=== PATIENT | female | born 1940 | race Caucasian/White ===

== ENCOUNTER 2017-12-15 16:42 | Inpatient (IN) | payer MEDICARE, OTHER ==
[~2017-12-15] VITALS: Ht 167.6 cm; Wt 53.2 kg
[~2017-12-15 16:42] MED LIST: AC500T; ACYC5CRE2 TP; ALEN70TA2 PO; ALN70T PO; ALPR.25T PO; ALPR0.25 PO; ASPI-86 PO; ATOR40TA PO; CALC-80 PO; CALC-850 PO; CHOL200025 PO; CHOL400C8 PO; CLPD75T PO; COQ10 PO; CRS350T PO; CYCL10TA9 PO; DCS100C; DOCU100T7 PO; DULO60CA6 PO; ENXP40I.4 SC; ESZO3TAB3 PO; EZET10TA5 PO; FENO48TA2 PO; FENT-7 TD; FISH1CAP15 PO; FLC1T PO; FLD5TCR PO; FOLI0.4T2; FRSM20T; FURO20TA4 PO; GABA-488 PO; GBPN300C; GLUC1CAP37; GLUC1TAB29 PO; HCT25T PO; HYDR1CAP2; HYDR1TAB66 PO; INSULIN PEN; ISOS30TA3 PO; ISOS30TA74 PO; KCL10CCR; LISI20TA PO; LNS30CCR; LORTAB; LUBI8CAP2 PO; LUNESTA; METH-53 PO; METH454P PO; METO50TA7 PO; MTH750T PO; MULT1TAB12 PO; NALO25TA PO; NAPR-243 PO; NAPR-248 PO; NAPR550T PO; NF-ESOM40C PO; NITR-65 PO; OMEG-11 PO; OMEG1CAP51 PO; OXYC-272 PO; Oxycodone Hcl/Acetaminophen PO; PEG250PW; POLY119P PO; PRD20T PO; PROP65CA PO; PSYL425P10 PO; RELISTOR12 SQ; SENN1TAB76 PO; TR1C15 TOP; VENL75TA6 PO; VITA-23 PO; VNL75CCR PO; [UNRECOGNIZED DRUG - OTHER]
--- NOTE | 2017-12-15 16:51 | ED Abdominal Pain ---
General Stated Complaint: DEHYDRATION Source of Information: Patient, EMS Exam Limitations: No Limitations History of Present Illness Date Seen by Provider: Dec 15, 2017 Time Seen by Provider: 16:49 Initial Comments To ER per EMS from Dr. Gonzalez's office with reports of abdominal pain and volume depletion. Patient arrives with 1 L of IV fluids normal saline infusing. She reports that she's had about 1 month of suprapubic abdominal pain with diarrhea very frequently. She was treated for diverticulitis with Cipro and Flagyl and finished that on Tuesday12/12/17. At that time she was feeling better. However the day of finishing her antibiotics she noticed worsening of her diarrhea abdominal pain. She states that she's having diarrhea about every 2 hours. She reports nausea but denies vomiting. She is able to eat and drink and states that as soon as she eats or drinks she has a bowel movement shortly thereafter. No fever or chills. Timing/Duration: Getting Worse Severity/Quality: Moderate Location: Suprapubic Radiation: No Radiation Associated Symptoms: Back Pain (chronic); No Fever/Chills; Nausea/Vomiting Allergies and Home Medications Allergies Coded Allergies: iodine (Unverified Allergy, Unknown, 01/16/14) latex (Unverified Allergy, Unknown, RASH, 01/16/14) Home Medications Alendronate Sodium 70 Mg Tablet, 70 MG PO WEEKLY, (Reported) Alprazolam 0.25 Mg Tablet, 0.25 MG PO TID PRN for ANXIETY, (Reported) PRN ANXIETY Aspirin 81 Mg Tab.chew, 81 MG PO DAILY, (Reported) Atorvastatin Calcium 40 Mg Tablet, 40 MG PO HS, (Reported) Calcium Carbonate/Vitamin D3 1 Each Tab.chew, 1 EACH PO BID, (Reported) Cholecalciferol (Vitamin D3) 400 Unit Capsule, 800 UNIT PO DAILY, (Reported) TAKE 2 (400 iu) TABS Cyclobenzaprine Hcl 10 Mg Tablet, 10 MG PO HS PRN for MUSCLE SPASMS, (Reported) PRN MUSCLE SPASMS Docusate Sodium 100 Mg Tablet, 100 MG PO BID PRN for CONSTIPATION, (Reported) Duloxetine Hcl 60 Mg Capsule.dr, 60 MG PO DAILY, (Reported) Eszopiclone 3 Mg Tablet, 3 MG PO HS, (Reported) Ezetimibe 10 Mg Tablet, 10 MG PO HS, (Reported) Felodipine 5 Mg Tab.sr.24h, 5 MG PO DAILY, (Reported) Fenofibrate,Micronized 48 Mg Tablet, 48 MG PO DAILY, (Reported) Fentanyl 1 Patch Patch.td72, 1 PATCH TD Q72 HOURS, (Reported) 50 MCG PATCH Hydrochlorothiazide 25 Mg Tablet, 25 MG PO DAILY, (Reported) Isosorbide Mononitrate 30 Mg Tab.sr.24h, 30 MG PO DAILY, (Reported) Lisinopril 20 Mg Tablet, 20 MG PO BID, (Reported) Lubiprostone 8 Mcg Capsule, 8 MCG PO BID, (Reported) Methylcellulose (With Sugar) 539 Gm Powder, 2 GM PO BID, (Reported) Metoprolol Succinate 50 Mg Tab.sr.24h, 50 MG PO DAILY, (Reported) Naloxegol Oxalate 25 Mg Tablet, 25 MG PO DAILY, (Reported) [place]-3S/Dha/Epa/Fish Oil 1 Each Capsule, 1,200 MG PO BID, (Reported) Oxycodone Hcl/Acetaminophen 1 Tab Tablet, 1 TAB PO TID, (Reported) Polyethylene Glycol 119 Gm Btl, 17 GM PO DAILY PRN for CONSTIPATION, (Reported) PRN CONSTIPATION Psyllium Husk/Aspartame 425 Gm Powder, 3.4 GM PO DAILY PRN for CONSTIPATION, ( Reported) PRN CONSTIPATION Senna 1 Tab Tablet, 2 TAB PO DAILY PRN for CONSTIPATION, (Reported) PRN CONSTIPATION Vitamin B Complex 1 Tab Tablet, 1 TAB PO DAILY, (Reported) [Coq10] , 300 MG PO DAILY, (Reported) Patient Home Medication List Home Medication List Reviewed: Yes Review of Systems Review of Systems Constitutional: see HPI; No chills, No fever EENTM: No Symptoms Reported Respiratory: No Symptoms Reported Cardiovascular: No Symptoms Reported Gastrointestinal: See HPI, Abdominal Pain; Denies Constipated; Diarrhea, Nausea ; Denies Vomiting Genitourinary: No Symptoms Reported Musculoskeletal: no symptoms reported Skin: no symptoms reported Psychiatric/Neurological: No Symptoms Reported Endocrine: No Symptoms Reported Hematologic/Lymphatic: No Symptoms Reported Past Pgusizu-Biandx-Lcsqek Hx Patient Social History Recent Foreign Travel: No Contact w/Someone Who Travel: No Immunizations Up To Date Tetanus Booster (TDap): Unknown Date of Pneumonia Vaccine: Jan 29, 2013 Date of Influenza Vaccine: Jan 09, 2014 Past Medical History Breast, CABG, Gallbladder, Hysterectomy Coronary Artery Disease, Heart Attack Reproductive Disorders: Yes (endometriosis) Sexually Transmitted Disease: No Obstructive Bowel, Chronic Constipation Chronic Back Pain Cataract Anxiety, Depression Family Medical History Cancer of colon 19 FATHER, Onset:Unknown G8 BROTHER, Onset:Unknown (STOMACH CA) Family history: Arthritis 19 MOTHER, Onset:Unknown G8 SISTER, Onset:Unknown Family history: Cardiovascular disease G8 BROTHER, Onset:Unknown (BROTHER OF [place] AT AGE 46) SON, Onset:Unknown (SON OF [place] AT AGE 49) Family history: Diabetes mellitus G8 BROTHER, Onset:Unknown Family history: Gastrointestinal disease 19 FATHER, Onset:Unknown G8 BROTHER, Onset:Unknown Family history: Thyroid disorder G8 SISTER, Onset:Unknown Physical Exam Vital Signs Vital Signs - First Documented 12/15/17 16:52 Temp 96.6 Pulse 67 Resp 18 B/P (MAP) 160/83 (108) Pulse Ox 98 O2 Delivery Room Air Capillary Refill : Height/Weight/BMI Height: 5'5.00" Weight: 145lbs. 0.0oz. [id number]; BMI Method:Stated General Appearance: WD/WN, no apparent distress HEENT: PERRL/EOMI, normal ENT inspection Neck: non-tender, full range of motion Respiratory: lungs clear, normal breath sounds, no respiratory distress, no accessory muscle use Cardiovascular: regular rate, rhythm, no murmur Gastrointestinal: normal bowel sounds, soft, tenderness (suprapubic tenderness to palpation. She does have a 50mcg/per hour fentanyl patch left lower abdominal wall. She has active normal bowel sounds in all 4 quadrants) Extremities: normal range of motion, non-tender Neurologic/Psychiatric: alert, normal mood/affect, oriented x 3 Skin: normal color, warm/dry Focused Exam Lactate Level 12/15/17 16:45: Lactic Acid Level 1.19 Lactic Acid Level Laboratory Tests Test 12/15/17 16:45 Lactic Acid Level 1.19 MMOL/L (0.50-2.00) Progress/Results/Core Measures Results/Orders Lab Results Laboratory Tests Test 12/15/17 16:45 12/15/17 17:41 12/15/17 20:10 Range/Units White Blood Count 2.0 L 4.3-11.0 10^3/uL Red Blood Count 4.32 L 4.35-5.85 10^6/uL Hemoglobin 12.6 11.5-16.0 G/DL Hematocrit 37 35-52 % Mean Corpuscular Volume 86 80-99 FL Mean Corpuscular Hemoglobin 29 25-34 PG Mean Corpuscular Hemoglobin Concent 34 32-36 G/DL Red Cell Distribution Width 13.8 10.0-14.5 % Platelet Count 203 130-400 10^3/uL Mean Platelet Volume 9.5 7.4-10.4 FL Neutrophils (%) (Auto) 50 42-75 % Lymphocytes (%) (Auto) 20 12-44 % Monocytes (%) (Auto) 27 H 0-12 % Eosinophils (%) (Auto) 3 0-10 % Basophils (%) (Auto) 2 0-10 % Neutrophils # (Auto) 1.0 L 1.8-7.8 X 10^3 Lymphocytes # (Auto) 0.4 L 1.0-4.0 X 10^3 Monocytes # (Auto) 0.5 0.0-1.0 X 10^3 Eosinophils # (Auto) 0.1 0.0-0.3 10^3/uL Basophils # (Auto) 0.0 0.0-0.1 10^3/uL Neutrophils % (Manual) 39 % Lymphocytes % (Manual) 23 % Monocytes % (Manual) 27 % Eosinophils % (Manual) 1 % Basophils % (Manual) 0 % Band Neutrophils 10 % Blood Morphology Comment NORMAL Sodium Level 135 135-145 MMOL/L Potassium Level 3.4 L 3.6-5.0 MMOL/L Chloride Level 103 98-107 MMOL/L Carbon Dioxide Level 26 21-32 MMOL/L Anion Gap 6 5-14 MMOL/L Blood Urea Nitrogen 18 7-18 MG/DL Creatinine 1.16 0.60-1.30 MG/DL Estimat Glomerular Filtration Rate 46 BUN/Creatinine Ratio 16 Glucose Level 101 70-105 MG/DL Lactic Acid Level 1.19 0.50-2.00 MMOL/L Calcium Level 10.4 H 8.5-10.1 MG/DL Corrected Calcium 10.6 H 8.5-10.1 MG/DL Total Bilirubin 0.4 0.1-1.0 MG/DL Aspartate Amino Transf (AST/SGOT) 17 5-34 U/L Alanine Aminotransferase (ALT/SGPT) 11 0-55 U/L Alkaline Phosphatase 47 40-136 U/L Total Protein 6.3 L 6.4-8.2 GM/DL Albumin 3.8 3.2-4.5 GM/DL Urine Color SMITHA H YELLOW Urine Clarity VERY CLOUDY H CLEAR Urine pH 5 5 5-9 Urine Specific Veteran 1.020 1.005 L 1.016-1.022 Urine Protein 2+ H NEGATIVE NEGATIVE Urine Glucose (UA) NEGATIVE NEGATIVE NEGATIVE Urine Ketones NEGATIVE NEGATIVE NEGATIVE Urine Nitrite NEGATIVE NEGATIVE NEGATIVE Urine Bilirubin NEGATIVE NEGATIVE NEGATIVE Urine Urobilinogen NORMAL NORMAL NORMAL MG/DL Urine Leukocyte Esterase 2+ H NEGATIVE NEGATIVE Urine RBC (Auto) 5+ H 5+ H NEGATIVE Urine RBC >100 H >100 H /HPF Urine WBC 50-100 H NONE /HPF Urine Crystals NONE NONE /LPF Urine Bacteria FEW H NONE /HPF Urine Casts NONE NONE /LPF Urine Mucus NEGATIVE NEGATIVE /LPF Urine Culture Indicated YES NO My Orders Orders - LIZZETTE YARBROUGH APRN Cbc With Automated Diff (12/15/17 16:46) Comprehensive Metabolic Panel (12/15/17 16:46) Ua Culture If Indicated (12/15/17 16:46) C Difficile Ag + Toxin A/B. (12/15/17 16:46) Iv Heplock-Insert (Order) (12/15/17 16:46) Ct Abdomen/Pelvis W (12/15/17 16:46) Chest 1 View, Ap/Pa Only (12/15/17 16:46) Fentanyl Injection (Sublimaze Injection (12/15/17 17:00) Blood Culture (12/15/17 16:47) Lactic Acid Analyzer (12/15/17 16:47) Oxycodone/Acet 10/325mg Tablet (Percocet (12/15/17 17:00) Manual Differential (12/15/17 16:45) Urine Culture (12/15/17 17:41) Ceftriaxone For Iv Use (Rocephin For I (12/15/17 18:15) Ns Iv 1000 Ml (Sodium Chloride 0.9%) (12/15/17 18:15) Iohexol Injection (Omnipaque 350 Mg/Ml 1 (12/15/17 19:00) Ua Culture If Indicated (12/15/17 19:58) Fentanyl Injection (Sublimaze Injection (12/15/17 20:15) Medications Given in ED Current Medications Medications Dose Ordered Sig/Yonatan Route Start Time Stop Time Status Last Admin Dose Admin Ceftriaxone Sodium 1000 mg/ Sodium Chloride 50 ml @ 100 mls/hr ONCE ONCE IV 12/15/17 18:15 12/15/17 18:44 DC 12/15/17 18:34 100 MLS/HR Fentanyl Citrate 50 mcg ONCE ONCE IVP 12/15/17 17:00 12/15/17 17:01 DC 12/15/17 17:26 50 MCG Fentanyl Citrate 50 mcg ONCE ONCE IVP 12/15/17 20:15 12/15/17 20:16 DC 12/15/17 20:20 50 MCG Iohexol 100 ml ONCE ONCE IV 12/15/17 19:00 12/15/17 19:01 DC 12/15/17 18:54 100 ML Oxycodone/ Acetaminophen 1 tab ONCE ONCE PO 12/15/17 17:00 12/15/17 17:01 DC 12/15/17 17:50 1 TAB Vital Signs/I&O 12/15/17 12/15/17 12/15/17 16:52 17:26 17:50 Temp 96.6 96.6 96.6 Pulse 67 Resp 18 B/P (MAP) 160/83 (108) Pulse Ox 98 O2 Delivery Room Air Diagnostic Imaging Diagonstic Imaging: Xray, CT Comments NAME: JASON BELLO [facility] REC#: [id number] PT STATUS: REG ER : 1940 PHYSICIAN: LIZZETTE YARBROUGH APRN ADMIT DATE: 12/15/17/ER Draft Date of Exam:12/15/17 CHEST 1 VIEW, AP/PA ONLY EXAM: CHEST 1 VIEW, AP/PA ONLY. INDICATION: Weakness. COMPARISON: Chest radiograph 04/17/2014. FINDINGS: Cardiomegaly with normal central pulmonary vascularity. Stable prominence of the interstitium. Sternotomy. Calcified aorta. No new focal pulmonary opacity, pleural effusion, or pneumothorax. No acute osseous findings. IMPRESSION: Stable cardiomegaly and chronic-appearing prominence of the interstitium. No acute cardiopulmonary findings. Dictated on workstation # [id number] Dict: 12/15/17 1705 Trans: 12/15/17 1709 [id number] Interpreted by: MARY KOHLER MD Electronically signed by: NAME: JASON BELLO [facility] REC#: [id number] PT STATUS: REG ER : 1940 PHYSICIAN: LIZZETTE YARBROUGH APRN ADMIT DATE: 12/15/17/ER Draft Date of Exam:12/15/17 CT ABDOMEN/PELVIS W PROCEDURE: CT abdomen and pelvis with contrast. TECHNIQUE: Multiple contiguous axial images were obtained through the abdomen and pelvis after administration of intravenous contrast. INDICATION: Dehydration. COMPARISON: 09/25/2013. FINDINGS: Mild presumed senescent and post cholecystectomy ectasia of the intrahepatic and extrahepatic bile duct, stable from previous exam. Nonfocal spleen within normal limits of size. The pancreas appears unremarkable. No opaque stone along the course of the extrahepatic duct. The adrenals are negative. There are left greater than right simple appearing renal cortical cysts. There is a small amount of air within the urinary bladder lumen. There are inflammatory changes diffusely throughout the sigmoid colon and rectum. While there are sigmoidal diverticuli, the diffuse nature of the inflammation would be unusual for changes owing to diverticulitis and nonspecific coloproctitis is suspected. Transverse and ascending colon are nonacute. The small bowel is unobstructed. There is no abscess or fluid collection. There is perisigmoidal or perirectal inflammatory change and edema. There are postsurgical changes of abdominal wall hernia repair with some generalized bulging at and below the umbilicus. Aortoiliac atherosclerotic vascular calcifications are present. No pneumatosis or free gas. No abscess, hematoma or other fluid collection. IMPRESSION: 1. Inflammatory changes throughout the length of the thickened inflamed sigmoid colon as well as the rectum. Scattered colonic and sigmoidal diverticuli; however, the diffuse nature of the inflammation would be atypical for diverticulitis. Nonspecific coloproctitis presumed. No abscess, obstruction or perforation; however, we note some air in the urinary bladder lumen. Correlate with instrumentation as fistulization to the bladder, given the adjacent inflamed bowel loops, could not be excluded in the appropriate clinical scenario. 2. No free air obstruction or abscess. 3. Benign renal cyst. 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 Dictated on workstation # [id number] Dict: 12/15/17 1835 Trans: 12/15/17 9003 [facility] [id number] Interpreted by: POPEYE NUNEZ Electronically signed by: Departure Communication (Admissions) Time/Spoke to Admitting Phy: 20:[address] Gonzalez will admit and consult surgery. Using Zosyn. Time/Spoke to Consulting Phy: 20:49 I I spoke with Dr. Olson on-call for surgery. He will consult. We will also consult Dr. Olmos in the morning regarding neutropenia. 2050- her initial urine sample had evidence of pyuria but this was contaminated with stool. We then repeated the urine sample with a straight catheter urinalysis which failed to show pyuria but showed persistent hematuria. Impression Primary Impression: Colitis Additional Impressions: Urinary tract infection Volume depletion Disposition: ADMITTED INPATIENT Condition: Stable Admissions Decision to Admit Reason: Admit from ER (General) Decision to Admit/Date: Dec 15, 2017 Time/Decision to Admit Time: 20:51 Departure-Patient Inst. Referrals: STEPHANIE GONZALEZ DO (PCP/Family) Primary Care Physician LIZZETTE YARBROUGH APRN Dec 15, 2017 16:51
[2017-12-15 16:57] LABS: BASOPHILS % (AUTO) 2 % (0-10); EOSINOPHILS # (AUTO) 0.1 10^3/uL (0.0-0.3); EOSINOPHILS % (AUTO) 3 % (0-10); HEMATOCRIT 37 % (35-52); HEMOGLOBIN 12.6 G/DL (11.5-16.0); LYMPHOCYTES # (AUTO) 0.4 X 10^3 (1.0-4.0); LYMPHOCYTES % (AUTO) 20 % (12-44); MEAN CORPUSCULAR HEMOGLOBIN 29 PG (25-34); MEAN CORPUSCULAR HGB CONC 34 G/DL (32-36); MEAN CORPUSCULAR VOLUME 86 FL (80-99); MEAN PLATELET VOLUME 9.5 FL (7.4-10.4); MONOCYTES # (AUTO) 0.5 X 10^3 (0.0-1.0); MONOCYTES % (AUTO) 27 % (0-12); NEUTROPHILS % (AUTO) 50 % (42-75); PLATELET COUNT 203 10^3/uL (130-400); RED BLOOD COUNT 4.32 10^6/uL (4.35-5.85); RED CELL DISTRIBUTION WIDTH 13.8 % (10.0-14.5)
[2017-12-15] MEDS ORDERED: fentaNYL INJECTION 100 MCG/2 ML AMP IVP ONE ×2 (17:00→20:15)
[2017-12-15] MEDS ORDERED: oxyCODONE/APAP 10/325MG (PERCOCET 10) TABLET PO ONE (17:00)
--- NOTE | 2017-12-15 17:10 | Diagnostic Imaging Report ---
EXAM: CHEST 1 VIEW, AP/PA ONLY. INDICATION: Weakness. COMPARISON: Chest radiograph 04/17/2014. FINDINGS: Cardiomegaly with normal central pulmonary vascularity. Stable prominence of the interstitium. Sternotomy. Calcified aorta. No new focal pulmonary opacity, pleural effusion, or pneumothorax. No acute osseous findings. IMPRESSION: Stable cardiomegaly and chronic-appearing prominence of the interstitium. No acute cardiopulmonary findings. Dictated by: Dictated on workstation # [id number]
[2017-12-15 17:18] LABS: ALBUMIN 3.8 GM/DL (3.2-4.5); BILIRUBIN,TOTAL 0.4 MG/DL (0.1-1.0); CALCIUM 10.4 MG/DL (8.5-10.1); CREATININE SERUM 1.16 MG/DL (0.60-1.30); POTASSIUM 3.4 MMOL/L (3.6-5.0); TOTAL PROTEIN 6.3 GM/DL (6.4-8.2)
[2017-12-15 17:36] LABS: BAND NEUTROPHILS 10 %; BASOPHILS % (MANUAL) 0 %; EOSINOPHILS % (MANUAL) 1 %; LYMPHOCYTES % (MANUAL) 23 %; MONOCYTES % (MANUAL) 27 %; NEUTROPHILS % (MANUAL) 39 %; RBC MORPH NORMAL
[2017-12-15 17:48] LABS: BILIRUBIN,URINE NEGATIVE (NEGATIVE); CLARITY,URINE VERY CLOUDY; COLOR,URINE AMBER; GLUCOSE, URINE (UA) NEGATIVE (NEGATIVE); KETONES,URINE NEGATIVE (NEGATIVE); LEUKOCYTE ESTERASE ,URINE 2+ (NEGATIVE); NITRITE,URINE NEGATIVE (NEGATIVE); PH,URINE 5 (5-9); PROTEIN,URINE 2+ (NEGATIVE); UROBILINOGEN,URINE NORMAL (NORMAL)
[2017-12-15 17:59] LABS: RBC,URINE >100 /HPF
[2017-12-15 18:00] LABS: BACTERIA,URINE FEW /HPF; WBC,URINE 50-100 /HPF
[2017-12-15] MEDS ORDERED: NS IV 1000 ML 1,000 ML IV SCH (18:15)
[2017-12-15] MEDS ORDERED: cefTRIAXone FOR IV USE 1,000 MG in NS (IVPB) 50 ML IV ONE (18:15)
--- NOTE | 2017-12-15 18:54 | Diagnostic Imaging Report ---
PROCEDURE: CT abdomen and pelvis with contrast. TECHNIQUE: Multiple contiguous axial images were obtained through the abdomen and pelvis after administration of intravenous contrast. INDICATION: Dehydration. COMPARISON: 09/25/2013. FINDINGS: Mild presumed senescent and post cholecystectomy ectasia of the intrahepatic and extrahepatic bile duct, stable from previous exam. Nonfocal spleen within normal limits of size. The pancreas appears unremarkable. No opaque stone along the course of the extrahepatic duct. The adrenals are negative. There are left greater than right simple appearing renal cortical cysts. There is a small amount of air within the urinary bladder lumen. There are inflammatory changes diffusely throughout the sigmoid colon and rectum. While there are sigmoidal diverticuli, the diffuse nature of the inflammation would be unusual for changes owing to diverticulitis and nonspecific coloproctitis is suspected. Transverse and ascending colon are nonacute. The small bowel is unobstructed. There is no abscess or fluid collection. There is perisigmoidal or perirectal inflammatory change and edema. There are postsurgical changes of abdominal wall hernia repair with some generalized bulging at and below the umbilicus. Aortoiliac atherosclerotic vascular calcifications are present. No pneumatosis or free gas. No abscess, hematoma or other fluid collection. IMPRESSION: 1. Inflammatory changes throughout the length of the thickened inflamed sigmoid colon as well as the rectum. Scattered colonic and sigmoidal diverticuli; however, the diffuse nature of the inflammation would be atypical for diverticulitis. Nonspecific coloproctitis presumed. No abscess, obstruction or perforation; however, we note some air in the urinary bladder lumen. Correlate with instrumentation as fistulization to the bladder, given the adjacent inflamed bowel loops, could not be excluded in the appropriate clinical scenario. 2. No free air obstruction or abscess. 3. Benign renal cyst. 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 Dictated by: Dictated on workstation # [id number]
[2017-12-15] MEDS ORDERED: IOHEXOL 350 MG/ML 100 ML (OMNIPAQUE 350) VIAL IV ONE (19:00)
[2017-12-15 20:27] LABS: BILIRUBIN,URINE NEGATIVE (NEGATIVE); CLARITY,URINE CLEAR; COLOR,URINE YELLOW; GLUCOSE, URINE (UA) NEGATIVE (NEGATIVE); KETONES,URINE NEGATIVE (NEGATIVE); LEUKOCYTE ESTERASE ,URINE NEGATIVE (NEGATIVE); NITRITE,URINE NEGATIVE (NEGATIVE); PH,URINE 5 (5-9); PROTEIN,URINE NEGATIVE (NEGATIVE); UROBILINOGEN,URINE NORMAL (NORMAL)
[2017-12-15 20:43] LABS: RBC,URINE >100 /HPF
[2017-12-15] MEDS ORDERED: NS W/KCL 40 MEQ/L 1,000 ML IV ONE (21:22)
[2017-12-15] MEDS: NS W/KCL 40 MEQ/L 1,000 ML IV SCH (21:34)
--- OUTSIDE RECORDS SUMMARY | 2017-12-15 21:34 | XMS REPORT | Continuity of Care Document ---
Author Author [facility] Organization [facility] Address Unknown Phone Unavailable Allergies Active Description Code Type Severity Reaction Onset Reported/Identified Relationship to Patient Clinical Status Yes iodine [id number] Drug Allergy Unknown N/A 01/16/2014 Yes latex [id number] Drug Allergy Unknown RASH 01/16/2014 Medications There is no data. Problems Date Dx Coded Attending Type Code Diagnosis Diagnosed By 05/09/2011 Ot 564.00 UNSPEC CONSTIPATION 09/22/2011 Ot 724.2 LUMBAGO 09/22/2011 Ot V57.1 PHYSICAL THERAPY NEC 05/01/2013 TATIANA EDWARD MD, FACC FACP CCDS Ot 272.4 HYPERLIPIDEMIA NEC/NOS 05/01/2013 TATIANA EDWARD MD, FACC FACP CCDS Ot 401.9 HYPERTENSION NOS 05/01/2013 TATIANA EDWARD MD, FACC FACP CCDS Ot 411.1 INTERMED CORONARY SYND 05/01/2013 TATIANA EDWARD MD, FACC FACP CCDS Ot 414.01 CORONARY ATHEROSCLEROSIS [place] CORON 05/01/2013 TATIANA EDWARD MD, FACC FACP CCDS Ot 414.02 CORON ATHEROSCLEROSIS AUTOLOG VEIN BYPAS 05/01/2013 TATIANA EDWARD MD, FACC FACP CCDS Ot 414.2 CHRONIC TOTAL OCCLUSION OF CORONARY [place] 05/01/2013 TATIANA EDWARD MD, FACC FACP CCDS Ot 440.0 AORTIC ATHEROSCLEROSIS 05/01/2013 TATIANA EDWARD MD, FACC FACP CCDS Ot V45.81 AORTOCORONARY BYPASS 05/01/2013 TATIANA EDWARD MD, FACC FACP CCDS Ot V58.69 OTH MED,LT,CURRENT USE 09/21/2013 KEENAN COLLIER MD Ot 724.2 LUMBAGO 09/21/2013 KEENAN COLLIER MD Ot V57.1 PHYSICAL THERAPY NEC 09/28/2013 GONZALEZSTEPHANIE HENDERSON DO Ot 272.4 HYPERLIPIDEMIA NEC/NOS 09/28/2013 GONZALEZSANTIAGO ESTRELLA STEPHANIE Ot 275.42 HYPERCALCEMIA 09/28/2013 STEPHANIE GONZALEZ DO Ot 285.9 ANEMIA NOS 09/28/2013 STEPHANIE GONZALEZ DO Ot 311 DEPRESSIVE DISORDER NEC 09/28/2013 STEPHANIE GONZALEZ DO Ot 401.9 HYPERTENSION NOS 09/28/2013 GONZÁLEZ GONZALEZ DOI Ot 414.05 CORON ATHEROSCLER,BYPASS GRAFT NOS 09/28/2013 GONZÁLEZ GONZALEZ DOI Ot 433.30 MULT BILTRAL ARTERY OCCLUSION WO CEREBRA 09/28/2013 GONZÁLEZ GONZALEZ DOI Ot 560.9 INTESTINAL OBSTRUCT NOS 09/28/2013 GONZÁLEZ GONZALEZ DOI Ot 564.89 OTH FUNCT DISORDERS/INTESTINE 09/28/2013 GONZÁLEZ GONZALEZ DOI Ot 715.90 OSTEOARTHROS NOS-UNSPEC 09/28/2013 STEPHANIE GONZALEZ DO Ot 724.5 BACKACHE NOS 09/28/2013 STEPHANIE GONZALEZ DO Ot E937.9 ADV EFF SEDAT/HYPNOT NOS 09/28/2013 STEPHANIE GONZALEZ DO Ot V45.81 AORTOCORONARY BYPASS 11/16/2013 KEENAN COLLIER MD Ot 721.2 THORACIC SPONDYLOSIS 11/16/2013 KEENAN COLLIER MD Ot 721.3 LUMBOSACRAL SPONDYLOSIS 11/16/2013 KEENAN COLLIER MD Ot 722.52 LUMB/LUMBOSAC DISC DEGEN 11/16/2013 KEENAN COLLIER MD Ot 729.1 MYALGIA AND MYOSITIS NOS 11/16/2013 KEENAN COLLIER MD Ot V58.69 OTH MED,LT,CURRENT USE 01/29/2014 SAVITA BAHENA MD Ot 272.0 PURE HYPERCHOLESTEROLEM 01/29/2014 SAVITA BAHENA MD Ot 278.00 OBESITY, NOS 01/29/2014 SAVITA BAHENA MD Ot 285.9 ANEMIA NOS 01/29/2014 SAVITA BAHENA MD Ot 300.00 ANXIETY STATE NOS 01/29/2014 SAVITA BAHENA MD Ot 311 DEPRESSIVE DISORDER NEC 01/29/2014 SAVITA BAHENA MD Ot 327.23 OBSTRUCTIVE SLEEP APNEA (ADULT) (PEDIATR 01/29/2014 SAVITA BAHENA MD Ot 397.0 TRICUSPID VALVE DISEASE 01/29/2014 SAVITA BAHENA MD Ot 401.9 HYPERTENSION NOS 01/29/2014 SAVITA BAHENA MD Ot 412 OLD MYOCARDIAL INFARCT 01/29/2014 SAVITA BAHENA MD Ot 414.01 CORONARY ATHEROSCLEROSIS OF [place] CORON 01/29/2014 SAVITA BAHENA MD Ot 424.0 MITRAL VALVE DISORDER 01/29/2014 SAVITA BAHENA MD Ot 564.00 UNSPEC CONSTIPATION 01/29/2014 SAVITA BAHENA MD Ot 715.90 OSTEOARTHROS NOS-UNSPEC 01/29/2014 SAVITA BAHENA MD Ot 722.6 DISC DEGENERATION NOS 01/29/2014 SAVITA BAHENA MD Ot 724.03 SPINAL STENOSIS, LUMBAR REGION, W NEUROG 01/29/2014 SAVITA BAHENA MD Ot 733.00 OSTEOPOROSIS NOS 01/29/2014 SAVIAT BAHENA MD Ot 738.4 ACQ SPONDYLOLISTHESIS 01/29/2014 SAVITA BAHENA MD Ot V04.81 ND FOR PROPHYLACTIC VACCIN AND INOCULATI 01/29/2014 SAVITA BAHENA MD Ot V45.81 AORTOCORONARY BYPASS 01/29/2014 SAVITA BAHENA MD Ot V85.23 BODY MASS INDEX 27.0-27.9, ADULT 03/30/2014 DEJUAN JONES DO Ot 780.54 HYPERSOMNIA, UNSPECIFIED 03/30/2014 DEJUAN JONES DO Ot 786.09 RESPIRATORY ABNORM NEC 04/01/2014 STEPHANIE GONZALEZ DO Ot 276.51 04/15/2014 STEPHANIE GONZALEZ DO Ot 276.51 05/11/2014 DEJUAN JONES DO Ot 296.90 05/11/2014 DEJUAN JONES DO Ot 799.02 06/04/2014 DEJUAN JONES DO Ot 296.90 06/04/2014 DEJUAN JONES DO Ot 799.02 07/11/2014 Ot 719.42 07/11/2014 Ot 719.45 09/20/2014 STEPHANIE GONZALEZ DO Ot V76.12 10/05/2014 Ot 719.42 10/05/2014 Ot 719.45 11/08/2014 KEENAN COLLIER MD Ot 338.4 CHRONIC PAIN SYNDROME 11/08/2014 KEENAN COLLIER MD Ot 722.52 LUMB/LUMBOSAC DISC DEGEN 11/08/2014 KEENAN COLLIER MD Ot 722.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 11/22/2014 KEENAN COLLIER MD Ot 338.29 11/22/2014 KEENAN COLLIER MD Ot 722.83 11/22/2014 KEENAN COLLIER MD Ot V72.63 11/22/2014 KEENAN COLLIER MD Ot V74.8 12/03/2014 SAVITA BAHENA MD Ot 721.0 12/04/2014 SAVITA BAHENA MD Ot 721.0 12/12/2014 SAVITA BAHENA MD Ot 721.0 12/30/2014 SAVITA BAHENA MD Ot 721.0 08/30/2016 Ot 715.94 OSTEOARTHROS NOS-HAND 08/30/2016 Ot 729.5 PAIN IN LIMB 08/30/2016 Ot 564.00 UNSPEC CONSTIPATION 08/30/2016 Ot 721.3 LUMBOSACRAL SPONDYLOSIS 08/30/2016 Ot 793.89 OTH (ABN) FINDINGS ON RADIOLOGICAL EXAMI 08/30/2016 Ot V76.12 OTH SCREEN MAMMO-MALIGN NEOPLASM OF [place] 08/30/2016 Ot 610.1 DIFFUS CYSTIC MASTOPATHY 08/30/2016 STEPHANIE GONZALEZ DO Ot V76.12 OTH SCREEN MAMMO-MALIGN NEOPLASM OF [place] 08/30/2016 ABISAI SHERMAN ACCORDION MAKER Ot 272.4 HYPERLIPIDEMIA NEC/NOS 08/30/2016 CARMEN SHERMANHER L ACCORDION MAKER Ot 401.9 HYPERTENSION NOS 08/30/2016 ABISAI SHERMAN L ACCORDION MAKER Ot 414.00 CORON ATHEROSCLER NOS TYPE VESSEL, NATIV 08/30/2016 ABISAI SHERMAN ACCORDION MAKER Ot 782.3 EDEMA 08/30/2016 WHIT ABISAI L ACCORDION MAKER Ot 786.09 RESPIRATORY ABNORM NEC 08/30/2016 ABISAI SHERMAN L ACCORDION MAKER Ot 786.50 CHEST PAIN NOS 08/30/2016 STEPHANIE GONZALEZ DO Ot 240.9 GOITER NOS 08/30/2016 KEENAN COLLIER MD Ot 241.0 NONTOX UNINODULAR GOITER 08/30/2016 KEENAN COLLIER MD Ot 721.3 LUMBOSACRAL SPONDYLOSIS 08/30/2016 KEENAN COLLIER MD Ot 724.1 PAIN IN THORACIC SPINE 08/30/2016 GONZALEZ DO, STEPHANIE Ot 240.9 GOITER NOS 08/30/2016 KEENAN COLLIER MD Ot 724.1 PAIN IN THORACIC SPINE 08/30/2016 KEENAN COLLIER MD Ot 722.52 LUMB/LUMBOSAC DISC DEGEN 08/30/2016 KEENAN COLLIER MD Ot 738.4 ACQ SPONDYLOLISTHESIS 08/30/2016 KEENAN COLLIER MD Ot 719.46 JOINT PAIN-L/LEG 08/30/2016 SAVITA BAHENA MD Ot 721.3 LUMBOSACRAL SPONDYLOSIS 08/30/2016 SAVITA BAHENA MD Ot V72.63 PRE-PROCEDURAL LABORATORY EXAMINATION 08/30/2016 SAVITA BAHENA MD Ot V74.8 SCREEN-BACTERIAL DIS NEC 08/30/2016 STEPHANIE GONZALEZ DO Ot 276.51 DEHYDRATION 08/30/2016 DEJUAN JONES DO Ot 296.90 UNSPECIFIED EPISODIC MOOD DISORDER 08/30/2016 DEJUAN JONES DO Ot 799.02 HYPOXEMIA 08/30/2016 Ot 719.42 JOINT PAIN- UP/ARM 08/30/2016 Ot 719.45 JOINT PAIN- PELVIS 08/30/2016 STEPHANIE GONZALEZ DO Ot V76.12 OTH SCREEN MAMMO-MALIGN NEOPLASM OF [place] 08/30/2016 EKENAN COLLIER MD Ot 338.29 OTHER CHRONIC PAIN 08/30/2016 KEENAN COLLIER MD Ot 722.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 08/30/2016 KEENAN COLLIER MD Ot V72.63 PRE-PROCEDURAL LABORATORY EXAMINATION 08/30/2016 KEENAN COLLIER MD Ot V74.8 SCREEN-BACTERIAL DIS NEC 08/30/2016 SAVITA BAHENA MD Ot 721.0 CERVICAL SPONDYLOSIS Procedures Code Description Performed By Performed On 77.79 EXCISE BONE FOR GFT NEC 01/24/2014 81.06 LUMBAR LUMBOSACRAL FUSION OF ANTERIOR 01/24/2014 81.08 LUMBAR LUMBOSACRAL FUSION OF ANTERIOR 01/24/2014 81.62 FUSION/REFUS OF 2-3 VERTEBRAE 01/24/2014 84.51 INSERTION OF INTERBODY SPINAL FUSION DEV 01/24/2014 Results There is no data. Encounters ACCT No. Visit Date/Time Discharge Status Pt. Type Provider Facility Loc./Unit Complaint [id number] 11/22/2014 12:32:00 11/22/2014 23:59:59 CLS Outpatient SAVITA BAHENA MD [facility] RAD POST LAMI SYNDROME [id number] 11/08/2014 06:00:00 11/08/2014 11:30:00 DIS Outpatient KEENAN COLLIER MD [facility] CHRONIC PAIN AND LUMBAR POST LAMINECTOMY SYNDROMES [id number] 10/31/2014 10:40:00 10/31/2014 23:59:59 CLS Outpatient KEENAN COLLIER MD [facility] PREOP CHRONIC PAIN AND LUMBAR POST LAMINECTOMY SYNDROMES [id number] 08/20/2014 13:22:00 08/20/2014 23:59:59 CLS Outpatient STEPHANIE GONZALEZ DO [facility] RAD SCREENING [id number] 04/17/2014 14:03:00 04/17/2014 23:59:59 CLS Outpatient DEJUAN JONES DO [facility] RT SOB,HYPOXIA,SNORING,MOOD DISORDER [id number] 03/29/2014 21:16:00 03/30/2014 06:50:00 DIS Outpatient DEJUAN JONES DO [facility] SLEEP CHOKING,FRANKLIN [id number] 02/27/2014 11:41:00 02/27/2014 23:59:59 CLS Outpatient STEPHANIE GONZALEZ DO [facility] SDC DEHYDRATION [id number] 01/24/2014 10:00:00 01/29/2014 11:00:00 DIS Inpatient SAVITA BAHENA MD [facility] SURGICAL STENOSIS [id number] 01/16/2014 09:00:00 01/16/2014 23:59:59 CLS Outpatient SAVITA BAHENA MD [facility] PREOP STENOSIS [id number] 11/16/2013 07:50:00 11/16/2013 08:29:00 DIS Outpatient KEENAN COLLIER MD [facility] CARD THORACIC SPONDOLOYSIS [id number] 11/06/2013 15:09:00 11/06/2013 23:59:59 CLS Outpatient KEENAN COLLIER MD [facility] RAD KNEE PAIN,RIGHT [id number] 11/02/2013 14:45:00 11/02/2013 23:59:59 CLS Outpatient KEENAN COLLIER MD [facility] RAD DDD [id number] 09/25/2013 23:45:00 09/28/2013 11:55:00 DIS Inpatient GONZALEZ DO, STEPHANIE [facility] SURGICAL SMALL BOWEL OBSTRUCTION [id number] 09/18/2013 09:51:00 09/21/2013 13:12:00 DIS Outpatient KEENAN COLLIER MD [facility] REHAB LUMBAGO [id number] 09/17/2013 12:15:00 09/17/2013 23:59:59 CLS Outpatient KEENAN COLLIER MD [facility] RAD THORICALGIA [id number] 05/16/2013 11:11:00 05/16/2013 23:59:59 CLS Outpatient GONZALEZ DO, STEPHANIE [facility] RAD THYROID MASS [id number] 05/08/2013 11:30:00 05/08/2013 23:59:59 CLS Outpatient KEENAN COLLIER MD [facility] RAD LUMBAGO,THORACALGIA [id number] 05/08/2013 11:23:00 05/08/2013 23:59:59 CLS Outpatient GONZALEZ DO, STEPHANIE [facility] RAD THYROID MASS [id number] 05/01/2013 09:12:00 05/01/2013 17:35:00 DIS Outpatient CHEYANNE CONTRERAS FACCTATIANA FACP CCDS [facility] CATH CHEST PAIN, CAD,HLP,HTN, [id number] 04/25/2013 09:33:00 04/25/2013 23:59:59 CLS Outpatient ABISAI SHERMAN [facility] CARD CHEST PAIN,CAD,HLP, HTN [id number] 03/27/2013 09:46:00 03/27/2013 23:59:59 CLS Outpatient GONZALEZ DO, STEPHANIE [facility] RAD SCREENING [id number] 08/30/2016 08:18:00 Document Registration [id number] 08/30/2016 08:17:00 Document Registration [id number] 06/17/2014 16:26:00 Document Registration [id number] 12/08/2011 08:43:00 Document Registration [id number] 11/25/2011 09:02:00 Document Registration [id number] 09/22/2011 08:54:00 Document Registration [id number] 07/28/2011 13:34:00 Document Registration [id number] 05/21/2011 13:45:00 Document Registration [id number] 05/10/2011 00:00:00 Document Registration [id number] 02/08/2011 10:07:00 Document Registration
[2017-12-15] MEDS ORDERED: PIPERACILLIN/TAZO 4.5 GM/NS 100 ML IV ONE ×2 (21:45)
[2017-12-15 22:00] VITALS: BP 182/74
--- NOTE | 2017-12-15 22:31 | History & Physical-Surgical ---
History of Present Illness History of Present Illness Reason for visit/HPI WRONG NOTE TYPE STARTED IN ERROR. PLEASE SEE CONSULT NOTE. --Govind Staples, MS3 Surgery asked to consult regarding abdominal pain. Per ED report: To ER per EMS from Dr. Gonzalez's office with reports of abdominal pain and volume depletion. Patient arrives with 1 L of IV fluids normal saline infusing. She reports that she's had about 1 month of suprapubic abdominal pain with diarrhea very frequently. She was treated for diverticulitis with Cipro and Flagyl and finished that on Tuesday12/12/17. At that time she was feeling better. However the day of finishing her antibiotics she noticed worsening of her diarrhea abdominal pain. She states that she's having diarrhea about every 2 hours. She reports nausea but denies vomiting. She is able to eat and drink and states that as soon as she eats or drinks she has a bowel movement shortly thereafter. No fever or chills. Date of Admission Dec 15, 2017 at 21:09 Date Seen by Provider: Dec 15, 2017 Time Seen by Provider: 20:20 I consulted on this patient on 12/15/17 22:25 Attending Physician Maritza Gonzalez DO Admitting Physician Maritza Gonzalez DO Consult Sourav Olson DO Allergies and Home Medications Allergies Coded Allergies: iodine (Unverified Allergy, Unknown, 01/16/14) latex (Unverified Allergy, Unknown, RASH, 01/16/14) Home Medications Ascorbate Calcium 500 Mg Tablet, 500 MG PO DAILY, (Reported) Atorvastatin Calcium 40 Mg Tablet, 40 MG PO HS, (Reported) Beta-Carotene 10,000 Unit Capsule, 10,000 UNIT PO DAILY, (Reported) Bisacodyl 5 Mg Tablet.dr, 5 MG PO DAILY PRN for CONSTIPATION-5TH LINE, (Reported ) Cholecalciferol (Vitamin D3) 1,000 Unit Capsule, 1,000 UNIT PO DAILY, (Reported) Cholestyramine/Aspartame 4 Gm Powd.pack, 4 GM PO ACHS PRN for DIARRHEA Prescribed by: MARITZA GONZALEZ on 12/19/17908 Clopidogrel Bisulfate 75 Mg Tablet, 75 MG PO 1800, (Reported) Dicyclomine HCl 10 Mg Capsule, 20 MG PO ACHS Prescribed by: MARITZA GONZALEZ on 12/19/17908 Docusate Sodium 100 Mg Capsule, 200 MG PO DAILY PRN for CONSTIPATION-1ST LINE, ( Reported) Duloxetine HCl 30 Mg Capsule.dr, 30 MG PO DAILY, (Reported) TAKES ALONG WITH 60MG CAPSULE Duloxetine HCl 60 Mg Capsule.dr, 60 MG PO DAILY, (Reported) TAKES ALONG WITH 30MG CAPSULE Ezetimibe 10 Mg Tablet, 10 MG PO HS, (Reported) Felodipine 5 Mg Tab.er.24h, 5 MG PO DAILY, (Reported) Fenofibrate Nanocrystallized 48 Mg Tablet, 48 MG PO HS, (Reported) Fentanyl 1 Each Patch.td72, 50 MCG TD Q72H, (Reported) Folic Acid 0.8 Mg Tablet, 0.8 MG PO DAILY, (Reported) Isosorbide Mononitrate 30 Mg Tab.er.24h, 30 MG PO DAILY, (Reported) Linaclotide 290 Mcg Capsule, 290 MCG PO DAILY, (Reported) Lisinopril 20 Mg Tablet, 20 MG PO 1800,2200, (Reported) Methylcellulose (with Sugar) 850 Gm Powder, 1.5 TBS PO DAILY, (Reported) Metoprolol Succinate 50 Mg Tab.er.24h, 50 MG PO DAILY, (Reported) [place] 3 Polyunsat Fatty Acids 1,000 Mg Cap, 1,000 MG PO DAILY, (Reported) Oxycodone HCl/Acetaminophen 1 Each Tablet, 1 TAB PO Q6H, (Reported) Polyethylene Glycol 3350 17 Gm Powd.pack, 17 GM PO DAILY PRN for CONSTIPATION- 2ND LINE, (Reported) Ubidecarenone 300 Mg Capsule, 300 MG PO DAILY, (Reported) Vancomycin HCl 125 Mg/2.5 Ml Syringe, 125 MG PO QID Prescribed by: MARITZA GONZALEZ on 12/19/17 0912 Vitamin B Complex 1 Each Capsule, 1 CAP PO DAILY, (Reported) Patient Home Medication List Home Medication List Reviewed: Yes Past Ghcdqmo-Mqrdwv-Zqhskv Hx Patient Social History Alcohol Use: Denies Use Recreational Drug Use: No Smoking Status: Never a Smoker Recent Foreign Travel: No Contact w/Someone Who Travel: No Recent Infectious Disease Expo: No Recent Hopitalizations: No Immunizations Up To Date Tetanus Booster (TDap): Unknown Date of Pneumonia Vaccine: Jan 29, 2013 Date of Influenza Vaccine: Jan 09, 2014 Seasonal Allergies Seasonal Allergies: Yes Surgeries History of Surgeries: Yes (LAPAROSCOPIC ADHESION REMOVAL, OPEN HERNIA SX, 2 BACK SURGERIES) Surgeries: Breast, CABG, Gallbladder, Hysterectomy Respiratory History of Respiratory Disorde: No Cardiovascular History of Cardiac Disorders: Yes (TRIPLE AND QUAD BYPASS) Cardiac Disorders: Coronary Artery Disease, Heart Attack Neurological History of Neurological Disord: No Reproductive System Hx Reproductive Disorders: Yes (endometriosis) Sexually Transmitted Disease: No Genitourinary History of Genitourinary Disor: Yes Genitourinary Disorders: Bladder Infection Gastrointestinal History of Gastrointestinal Di: Yes Gastrointestinal Disorders: Obstructive Bowel, Chronic Constipation, Diverticulosis Musculoskeletal History of Musculoskeletal Dis: Yes (osteoarthritis/osteoporosis) Musculoskeletal Disorders: Osteoporosis, Chronic Back Pain Endocrine History of Endocrine Disorders: No HEENT HEENT Disorders: Cataract Cancer History of Cancer: No Psychosocial History of Psychiatric Problem: Yes Behavioral Health Disorders: Anxiety, Depression Integumentary History of Skin or Integumenta: No Blood Transfusions History of Blood Disorders: Yes (ANEMIA) Family Medical History Family Medial History: Cancer of colon 19 FATHER, Onset:Unknown G8 BROTHER, Onset:Unknown (STOMACH CA) Family history: Arthritis 19 MOTHER, Onset:Unknown G8 SISTER, Onset:Unknown Family history: Cardiovascular disease G8 BROTHER, Onset:Unknown (BROTHER OF MA AT AGE 46) SON, Onset:Unknown (SON OF MA AT AGE 49) Family history: Diabetes mellitus G8 BROTHER, Onset:Unknown Family history: Gastrointestinal disease 19 FATHER, Onset:Unknown G8 BROTHER, Onset:Unknown Family history: Thyroid disorder G8 SISTER, Onset:Unknown Review of Systems Constitutional: No chills, No fever; malaise, weakness EENTM: No blurred vision, No eye pain Respiratory: No cough, No short of breath Cardiovascular: No chest pain, No palpitations Gastrointestinal: abdominal pain, diarrhea, melena, nausea, vomiting Genitourinary: No hematuria : No Musculoskeletal: back pain, joint swelling, muscle stiffness Skin: No pruritus, No rash Psychiatric/Neurological: Depressed; Denies Headache, Denies Paresthesia; Weakness Pt denies any abnormal bleeding/bruising Physical Exam Vital Signs Vital Signs - First Documented 12/17/17 00:00 Temp 98.9 Pulse 66 Resp 20 B/P (MAP) 136/85 (102) Pulse Ox 97 O2 Delivery Room Air Capillary Refill : Less Than 3 Seconds Height, Weight, BMI Height: 5'6.00" Weight: 123lbs. 0.0oz. 55.943130ri; BMI Method:Stated General Appearance: No Apparent Distress, WD/WN, Anxious; No Chronically ill Eyes: Bilateral Eye PERRL, Bilateral Eye EOMI HEENT: Pharynx Normal, Moist Mucous Membranes; No Scleral Icterus (L), No Scleral Icterus (R) Neck: Full Range of Motion, Supple; No JVD Respiratory: Lungs Clear, Normal Breath Sounds, No Respiratory Distress Cardiovascular: Regular Rate, Rhythm, No Edema, Normal Peripheral Pulses, Systolic Murmur Gastrointestinal: Normal Bowel Sounds, No Organomegaly, Tenderness (suprapubic w/ deep palpation) Rectal: Deferred Back: Decreased Range of Motion, Vertebral Tenderness Extremity: Normal Range of Motion, No Calf Tenderness, No Pedal Edema Neurologic/Psychiatric: Alert, Oriented x3, No Motor/Sensory Deficits, Normal Mood/Affect, still pump operator II-XII Norm as Tested Skin: Normal Color, Warm/Dry; No Diaphoresis Lymphatic: No Adenopathy (cervical, axillary, or groin) Data Review Labs Microbiology 12/15/17 Blood Culture - Final, Complete No growth 12/16/17 Stool Culture - Final, Complete See Comments 12/15/17 Urine Culture - Final, Complete See Comments Radiology PROCEDURE: CT abdomen and pelvis with contrast. TECHNIQUE: Multiple contiguous axial images were obtained through the abdomen and pelvis after administration of intravenous contrast. INDICATION: Dehydration. COMPARISON: 09/25/2013. FINDINGS: Mild presumed senescent and post cholecystectomy ectasia of the intrahepatic and extrahepatic bile duct, stable from previous exam. Nonfocal spleen within normal limits of size. The pancreas appears unremarkable. No opaque stone along the course of the extrahepatic duct. The adrenals are negative. There are left greater than right simple appearing renal cortical cysts. There is a small amount of air within the urinary bladder lumen. There are inflammatory changes diffusely throughout the sigmoid colon and rectum. While there are sigmoidal diverticuli, the diffuse nature of the inflammation would be unusual for changes owing to diverticulitis and nonspecific coloproctitis is suspected. Transverse and ascending colon are nonacute. The small bowel is unobstructed. There is no abscess or fluid collection. There is perisigmoidal or perirectal inflammatory change and edema. There are postsurgical changes of abdominal wall hernia repair with some generalized bulging at and below the umbilicus. Aortoiliac atherosclerotic vascular calcifications are present. No pneumatosis or free gas. No abscess, hematoma or other fluid collection. IMPRESSION: 1. Inflammatory changes throughout the length of the thickened inflamed sigmoid colon as well as the rectum. Scattered colonic and sigmoidal diverticuli; however, the diffuse nature of the inflammation would be atypical for diverticulitis. Nonspecific coloproctitis presumed. No abscess, obstruction or perforation; however, we note some air in the urinary bladder lumen. Correlate with instrumentation as fistulization to the bladder, given the adjacent inflamed bowel loops, could not be excluded in the appropriate clinical scenario. 2. No free air obstruction or abscess. 3. Benign renal cyst. 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 Dictated by: Dictated on workstation # [id number] Dict: 12/15/17 1835 Trans: 12/15/171926 Interpreted by: POPEYE NUNEZ Electronically signed by: POPEYE NUNEZ 12/15/171926 Assessment/Plan Assessment/Plan Admission Status: Inpatient Order (span 2 midnights) GOVIND STAPLES MEDICAL STUDENT Dec 15, 2017 22:31
--- OUTSIDE RECORDS SUMMARY | 2017-12-15 23:10 | XMS REPORT | Continuity of Care Document ---
Author Author [facility] Organization [facility] Address Unknown Phone Unavailable Allergies Active Description Code Type Severity Reaction Onset Reported/Identified Relationship to Patient Clinical Status Yes iodine [id number] Drug Allergy Unknown N/A 01/16/2014 Yes latex [id number] Drug Allergy Unknown RASH 01/16/2014 Medications There [...] FACP CCDS Ot 414.01 CORONARY ATHEROSCLEROSIS OF [place] CORON 05/01/2013 TATIANA EDWARD MD, FACC FACP [...] BAHENA MD Ot 414.01 CORONARY ATHEROSCLEROSIS OF [place] CORON 01/29/2014 SAVITA BAHENA MD Ot 424.0 MITRAL VALVE DISORDER 01/29/2014 SAVITA BAHENA MD Ot 564.00 UNSPEC CONSTIPATION 01/29/2014 SAVITA BAHENA MD Ot 715.90 OSTEOARTHROS NOS-UNSPEC 01/29/2014 SAVITA BAHENA MD Ot 722.6 DISC DEGENERATION NOS 01/29/2014 SAVITA BAHENA MD Ot 724.03 SPINAL STENOSIS, LUMBAR REGION, W NEUROG 01/29/2014 SAVITA BAHENA MD Ot 733.00 OSTEOPOROSIS NOS 01/29/2014 SAVITA BAHENA MD Ot 738.4 ACQ SPONDYLOLISTHESIS 01/29/2014 [...] MAMMO-MALIGN NEOPLASM OF ROBERT 08/30/2016 ABISAI SHERMAN RN DIABETES EDUCATOR Ot 272.4 HYPERLIPIDEMIA NEC/NOS 08/30/2016 CARMEN SHERMANHER L RN DIABETES EDUCATOR Ot 401.9 HYPERTENSION NOS 08/30/2016 ABISAI SHERMAN L RN DIABETES EDUCATOR Ot 414.00 CORON ATHEROSCLER NOS TYPE VESSEL, NATIV 08/30/2016 ABISAI SHERMAN RN DIABETES EDUCATOR Ot 782.3 EDEMA 08/30/2016 WHIT ABISAI L RN DIABETES EDUCATOR Ot 786.09 RESPIRATORY ABNORM NEC 08/30/2016 ABISAI SHERMAN L RN DIABETES EDUCATOR Ot 786.50 CHEST PAIN NOS 08/30/2016 STEPHANIE [...] OTH SCREEN MAMMO-MALIGN NEOPLASM OF ROBERT 08/30/2016 KEENAN COLLIER MD Ot 338.29 OTHER CHRONIC PAIN [...] Status Pt. 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 [id number] 08/20/2014 13:22:00 08/20/2014 23:59:59 CLS Outpatient STEPHANIE GONZALEZ DO [facility] RAD SCREENING [id number] 04/17/2014 14:03:00 04/17/2014 23:59:59 CLS Outpatient DEJUAN JONES DO [facility] RT SOB,HYPOXIA,SNORING,MOOD DISORDER [id number] 03/29/2014 21:16:00 03/30/2014 06:50:00 DIS Outpatient DEJUAN JONES DO [facility] SLEEP CHOKING,FRANKLIN [id number] 02/27/2014 11:41:00 02/27/2014 23:59:59 CLS Outpatient STEPHANIE GONZALEZ DO [facility] SDC DEHYDRATION [id number] 01/24/2014 10:00:00 01/29/2014 11:00:00 DIS Inpatient SAVITA BAHENA MD [facility] SURGICAL STENOSIS [id number] 01/16/2014 09:00:00 01/16/2014 23:59:59 CLS Outpatient SAVITA BAHENA MD [facility] PREOP STENOSIS [id number] 11/16/2013 07:50:00 11/16/2013 08:29:00 DIS Outpatient KEENAN COLLIER MD [facility] CARD THORACIC SPONDOLOYSIS [id number] 11/06/2013 15:09:00 11/06/2013 23:59:59 CLS Outpatient KEENAN COLLIER MD [facility] RAD KNEE PAIN,RIGHT [id number] 11/02/2013 14:45:00 11/02/2013 23:59:59 CLS Outpatient KEENAN COLLIER MD [facility] RAD DDD [id number] 09/25/2013 23:45:00 09/28/2013 11:55:00 DIS Inpatient GONZALEZ DO, STEPHANIE [facility] SURGICAL SMALL BOWEL OBSTRUCTION [id number] 09/18/2013 09:51:00 09/21/2013 13:12:00 DIS Outpatient KEENAN COLLIER MD [facility] REHAB LUMBAGO [id number] 09/17/2013 12:15:00 09/17/2013 23:59:59 CLS Outpatient KEENAN COLLIER MD [facility] RAD THORICALGIA [id number] 05/16/2013 11:11:00 05/16/2013 23:59:59 CLS Outpatient GONZALEZ DO, STEPHANIE [facility] RAD THYROID MASS [id number] 05/08/2013 11:30:00 05/08/2013 23:59:59 CLS Outpatient KEENAN COLLIER MD [facility] RAD LUMBAGO,THORACALGIA [id number] 05/08/2013 11:23:00 05/08/2013 23:59:59 CLS Outpatient GONZALEZ DO, STEPHANIE [facility] RAD THYROID MASS [id number] 05/01/2013 09:12:00 05/01/2013 17:35:00 DIS Outpatient CHEYANNE CONTRERAS FACCTATIANA FACP CCDS [facility] CATH CHEST PAIN, CAD,HLP,HTN, [id number] 04/25/2013 09:33:00 04/25/2013 23:59:59 CLS Outpatient ABISAI SHERMAN [facility] CARD CHEST PAIN,CAD,HLP, HTN [id number] 03/27/2013 09:46:00 03/27/2013 23:59:59 CLS Outpatient GONZALEZ DO, STEPHANIE [facility] RAD SCREENING [id number] 08/30/2016 08:18:00 Document Registration [id number] 08/30/2016 08:17:00 Document Registration [id number] 06/17/2014 16:26:00 Document Registration [id number] 12/08/2011 08:43:00 Document Registration [id number] 11/25/2011 09:02:00 Document Registration [id number] 09/22/2011 08:54:00 Document Registration [id number] 07/28/2011 13:34:00 Document Registration [id number] 05/21/2011 13:45:00 Document Registration [id number] 05/10/2011 00:00:00 Document Registration [id number] 02/08/2011 10:07:00 Document Registration
--- NOTE | 2017-12-15 23:14 | Consultation ---
History of Present Illness History of Present Illness Patient Consulted On(celestine/time) 12/15/17 23:07 Date Seen by Provider: Dec 15, 2017 Time Seen by Provider: 20:20 Reason for Visit: Abdominal pain, diarrhea History of Present Illness Surgery asked to consult regarding abdominal pain. Per ED report: To ER per EMS from Dr. Koch's office with reports of abdominal pain and volume depletion. Patient arrives with 1 L of IV fluids normal saline infusing. She reports that she's had about 1 month of suprapubic abdominal pain with diarrhea very frequently. She was treated for diverticulitis with Cipro and Flagyl and finished that on Tuesday12/12/17. At that time she was feeling better. However the day of finishing her antibiotics she noticed worsening of her diarrhea abdominal pain. She states that she's having diarrhea about every 2 hours. She reports nausea but denies vomiting. She is able to eat and drink and states that as soon as she eats or drinks she has a bowel movement shortly thereafter. No fever or chills. Pt states that initially her diarrhea was black, but she thinks this was because she was taking PeptoBismol. She denies hematochezia. For the past day or so she has had the urge to defecate every 2-3 hours but can only expel white/ yellow pus. She states that the pain is suprapubic, constant, crampy, and "unbearable". It does not radiate. She states that her last colonoscopy was 3 years ago; all that was visualized were previously diagnosed diverticula. Desiree Simms, DO I interviewed pt myself and got the information above; she also states she saw Dr. Juan 3 months ago for her chronic constipation but was not having the diarrhea at that time. She denies any ABX before she got the cipro and flagyl for suspected Diverticulitis; which was started after the diarrhea. She denies long-term PPI use. Allergies and Home Medications Allergies Coded Allergies: iodine (Unverified Allergy, Unknown, 01/16/14) latex (Unverified Allergy, Unknown, RASH, 01/16/14) Home Medications Alendronate Sodium 70 Mg Tablet, 70 MG PO WEEKLY, (Reported) Alprazolam 0.25 Mg Tablet, 0.25 MG PO TID PRN for ANXIETY, (Reported) PRN ANXIETY Aspirin 81 Mg Tab.chew, 81 MG PO DAILY, (Reported) Atorvastatin Calcium 40 Mg Tablet, 40 MG PO HS, (Reported) Calcium Carbonate/Vitamin D3 1 Each Tab.chew, 1 EACH PO BID, (Reported) Cholecalciferol (Vitamin D3) 400 Unit Capsule, 800 UNIT PO DAILY, (Reported) TAKE 2 (400 iu) TABS Cyclobenzaprine Hcl 10 Mg Tablet, 10 MG PO HS PRN for MUSCLE SPASMS, (Reported) PRN MUSCLE SPASMS Docusate Sodium 100 Mg Tablet, 100 MG PO BID PRN for CONSTIPATION, (Reported) Duloxetine Hcl 60 Mg Capsule.dr, 60 MG PO DAILY, (Reported) Eszopiclone 3 Mg Tablet, 3 MG PO HS, (Reported) Ezetimibe 10 Mg Tablet, 10 MG PO HS, (Reported) Felodipine 5 Mg Tab.sr.24h, 5 MG PO DAILY, (Reported) Fenofibrate,Micronized 48 Mg Tablet, 48 MG PO DAILY, (Reported) Fentanyl 1 Patch Patch.td72, 1 PATCH TD Q72 HOURS, (Reported) 50 MCG PATCH Hydrochlorothiazide 25 Mg Tablet, 25 MG PO DAILY, (Reported) Isosorbide Mononitrate 30 Mg Tab.sr.24h, 30 MG PO DAILY, (Reported) Lisinopril 20 Mg Tablet, 20 MG PO BID, (Reported) Lubiprostone 8 Mcg Capsule, 8 MCG PO BID, (Reported) Methylcellulose (With Sugar) 539 Gm Powder, 2 GM PO BID, (Reported) Metoprolol Succinate 50 Mg Tab.sr.24h, 50 MG PO DAILY, (Reported) Naloxegol Oxalate 25 Mg Tablet, 25 MG PO DAILY, (Reported) [place]-3S/Dha/Epa/Fish Oil 1 Each Capsule, 1,200 MG PO BID, (Reported) Oxycodone Hcl/Acetaminophen 1 Tab Tablet, 1 TAB PO TID, (Reported) Polyethylene Glycol 119 Gm Btl, 17 GM PO DAILY PRN for CONSTIPATION, (Reported) PRN CONSTIPATION Psyllium Husk/Aspartame 425 Gm Powder, 3.4 GM PO DAILY PRN for CONSTIPATION, ( Reported) PRN CONSTIPATION Senna 1 Tab Tablet, 2 TAB PO DAILY PRN for CONSTIPATION, (Reported) PRN CONSTIPATION Vitamin B Complex 1 Tab Tablet, 1 TAB PO DAILY, (Reported) [Coq10] , 300 MG PO DAILY, (Reported) Patient Home Medication List Home Medication List Reviewed: Yes Past Ldqyvsw-Dhmgsu-Cwdbaq Hx Patient Social History Alcohol Use: Denies Use Recreational Drug Use: No Smoking Status: Never a Smoker Recent Foreign Travel: No Contact w/Someone Who Travel: No Recent Infectious Disease Expo: No Recent Hopitalizations: No Physical Abuse Screen: No Sexual Abuse: No Immunizations Up To Date Tetanus Booster (TDap): Unknown Date of Pneumonia Vaccine: Jan 29, 2013 Date of Influenza Vaccine: Jan 09, 2014 Seasonal Allergies Seasonal Allergies: Yes Surgeries History of Surgeries: Yes (LAPAROSCOPIC ADHESION REMOVAL, OPEN HERNIA SX, 2 BACK SURGERIES) Surgeries: Breast, CABG, Gallbladder, Hysterectomy Respiratory History of Respiratory Disorde: No Cardiovascular History of Cardiac Disorders: Yes (TRIPLE AND QUAD BYPASS) Cardiac Disorders: Coronary Artery Disease, Heart Attack Neurological History of Neurological Disord: No Reproductive System Hx Reproductive Disorders: Yes (endometriosis) Sexually Transmitted Disease: No Genitourinary History of Genitourinary Disor: Yes (uterine rupture) Genitourinary Disorders: Bladder Infection Gastrointestinal History of Gastrointestinal Di: Yes Gastrointestinal Disorders: Abdominal Hernia, Obstructive Bowel, Chronic Constipation, Diverticulosis Musculoskeletal History of Musculoskeletal Dis: Yes (osteoarthritis/osteoporosis) Musculoskeletal Disorders: Osteoporosis, Chronic Back Pain Endocrine History of Endocrine Disorders: No HEENT History of HEENT Disorders: Yes HEENT Disorders: Cataract Cancer History of Cancer: No Psychosocial History of Psychiatric Problem: Yes Behavioral Health Disorders: Anxiety, Depression Integumentary History of Skin or Integumenta: No Blood Transfusions History of Blood Disorders: Yes (ANEMIA) Family Medical History Significant Family History: Cancer (Father had colon Cancer), Diabetes (brother ) Family Medial History: Cancer of colon 19 FATHER, Onset:Unknown G8 BROTHER, Onset:Unknown (STOMACH CA) Family history: Arthritis 19 MOTHER, Onset:Unknown G8 SISTER, Onset:Unknown Family history: Cardiovascular disease G8 BROTHER, Onset:Unknown (BROTHER OF IA AT AGE 46) SON, Onset:Unknown (SON OF IA AT AGE 49) Family history: Diabetes mellitus G8 BROTHER, Onset:Unknown Family history: Gastrointestinal disease 19 FATHER, Onset:Unknown G8 BROTHER, Onset:Unknown Family history: Thyroid disorder G8 SISTER, Onset:Unknown Review of Systems-General Constitutional: No chills, No fever; malaise, weakness EENTM: No double vision, No eye pain, No throat pain Respiratory: No cough, No short of breath Cardiovascular: chest pain (Endorses sharp CP lasting only a few seconds at a time. It happens a few times every day every since her open heart surgery. She states she saw her Toll Booth Operator 3 months ago and was told the pain was normal post surgery.); No palpitations Gastrointestinal: abdominal pain (suprapubic), diarrhea; No dysphagia, No heartburn; loss of appetite; No nausea, No vomiting Genitourinary: No dysuria, No hematuria : No Musculoskeletal: back pain, joint pain, joint swelling, muscle stiffness Skin: No pruritus, No rash Psychiatric/Neurological: Depressed; Denies Headache, Denies Numbness Other No bleeding or bruising. Physical Exam-General Problems Physical Exam Vital Signs Vital Signs - First Documented 12/15/17 16:52 Temp 96.6 Pulse 67 Resp 18 B/P (MAP) 160/83 (108) Pulse Ox 98 O2 Delivery Room Air Capillary Refill : Less Than 3 Seconds General Appearance: WD/WN, no apparent distress Eyes: Bilateral Eye PERRL, Bilateral Eye EOMI HEENT: No scleral icterus (R), No scleral icterus (L), No pharyngeal erythema Neck: full range of motion, supple Respiratory: lungs clear, normal breath sounds, no respiratory distress, no accessory muscle use Cardiovascular: normal peripheral pulses, regular rate, rhythm, no edema, no gallop, no JVD, systolic murmur Gastrointestinal: normal bowel sounds, soft, no organomegaly, tenderness ( suprapubic to deep palpation) Rectal: deferred Back: decreased range of motion, muscle spasm Extremities: normal range of motion, non-tender, no pedal edema, no calf tenderness Neurologic/Psychiatric: 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, no motor/sensory deficits, alert, normal mood/affect, oriented x 3 Skin: normal color, warm/dry; No ecchymosis, No rash Lymphatic: no adenopathy (cervical, axillary, or inguinal) Data Review Labs Laboratory Tests 12/15/17 16:45: White Blood Count 2.0L, Red Blood Count 4.32L, Hemoglobin 12.6, Hematocrit 37, Mean Corpuscular Volume 86, Mean Corpuscular Hemoglobin 29, Mean Corpuscular Hemoglobin Concent 34, Red Cell Distribution Width 13.8, Platelet Count 203, Mean Platelet Volume 9.5, Neutrophils (%) (Auto) 50, Lymphocytes (%) (Auto) 20, Monocytes (%) (Auto) 27H, Eosinophils (%) (Auto) 3, Basophils (%) (Auto) 2, Neutrophils # (Auto) 1.0L, Lymphocytes # (Auto) 0.4L, Monocytes # (Auto) 0.5, Eosinophils # (Auto) 0.1, Basophils # (Auto) 0.0, Neutrophils % (Manual) 39, Lymphocytes % (Manual) 23, Monocytes % (Manual) 27, Eosinophils % (Manual) 1, Basophils % (Manual) 0, Band Neutrophils 10, Blood Morphology Comment NORMAL, Sodium Level 135, Potassium Level 3.4L, Chloride Level 103, Carbon Dioxide Level 26, Anion Gap 6, Blood Urea Nitrogen 18, Creatinine 1.16, Estimat Glomerular Filtration Rate 46, BUN/Creatinine Ratio 16, Glucose Level 101, Lactic Acid Level 1.19, Calcium Level 10.4H, Corrected Calcium 10.6H, Total Bilirubin 0.4, Aspartate Amino Transf (AST/SGOT) 17, Alanine Aminotransferase ( ALT/SGPT) 11, Alkaline Phosphatase 47, Total Protein 6.3L, Albumin 3.8 12/15/17 17:41: Urine Color AMBERH, Urine Clarity VERY CLOUDYH, Urine pH 5, Urine Specific [place] 1.020, Urine Protein 2+H, Urine Glucose (UA) NEGATIVE, Urine Ketones NEGATIVE, Urine Nitrite NEGATIVE, Urine Bilirubin NEGATIVE, Urine Urobilinogen NORMAL, Urine Leukocyte Esterase 2+H, Urine RBC (Auto) 5+H, Urine RBC >100H, Urine WBC 50-100H, Urine Crystals NONE, Urine Bacteria FEWH, Urine Casts NONE, Urine Mucus NEGATIVE, Urine Culture Indicated YES 12/15/17 20:10: Urine Color YELLOW, Urine Clarity CLEAR, Urine pH 5, Urine Specific [place] 1.005L, Urine Protein NEGATIVE, Urine Glucose (UA) NEGATIVE, Urine Ketones NEGATIVE, Urine Nitrite NEGATIVE, Urine Bilirubin NEGATIVE, Urine Urobilinogen NORMAL, Urine Leukocyte Esterase NEGATIVE, Urine RBC (Auto) 5+H, Urine RBC >100H , Urine WBC NONE, Urine Crystals NONE, Urine Bacteria NONE, Urine Casts NONE, Urine Mucus NEGATIVE, Urine Culture Indicated NO Radiology PROCEDURE: CT abdomen and pelvis with contrast. TECHNIQUE: Multiple contiguous axial images were obtained through the abdomen and pelvis after administration of intravenous contrast. INDICATION: Dehydration. COMPARISON: 09/25/2013. FINDINGS: Mild presumed senescent and post cholecystectomy ectasia of the intrahepatic and extrahepatic bile duct, stable from previous exam. Nonfocal spleen within normal limits of size. The pancreas appears unremarkable. No opaque stone along the course of the extrahepatic duct. The adrenals are negative. There are left greater than right simple appearing renal cortical cysts. There is a small amount of air within the urinary bladder lumen. There are inflammatory changes diffusely throughout the sigmoid colon and rectum. While there are sigmoidal diverticuli, the diffuse nature of the inflammation would be unusual for changes owing to diverticulitis and nonspecific coloproctitis is suspected. Transverse and ascending colon are nonacute. The small bowel is unobstructed. There is no abscess or fluid collection. There is perisigmoidal or perirectal inflammatory change and edema. There are postsurgical changes of abdominal wall hernia repair with some generalized bulging at and below the umbilicus. Aortoiliac atherosclerotic vascular calcifications are present. No pneumatosis or free gas. No abscess, hematoma or other fluid collection. IMPRESSION: 1. Inflammatory changes throughout the length of the thickened inflamed sigmoid colon as well as the rectum. Scattered colonic and sigmoidal diverticuli; however, the diffuse nature of the inflammation would be atypical for diverticulitis. Nonspecific coloproctitis presumed. No abscess, obstruction or perforation; however, we note some air in the urinary bladder lumen. Correlate with instrumentation as fistulization to the bladder, given the adjacent inflamed bowel loops, could not be excluded in the appropriate clinical scenario. 2. No free air obstruction or abscess. 3. Benign renal cyst. 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 Dictated by: Dictated on workstation # [id number] Dict: 12/15/17 1835 Trans: 12/15/171926 Interpreted by: POPEYE NUNEZ Electronically signed by: POPEYE NUNEZ 12/15/171926 Assessment/Plan Assessment/Plan Admission Diagonsis Abdominal pain, diarrhea Assessment/Plan Diarrhea Abdominal pain Proctitis Pneumaturia HTN CAD Diverticulosis Desiree Simms DO Plan is to get stool studies for C. diff, ova and parasites and all other enteric organisms. She may need a flex sig to look at the distal colon; to get a good look at the area that the radiologist is calling inflamed, find a source for the "yellow pus" that is coming out and to make sure she does not have ulceration. In addition she may need a CT with bladder cystogram and/or Urology consult to try and find the reason for her pneumaturia. She has chronic back pain and that is actually bothering her more than her abdominal pain; she has pain meds written for her. [facility] medical management. I also went over the ROS with pt and all other entered data in this note. Clinical Quality Measures DVT/VTE Risk/Contraindication: Risk Factor Score Per Nursin RFS Level Per Nursing on Admit: 4+=Very High KALIA BELL MEDICAL STUDENT Dec 15, 2017 23:14 DESIREE SIMMS DO Dec 15, 2017 23:50
[2017-12-15 23:39] VITALS: BP 151/68
[2017-12-15] MEDS: oxyCODONE/APAP 10/325MG (PERCOCET 10) TABLET PO SCH (23:54)
[2017-12-16 03:14] VITALS: BP 142/64
[2017-12-16] MEDS ORDERED: PIPERACILLIN/TAZO 4.5 GM/NS 100 ML IV ONE ×2 (05:15)
[2017-12-16] MEDS: oxyCODONE/APAP 10/325MG (PERCOCET 10) TABLET PO SCH (05:20)
[2017-12-16 06:28] LABS: BASOPHILS % (AUTO) 1 % (0-10); EOSINOPHILS # (AUTO) 0.2 10^3/uL (0.0-0.3); EOSINOPHILS % (AUTO) 9 % (0-10); HEMATOCRIT 34 % (35-52); HEMOGLOBIN 11.5 G/DL (11.5-16.0); LYMPHOCYTES # (AUTO) 0.5 X 10^3 (1.0-4.0); LYMPHOCYTES % (AUTO) 23 % (12-44); MEAN CORPUSCULAR HEMOGLOBIN 29 PG (25-34); MEAN CORPUSCULAR HGB CONC 34 G/DL (32-36); MEAN CORPUSCULAR VOLUME 86 FL (80-99); MEAN PLATELET VOLUME 9.5 FL (7.4-10.4); MONOCYTES # (AUTO) 0.5 X 10^3 (0.0-1.0); MONOCYTES % (AUTO) 24 % (0-12); NEUTROPHILS # (AUTO) 0.9 X 10^3 (1.8-7.8); NEUTROPHILS % (AUTO) 44 % (42-75); PLATELET COUNT 182 10^3/uL (130-400); RED BLOOD COUNT 3.95 10^6/uL (4.35-5.85); RED CELL DISTRIBUTION WIDTH 13.7 % (10.0-14.5); WHITE BLOOD COUNT 2.1 10^3/uL (4.3-11.0)
[2017-12-16 08:00] VITALS: BP 148/67
[2017-12-16] MEDS: NS W/KCL 40 MEQ/L 1,000 ML IV SCH ×2 (08:32→19:44)
[2017-12-16] MEDS: fentaNYL INJECTION 100 MCG/2 ML AMP IV PRN (08:55)
--- NOTE | 2017-12-16 09:36 | History & Physical-Hospitalist ---
LIONEL YARBROUGH MEDICAL STUDENT 12/16/17 0936: History of Present Illness HPI/Chief Complaint 77 year old female with a historyof CAD, chronic constipation, bowel obstruction with recent outpatient treatment of presumed diverticulitis with cipro and flagyl admitted for worsening of abdominal pain, diarrhea, and dehydration after completing her antibiotic course. This all started 3.5 weeks ago with diarrhea, N/V, and abdominal pain, for which she saw Dr. Koch in clinic and was given cipro and flagyl. She completed this treatment on 12/12/17 and was feeling initially feeling better. One day later, she developed worsening LLQ abdominal pain that was in her RLQ after eating, 9/10 in intensity and constant. Her diarrhea worsened as well and she had a BM ever 2 hours. Her stool has been black after taking pepto-bismol, but otherwise it is green colored without any notable blood. She reports 35-40 lb weight loss in last month due to decreased PO intake. She does not have an N/V, fever, or chills this time. She has a family history of colorectal cancer in her father - her last colonoscopy was 3 years ago and revealed diverticulosis. Date Seen 12/16/17 Time Seen by Provider: 08:30 Attending Physician Maritza Koch DO PCP Maritza Koch DO Referring Physician Date of Admission Dec 15, 2017 at 21:09 Home Medications & Allergies Home Medications Reviewed patient Home Medication Reconciliation performed by pharmacy medication reconciliations instrument and control technician and/or nursing. Patients Allergies have been reviewed. Allergies Allergies Coded Allergies iodine (Unverified Allergy, Unknown, 01/16/14) latex (Unverified Allergy, Unknown, RASH, 01/16/14) Past Zmnpcte-Mangmz-Qkopcy Hx Patient Social History Marrital Status: Number of living children: 5 Employed/Student: retired Alcohol Use: Denies Use Recreational Drug Use: No Smoking Status: Never a Smoker Physical Abuse Screen: No Sexual Abuse: No Recent Foreign Travel: No Contact w/other who traveled: No Recent Hopitalizations: No Recent Infectious Disease Expo: No Immunizations Up To Date Tetanus Booster (TDap): Unknown Date of Pneumonia Vaccine: Jan 29, 2013 Date of Influenza Vaccine: Jan 09, 2014 Seasonal Allergies Seasonal Allergies: Yes Past Medical History Surgeries: Abdominal (hernia repair), Breast, CABG, Gallbladder, Hysterectomy, Vascular Surgery Currently Using CPAP: No Currently Using BIPAP: No Cardiac: Coronary Artery Disease, Heart Attack Reproductive: Yes (endometriosis) Sexually Transmitted Disease: No Genitourinary: Bladder Infection Gastrointestinal: Abdominal Hernia, Obstructive Bowel, Chronic Constipation, Diverticulosis Musculoskeletal: Osteoporosis, Chronic Back Pain HEENT: Cataract Psychosocial: Anxiety, Depression History of Blood Disorders: Yes (ANEMIA) Family History Cancer of colon 19 FATHER, Onset:Unknown G8 BROTHER, Onset:Unknown (STOMACH CA) Family history: Arthritis 19 MOTHER, Onset:Unknown G8 SISTER, Onset:Unknown Family history: Cardiovascular disease G8 BROTHER, Onset:Unknown (BROTHER OF CA AT AGE 46) SON, Onset:Unknown (SON OF CA AT AGE 49) Family history: Diabetes mellitus G8 BROTHER, Onset:Unknown Family history: Gastrointestinal disease 19 FATHER, Onset:Unknown G8 BROTHER, Onset:Unknown Family history: Thyroid disorder G8 SISTER, Onset:Unknown Cancer (Father had colon Cancer), Diabetes (brother) Review of Systems Constitutional: weight loss EENTM: nose congestion Respiratory: no symptoms reported Cardiovascular: chest pain (Occasional "jerking" chest pain) Gastrointestinal: RLQ, LLQ (Pain), diarrhea, loss of appetite, nausea Genitourinary: no symptoms reported Musculoskeletal: other (Painful varicose veins ) Physical Exam Physical Exam Vital Signs Vital Signs - First Documented 12/15/17 16:52 Temp 96.6 Pulse 67 Resp 18 B/P (MAP) 160/83 (108) Pulse Ox 98 O2 Delivery Room Air Capillary Refill : Less Than 3 Seconds Height, Weight, BMI Height: 5'6.00" Weight: 117lbs. 5.0oz. [id number]; 18.9 BMI Method:Stated General Appearance: No Apparent Distress, WD/WN HEENT: Other (Dry mucus membranes ) Neck: Normal Inspection, Non Tender Respiratory: Chest Non Tender, Lungs Clear, Normal Breath Sounds Cardiovascular: Regular Rate, Rhythm, No Edema Gastrointestinal: Normal Bowel Sounds, Distended (Vental hernia superior to umbilicus), Tenderness (Predominantly in LLQ) Extremity: No Pedal Edema Neurologic/Psychiatric: Alert, Oriented x3, No Motor/Sensory Deficits, Normal Mood/Affect Skin: Normal Color, Warm/Dry Results Results/Procedures Labs Laboratory Tests 12/15/17 16:45 12/16/17 05:50 Patient resulted labs reviewed. Assessment/Plan Admission Diagnosis Colitis Dehydration Admission Status: Inpatient Order (span 2 midnights) Assessment and Plan 77 year old female with a historyof CAD, chronic constipation, bowel obstruction with recent outpatient treatment of presumed diverticulitis with cipro and flagyl admitted with concerns for diverticulitis and dehydration found to have diffuse colitis on CT. Colon inflammation -Clear liquid diet -Currently on Zosyn -Stool culture, ova and parasites pending. Will consider C. diff PCR. 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, metoprolol Pain -Fentanyl 50 mcg Q2H -Percocet PRN FEN -IVF at maintenance after receiving 2 L yesterday Clinical Quality Measures DVT/VTE Risk/Contraindication: Risk Factor Score Per Nursin RFS Level Per Nursing on Admit: 4+=Very High MARITZA KOCH DO 12/16/17 1209: History of Present Illness HPI/Chief Complaint CC: Near syncope HPI: This is a 77yoWF clinic patient of [email or web address] for 14 years who presented to my office due to continued abdominal issues after empirically being placed on acute diverticulitis treatment 10 days prior with 2 close f/u appts since then who had a near syncopal episode walking into the exam room and required transfer from my office via ambulance to the ER and was found to have dehydration and abnormal CT scan. Dr Olson has been consulted but it appears this may be acute C diff so treatment will be placed with Vanc since she was just on Flagyl 1 week prior. Had a long conversation with the patient and she requests DNR and that order was placed into chart and that was her wishes in the ER also. Source: patient, RN/MD Exam Limitations: clinical condition Time Seen by Provider: 11:00 Home Medications & Allergies Home Medications Reviewed Past Nihnedz-Kagucm-Rgzqyb Hx Past Med/Social Hx: Reviewed Nursing Past Med/Soc Hx, Reviewed and Corrections made Patient Social History Marrital Status: Employed/Student: retired Smoking Status: Never a Smoker Past Medical History Surgeries: Abdominal (hernia repair), Breast, CABG, Gallbladder, Hysterectomy, Vascular Surgery Cardiac: Coronary Artery Disease, Heart Attack Genitourinary: Bladder Infection Gastrointestinal: Abdominal Hernia, Obstructive Bowel, Chronic Constipation, Diverticulosis Musculoskeletal: Osteoporosis, Chronic Back Pain HEENT: Cataract Psychosocial: Anxiety, Depression Family History Cancer of colon 19 FATHER, Onset:Unknown G8 BROTHER, Onset:Unknown (STOMACH CA) Family history: Arthritis 19 MOTHER, Onset:Unknown G8 SISTER, Onset:Unknown Family history: Cardiovascular disease G8 BROTHER, Onset:Unknown (BROTHER OF CA AT AGE 46) SON, Onset:Unknown (SON OF CA AT AGE 49) Family history: Diabetes mellitus G8 BROTHER, Onset:Unknown Family history: Gastrointestinal disease 19 FATHER, Onset:Unknown G8 BROTHER, Onset:Unknown Family history: Thyroid disorder G8 SISTER, Onset:Unknown Cancer (Father had colon Cancer), Diabetes (brother) Review of Systems Constitutional: see HPI, weakness EENTM: no symptoms reported Respiratory: no symptoms reported Cardiovascular: no symptoms reported Gastrointestinal: RLQ, LLQ (Pain), diarrhea, loss of appetite, nausea Genitourinary: no symptoms reported Musculoskeletal: no symptoms reported Skin: no symptoms reported Psychiatric/Neurological: No Symptoms Reported All Other Systems Reviewed Negative Unless Noted: Yes Physical Exam Physical Exam General Appearance: No Apparent Distress, WD/WN, Chronically ill, Thin Eyes: Bilateral Eye Normal Inspection, Bilateral Eye PERRL HEENT: PERRL/EOMI, TMs Normal, Normal ENT Inspection, Pharynx Normal Neck: Full Range of Motion, Normal Inspection, Non Tender, Supple, Carotid Bruit Respiratory: Chest Non Tender, Lungs Clear, Normal Breath Sounds, No Accessory Muscle Use, No Respiratory Distress Cardiovascular: Regular Rate, Rhythm, No Edema, No Gallop, No JVD, No Murmur, Normal Peripheral Pulses Gastrointestinal: Normal Bowel Sounds, No Organomegaly, No Pulsatile Mass, Soft , Distended (Vental hernia superior to umbilicus), Tenderness (Predominantly in LLQ) Back: Normal Inspection, No CVA Tenderness, No Vertebral Tenderness Extremity: Normal Capillary Refill, Normal Inspection, Normal Range of Motion, Non Tender, No Calf Tenderness, No Pedal Edema Neurologic/Psychiatric: Alert, Oriented x3, No Motor/Sensory Deficits, Normal Mood/Affect Skin: Normal Color, Warm/Dry Lymphatic: No Adenopathy Assessment/Plan Admission Diagnosis C diff colitis Recent acute diverticulitis s/p Flagyl and Cipro. 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
[2017-12-16] MEDS ORDERED: LISI-552 PO (10:33)
[2017-12-16] MEDS ORDERED: FELO5TAB3 PO (10:33)
[2017-12-16] MEDS ORDERED: METO-352 PO (10:33)
[2017-12-16] MEDS ORDERED: ATOR40TA70 PO (10:33)
[2017-12-16] MEDS ORDERED: DULO60CA58 PO (10:33)
[2017-12-16] MEDS ORDERED: DULO30CA48 PO (10:33)
[2017-12-16] MEDS ORDERED: ISOS30TA3 PO (10:33)
[2017-12-16] MEDS ORDERED: CLOP75TA28 PO (10:33)
[2017-12-16] MEDS ORDERED: OMG1KC PO (10:43)
[2017-12-16] MEDS ORDERED: EZET10TA27 PO (10:43)
[2017-12-16] MEDS ORDERED: METH850P3 PO (10:43)
[2017-12-16] MEDS ORDERED: CHOL10007 PO (10:43)
[2017-12-16] MEDS ORDERED: LINA290C PO (10:43)
[2017-12-16] MEDS ORDERED: FENT1PAT9 TD (10:43)
[2017-12-16] MEDS ORDERED: OXYC1TAB12 PO (10:43)
[2017-12-16] MEDS ORDERED: FENO48TA5 PO (10:43)
[2017-12-16] MEDS ORDERED: DOCU100C37 PO (10:45)
[2017-12-16] MEDS ORDERED: VITA1CAP PO (10:46)
[2017-12-16] MEDS ORDERED: POLY17PO6 PO (10:46)
[2017-12-16] MEDS ORDERED: UBID300C PO (10:46)
[2017-12-16] MEDS ORDERED: [UNRECOGNIZED DRUG - CODE] PO (10:46)
[2017-12-16] MEDS ORDERED: ASCO-262 PO (10:48)
[2017-12-16] MEDS ORDERED: FOLI0.8T PO (10:48)
[2017-12-16] MEDS ORDERED: BETA10003 PO (10:48)
[2017-12-16] MEDS: FENTANYL PATCH REMOVAL TP SCH (10:59)
[2017-12-16] MEDS ORDERED: oxyCODONE/APAP 10/325MG (PERCOCET 10) TABLET PO SCH (11:00)
[2017-12-16] MEDS ORDERED: PIPERACILLIN/TAZO 4.5 GM/NS 100 ML IV SCH ×2 (11:00)
[2017-12-16 11:22] LABS: ALANINE AMINOTRANSFERASE 13 U/L (0-55); ALBUMIN 3.4 GM/DL (3.2-4.5); ALKALINE PHOSPHATASE 41 U/L (40-136); BILIRUBIN,TOTAL 0.3 MG/DL (0.1-1.0); BUN/CREATININE RATIO 12; CALCIUM 9.7 MG/DL (8.5-10.1); CARBON DIOXIDE 21 MMOL/L (21-32); CHLORIDE 108 MMOL/L (98-107); CREATININE SERUM 0.84 MG/DL (0.60-1.30); GFR ESTIMATED > 60; GLUCOSE 81 MG/DL (70-105); POTASSIUM 3.4 MMOL/L (3.6-5.0); SODIUM 138 MMOL/L (135-145); TOTAL PROTEIN 5.5 GM/DL (6.4-8.2)
[2017-12-16] MEDS: fentaNYL PATCH 50 MCG (DURAGESIC) TD SCH (11:57)
[2017-12-16 12:00] VITALS: BP 124/76
[2017-12-16] MEDS: DICYCLOMINE 10 MG (BENTYL) CAP PO SCH ×3 (12:14→20:45)
[2017-12-16] MEDS ORDERED: VANCOMYCIN ORAL SUSPENSION 60 ML BOTTLE PO SCH ×2 (12:15→12:30)
--- NOTE | 2017-12-16 12:28 | Progress Note ---
Subjective Time Seen by Provider: 10:51 Subjective/Events-last exam Pt seen and examined thinks her abdominal pain is the same and still has "bad" back pain. She states she no longer is pooping "yellow pus", now it is black. She denies N/V and is hungry. Review of Systems General: No Chills, No Night Sweats Pulmonary: No Dyspnea, No Cough Cardiovascular: No: Chest Pain, Palpitations Gastrointestinal: Abdominal Pain Musculoskeletal: back pain Focused Exam Lactate Level 12/15/17 16:45: Lactic Acid Level 1.19 Objective Exam Vital Signs Date Time Temp Pulse Resp B/P (MAP) Pulse Ox O2 Delivery O2 Flow Rate FiO2 12/16/17 08:00 97.4 62 16 148/67 (94) 98 Room Air 12/16/17 07:00 58 12/16/17 03:14 97.6 61 16 142/64 (90) 97 Room Air 12/16/17 01:00 83 12/15/17 23:39 98.5 68 16 151/68 (95) 98 Room Air 12/15/17 22:00 98.1 65 16 182/74 (110) 100 Room Air 12/15/17 21:15 88 20 122/70 96 Room Air 12/15/17 17:50 96.6 12/15/17 17:26 96.6 12/15/17 16:52 96.6 67 18 160/83 (108) 98 Room Air I & O 12/16/17 07:00 Intake Total 2350 ml Output Total 700 ml Balance 1650 ml Capillary Refill : Less Than 3 Seconds General Appearance: No Apparent Distress, WD/WN HEENT: Other (Dry mucus membranes ) Neck: Normal Inspection, Non Tender Respiratory: Chest Non Tender, Lungs Clear, Normal Breath Sounds Cardiovascular: Regular Rate, Rhythm, No Edema Gastrointestinal: normal bowel sounds, soft, no organomegaly, tenderness ( suprapubic to deep palpation) Extremity: No Pedal Edema Neurologic/Psychiatric: Alert, Oriented x3, No Motor/Sensory Deficits, Normal Mood/Affect Skin: Normal Color, Warm/Dry Lymphatic: No Adenopathy (cervical, axillary, or groin) Results Lab Laboratory Tests 12/15/17 16:45: White Blood Count 2.0L, Red Blood Count 4.32L, Hemoglobin 12.6, Hematocrit 37, Mean Corpuscular Volume 86, Mean Corpuscular Hemoglobin 29, Mean Corpuscular Hemoglobin Concent 34, Red Cell Distribution Width 13.8, Platelet Count 203, Mean Platelet Volume 9.5, Neutrophils (%) (Auto) 50, Lymphocytes (%) (Auto) 20, Monocytes (%) (Auto) 27H, Eosinophils (%) (Auto) 3, Basophils (%) (Auto) 2, Neutrophils # (Auto) 1.0L, Lymphocytes # (Auto) 0.4L, Monocytes # (Auto) 0.5, Eosinophils # (Auto) 0.1, Basophils # (Auto) 0.0, Neutrophils % (Manual) 39, Lymphocytes % (Manual) 23, Monocytes % (Manual) 27, Eosinophils % (Manual) 1, Basophils % (Manual) 0, Band Neutrophils 10, Blood Morphology Comment NORMAL, Sodium Level 135, Potassium Level 3.4L, Chloride Level 103, Carbon Dioxide Level 26, Anion Gap 6, Blood Urea Nitrogen 18, Creatinine 1.16, Estimat Glomerular Filtration Rate 46, BUN/Creatinine Ratio 16, Glucose Level 101, Lactic Acid Level 1.19, Calcium Level 10.4H, Corrected Calcium 10.6H, Total Bilirubin 0.4, Aspartate Amino Transf (AST/SGOT) 17, Alanine Aminotransferase ( ALT/SGPT) 11, Alkaline Phosphatase 47, Total Protein 6.3L, Albumin 3.8 12/15/17 17:41: Urine Color AMBERH, Urine Clarity VERY CLOUDYH, Urine pH 5, Urine Specific Callao 1.020, Urine Protein 2+H, Urine Glucose (UA) NEGATIVE, Urine Ketones NEGATIVE, Urine Nitrite NEGATIVE, Urine Bilirubin NEGATIVE, Urine Urobilinogen NORMAL, Urine Leukocyte Esterase 2+H, Urine RBC (Auto) 5+H, Urine RBC >100H, Urine WBC 50-100H, Urine Crystals NONE, Urine Bacteria FEWH, Urine Casts NONE, Urine Mucus NEGATIVE, Urine Culture Indicated YES 12/15/17 20:10: Urine Color YELLOW, Urine Clarity CLEAR, Urine pH 5, Urine Specific Callao 1.005L, Urine Protein NEGATIVE, Urine Glucose (UA) NEGATIVE, Urine Ketones NEGATIVE, Urine Nitrite NEGATIVE, Urine Bilirubin NEGATIVE, Urine Urobilinogen NORMAL, Urine Leukocyte Esterase NEGATIVE, Urine RBC (Auto) 5+H, Urine RBC >100H , Urine WBC NONE, Urine Crystals NONE, Urine Bacteria NONE, Urine Casts NONE, Urine Mucus NEGATIVE, Urine Culture Indicated NO 12/16/17 05:50: White Blood Count 2.1L, Red Blood Count 3.95L, Hemoglobin 11.5, Hematocrit 34L, Mean Corpuscular Volume 86, Mean Corpuscular Hemoglobin 29, Mean Corpuscular Hemoglobin Concent 34, Red Cell Distribution Width 13.7, Platelet Count 182, Mean Platelet Volume 9.5, Neutrophils (%) (Auto) 44, Lymphocytes (%) (Auto) 23, Monocytes (%) (Auto) 24H, Eosinophils (%) (Auto) 9, Basophils (%) (Auto) 1, Neutrophils # (Auto) 0.9L, Lymphocytes # (Auto) 0.5L, Monocytes # (Auto) 0.5, Eosinophils # (Auto) 0.2, Basophils # (Auto) 0.0, Sodium Level 138, Potassium Level 3.4L, Chloride Level 108H, Carbon Dioxide Level 21, Anion Gap 9, Blood Urea Nitrogen 10, Creatinine 0.84, Estimat Glomerular Filtration Rate > 60, BUN/ Creatinine Ratio 12, Glucose Level 81, Calcium Level 9.7, Corrected Calcium 10.2H, Total Bilirubin 0.3, Aspartate Amino Transf (AST/SGOT) 16, Alanine Aminotransferase (ALT/SGPT) 13, Alkaline Phosphatase 41, Total Protein 5.5L, Albumin 3.4 Microbiology 12/15/17 C. difficile GDH Antigen & Toxins - Final, Complete Assessment/Plan Assessment/Plan Assessment/Plan Diarrhea Abdominal pain Proctitis Pneumaturia HTN CAD Diverticulosis It appears pt is positive for C. diff; will start her on Oral Vancomycin. She still may need a flex sig to look at the distal colon; to get a good look at the area that the radiologist is calling inflamed. However she no longer has the "yellow pus", so we may be able to hold off on this and do as an outpt unless she gets worse. I discussed with Dr. Koch and will order a CT with bladder cystogram to try and find the reason for her pneumaturia. She has chronic back pain and that is actually bothering her more than her abdominal pain; she has pain meds written for her. Maximum medical management. Clinical Quality Measures DVT/VTE Risk/Contraindication: Risk Factor Score Per Nursin RFS Level Per Nursing on Admit: 4+=Very High DESIREE SIMMS DO Dec 16, 2017 12:28
[2017-12-16 15:41] VITALS: BP 161/72
--- NOTE | 2017-12-16 15:51 | Diagnostic Imaging Report ---
INDICATION: Bladder air noted on CT study one day earlier. Patient presents for CT cystogram. PROCEDURE: Noncontrast axial imaging through the pelvis was performed. Next, repeated attempts were made to place a Coughlin catheter into the patient's urinary bladder, however, this was unsuccessful. The catheter was initially placed and a small amount of contrast was injected and followup CT imaging through the pelvis was performed. Images demonstrate a Coughlin catheter within the vagina. There is a small amount of contrast in the vaginal canal. The bladder has a normal appearance. No bladder air is seen on today's study. There continues to be inflammation of the sigmoid consistent with diverticulitis/colitis. No free fluid or fluid collection is identified. Aorta is heavily calcified. Instrumentation in the lower lumbar spine and sacrum is noted. IMPRESSION: No evidence of bladder gas on today's study. The Coughlin catheter could not be placed into the urinary bladder therefore the procedure was terminated. There continues to be inflammatory changes of the sigmoid colon. Dictated by: Dictated on workstation # [id number]
[2017-12-16] MEDS: CHOLESTYRAMINE 4 GM (QUESTRAN LITE, PREVALITE) PKT PO SCH ×2 (16:17→21:57)
[2017-12-16] MEDS ORDERED: PATIENT MAY USE OWN MED,SINGLE MED PO SCH (17:30)
[2017-12-16] MEDS: lisINopril 20 MG (PRINIVIL) TABLET PO SCH ×2 (18:35→20:44)
[2017-12-16] MEDS: VANCOMYCIN ORAL 250 MG/5 ML 120 ML PO SCH ×4 (18:36→23:53)
[2017-12-16 19:44] VITALS: BP 171/75
[2017-12-16] MEDS: oxyCODONE/APAP 10/325MG (PERCOCET 10) TABLET PO PRN (20:46)
[2017-12-17] VITALS: BP 136/85
[2017-12-17 04:00] VITALS: BP 136/85
[2017-12-17 04:51] LABS: BASOPHILS % (AUTO) 1 % (0-10); EOSINOPHILS # (AUTO) 0.2 10^3/uL (0.0-0.3); EOSINOPHILS % (AUTO) 10 % (0-10); HEMATOCRIT 36 % (35-52); HEMOGLOBIN 11.9 G/DL (11.5-16.0); LYMPHOCYTES # (AUTO) 0.7 X 10^3 (1.0-4.0); LYMPHOCYTES % (AUTO) 29 % (12-44); MEAN CORPUSCULAR HEMOGLOBIN 29 PG (25-34); MEAN CORPUSCULAR HGB CONC 33 G/DL (32-36); MEAN CORPUSCULAR VOLUME 87 FL (80-99); MEAN PLATELET VOLUME 9.5 FL (7.4-10.4); MONOCYTES # (AUTO) 0.5 X 10^3 (0.0-1.0); MONOCYTES % (AUTO) 21 % (0-12); NEUTROPHILS # (AUTO) 0.9 X 10^3 (1.8-7.8); NEUTROPHILS % (AUTO) 39 % (42-75); PLATELET COUNT 208 10^3/uL (130-400); RED BLOOD COUNT 4.16 10^6/uL (4.35-5.85); RED CELL DISTRIBUTION WIDTH 13.9 % (10.0-14.5); WHITE BLOOD COUNT 2.2 10^3/uL (4.3-11.0)
[2017-12-17] MEDS: VANCOMYCIN ORAL 250 MG/5 ML 120 ML PO SCH ×8 (05:05→23:59)
[2017-12-17] MEDS: DICYCLOMINE 10 MG (BENTYL) CAP PO SCH ×4 (05:05→20:56)
[2017-12-17] MEDS: oxyCODONE/APAP 10/325MG (PERCOCET 10) TABLET PO PRN ×2 (05:05→15:51)
[2017-12-17 05:12] LABS: ALANINE AMINOTRANSFERASE 10 U/L (0-55); ALBUMIN 3.2 GM/DL (3.2-4.5); ALKALINE PHOSPHATASE 42 U/L (40-136); BILIRUBIN,TOTAL 0.3 MG/DL (0.1-1.0); BUN/CREATININE RATIO 11; CALCIUM 10.2 MG/DL (8.5-10.1); CARBON DIOXIDE 20 MMOL/L (21-32); CHLORIDE 116 MMOL/L (98-107); GFR ESTIMATED > 60; GLUCOSE 85 MG/DL (70-105); POTASSIUM 4.2 MMOL/L (3.6-5.0); SODIUM 143 MMOL/L (135-145); TOTAL PROTEIN 5.3 GM/DL (6.4-8.2)
[2017-12-17] MEDS: CHOLESTYRAMINE 4 GM (QUESTRAN LITE, PREVALITE) PKT PO SCH ×4 (05:51→22:08)
[2017-12-17] MEDS: NS W/KCL 40 MEQ/L 1,000 ML IV SCH ×3 (05:55→15:56)
[2017-12-17 08:00] VITALS: BP 167/77
[2017-12-17] MEDS ORDERED: FELODIPINE 5 MG PO SCH ×2 (09:00)
[2017-12-17] MEDS ORDERED: NON-FORMULARY MEDICATION 1 EA EA (Metoprolol Succinate (Toprol Xl) 50 MG) PO SCH (09:00)
[2017-12-17] MEDS ORDERED: DULoxetine 30 MG (CYMBALTA) CAP PO SCH (09:00)
[2017-12-17] MEDS ORDERED: NON-FORMULARY MEDICATION 1 EA EA (Duloxetine HCl 60 MG) PO SCH (09:00)
[2017-12-17 09:31] VITALS: BP 150/78
--- NOTE | 2017-12-17 09:39 | Progress Note-Hospitalist ---
LIONEL YARBROUGH MEDICAL STUDENT 12/17/17 0939: Subjective HPI/CC On Admission Date Seen by Provider: Dec 17, 2017 Time Seen by Provider: 08:00 CC: Near syncope HPI: This is a 77yoWF clinic patient of mine for 14 years who presented to my office due to continued abdominal issues after empirically being placed on acute diverticulitis treatment 10 days prior with 2 close f/u appts since then who had a near syncopal episode walking into the exam room and required transfer from my office via ambulance to the ER and was found to have dehydration and abnormal CT scan. Dr Olson has been consulted but it appears this may be acute C diff so treatment will be placed with Vanc since she was just on Flagyl 1 week prior. Had a long conversation with the patient and she requests DNR and that order was placed into chart and that was her wishes in the ER also. Subjective/Events-last exam Pt had no acute events overnight. Feeling much better today. No BMs since midnight. No problems urinating. Abdominal pain improved. Tolerating her diet. Focused Exam Lactate Level 12/15/17 16:45: Lactic Acid Level 1.19 Respiratory: Chest Non Tender, Lungs Clear Cardiovascular: Regular Rate, Rhythm, No Edema Skin: normal color, warm/dry Objective Exam Vital Signs Vital Signs Date Time Temp Pulse Resp B/P (MAP) Pulse Ox O2 Delivery O2 Flow Rate FiO2 12/17/17 09:31 150/78 (102) 12/17/17 08:00 97.8 58 16 93 Room Air Capillary Refill : Less Than 3 Seconds Results/Procedures Lab Laboratory Tests 12/17/17 04:20 Patient resulted labs reviewed. Assessment/Plan Assessment and Plan Assess & Plan/Chief Complaint 77 year old female with a historyof CAD, chronic constipation, bowel obstruction with recent outpatient treatment of presumed diverticulitis with cipro and flagyl admitted with concerns for diverticulitis and dehydration found to have C. difficile infection now improving on oral vancomycin. C. Difficile infection -Clear liquid diet -Currently on PO Vancomycin four times daily -Stool culture, ova and parasites pending. -General surgery consulted, will follow recommendations on flex sig. -Given CT finding of air in bladder, CT with cystogram was attempted but unable to be performed due to difficulty placing Coughlin. 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 BP controlled overnight. Pain -Fentanyl 50 mcg Q2H -Percocet PRN FEN -IVF at maintenance Clinical Quality Measures DVT/VTE Risk/Contraindication: Risk Factor Score Per Nursin RFS Level Per Nursing on Admit: 4+=Very High STEPHANIE GONZALEZ 12/17/17 1434: Subjective HPI/CC On Admission Time Seen by Provider: 11:00 Subjective/Events-last exam C diff treatment is tolerated well Overall feels good Dr Bates reassured her on the transient neutropenia DNR order but appears to be improved Will get OOB today Fall risk DC Tely Review of Systems General: Fatigue Gastrointestinal: Abdominal Pain, Diarrhea Objective Exam General Appearance: No Apparent Distress, WD/WN, Chronically ill Respiratory: Chest Non Tender, Lungs Clear, Normal Breath Sounds, No Accessory Muscle Use, No Respiratory Distress Cardiovascular: Regular Rate, Rhythm, No Edema, No Gallop, No JVD, No Murmur, Normal Peripheral Pulses Gastrointestinal: Soft Neurologic/Psychiatric: Alert, Oriented x3, No Motor/Sensory Deficits, Normal Mood/Affect Skin: Normal Color, Warm/Dry Assessment/Plan Assessment and Plan Assess & Plan/Chief Complaint JASMINA Telluann Check labs in am SCD's OOB in chair Fall risk Questran prn Diagnosis/Problems Diagnosis/Problems (1) C. difficile colitis Status: Acute (2) Syncope, near Status: Resolved (3) Chronic pain Status: Chronic Qualifiers: Chronic pain type: chronic pain syndrome Qualified Codes: G89.4 - Chronic pain syndrome (4) UTI (urinary tract infection) Status: Acute Qualifiers: Urinary tract infection type: acute cystitis Hematuria presence: without hematuria Qualified Codes: N30.00 - Acute cystitis without hematuria (5) Pneumaturia Status: Resolved (6) Weight loss Status: Acute (7) Neutropenia Status: Acute Qualifiers: Neutropenia type: unspecified Qualified Codes: D70.9 - Neutropenia, unspecified (8) Narcotic dependence Status: Chronic (9) Hernia, abdominal Status: Chronic Qualifiers: Hernia type: unspecified Obstruction and gangrene presence: without obstruction or gangrene Recurrence: recurrent Qualified Codes: K45.8 - Other specified abdominal hernia without obstruction or gangrene (10) Hematuria Status: Acute Qualifiers: Hematuria type: unspecified type Qualified Codes: R31.9 - Hematuria, unspecified (11) Volume depletion Status: Resolved (12) Colitis Status: Acute (13) Lumbar stenosis with neurogenic claudication Status: Chronic (14) Narcotic bowel syndrome Status: Chronic LIONEL YARBROUGH MEDICAL STUDENT Dec 17, 2017 09:39 STEPHANIE GONZALEZ DO Dec 17, 2017 14:34
[2017-12-17] MEDS: FELODIPINE 5 MG PO SCH (10:59)
[2017-12-17] MEDS: DULoxetine 30 MG (CYMBALTA) CAP PO SCH (10:59)
[2017-12-17] MEDS: meTOproloL SUCCINATE 50 MG (TOPROL XL) TAB PO SCH (10:59)
[2017-12-17] MEDS: ISOSORBIDE MONONITRATE 30 MG (IMDUR) TAB PO SCH (10:59)
[2017-12-17 11:11] LABS: BAND NEUTROPHILS 0 %; BASOPHILS % (MANUAL) 0 %; EOSINOPHILS % (MANUAL) 12 %; LYMPHOCYTES % (MANUAL) 36 %; MONOCYTES % (MANUAL) 21 %; NEUTROPHILS % (MANUAL) 31 %; RBC MORPH NORMAL
--- NOTE | 2017-12-17 11:34 | Progress Note (SOAP) ---
Subjective Date Seen by Provider: Dec 17, 2017 Time Seen by Provider: 10:00 Subjective/Events-last exam frequency of liquid stools has decreased. No abdominal pain. Leukopenic. Electrolytes okay.confirms using antibiotics about 3-4 weeks ago. Review of Systems General: No Chills, No Night Sweats, No Fatigue, No Malaise HEENT: No Head Aches, No Eye Pain, No Ear Pain, No Dysphasia, No Sinus Congestion, No Post Nasal Drip, No Sore Throat Pulmonary: No Dyspnea, No Cough, No Pleuritic Chest Pain Cardiovascular: No: Chest Pain, Palpitations, Orthopnea, Paroxysmal Noc. Dyspnea, Edema, Lt Headedness Gastrointestinal: Diarrhea Genitourinary: No Dysuria, No Frequency, No Incontinence, No Hematuria, No Retention Musculoskeletal: No: other, neck pain, shoulder pain, arm pain, back pain, hand pain, leg pain, foot pain Neurological: Weakness Focused Exam Lactate Level 12/15/17 16:45: Lactic Acid Level 1.19 Objective Exam Vital Signs Date Time Temp Pulse Resp B/P (MAP) Pulse Ox O2 Delivery O2 Flow Rate FiO2 12/17/17 09:31 150/78 (102) 12/17/17 08:00 97.8 58 16 167/77 (107) 93 Room Air 12/17/17 07:00 81 12/17/17 04:00 98.2 69 16 136/85 (102) 99 Room Air 12/17/17 01:00 62 12/17/17 00:00 98.9 66 20 136/85 (102) 97 Room Air 12/16/17 19:44 97.2 67 16 171/75 (107) 98 Room Air 12/16/17 19:00 61 12/16/17 15:41 97.8 57 18 161/72 (101) 97 Room Air 12/16/17 13:00 56 12/16/17 12:00 97.8 80 18 124/76 (92) 98 Room Air I & O 12/17/17 07:00 Intake Total 2020 ml Balance 2020 ml Capillary Refill : Less Than 3 Seconds General Appearance: Anxious Neck: Normal Inspection Respiratory: Lungs Clear Cardiovascular: Regular Rate, Rhythm Gastrointestinal: non tender, soft, hernia, other Extremity: Normal Inspection Neurologic/Psychiatric: Alert, Oriented x3 Skin: Warm/Dry Other comments irregular lower abdominal and upper midline scar with eventration of the midline. No tenderness. Results Lab Laboratory Tests 12/17/17 04:20: White Blood Count 2.2L, Red Blood Count 4.16L, Hemoglobin 11.9, Hematocrit 36, Mean Corpuscular Volume 87, Mean Corpuscular Hemoglobin 29, Mean Corpuscular Hemoglobin Concent 33, Red Cell Distribution Width 13.9, Platelet Count 208, Mean Platelet Volume 9.5, Neutrophils (%) (Auto) 39L, Lymphocytes (%) (Auto) 29 , Monocytes (%) (Auto) 21H, Eosinophils (%) (Auto) 10, Basophils (%) (Auto) 1, Neutrophils # (Auto) 0.9L, Lymphocytes # (Auto) 0.7L, Monocytes # (Auto) 0.5, Eosinophils # (Auto) 0.2, Basophils # (Auto) 0.0, Neutrophils % (Manual) 31, Lymphocytes % (Manual) 36, Monocytes % (Manual) 21, Eosinophils % (Manual) 12, Basophils % (Manual) 0, Band Neutrophils 0, Blood Morphology Comment NORMAL, Sodium Level 143, Potassium Level 4.2, Chloride Level 116H, Carbon Dioxide Level 20L, Anion Gap 7, Blood Urea Nitrogen 9, Creatinine 0.80, Estimat Glomerular Filtration Rate > 60, BUN/Creatinine Ratio 11, Glucose Level 85, Calcium Level 10.2H, Corrected Calcium 10.8H, Total Bilirubin 0.3, Aspartate Amino Transf (AST/SGOT) 15, Alanine Aminotransferase (ALT/SGPT) 10, Alkaline Phosphatase 42, Total Protein 5.3L, Albumin 3.2 Microbiology 12/15/17 Blood Culture - Preliminary, Resulted No growth 12/15/17 C. difficile DNA Amplification - Final, Complete 12/15/17 Urine Culture - Final, Complete See Comments Assessment/Plan Assessment/Plan Assess & Plan/Chief Complaint lady with Clostridium difficile colitis. On oral vancomycin and improving. Leukopenia, pending further evaluation. Could advance diet. Final Diagnosis Clostridium difficile colitis Clinical Quality Measures DVT/VTE Risk/Contraindication: Risk Factor Score Per Nursin RFS Level Per Nursing on Admit: 4+=Very High GEM RICE MD Dec 17, 2017 11:34
[2017-12-17 12:00] VITALS: BP 138/70
--- NOTE | 2017-12-17 13:23 | CONSULTATION REPORT ---
DATE OF SERVICE: 12/17/2017 REFERRING AND PRIMARY PHYSICIAN: Maritza Koch, DO The patient is admitted to room 405. IMPRESSION: 1. New onset neutropenia and leukopenia of undetermined etiology, rule out infection versus medication versus myelophthisic processes. 2. Clostridium difficile colitis. RECOMMENDATIONS: 1. Continue management of C. difficile colitis as you are doing. 2. Monitor CBC daily. If the neutropenia and leukopenia are not improving, she will need a bone marrow aspiration and biopsy for further evaluation. 3. If she has evidence of worsening infection or complications, I will start the patient on GCSF to try to normalize the neutrophil count. 4. We will follow the patient with you. BRIEF HISTORY OF PRESENT ILLNESS: The patient is a 77-year-old female, who developed diarrheal illness approximately a month ago. She was treated with a course of Flagyl and ciprofloxacin on an outpatient basis with initial improvement of symptoms. Approximately, a week ago, the diarrhea restarted with abdominal pain and she was evaluated at the emergency room and admitted for further management. Initial evaluation with the stool studies showed C. difficile toxin positive and she started on oral vancomycin yesterday. She is feeling better today and the diarrhea is slowing down. During admission, she was noted to have neutropenia and leukopenia. Hence, a Hematology consultation was requested. PAST MEDICAL HISTORY: Significant for coronary artery disease. 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 She has not had any problem since then. No history of congestive heart failure. She also has history of depression in the past and osteoporosis. She required a back surgery with freedom placement a few years ago, but continues to have significant back pain. PAST SURGICAL HISTORY: Include 3-vessel CABG in 1988, 4-vessel CABG in 1991, umbilical hernia repair approximately 8 years ago, incisional hernia requiring repair with mesh placement 7 years ago. She has had a cholecystectomy and hysterectomy in the past. SOCIAL HISTORY: The patient was recently . She [place] in [place] with her youngest son. She had 4 sons and an adopted daughter. Her older son of Cuca Gehrig's disease while in his 30s. Second son in his 50s due to coronary artery disease and ME. Third son lives in [place] and the youngest son lives at home with her. Her adopted daughter lives in [place], [place]. She denied any tobacco, alcohol or other recreational drug use. 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 She worked with [employer] in [place] for several years, but is not working now. FAMILY HISTORY: Significant for her father with colon cancer and a brother with probable stomach cancer. A brother of coronary artery disease at the age of 46 and her son while in his early 50s. As mentioned previously, her older son had Cuca Gehrig's disease and in his 30s. A brother has diabetes mellitus type 2. PHYSICAL EXAMINATION: GENERAL: Today showed an elderly female, awake and oriented, in no acute distress. VITAL SIGNS: Temperature was 97.8, pulse rate of 58, respirations 16, blood pressure 167/77 with oxygen saturation of 93% on room air. HEENT: Normocephalic, extraocular muscles intact, conjunctivae pink, oral mucosa moist. NECK: Supple, with no JVD. No cervical, supraclavicular or axillary lymphadenopathy palpable. CHEST: Symmetrical. LUNGS: Fairly clear to auscultation without wheezes or rales. CARDIOVASCULAR: Exam was regular in rate and rhythm with a grade II early systolic murmur. ABDOMEN: Soft with mild discomfort in the left lower quadrant area without guarding or rebound. No hepatosplenomegaly or other masses palpable. EXTREMITIES: Showed no edema. NEUROLOGICAL EXAMINATION: Grossly intact without focal motor deficits. LABORATORY DATA: A CBC done today showed white count of 2.2, hemoglobin 11.9, platelet count of 208,000 with neutrophil count of 0.9 and lymphocyte count of 0.7 with monocyte count 0.5. I have reviewed the peripheral smear, which confirmed the leukopenia. The neutrophils appeared unremarkable with adequate granulation. There was a population of atypical lymphocytes or smaller monocytes. No immature cells or blasts identified. Red blood cells with mild anisopoikilocytosis. Mild rouleaux formation was noted. Platelets appeared unremarkable. Reviewed her CBCs from previous admissions and prior to this current admission, her neutrophil count has been in the normal range with the total white count either normal or slightly below normal. Chemistry panel done today showed a chloride level of 116 and CO2 of 20. BUN was 9 with creatinine 0.8 and GFR more than 60 mL per minute. Measured calcium was 10.2 with albumin level of 3.2 and corrected calcium level of 10.8. Liver function studies were within normal limits. I will follow the patient with you and make appropriate recommendations. Job ID: [id number] DocumentID: [id number] Dictated Date: 12/17/2017 11:46:11 Resolution Rep Date: 12/17/2017 13:23:18 Dictated By: LUIS ARMANDO GARZA MD MTDD
[2017-12-17 16:51] VITALS: BP 164/70
[2017-12-17] MEDS: lisINopril 20 MG (PRINIVIL) TABLET PO SCH ×2 (18:13→20:56)
[2017-12-17] MEDS: fentaNYL INJECTION 100 MCG/2 ML AMP IV PRN (22:08)
[2017-12-18] VITALS: BP 98/68
[2017-12-18] MEDS: NS W/KCL 40 MEQ/L 1,000 ML IV SCH (02:10)
[2017-12-18] MEDS: ONDANSETRON 4 MG/2 ML (SDV) Z0FRAN IV PRN ×2 (03:07→09:18)
[2017-12-18] MEDS: VANCOMYCIN ORAL 250 MG/5 ML 120 ML PO SCH ×6 (05:24→18:24)
[2017-12-18] MEDS: DICYCLOMINE 10 MG (BENTYL) CAP PO SCH ×4 (05:25→22:19)
[2017-12-18] MEDS: CHOLESTYRAMINE 4 GM (QUESTRAN LITE, PREVALITE) PKT PO SCH ×4 (06:34→22:19)
[2017-12-18 06:53] LABS: BASOPHILS % (AUTO) 1 % (0-10); EOSINOPHILS # (AUTO) 0.2 10^3/uL (0.0-0.3); EOSINOPHILS % (AUTO) 10 % (0-10); HEMATOCRIT 35 % (35-52); HEMOGLOBIN 11.7 G/DL (11.5-16.0); LYMPHOCYTES # (AUTO) 0.8 X 10^3 (1.0-4.0); LYMPHOCYTES % (AUTO) 35 % (12-44); MEAN CORPUSCULAR HEMOGLOBIN 29 PG (25-34); MEAN CORPUSCULAR HGB CONC 33 G/DL (32-36); MEAN CORPUSCULAR VOLUME 87 FL (80-99); MEAN PLATELET VOLUME 9.4 FL (7.4-10.4); MONOCYTES # (AUTO) 0.5 X 10^3 (0.0-1.0); MONOCYTES % (AUTO) 21 % (0-12); NEUTROPHILS # (AUTO) 0.7 X 10^3 (1.8-7.8); NEUTROPHILS % (AUTO) 32 % (42-75); PLATELET COUNT 234 10^3/uL (130-400); RED BLOOD COUNT 4.06 10^6/uL (4.35-5.85); RED CELL DISTRIBUTION WIDTH 13.9 % (10.0-14.5); WHITE BLOOD COUNT 2.3 10^3/uL (4.3-11.0)
[2017-12-18 07:15] LABS: ALANINE AMINOTRANSFERASE 14 U/L (0-55); ALBUMIN 3.4 GM/DL (3.2-4.5); ALKALINE PHOSPHATASE 48 U/L (40-136); BILIRUBIN,TOTAL 0.2 MG/DL (0.1-1.0); BUN/CREATININE RATIO 11; CALCIUM 10.5 MG/DL (8.5-10.1); CARBON DIOXIDE 22 MMOL/L (21-32); CHLORIDE 112 MMOL/L (98-107); CREATININE SERUM 0.83 MG/DL (0.60-1.30); GFR ESTIMATED > 60; GLUCOSE 83 MG/DL (70-105); POTASSIUM 5.2 MMOL/L (3.6-5.0); SODIUM 141 MMOL/L (135-145); TOTAL PROTEIN 5.5 GM/DL (6.4-8.2)
[2017-12-18 08:00] VITALS: BP 167/87
[2017-12-18] MEDS: oxyCODONE/APAP 10/325MG (PERCOCET 10) TABLET PO PRN ×2 (08:39→16:11)
[2017-12-18] MEDS: DULoxetine 30 MG (CYMBALTA) CAP PO SCH (08:39)
[2017-12-18] MEDS: ISOSORBIDE MONONITRATE 30 MG (IMDUR) TAB PO SCH (08:39)
[2017-12-18] MEDS: meTOproloL SUCCINATE 50 MG (TOPROL XL) TAB PO SCH (08:39)
[2017-12-18] MEDS: FELODIPINE 5 MG PO SCH (08:40)
--- NOTE | 2017-12-18 09:26 | Progress Note-Hospitalist ---
LIONEL YARBROUGH MEDICAL STUDENT 12/18/17 0926: Subjective HPI/CC On Admission Date Seen by Provider: Dec 18, 2017 Time Seen by Provider: 08:20 CC: Near syncope HPI: This is a 77yoWF clinic patient of mine for 14 years who presented to my office due to continued abdominal issues after empirically being placed on acute diverticulitis treatment 10 days prior with 2 close f/u appts since then who had a near syncopal episode walking into the exam room and required transfer from my office via ambulance to the ER and was found to have dehydration and abnormal CT scan. Dr Olson has been consulted but it appears this may be acute C diff so treatment will be placed with Vanc since she was just on Flagyl 1 week prior. Had a long conversation with the patient and she requests DNR and that order was placed into chart and that was her wishes in the ER also. Subjective/Events-last exam Pt had no acute events overnight and states she is doing much better. Slept well overnight. Advanced diet to regular yesterday, and she is tolerating it well. She does not report having a BM yesterday, and says she had only a small one this AM. She is ambulating to and from the bathroom. Urinating without difficulty. Only concern this morning is back pain, which is chronic. Focused Exam Lactate Level 12/15/17 16:45: Lactic Acid Level 1.19 Respiratory: Chest Non Tender, Lungs Clear, Normal Breath Sounds Cardiovascular: Regular Rate, Rhythm, No Edema Objective Exam Vital Signs Vital Signs Date Time Temp Pulse Resp B/P (MAP) Pulse Ox O2 Delivery O2 Flow Rate FiO2 12/18/17 00:00 98.9 56 18 98/68 (78) 98 Room Air Capillary Refill : Less Than 3 Seconds Gastrointestinal: Tenderness (RLQ tenderness) Results/Procedures Lab Laboratory Tests 12/18/17 06:30 Patient resulted labs reviewed. Assessment/Plan Assessment and Plan Assess & Plan/Chief Complaint 77 year old female with a historyof CAD, chronic constipation, bowel obstruction with recent outpatient treatment of presumed diverticulitis with cipro and flagyl admitted with concerns for diverticulitis and dehydration found to have C. difficile infection now improving on oral vancomycin. C. Difficile infection -Tolerating regular diet -Currently on PO Vancomycin four times daily for 10 day course -Stool culture initially show no gram negative aerobic bacilli, final result pending, ova and parasites pending. -General surgery consulted, will follow recommendations on flex sig. -Initial CT finding of air in bladder, repeat CT showed no air. Pt reports no symptoms. Hypertension: Resumed [employer] Lisinopril, felodipine, metoprolol. BP controlled overnight. Pain -Fentanyl 50 mcg Q2H -Percocet PRN FEN -IVF at maintenance -Will discuss removing potassium given hyperkalemia today. -PTH studies pending given hypercalcemia. Clinical Quality Measures DVT/VTE Risk/Contraindication: Risk Factor Score Per Nursin RFS Level Per Nursing on Admit: 4+=Very High STEPHANIE GONZALEZ 12/18/17 1209: Subjective HPI/CC On Admission Time Seen by Provider: 11:00 Subjective/Events-last exam Patient wants to go home and she agrees for tomorrow Eating well so will DC IVF completely Ambulate in halls in prep for DC tomorrow Review of Systems General: Fatigue Objective Exam General Appearance: No Apparent Distress, WD/WN, Chronically ill, Thin Respiratory: Chest Non Tender, Lungs Clear, Normal Breath Sounds, No Accessory Muscle Use, No Respiratory Distress Cardiovascular: Regular Rate, Rhythm, No Edema, No Gallop, No JVD, No Murmur, Normal Peripheral Pulses Gastrointestinal: Normal Bowel Sounds, No Organomegaly, No Pulsatile Mass, Non Tender, Soft Neurologic/Psychiatric: Alert, Oriented x3, No Motor/Sensory Deficits, Normal Mood/Affect Skin: Normal Color, Warm/Dry Assessment/Plan Assessment and Plan Assess & Plan/Chief Complaint HLIVF DC tomorrow Diagnosis/Problems Diagnosis/Problems (1) C. difficile colitis Status: Acute (2) Chronic pain Status: Chronic Qualifiers: Chronic pain type: chronic pain syndrome Qualified Codes: G89.4 - Chronic pain syndrome (3) Narcotic bowel syndrome Status: Chronic (4) Syncope, near Status: Resolved (5) Weight loss Status: Acute (6) Neutropenia Status: Acute Qualifiers: Neutropenia type: unspecified Qualified Codes: D70.9 - Neutropenia, unspecified (7) Narcotic dependence Status: Chronic (8) Hernia, abdominal Status: Chronic Qualifiers: Hernia type: unspecified Obstruction and gangrene presence: without obstruction or gangrene Recurrence: recurrent Qualified Codes: K45.8 - Other specified abdominal hernia without obstruction or gangrene LIONEL YARBROUGH MEDICAL STUDENT Dec 18, 2017 09:26 STEPHANIE GONZALEZ DO Dec 18, 2017 12:09
[2017-12-18] MEDS ORDERED: NS IV 1000 ML 1,000 ML IV SCH (11:00)
--- NOTE | 2017-12-18 11:14 | Progress Note-Standard ---
Standard Progress Note Progress Notes/Assess & Plan Date Seen by Provider: Dec 18, 2017 Time Seen by Provider: 11:13 Progress/Assessment & Plan diarrhea almost resolved. Appetite improving. Potassium slightly elevated and therefore would be discontinued from IV fluids and hep locked. Abdomen soft and nontender. Could be discharged home soon. Leukopenia continues. Final Diagnosis Clostridium difficile colitis. Leukopenia. Focused Exam Lactate Level 12/15/17 16:45: Lactic Acid Level 1.19 GEM RICE MD Dec 18, 2017 11:14
[2017-12-18 16:57] VITALS: BP 162/72
[2017-12-18] MEDS: lisINopril 20 MG (PRINIVIL) TABLET PO SCH ×2 (18:30→22:19)
[2017-12-19] VITALS: BP 161/72
[2017-12-19] MEDS ORDERED: VANCOMYCIN ORAL SUSPENSION 60 ML BOTTLE PO SCH
[2017-12-19] MEDS: VANCOMYCIN ORAL 250 MG/5 ML 120 ML PO SCH ×6 (01:08→12:41)
[2017-12-19 05:19] LABS: BASOPHILS % (AUTO) 2 % (0-10); EOSINOPHILS # (AUTO) 0.3 10^3/uL (0.0-0.3); EOSINOPHILS % (AUTO) 9 % (0-10); HEMATOCRIT 38 % (35-52); HEMOGLOBIN 12.3 G/DL (11.5-16.0); LYMPHOCYTES # (AUTO) 0.9 X 10^3 (1.0-4.0); LYMPHOCYTES % (AUTO) 34 % (12-44); MEAN CORPUSCULAR HEMOGLOBIN 29 PG (25-34); MEAN CORPUSCULAR HGB CONC 33 G/DL (32-36); MEAN CORPUSCULAR VOLUME 87 FL (80-99); MEAN PLATELET VOLUME 9.2 FL (7.4-10.4); MONOCYTES # (AUTO) 0.5 X 10^3 (0.0-1.0); MONOCYTES % (AUTO) 20 % (0-12); NEUTROPHILS # (AUTO) 0.9 X 10^3 (1.8-7.8); NEUTROPHILS % (AUTO) 35 % (42-75); PLATELET COUNT 218 10^3/uL (130-400); RED BLOOD COUNT 4.31 10^6/uL (4.35-5.85); RED CELL DISTRIBUTION WIDTH 13.8 % (10.0-14.5); WHITE BLOOD COUNT 2.7 10^3/uL (4.3-11.0)
[2017-12-19 05:41] LABS: ALANINE AMINOTRANSFERASE 10 U/L (0-55); ALBUMIN 3.5 GM/DL (3.2-4.5); ALKALINE PHOSPHATASE 51 U/L (40-136); BILIRUBIN,TOTAL 0.2 MG/DL (0.1-1.0); BUN/CREATININE RATIO 10; CARBON DIOXIDE 21 MMOL/L (21-32); CHLORIDE 111 MMOL/L (98-107); GFR ESTIMATED > 60; GLUCOSE 86 MG/DL (70-105); POTASSIUM 4.6 MMOL/L (3.6-5.0); SODIUM 139 MMOL/L (135-145); TOTAL PROTEIN 5.8 GM/DL (6.4-8.2)
[2017-12-19] MEDS: DICYCLOMINE 10 MG (BENTYL) CAP PO SCH ×2 (06:17→11:37)
[2017-12-19] MEDS: CHOLESTYRAMINE 4 GM (QUESTRAN LITE, PREVALITE) PKT PO SCH ×2 (06:17→11:30)
[2017-12-19 08:00] VITALS: BP 158/86
--- NOTE | 2017-12-19 08:43 | Discharge Summary-Hospitalist ---
LIONEL YARBROUGH MEDICAL STUDENT 12/19/17 0843: Diagnosis/Chief Complaint Date of Admission Dec 15, 2017 at 21:09 Date of Discharge Admission Diagnosis C diff colitis Recent acute diverticulitis s/p Flagyl and Cipro. 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 difficile colitis Status: Acute (2) Chronic pain Status: Chronic (3) Narcotic bowel syndrome Status: Chronic (4) Syncope, near Status: Resolved (5) Weight loss Status: Acute (6) Neutropenia Status: Acute (7) Narcotic dependence Status: Chronic (8) Hernia, abdominal Status: Chronic Discharge Summary Discharge Physical Exam Allergies: Coded Allergies: iodine (Unverified Allergy, Unknown, 01/16/14) latex (Unverified Allergy, Unknown, RASH, 01/16/14) Vitals & I&Os Vital Signs Date Time Temp Pulse Resp B/P (MAP) Pulse Ox O2 Delivery O2 Flow Rate FiO2 12/19/17 00:00 98.2 58 16 161/72 (101) 98 Room Air General Appearance: No Apparent Distress, WD/WN Respiratory: Chest Non Tender, Lungs Clear Cardiovascular: Regular Rate, Rhythm Gastrointestinal: Normal Bowel Sounds Skin: Normal Color, Warm/Dry Neurologic/Psychiatric: Alert, Oriented x3 Hospital Course Nancy Schrader is a 77yo F admitted from clinic via EMS for presyncopal episode following completion of empiric treatment of acute diverticulitis with Ciprofloxacin and Flagyl. Initial physical exam was concerning for dehydration and CT showed diffuse sigmoid and rectal inflammation without evidence of diverticulitis and also air in the bladder. C. diff toxin assay and DNA amplification confirmed a diagnosis of C. difficile infection, so she was started on PO vancomycin in addition to IV fluids. CT cystogram was attempted given air in bladder, but unable to be performed due to difficulty inserting [place]; however, repeat CT showed no air in the bladder and pt was asymptomatic. Pt improved clinically and was ready for discharge on hospital day 4 with vancomycin treatment to be completed on 12/26. Of note, pt was leukopenic and hypercalcemic throughout admission. Hemaotology was consulted and recommended close monitoring of leukopenia with outpatient BM biopsy if no improvement in numbers. PTH studies were obtained given hypercalcemia and showed high normal PTH in the setting of hypercalcemia. Pt was asymptomatic, so further workup could be obtained on outpatient basis. Labs (last 24 hrs) Laboratory Tests 12/19/17 05:08: White Blood Count 2.7L, Red Blood Count 4.31L, Hemoglobin 12.3, Hematocrit 38, Mean Corpuscular Volume 87, Mean Corpuscular Hemoglobin 29, Mean Corpuscular Hemoglobin Concent 33, Red Cell Distribution Width 13.8, Platelet Count 218, Mean Platelet Volume 9.2, Neutrophils (%) (Auto) 35L, Lymphocytes (%) (Auto) 34 , Monocytes (%) (Auto) 20H, Eosinophils (%) (Auto) 9, Basophils (%) (Auto) 2, Neutrophils # (Auto) 0.9L, Lymphocytes # (Auto) 0.9L, Monocytes # (Auto) 0.5, Eosinophils # (Auto) 0.3, Basophils # (Auto) 0.0, Sodium Level 139, Potassium Level 4.6, Chloride Level 111H, Carbon Dioxide Level 21, Anion Gap 7, Blood Urea Nitrogen 9, Creatinine 0.90, Estimat Glomerular Filtration Rate > 60, BUN/ Creatinine Ratio 10, Glucose Level 86, Calcium Level 11.0H, Corrected Calcium 11.4H, Total Bilirubin 0.2, Aspartate Amino Transf (AST/SGOT) 16, Alanine Aminotransferase (ALT/SGPT) 10, Alkaline Phosphatase 51, Total Protein 5.8L, Albumin 3.5 Microbiology 12/15/17 Blood Culture - Preliminary, Resulted No growth 12/16/17 Stool Culture - Final, Complete See Comments 12/15/17 Urine Culture - Final, Complete See Comments Patient resulted labs reviewed. Pending Labs Laboratory Tests 12/19/17 05:08: White Blood Count 2.7, Red Blood Count 4.31, Hemoglobin 12.3, Hematocrit 38, Mean Corpuscular Volume 87, Mean Corpuscular Hemoglobin 29, Mean Corpuscular Hemoglobin Concent 33, Red Cell Distribution Width 13.8, Platelet Count 218, Mean Platelet Volume 9.2, Neutrophils (%) (Auto) 35, Lymphocytes (%) (Auto) 34, Monocytes (%) (Auto) 20, Eosinophils (%) (Auto) 9, Basophils (%) (Auto) 2, Neutrophils # (Auto) 0.9, Lymphocytes # (Auto) 0.9, Monocytes # (Auto) 0.5, Eosinophils # (Auto) 0.3, Basophils # (Auto) 0.0, Sodium Level 139, Potassium Level 4.6, Chloride Level 111, Carbon Dioxide Level 21, Anion Gap 7, Blood Urea Nitrogen 9, Creatinine 0.90, Estimat Glomerular Filtration Rate > 60, BUN/ Creatinine Ratio 10, Glucose Level 86, Calcium Level 11.0, Corrected Calcium 11.4, Total Bilirubin 0.2, Aspartate Amino Transf (AST/SGOT) 16, Alanine Aminotransferase (ALT/SGPT) 10, Alkaline Phosphatase 51, Total Protein 5.8, Albumin 3.5 Discharge Home Medications: Active Scripts Active Reported Folic Acid 0.8 Mg Tablet 0.8 Mg PO DAILY Vitamin C (Ascorbate Calcium) 500 Mg Tablet 500 Mg PO DAILY Beta Carotene (Beta-Carotene) 10,000 Unit Capsule 10,000 Unit PO DAILY Women's Gentle Laxative (Bisacodyl) 5 Mg Tablet.dr 5 Mg PO DAILY PRN Co Q-10 (Ubidecarenone) 300 Mg Capsule 300 Mg PO DAILY Vitamin B Complex 1 Each Capsule 1 Cap PO DAILY Miralax (Polyethylene Glycol 3350) 17 Gm Powd.pack 17 Gm PO DAILY PRN Docusate Sodium 100 Mg Capsule 200 Mg PO DAILY PRN Linzess (Linaclotide) 290 Mcg Capsule 290 Mcg PO DAILY Fentanyl Patch 50 MCG (Fentanyl) 1 Each Patch.td72 50 Mcg TD Q72H Fenofibrate (Fenofibrate Nanocrystallized) 48 Mg Tablet 48 Mg PO HS Ezetimibe 10 Mg Tablet 10 Mg PO HS Fish Oil 1,000 mg Capsule ([place] 3 Polyunsat Fatty Acids) 1,000 Mg Cap 1,000 Mg PO DAILY Percocet 10-325 mg Tablet (Oxycodone HCl/Acetaminophen) 1 Each Tablet 1 Tab PO Q6H Vitamin D3 (Cholecalciferol (Vitamin D3)) 1,000 Unit Capsule 1,000 Unit PO DAILY Citrucel Powder (Methylcellulose (with Sugar)) 850 Gm Powder 1.5 Tbs PO DAILY Isosorbide Mononitrate ER (Isosorbide Mononitrate) 30 Mg Tab.er.24h 30 Mg PO DAILY Clopidogrel (Clopidogrel Bisulfate) 75 Mg Tablet 75 Mg PO 1800 Duloxetine HCl 60 Mg Capsule.dr 60 Mg PO DAILY TAKES ALONG WITH 30MG CAPSULE Duloxetine HCl 30 Mg Capsule.dr 30 Mg PO DAILY TAKES ALONG WITH 60MG CAPSULE Atorvastatin Calcium 40 Mg Tablet 40 Mg PO HS Toprol Xl (Metoprolol Succinate) 50 Mg Tab.er.24h 50 Mg PO DAILY Felodipine ER (Felodipine) 5 Mg Tab.er.24h 5 Mg PO DAILY Lisinopril 20 Mg Tablet 20 Mg PO 1800,2200 Instructions to patient/family Please see electronic discharge instructions given to patient. 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 difficile colitis Status: Acute (8) Chronic pain Status: Chronic (9) UTI (urinary tract infection) Status: Acute (10) Weight loss Status: Acute (11) Neutropenia Status: Acute (12) Narcotic dependence Status: Chronic (13) Hernia, abdominal Status: Chronic (14) Hematuria Status: Acute (15) Colitis Status: Acute (16) Hypercalcemia Status: Acute (17) Elevated parathyroid hormone Status: Acute Discharge Summary Discharge Physical Exam Allergies: Coded Allergies: iodine (Unverified Allergy, Unknown, 01/16/14) latex (Unverified Allergy, Unknown, RASH, 01/16/14) General Appearance: No Apparent Distress, WD/WN, Chronically ill HEENT: PERRL/EOMI, TMs Normal, Normal ENT Inspection, Pharynx Normal Respiratory: Chest Non Tender, Lungs Clear, Normal Breath Sounds, No Accessory Muscle Use, No Respiratory Distress Cardiovascular: Regular Rate, Rhythm, No Edema, No Gallop, No JVD, No Murmur, Normal Peripheral Pulses Gastrointestinal: Normal Bowel Sounds, No Organomegaly, No Pulsatile Mass, Non Tender, Soft Extremity: Normal Capillary Refill, Normal Inspection, Normal Range of Motion, Non Tender, No Calf Tenderness, No Pedal Edema Skin: Normal Color, Warm/Dry Neurologic/Psychiatric: Alert, Oriented x3, No Motor/Sensory Deficits, Normal Mood/Affect Hospital Course Patient ready for DC. No additions to above hospital course. All meds reviewed and sent into pharmacy. F/U with me Tuesday. Discussion & Recommendations Discharge Planning: <30 minutes discharge planning Problem Qualifiers (1) Chronic pain: Chronic pain type: chronic pain syndrome Qualified Codes: G89.4 - Chronic pain syndrome (2) Neutropenia: Neutropenia type: unspecified Qualified Codes: D70.9 - Neutropenia, unspecified (3) Hernia, abdominal: Hernia type: unspecified Obstruction and gangrene presence: without obstruction or gangrene Recurrence: recurrent Qualified Codes: K45.8 - Other specified abdominal hernia without obstruction or gangrene (4) UTI (urinary tract infection): Urinary tract infection type: acute cystitis Hematuria presence: without hematuria Qualified Codes: N30.00 - Acute cystitis without hematuria (5) Hematuria: Hematuria type: unspecified type Qualified Codes: R31.9 - Hematuria, unspecified LIONEL YARBROUGH MEDICAL STUDENT Dec 19, 2017 08:43 STEPHANIE GONZALEZ DO Dec 19, 2017 09:15
[2017-12-19] MEDS ORDERED: DICY10CA12 PO (09:09)
[2017-12-19] MEDS ORDERED: CHOL4PAC3 PO (09:09)
[2017-12-19] MEDS ORDERED: VANC125S PO (09:12)
[2017-12-19] MEDS ORDERED: RELABEL FOR HOME USE MC SCH (09:30)
[2017-12-19] MEDS: meTOproloL SUCCINATE 50 MG (TOPROL XL) TAB PO SCH (09:40)
[2017-12-19] MEDS: DULoxetine 30 MG (CYMBALTA) CAP PO SCH (09:40)
[2017-12-19] MEDS: ISOSORBIDE MONONITRATE 30 MG (IMDUR) TAB PO SCH (09:40)
[2017-12-19] MEDS: FELODIPINE 5 MG PO SCH (09:41)
--- NOTE | 2017-12-19 10:55 | Progress Note ---
Subjective Time Seen by Provider: 10:32 Subjective/Events-last exam Pt seen and examined, looks good today. Pt denies abdominal pain, denies hematochezia. She does complain of "GERD" and minimal nausea. Review of Systems Pulmonary: No Dyspnea, No Cough Gastrointestinal: Nausea; No: Vomiting, Abdominal Pain Objective Exam Vital Signs Date Time Temp Pulse Resp B/P (MAP) Pulse Ox O2 Delivery O2 Flow Rate FiO2 12/19/17 08:00 97.1 64 18 158/86 (110) 94 Room Air 12/19/17 00:00 98.2 58 16 161/72 (101) 98 Room Air 12/18/17 16:57 97.6 62 24 162/72 (102) 99 Room Air I & O 12/19/17 06:59 Intake Total 2840 ml Balance 2840 ml Capillary Refill : Less Than 3 Seconds General Appearance: No Apparent Distress, WD/WN HEENT: PERRL/EOMI, Pharynx Normal, Moist Mucous Membranes Respiratory: Chest Non Tender, Lungs Clear, Normal Breath Sounds, No Accessory Muscle Use, No Respiratory Distress Cardiovascular: Regular Rate, Rhythm, No Edema, No Murmur, Normal Peripheral Pulses Gastrointestinal: non tender, soft, hernia, other Extremity: Normal Capillary Refill, Non Tender, No Calf Tenderness, No Pedal Edema Neurologic/Psychiatric: Alert, Oriented x3, No Motor/Sensory Deficits, Normal Mood/Affect Skin: Normal Color, Warm/Dry Lymphatic: No Adenopathy Results Lab Laboratory Tests 12/19/17 05:08: White Blood Count 2.7L, Red Blood Count 4.31L, Hemoglobin 12.3, Hematocrit 38, Mean Corpuscular Volume 87, Mean Corpuscular Hemoglobin 29, Mean Corpuscular Hemoglobin Concent 33, Red Cell Distribution Width 13.8, Platelet Count 218, Mean Platelet Volume 9.2, Neutrophils (%) (Auto) 35L, Lymphocytes (%) (Auto) 34 , Monocytes (%) (Auto) 20H, Eosinophils (%) (Auto) 9, Basophils (%) (Auto) 2, Neutrophils # (Auto) 0.9L, Lymphocytes # (Auto) 0.9L, Monocytes # (Auto) 0.5, Eosinophils # (Auto) 0.3, Basophils # (Auto) 0.0, Sodium Level 139, Potassium Level 4.6, Chloride Level 111H, Carbon Dioxide Level 21, Anion Gap 7, Blood Urea Nitrogen 9, Creatinine 0.90, Estimat Glomerular Filtration Rate > 60, BUN/ Creatinine Ratio 10, Glucose Level 86, Calcium Level 11.0H, Corrected Calcium 11.4H, Total Bilirubin 0.2, Aspartate Amino Transf (AST/SGOT) 16, Alanine Aminotransferase (ALT/SGPT) 10, Alkaline Phosphatase 51, Total Protein 5.8L, Albumin 3.5 Microbiology 12/15/17 Blood Culture - Preliminary, Resulted No growth 12/16/17 Stool Culture - Final, Complete See Comments 12/15/17 Urine Culture - Final, Complete See Comments Assessment/Plan Assessment/Plan Assessment/Plan Clostridium difficile colitis. On oral vancomycin should go home with this and finish it off: full 10 day course. Pt told not to take "little purple pill" she should use Pepcid or Zantac. PPI like protonix are actually associated with recurrence (possibly cause) of C. Diff. Clinical Quality Measures DVT/VTE Risk/Contraindication: Risk Factor Score Per Nursin RFS Level Per Nursing on Admit: 4+=Very High DESIREE SIMMS DO Dec 19, 2017 10:55
[2017-12-19] MEDS: FENTANYL PATCH REMOVAL TP SCH (11:30)
[2017-12-19] MEDS: fentaNYL PATCH 50 MCG (DURAGESIC) TD SCH (11:37)
== END 2017-12-19 15:10 | disposition home or self-care (01) | DRG 372 ==
LOC: EDUNIT# 16:42 → ER 16:43 → 4TH 21:09
PROVIDERS: ADMIT Internal Medicine; ATTEND Internal Medicine
DX: A04.72 Enterocolitis due to Clostridium difficile, not specified as recurrent (principal); N39.0 Urinary tract infection, site not specified; E86.0 Dehydration; F11.20 Opioid dependence, uncomplicated; K59.09 Other constipation; D72.819 Decreased white blood cell count, unspecified; E83.52 Hypercalcemia; Z66 Do not resuscitate; E87.5 Hyperkalemia; I25.10 Atherosclerotic heart disease of native coronary artery without angina pectoris; F41.9 Anxiety disorder, unspecified; F32.9 Major depressive disorder, single episode, unspecified; M81.0 Age-related osteoporosis without current pathological fracture; R55 Syncope and collapse; R63.4 Abnormal weight loss; G89.29 Other chronic pain; K43.9 Ventral hernia without obstruction or gangrene; M48.062 Spinal stenosis, lumbar region with neurogenic claudication; M43.16 Spondylolisthesis, lumbar region; R39.89 Other symptoms and signs involving the genitourinary system; R94.6 Abnormal results of thyroid function studies; I25.2 Old myocardial infarction; Z80.0 Family history of malignant neoplasm of digestive organs; Z95.1 Presence of aortocoronary bypass graft
CPT/HCPCS: 36415; 71045; 72192; 74177; 80053; 81000; 83605; 83970; 84155; 84165; 85007; 85025; 85027; 87040; 87045; 87046; 87088; 87324; 87328; 87449; 87493; 96365; 96375; 96376

== ENCOUNTER 2019-04-02 15:06 | Emergency (ER) | payer MEDICARE, OTHER ==
[~2019-04-02] VITALS: Ht 165 cm; Wt 59.0 kg
[~2019-04-02 15:06] MED LIST changes: +ASCO-262 PO; +ATOR40TA70 PO; +BETA10003 PO; +BISA-151 PO; +CHOL10007 PO; +CHOL4PAC3 PO; +CLOP75TA28 PO; +DICY10CA12 PO; +DOCU100C37 PO; +DULO30CA49 PO; +DULO60CA59 PO; +EZET10TA49 PO; +FELO5TAB3 PO; +FENO48TA5 PO; +FENT1PAT9 TD; +FOLI0.8T PO; +LINA290C PO; +LISI-552 PO; +METH850P3 PO; +METO-352 PO; +OMG1KC PO; +OXYC1TAB12 PO; +POLY17PO6 PO; +UBID300C PO; +VANC125S PO; +VITA1CAP PO
--- NOTE | 2019-04-02 15:20 | NUR ---
Pt taken to two and placed in gown and c collar.
[2019-04-02] MEDS ORDERED: fentaNYL INJECTION 100 MCG/2 ML AMP IVP ONE (15:45)
--- NOTE | 2019-04-02 15:52 | ED Fall/Injury ---
General Chief Complaint: Trauma-Non Activation Stated Complaint: FALL/HIT HEAD Nursing Triage Note: Hematoma to R upper forehead, neck pain and R buttock pain Source: patient Exam Limitations: no limitations History of Present Illness Date Seen by Provider: Apr 02, 2019 Time Seen by Provider: 15:34 Initial Comments Patient resents to ER by private conveyance with her son and chief complaint that prior to arrival she was walking through her house and tripped over a shoe box landing forehead against the wall. She did not lose consciousness but she was yelling in pain. Her son brought her in she's having some pain in her neck so nursing put a c-collar in place. She takes hydrocodone 80 mg extended release daily as well as oxycodone 10 x 3 25 every 4 hours. She says her next one is due around 16:30. She says she was having some pain in her neck but at the time of our examination and she is no longer having any pain in her neck. She does have pain in her frontal forehead where she has a large hematoma. She placed ice on it but has not taken anything extra for pain yet. She denies any nausea back ache outside of her chronic pain or other pain. She says she's feeling okay but would take something for pain. She has a history of 2 cardiac bypasses however she's having no chest pain shortness of breath nausea sweats weakness chills fever or diarrhea or constipation. Location Injury Occurred: home Allergies and Home Medications Allergies Coded Allergies: iodine (Unverified Allergy, Unknown, 01/16/14) latex (Unverified Allergy, Unknown, RASH, 01/16/14) Home Medications Ascorbate Calcium 500 Mg Tablet, 500 MG PO DAILY, (Reported) Atorvastatin Calcium 40 Mg Tablet, 40 MG PO HS, (Reported) Beta-Carotene 10,000 Unit Capsule, 10,000 UNIT PO DAILY, (Reported) Bisacodyl 5 Mg Tablet.dr, 5 MG PO DAILY PRN for CONSTIPATION-5TH LINE, (Reported) Cholecalciferol (Vitamin D3) 1,000 Unit Capsule, 1,000 UNIT PO DAILY, (Reported) Cholestyramine/Aspartame 4 Gm Powd.pack, 4 GM PO ACHS PRN for DIARRHEA Prescribed by: STEPHANIE GONZALEZ on 12/19/17 0909 Clopidogrel Bisulfate 75 Mg Tablet, 75 MG PO 1800, (Reported) Dicyclomine HCl 10 Mg Capsule, 20 MG PO ACHS Prescribed by: STEPHANIE GONZALEZ on 12/19/17 0909 Docusate Sodium 100 Mg Capsule, 200 MG PO DAILY PRN for CONSTIPATION-1ST LINE, (Reported) Duloxetine HCl 30 Mg Capsule.dr, 30 MG PO DAILY, (Reported) TAKES ALONG WITH 60MG CAPSULE Duloxetine HCl 60 Mg Capsule.dr, 60 MG PO DAILY, (Reported) TAKES ALONG WITH 30MG CAPSULE Ezetimibe 10 Mg Tablet, 10 MG PO HS, (Reported) Felodipine 5 Mg Tab.er.24h, 5 MG PO DAILY, (Reported) Fenofibrate Nanocrystallized 48 Mg Tablet, 48 MG PO HS, (Reported) Fentanyl 1 Each Patch.td72, 50 MCG TD Q72H, (Reported) Folic Acid 0.8 Mg Tablet, 0.8 MG PO DAILY, (Reported) Isosorbide Mononitrate 30 Mg Tab.er.24h, 30 MG PO DAILY, (Reported) Linaclotide 290 Mcg Capsule, 290 MCG PO DAILY, (Reported) Lisinopril 20 Mg Tablet, 20 MG PO 1800,2200, (Reported) Methylcellulose (with Sugar) 850 Gm Powder, 1.5 TBS PO DAILY, (Reported) Metoprolol Succinate 50 Mg Tab.er.24h, 50 MG PO DAILY, (Reported) Sibley 3 Polyunsat Fatty Acids 1,000 Mg Cap, 1,000 MG PO DAILY, (Reported) Oxycodone HCl/Acetaminophen 1 Each Tablet, 1 TAB PO Q6H, (Reported) Polyethylene Glycol 3350 17 Gm Powd.pack, 17 GM PO DAILY PRN for CONSTIPATION- 2ND LINE, (Reported) Ubidecarenone 300 Mg Capsule, 300 MG PO DAILY, (Reported) Vancomycin HCl 125 Mg/2.5 Ml Syringe, 125 MG PO QID Prescribed by: STEPHANIE GONZALEZ on 12/19/17 0912 Vitamin B Complex 1 Each Capsule, 1 CAP PO DAILY, (Reported) Patient Home Medication List Home Medication List Reviewed: Yes Review of Systems Review of Systems Constitutional: No chills, No diaphoresis Eyes: Denies Blindness, Denies Blurred Vision Ears, Nose, Mouth, Throat: denies ear pain, denies ear discharge Respiratory: No cough, No dyspnea on exertion Cardiovascular: No chest pain; Hx of Intervention; No palpitations; vascular h eart diseas Gastrointestinal: No abdominal pain, No constipation Genitourinary: No dysuria, No frequency : No Musculoskeletal: see HPI, back pain (chronic); No joint pain Skin: No pruritus, No rash Psychiatric/Neurological: Headache; Denies Numbness, Denies Paresthesia Past [id number] Hx Patient Social History Alcohol Use: Denies Use Recreational Drug Use: No 2nd Hand Smoke Exposure: No Recent Foreign Travel: No Contact w/Someone Who Travel: No Recent Infectious Disease Expo: No Recent Hopitalizations: No Immunizations Up To Date Tetanus Booster (TDap): Unknown Date of Pneumonia Vaccine: Jan 29, 2013 Date of Influenza Vaccine: Jan 09, 2014 Seasonal Allergies Seasonal Allergies: Yes Past Medical History Surgeries: Yes (LAPAROSCOPIC ADHESION REMOVAL, OPEN HERNIA SX, 2 BACK SURGERIES) Abdominal, Breast, CABG, Gallbladder, Hysterectomy, Vascular Surgery Respiratory: No Currently Using CPAP: No Currently Using BIPAP: No Cardiac: Yes (TRIPLE AND QUAD BYPASS) Coronary Artery Disease, Heart Attack Neurological: No Reproductive Disorders: Yes (endometriosis) Sexually Transmitted Disease: No Genitourinary: Yes (uterine rupture) Bladder Infection Gastrointestinal: Yes Abdominal Hernia, Obstructive Bowel, Chronic Constipation, Diverticulosis Musculoskeletal: Yes (osteoarthritis/osteoporosis) Osteoporosis, Chronic Back Pain Endocrine: No HEENT: Yes Cataract Cancer: No Psychosocial: Yes Anxiety, Depression Integumentary: No Blood Disorders: Yes (ANEMIA) Family Medical History Cancer of colon 19 FATHER, Onset:Unknown G8 BROTHER, Onset:Unknown (STOMACH CA) Family history: Arthritis 19 MOTHER, Onset:Unknown G8 SISTER, Onset:Unknown Family history: Cardiovascular disease G8 BROTHER, Onset:Unknown (BROTHER OF NE AT AGE 46) SON, Onset:Unknown (SON OF NE AT AGE 49) Family history: Diabetes mellitus G8 BROTHER, Onset:Unknown Family history: Gastrointestinal disease 19 FATHER, Onset:Unknown G8 BROTHER, Onset:Unknown Family history: Thyroid disorder G8 SISTER, Onset:Unknown Cancer, Diabetes Physical Exam Vital Signs Vital Signs - First Documented 04/02/19 15:10 Temp 36.5 Pulse 66 Resp 14 B/P (MAP) 161/84 (109) Pulse Ox 99 O2 Delivery Room Air Capillary Refill : Less Than 3 Seconds Height, Weight, BMI Height: 5'6.00" Weight: 117lbs. 5.0oz. 53.452309ft; 21.00 BMI Method:Stated General Appearance: WD/WN, mild distress HEENT: PERRL/EOMI, TMs normal, pharynx normal, other (Negative for Winters sign or raccoon eyes. She has a 4 x 4 hematoma approximately 2 and half to 3 cm tall on her forehead. 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, no motor/sensory deficits, alert, normal mood/affect, oriented x 3 Skin: normal color, warm/dry, other (hematoma forehead) Yuliana Coma Score Best Eye Response: (4) Open Spontaneously Best Verbal Response: (5) Oriented Best Motor Response: (6) Obeys Commands Yuliana Total: 15 Progress/Results/Core Measures Results/Orders Lab Results Laboratory Tests Test 04/02/19 16:00 Range/Units White Blood Count 4.4 4.3-11.0 10^3/uL Red Blood Count 4.19 L 4.35-5.85 10^6/uL Hemoglobin 12.4 11.5-16.0 G/DL Hematocrit 38 35-52 % Mean Corpuscular Volume 91 80-99 FL Mean Corpuscular Hemoglobin 30 25-34 PG Mean Corpuscular Hemoglobin Concent 33 32-36 G/DL Red Cell Distribution Width 13.2 10.0-14.5 % Platelet Count 180 130-400 10^3/uL Mean Platelet Volume 9.1 7.4-10.4 FL Neutrophils (%) (Auto) 80 H 42-75 % Lymphocytes (%) (Auto) 12 12-44 % Monocytes (%) (Auto) 5 0-12 % Eosinophils (%) (Auto) 2 0-10 % Basophils (%) (Auto) 1 0-10 % Neutrophils # (Auto) 3.5 1.8-7.8 X 10^3 Lymphocytes # (Auto) 0.5 L 1.0-4.0 X 10^3 Monocytes # (Auto) 0.2 0.0-1.0 X 10^3 Eosinophils # (Auto) 0.1 0.0-0.3 10^3/uL Basophils # (Auto) 0.0 0.0-0.1 10^3/uL Sodium Level 139 135-145 MMOL/L Potassium Level 4.5 3.6-5.0 MMOL/L Chloride Level 106 98-107 MMOL/L Carbon Dioxide Level 24 21-32 MMOL/L Anion Gap 9 5-14 MMOL/L Blood Urea Nitrogen 22 H 7-18 MG/DL Creatinine 1.06 0.60-1.30 MG/DL Estimat Glomerular Filtration Rate 50 BUN/Creatinine Ratio 21 Glucose Level 99 70-105 MG/DL Calcium Level 10.6 H 8.5-10.1 MG/DL Corrected Calcium 10.6 H 8.5-10.1 MG/DL Total Bilirubin 0.5 0.1-1.0 MG/DL Aspartate Amino Transf (AST/SGOT) 21 5-34 U/L Alanine Aminotransferase (ALT/SGPT) 21 0-55 U/L Alkaline Phosphatase 70 40-136 U/L Total Protein 6.4 6.4-8.2 GM/DL Albumin 4.0 3.2-4.5 GM/DL My Orders Orders - RADHA CORRAL Ua Culture If Indicated (04/02/19 15:19) Cbc With Automated Diff (04/02/19 15:19) Comprehensive Metabolic Panel (04/02/19 15:19) Ct Head/Cervical Spine Wo (04/02/19 15:19) Ed Iv/Invasive Line Start (04/02/19 15:19) Fentanyl Injection (Sublimaze Injection (04/02/19 15:45) Ed Iv/Invasive Line Start (04/02/19 16:50) Ns Iv 500 Ml (Sodium Chloride 0.9%) (04/02/19 16:50) Medications Given in ED Current Medications Medications Dose Ordered Sig/Yonatan Route Start Time Stop Time Status Last Admin Dose Admin Fentanyl Citrate 50 mcg ONCE ONCE IVP 04/02/19 15:45 04/02/19 15:46 DC 04/02/19 16:05 50 MCG Vital Signs/I&O 04/02/19 15:10 Temp 36.5 Pulse 66 Resp 14 B/P (MAP) 161/84 (109) Pulse Ox 99 O2 Delivery Room Air Blood Pressure Mean: 109 Progress Progress Note #1: Time: 15:51 Progress Note 50 micro grams of fentanyl IV for her pain in her forehead. CT of the head and C-spine without IV contrast. She is on Plavix. Labs and urinalysis if she is able to obtain urine. Progress Note #2: Time: 17:20 Progress Note C-collar cleared radiographically and clinically. Diagnostic Imaging Diagonstic Imaging: CT (without IV contrast) Plain Films/CT/US/NM/MRI: c-spine, head Comments No intracranial hemorrhage, mass effect, tumor, midline shift. No calvarial fracture. There is a large hematoma right frontal forehead scalp. Chronic findings of degenerative osteoarthritis. No malalignment or acute fracture of the cervical spine. NAME: JASON BELLO MED REC#: [id number] PT STATUS: REG ER : 1940 PHYSICIAN: RADHA CORRAL MD ADMIT DATE: 04/02/19/ER Draft Date of Exam:04/02/19 CT HEAD/CERVICAL SPINE WO PROCEDURE: CT head and CT cervical spine without contrast. TECHNIQUE: Multiple contiguous axial images were obtained through the brain and cervical spine without the use of intravenous contrast. Sagittal and coronal reformations through the cervical spine were then performed. Auto Exposure Controls were utilized during the CT exam to meet ALARA standards for radiation dose reduction. INDICATION: Fall with trauma to the head. Bruising. Pain. COMPARISON: None. FINDINGS: CT HEAD: The ventricles and cortical sulci are diffusely prominent, compatible with age-related volume loss. There is probable old small lacunar infarct of the posterior right putamen. There are confluent areas of abnormal, low attenuation in the periventricular white matter. This is consistent with small vessel ischemic changes; age-indeterminate. There is no prior study available for comparison. There is no midline shift or mass-effect. No acute intra-axial hemorrhage is seen. There are no abnormal areas of increased or decreased density to suggest acute hemorrhage or edema. No extra-axial masses or collections are present. Moderate-sized scalp hematoma is noted anteriorly. The underlying bony calvarium is intact. The visualized paranasal sinuses are unremarkable. The mastoid air cells are clear. CT CERVICAL SPINE: Evaluation of the static alignment shows straightening of the normal lordotic curvature. Findings may be related to patient positioning as well as spasm. Additionally, there is slight grade 1 anterolisthesis at C4-C5 and C6-C7. There is no evidence of jumped facets. Vertebral body heights are maintained. There is no acute fracture. No bony fragments are seen within the spinal canal. There are moderate multilevel degenerative changes consisting of intervertebral disc height loss with anterior and posterior disc osteophyte complex formations. These changes appear greatest at the C5-C6 and C6-C7 levels. Pre- and para-vertebral soft tissue structures are unremarkable. Note is made of calcified carotid atherosclerosis. Thyroid gland has a heterogeneous appearance. There is a hypodense nodule on the right that measures 1.3 cm in diameter. Included portions of the lung apices show no additional acute abnormalities. IMPRESSION: 1. No acute intracranial abnormality. No CT evidence of mass, acute infarct or intracranial hemorrhage. 2. Small vessel ischemic changes in the periventricular and subcortical white matter; likely chronic. 3. 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 4. No acute fracture or dislocation of the cervical spine. 5. Moderate multilevel degenerative changes, greatest at C5-C6 and C6-C7. 6. Heterogeneous appearance of the thyroid gland. Correlation with dedicated thyroid sonogram is recommended and could be performed on a nonemergent basis. Dictated on workstation # [id number] Dict: 04/02/194 Trans: 04/02/19 1712 [id number] Interpreted by: MICHELL HAMMOND MD Electronically signed by: Reviewed: Reviewed by Me Departure Impression Primary Impression: Fall Qualified Codes: W19.XXXA - Unspecified fall, initial encounter Additional Impressions: Traumatic hematoma of forehead Qualified Codes: S00.83XA - Contusion of other part of head, initial encounter Concussion Qualified Codes: S06.0X0A - Concussion without loss of consciousness, initial encounter Disposition: 01 HOME, SELF-CARE Condition: Stable Departure-Patient Inst. Decision time for Depature: 17:20 Referrals: STEPHANIE GONZALEZ DO (PCP/Family) Primary Care Physician Patient Instructions: Concussion in Adults, HEMATOMA Add. Discharge Instructions: Ice pack for 20 minutes on every 4 hours for the first 3 days. Tylenol and ibuprofen as necessary for pain. If you have any symptoms of a concussion such as headache, drowsiness, nausea, irritability then you need to stop which are doing and takes appropriate medi cations and get some sleep. Zofran/ondansetron 1 tablet every 6 hours under the tongue as necessary for nausea. If you have inability to walk, confusion, difficulty recognizing faces or other worrisome symptoms then you may return to the ER for further evaluation. All discharge instructions reviewed with patient and/or family. Voiced understanding. Scripts Ondansetron (Ondansetron Odt) 4 Mg Tab.rapdis 4 MG PO Q6H PRN for NAUSEA/VOMITING, #8 TAB 0 Refills Prov: RADHA CORRAL 04/02/19 RADHA CORRAL Apr 02, 2019 15:52
[2019-04-02 16:05] LABS: BASOPHILS % (AUTO) 1 % (0-10); EOSINOPHILS # (AUTO) 0.1 10^3/uL (0.0-0.3); EOSINOPHILS % (AUTO) 2 % (0-10); HEMATOCRIT 38 % (35-52); HEMOGLOBIN 12.4 G/DL (11.5-16.0); LYMPHOCYTES # (AUTO) 0.5 X 10^3 (1.0-4.0); LYMPHOCYTES % (AUTO) 12 % (12-44); MEAN CORPUSCULAR HEMOGLOBIN 30 PG (25-34); MEAN CORPUSCULAR HGB CONC 33 G/DL (32-36); MEAN CORPUSCULAR VOLUME 91 FL (80-99); MEAN PLATELET VOLUME 9.1 FL (7.4-10.4); MONOCYTES # (AUTO) 0.2 X 10^3 (0.0-1.0); MONOCYTES % (AUTO) 5 % (0-12); NEUTROPHILS # (AUTO) 3.5 X 10^3 (1.8-7.8); NEUTROPHILS % (AUTO) 80 % (42-75); PLATELET COUNT 180 10^3/uL (130-400); RED CELL DISTRIBUTION WIDTH 13.2 % (10.0-14.5); WHITE BLOOD COUNT 4.4 10^3/uL (4.3-11.0)
[2019-04-02 16:30] LABS: BILIRUBIN,TOTAL 0.5 MG/DL (0.1-1.0); CALCIUM 10.6 MG/DL (8.5-10.1); CREATININE SERUM 1.06 MG/DL (0.60-1.30); POTASSIUM 4.5 MMOL/L (3.6-5.0); TOTAL PROTEIN 6.4 GM/DL (6.4-8.2)
[2019-04-02] MEDS ORDERED: NS IV 500 ML 500 ML IV ONE (16:50)
--- NOTE | 2019-04-02 17:13 | Diagnostic Imaging Report ---
PROCEDURE: CT head and CT cervical spine without contrast. TECHNIQUE: Multiple contiguous axial images were obtained through the brain and cervical spine without the use of intravenous contrast. Sagittal and coronal reformations through the cervical spine were then performed. Auto Exposure Controls were utilized during the CT exam to meet ALARA standards for radiation dose reduction. INDICATION: Fall with trauma to the head. Bruising. Pain. COMPARISON: None. FINDINGS: CT HEAD: The ventricles and cortical sulci are diffusely prominent, compatible with age-related volume loss. There is probable old small lacunar infarct of the posterior right putamen. There are confluent areas of abnormal, low attenuation in the periventricular white matter. This is consistent with small vessel ischemic changes; age-indeterminate. There is no prior study available for comparison. There is no midline shift or mass-effect. No acute intra-axial hemorrhage is seen. There are no abnormal areas of increased or decreased density to suggest acute hemorrhage or edema. No extra-axial masses or collections are present. Moderate-sized scalp hematoma is noted anteriorly. The underlying bony calvarium is intact. The visualized paranasal sinuses are unremarkable. The mastoid air cells are clear. CT CERVICAL SPINE: Evaluation of the static alignment shows straightening of the normal lordotic curvature. Findings may be related to patient positioning as well as spasm. Additionally, there is slight grade 1 anterolisthesis at C4-C5 and C6-C7. There is no evidence of jumped facets. Vertebral body heights are maintained. There is no acute fracture. No bony fragments are seen within the spinal canal. There are moderate multilevel degenerative changes consisting of intervertebral disc height loss with anterior and posterior disc osteophyte complex formations. These changes appear greatest at the C5-C6 and C6-C7 levels. Pre- and para-vertebral soft tissue structures are unremarkable. Note is made of calcified carotid atherosclerosis. Thyroid gland has a heterogeneous appearance. There is a hypodense nodule on the right that measures 1.3 cm in diameter. Included portions of the lung apices show no additional acute abnormalities. IMPRESSION: 1. No acute intracranial abnormality. No CT evidence of mass, acute infarct or intracranial hemorrhage. 2. Small vessel ischemic changes in the periventricular and subcortical white matter; likely chronic. 3. 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 4. No acute fracture or dislocation of the cervical spine. 5. Moderate multilevel degenerative changes, greatest at C5-C6 and C6-C7. 6. Heterogeneous appearance of the thyroid gland. Correlation with dedicated thyroid sonogram is recommended and could be performed on a nonemergent basis. Dictated by: Dictated on workstation # [id number]
--- NOTE | 2019-04-02 17:24 | NUR ---
CCOLLAR REMOVED @ [address] CORRAL.
[2019-04-02] MEDS ORDERED: ONDA4TAB11 PO (17:30)
[2019-04-02 17:42] VITALS: BP 147/76
== END 2019-04-02 17:42 | disposition home or self-care (01) ==
LOC: EDUNIT# 15:06 → ER 15:07
DX: S06.0X0A Concussion without loss of consciousness, initial encounter (principal); S00.83XA Contusion of other part of head, initial encounter; I25.2 Old myocardial infarction; I25.10 Atherosclerotic heart disease of native coronary artery without angina pectoris; F41.9 Anxiety disorder, unspecified; F32.9 Major depressive disorder, single episode, unspecified; D64.9 Anemia, unspecified; Z91.041 Radiographic dye allergy status; Z91.040 Latex allergy status; Z79.02 Long term (current) use of antithrombotics/antiplatelets; Z95.1 Presence of aortocoronary bypass graft; Z90.710 Acquired absence of both cervix and uterus; Z80.0 Family history of malignant neoplasm of digestive organs; Z82.49 Family history of ischemic heart disease and other diseases of the circulatory system; W01.198A Fall on same level from slipping, tripping and stumbling with subsequent striking against other object, initial encounter; Y92.019 Unspecified place in single-family (private) house as the place of occurrence of the external cause
CPT/HCPCS: 36415; 70450; 72125; 80053; 85025; 96374

== ENCOUNTER → 2019-07-26 | Outpatient (CLI) | payer MEDICARE, OTHER ==
[~2019-07-26] MED LIST changes: -FELO5TAB3 PO; +FENO48TA10 PO; -FENO48TA5 PO; +ONDA4TAB11 PO
--- NOTE | 2019-07-26 17:28 | Diagnostic Imaging Report ---
CLINICAL INDICATION: Patient is status post fall on 04/02/2019. Patient has right shoulder pain which has gotten increasingly worse since then. EXAM: X-ray of the right shoulder, 3 views including scapular Y view. COMPARISON: X-ray of the right shoulder dated 02/17/2012. FINDINGS: There is no acute fracture or dislocation. There is the appearance of progression of high riding of the humeral head compared to the prior study. This may be seen in rotator cuff injury. There are degenerative changes of the proximal humeral tubercle region. Again seen are mildly hypertrophic spurs involving the proximal humeral head/neck junction region. Sternotomy wires are seen. IMPRESSION: 1: There is no acute fracture or dislocation. 2: There is the appearance of progression of high riding of the humeral head which may be seen with rotator cuff injury. MRI of the right shoulder may help better evaluate for soft tissue injury. 3: Degenerative disease of the right shoulder. Dictated by: Dictated on workstation # [id number]
== END ==
LOC: RAD 16:57
PROVIDERS: ATTEND Internal Medicine
DX: M19.011 Primary osteoarthritis, right shoulder (principal)
CPT/HCPCS: 73030

== ENCOUNTER → 2020-01-16 | Outpatient (CLI) | payer MEDICARE, OTHER ==
--- NOTE | 2020-01-16 15:07 | Diagnostic Imaging Report ---
EXAMINATION: Abdomen 1 view. HISTORY: Small bowel obstruction. COMPARISON: 09/27/2013 FINDINGS: Generator pack projects over the abdomen. There has been lumbar spinal fusion. Surgical clips likely represent mesh repair for hernia. Large amount of stool is present in the colon. No dilated bowel is seen. No free air is seen. IMPRESSION: 1. Large-volume stool in the colon without dilated bowel. Dictated by: Dictated on workstation # [id number]
== END ==
LOC: RAD 13:58
PROVIDERS: ATTEND Internal Medicine
DX: K56.609 Unspecified intestinal obstruction, unspecified as to partial versus complete obstruction (principal)
CPT/HCPCS: 74018

== ENCOUNTER 2020-12-09 06:11 | Emergency (ER) | payer MEDICARE, OTHER ==
[~2020-12-09] VITALS: Ht 165.1 cm; Wt 59.0 kg
[~2020-12-09 06:11] MED LIST changes: -FOLI0.8T PO; +FOLI0.8T4 PO; +ISOS30TA82 PO; -LISI-552 PO; +LISI20TA26 PO
[2020-12-09] MEDS ORDERED: NS IV 1000 ML 1,000 ML IV SCH (07:15)
--- NOTE | 2020-12-09 07:17 | ED Fall/Injury ---
General Chief Complaint: Trauma-Non Activation Stated Complaint: FALL IN BATHTUB,BACK & HEAD PAIN Nursing Triage Note: SPINE TO LUMBAR SPINE. Source: patient Exam Limitations: no limitations History of Present Illness Date Seen by Provider: Dec 09, 2020 Time Seen by Provider: 06:50 Initial Comments Patient to the ER by private conveyance with her daughter and chief complaint of a fall about 4:00 this morning. She was in the bathroom and she saw a spider when she went to step on it she lost her balance falling into the bathtub striking the back of her head. She is having some pain in her low back that is aggravated chronic low back pain. She has a history of back surgeries and a spinal stimulator. She takes Percocet 3 times a day and her last dose was at about 4:00. She denies loss of consciousness. She called out to her son who she lives with and he immediately came and helped her out. She was able to walk and is not having any numbness or weakness. She says her head still hurts significantly. She does not anything further for pain right now. She is not h aving any nausea fever chills cough, diarrhea or constipation. She takes Plavix but no other blood thinners. Location Injury Occurred: PT'S HOME Allergies and Home Medications Allergies Coded Allergies: iodine (Unverified Allergy, Unknown, 01/16/14) latex (Unverified Allergy, Unknown, RASH, 01/16/14) Home Medications Ascorbate Calcium 500 Mg Tablet, 500 MG PO DAILY, (Reported) Atorvastatin Calcium 40 Mg Tablet, 40 MG PO HS, (Reported) Beta-Carotene 10,000 Unit Capsule, 10,000 UNIT PO DAILY, (Reported) Bisacodyl 5 Mg Tablet.dr, 5 MG PO DAILY PRN for CONSTIPATION-5TH LINE, (Reported) Cholecalciferol (Vitamin D3) 1,000 Unit Capsule, 1,000 UNIT PO DAILY, (Reported) Cholestyramine/Aspartame 4 Gm Powd.pack, 4 GM PO ACHS PRN for DIARRHEA Prescribed by: STEPHANIE GONZALEZ on 12/19/17908 Clopidogrel Bisulfate 75 Mg Tablet, 75 MG PO 1800, (Reported) Dicyclomine HCl 10 Mg Capsule, 20 MG PO ACHS Prescribed by: STEPHANIE GONZALEZ on 12/19/17908 Docusate Sodium 100 Mg Capsule, 200 MG PO DAILY PRN for CONSTIPATION-1ST LINE, (Reported) Duloxetine HCl 30 Mg Capsule.dr, 30 MG PO DAILY, (Reported) TAKES ALONG WITH 60MG CAPSULE Duloxetine HCl 60 Mg Capsule.dr, 60 MG PO DAILY, (Reported) TAKES ALONG WITH 30MG CAPSULE Ezetimibe 10 Mg Tablet, 10 MG PO HS, (Reported) Felodipine 5 Mg Tab.er.24h, 5 MG PO DAILY, (Reported) Fenofibrate Nanocrystallized 48 Mg Tablet, 48 MG PO HS, (Reported) Fentanyl 1 Each Patch.td72, 50 MCG TD Q72H, (Reported) Folic Acid 0.8 Mg Tablet, 0.8 MG PO DAILY, (Reported) Isosorbide Mononitrate 30 Mg Tab.er.24h, 30 MG PO DAILY, (Reported) Linaclotide 290 Mcg Capsule, 290 MCG PO DAILY, (Reported) Lisinopril 20 Mg Tablet, 20 MG PO 1800,2200, (Reported) Methylcellulose (with Sugar) 850 Gm Powder, 1.5 TBS PO DAILY, (Reported) Metoprolol Succinate 50 Mg Tab.er.24h, 50 MG PO DAILY, (Reported) [place] 3 Polyunsat Fatty Acids 1,000 Mg Cap, 1,000 MG PO DAILY, (Reported) Ondansetron 4 Mg Tab.rapdis, 4 MG PO Q6H PRN for NAUSEA/VOMITING Prescribed by: RYAN ELIAS on 04/02/19 1730 Oxycodone HCl/Acetaminophen 1 Each Tablet, 1 TAB PO Q6H, (Reported) Polyethylene Glycol 3350 17 Gm Powd.pack, 17 GM PO DAILY PRN for CONSTIPATION- 2ND LINE, (Reported) Ubidecarenone 300 Mg Capsule, 300 MG PO DAILY, (Reported) Vancomycin HCl 125 Mg/2.5 Ml Syringe, 125 MG PO QID Prescribed by: STEPHANIE GONZALEZ on 12/19/17 0912 Vitamin B Complex 1 Each Capsule, 1 CAP PO DAILY, (Reported) Patient Home Medication List Home Medication List Reviewed: Yes Review of Systems Review of Systems Constitutional: No chills, No diaphoresis, No fever, No malaise Eyes: Denies Blindness, Denies Drainage Ears, Nose, Mouth, Throat: denies ear pain, denies ear discharge Respiratory: No cough, No short of breath Cardiovascular: No edema, No palpitations Gastrointestinal: No abdominal pain, No nausea, No vomiting Musculoskeletal: see HPI, back pain, joint pain (Chronic bilateral knee pain); No joint swelling All Other Systems Reviewed Negative Unless Noted: Yes Past Wxrjswz-Biytva-Fsxgpg Hx Patient Social History Tobacco Use?: No Substance use?: No Alcohol Use?: No Pt feels they are or have been: No Immunizations Up To Date Tetanus Booster (TDap): Unknown Seasonal Allergies Seasonal Allergies: Yes Past Medical History Surgeries: Yes (LAPAROSCOPIC ADHESION REMOVAL, OPEN HERNIA SX, 2 BACK SURGERIES) Abdominal, Breast, CABG, Gallbladder, Hysterectomy, Vascular Surgery Respiratory: No Currently Using CPAP: No Currently Using BIPAP: No Cardiac: Yes (TRIPLE AND QUAD BYPASS) Coronary Artery Disease, Heart Attack Neurological: No Reproductive Disorders: Yes (endometriosis) Sexually Transmitted Disease: No Genitourinary: Yes (uterine rupture) Bladder Infection Gastrointestinal: Yes Abdominal Hernia, Obstructive Bowel, Chronic Constipation, Diverticulosis Musculoskeletal: Yes (osteoarthritis/osteoporosis) Osteoporosis, Chronic Back Pain Endocrine: No HEENT: Yes Cataract Cancer: No Psychosocial: Yes Anxiety, Depression Integumentary: No Blood Disorders: Yes (ANEMIA) Family Medical History Cancer of colon 19 FATHER, Onset:Unknown G8 BROTHER, Onset:Unknown (STOMACH CA) Family history: Arthritis 19 MOTHER, Onset:Unknown G8 SISTER, Onset:Unknown Family history: Cardiovascular disease G8 BROTHER, Onset:Unknown (BROTHER OF ME AT AGE 46) SON, Onset:Unknown (SON OF ME AT AGE 49) Family history: Diabetes mellitus G8 BROTHER, Onset:Unknown Family history: Gastrointestinal disease 19 FATHER, Onset:Unknown G8 BROTHER, Onset:Unknown Family history: Thyroid disorder G8 SISTER, Onset:Unknown Cancer, Diabetes Physical Exam Vital Signs Vital Signs - First Documented 12/09/20 06:21 Temp 36.0 Pulse 63 Resp 18 B/P (MAP) 181/85 (117) Pulse Ox 98 O2 Delivery Room Air Capillary Refill : Less Than 3 Seconds Height, Weight, BMI Height: 5'6.00" Weight: 117lbs. 5.0oz. [id number]; 21.00 BMI Method:Stated General Appearance: WD/WN, mild distress HEENT: PERRL/EOMI (3 mm bilateral reactive), normal ENT inspection, TMs normal (Negative for hemotympanum or blood sign), pharynx normal Neck: non-tender, full range of motion, supple, normal inspection Cardiovascular: normal peripheral pulses, regular rate, rhythm Respiratory: chest non-tender, lungs clear, normal breath sounds, no respiratory distress, no accessory muscle use Gastrointestinal: normal bowel sounds, soft, no organomegaly, tenderness (Left lower quadrant is remarkably tender to light palpation. No mesenteric signs psoas sign or Rovsing sign.) Back: normal inspection, vertebral tenderness (Midline tenderness over the low thoracic upper lumbar spine over the sites of previous surgical intervention. Right-sided lumbar spinal stimulator palpable. 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, no motor/sensory deficits, alert, normal mood/affect, oriented x 3 [place] Coma Score Best Eye Response: (4) Open Spontaneously Best Verbal Response: (5) Oriented Best Motor Response: (6) Obeys Commands [place] Total: 15 Progress/Results/Core Measures Results/Orders Lab Results Laboratory Tests Test 12/09/20 07:15 12/09/20 07:49 Range/Units White Blood Count 5.6 4.3-11.0 10^3/uL Red Blood Count 4.04 3.80-5.11 10^6/uL Hemoglobin 11.9 11.5-16.0 g/dL Hematocrit 37 35-52 % Mean Corpuscular Volume 92 80-99 fL Mean Corpuscular Hemoglobin 30 25-34 pg Mean Corpuscular Hemoglobin Concent 32 32-36 g/dL Red Cell Distribution Width 13.4 10.0-14.5 % Platelet Count 190 130-400 10^3/uL Mean Platelet Volume 9.5 9.0-12.2 fL Immature Granulocyte % (Auto) 1 % Neutrophils (%) (Auto) 75 42-75 % Lymphocytes (%) (Auto) 14 12-44 % Monocytes (%) (Auto) 7 0-12 % Eosinophils (%) (Auto) 3 0-10 % Basophils (%) (Auto) 0 0-10 % Neutrophils # (Auto) 4.2 1.8-7.8 10^3/uL Lymphocytes # (Auto) 0.8 L 1.0-4.0 10^3/uL Monocytes # (Auto) 0.4 0.0-1.0 10^3/uL Eosinophils # (Auto) 0.2 0.0-0.3 10^3/uL Basophils # (Auto) 0.0 0.0-0.1 10^3/uL Immature Granulocyte # (Auto) 0.0 0.0-0.1 10^3/uL Sodium Level 139 135-145 MMOL/L Potassium Level 4.4 3.6-5.0 MMOL/L Chloride Level 109 H 98-107 MMOL/L Carbon Dioxide Level 23 21-32 MMOL/L Anion Gap 7 5-14 MMOL/L Blood Urea Nitrogen 42 H 7-18 MG/DL Creatinine 1.45 H 0.60-1.30 MG/DL Estimat Glomerular Filtration Rate 35 BUN/Creatinine Ratio 29 Glucose Level 93 70-105 MG/DL Calcium Level 10.6 H 8.5-10.1 MG/DL Corrected Calcium 10.7 H 8.5-10.1 MG/DL Total Bilirubin 0.3 0.1-1.0 MG/DL Aspartate Amino Transf (AST/SGOT) 16 5-34 U/L Alanine Aminotransferase (ALT/SGPT) 13 0-55 U/L Alkaline Phosphatase 87 40-136 U/L C-Reactive Protein High Sensitivity 2.37 H 0.00-0.50 MG/DL Total Protein 6.5 6.4-8.2 GM/DL Albumin 3.9 3.2-4.5 GM/DL Urine Color YELLOW Urine Clarity CLEAR Urine pH 6.0 5-9 Urine Specific [place] 1.015 L 1.016-1.022 Urine Protein NEGATIVE NEGATIVE Urine Glucose (UA) NEGATIVE NEGATIVE Urine Ketones NEGATIVE NEGATIVE Urine Nitrite NEGATIVE NEGATIVE Urine Bilirubin NEGATIVE NEGATIVE Urine Urobilinogen 0.2 < = 1.0 MG/DL Urine Leukocyte Esterase NEGATIVE NEGATIVE Urine RBC (Auto) 2+ H NEGATIVE Urine RBC 5-10 H /HPF Urine WBC RARE /HPF Urine Squamous Epithelial Cells 0-2 /HPF Urine Crystals NONE /LPF Urine Bacteria TRACE /HPF Urine Casts NONE /LPF Urine Mucus NEGATIVE /LPF Urine Culture Indicated NO My Orders Orders - RYAN ELIAS Chest 1 View, Ap/Pa Only (12/09/20 07:09) Ct Head/Cervical Spine Wo (12/09/20 07:09) Ct Thoracic/Lumbar Spine Wo (12/09/20 07:09) Ed Iv/Invasive Line Start (12/09/20 07:09) Ed Iv/Invasive Line Start (12/09/20 07:09) Ns Iv 1000 Ml (Sodium Chloride 0.9%) (12/09/20 07:15) Cbc With Automated Diff (12/09/20 07:09) Comprehensive Metabolic Panel (12/09/20 07:09) Hs C Reactive Protein (12/09/20 07:09) Ua Culture If Indicated (12/09/20 07:09) Ct Abdomen/Pelvis Wo (12/09/20 07:09) Vital Signs/I&O 12/09/20 06:21 Temp 36.0 Pulse 63 Resp 18 B/P (MAP) 181/85 (117) Pulse Ox 98 O2 Delivery Room Air Blood Pressure Mean: 117 Progress Progress Note : Time: 07:16 Progress Note Plan to scan her spine given her tenderness and previous history of surgeries. Plan to get a CT of the head and C-spine. Because of her exquisite tenderness to palpation of her left lower quadrant abdomen in relation to her fall we will get a CT with and without IV contrast, some labs and urinalysis. She does not endorse pain at rest there. Question of trauma versus constipation related to her chronic opiate use? Diagnostic Imaging Diagonstic Imaging: Xray Plain Films/CT/US/NM/MRI: chest Comments [facility]. [place], [place] NAME: JASON BELLO MED REC#: [id number] PT STATUS: REG ER : 1940 PHYSICIAN: RYAN ELIAS MD ADMIT DATE: 12/09/20/ER Draft Date of Exam:12/09/20 CHEST 1 VIEW, AP/PA ONLY INDICATION: Fall with chest pain. Frontal chest obtained at 08:04 a.m. compared to 12/15/2017. FINDINGS: There is cardiomegaly. There is poststernotomy change. There is mild central vascular prominence. There is no focal infiltrate or pneumothorax or pleural fluid. There is hyperinflation compatible with COPD. IMPRESSION: Unchanged cardiomegaly and COPD changes. No new infiltrate or pleural fluid. Dictated on workstation # [id number] Dict: 12/09/20817 Trans: 12/09/20821 [id number] Interpreted by: DEONTE MOODY MD Electronically signed by: Reviewed: Reviewed by Me Diagonstic Imaging: CT Plain Films/CT/US/NM/MRI: c-spine, head Comments [facility] [place] [place] NAME: JASON BELLO [facility] REC#: [id number] PT STATUS: REG ER : 1940 PHYSICIAN: RYAN ELIAS MD ADMIT DATE: 12/09/20/ER Draft Date of Exam:12/09/20 CT HEAD/CERVICAL SPINE WO Clinical indication: Patient fell in bathtub hitting back of head. Exam: Head CT without IV contrast with sagittal and coronal reformations. Axial CT scan of the cervical spine with sagittal and coronal reformations. Auto Exposure Controls were utilized during the CT exam to meet ALARA standards for radiation dose reduction. Comparison: CT scan of the head and cervical spine dated 04/02/2019. Findings: Head CT: There is no evidence of acute cerebral infarct, intracranial hemorrhage, or gross mass effect. The brain parenchymal volume appears appropriate for patient's age. There are multiple focal areas of low-attenuation white matter changes involving both cerebral hemispheres, likely representing chronic small vessel ischemic disease. There is normal thomas-white matter distinction. There is no significant midline shift or herniation. There is no evidence of hydrocephalus. The basal cisterns are unremarkable. The skull, extracranial soft tissue, and orbits are unremarkable. The paranasal sinuses are unremarkable. Temporal bones show no significant abnormality. Cervical spine: There is no acute cervical spine fracture. There is stable grade 1 anterolisthesis of C4 on C5 which is degenerative. There are cervical spine vertebral body spurs and facet arthropathy seen. There is a roughly 1.3 cm low-density nodule involving the right thyroid lobe which is also noted on the prior study and has not significantly changed. Visualized upper lung colon are clear. Impression: 1: There is no evidence of acute intracranial process. There is no skull fracture. 2: Cervical spine degenerative disease with no acute fracture. 3: Again noted right thyroid lobe nodule which has not significantly changed. Nonemergent thyroid ultrasound better evaluate. Dictated on workstation # [id number] Dict: 12/09/20819 Trans: 12/09/20832 [id number] Interpreted by: SHERITA SALAZAR MD Electronically signed by: Reviewed: Reviewed by Me Diagonstic Imaging: CT Plain Films/CT/US/NM/MRI: other (Thoracolumbar spine without IV contrast) Comments [facility] [place] [place] NAME: JASON BELLO [facility] REC#: [id number] PT STATUS: REG ER : 1940 PHYSICIAN: RYAN ELIAS MD ADMIT DATE: 12/09/20/ER Draft Date of Exam:12/09/20 CT THORACIC/LUMBAR SPINE WO Clinical indication: Patient fell in bathtub. Patient has history of spine surgery and back pain. Exam: Axial CT scan of the thoracic and lumbar spine performed without IV contrast. Sagittal and coronal reformations were performed. Bone and soft tissue windows were created. Auto Exposure Controls were utilized during the CT exam to meet ALARA standards for radiation dose reduction. Comparison: MRI of the thoracic spine without contrast dated 11/22/2014. CT scan of the abdomen and pelvis with contrast dated 12/15/2017. FINDINGS: There is interval development of a burst fracture involving the upper aspect of the T11 vertebra which involves the anterior and middle columns. There is a small retropulsed fragment involving the superior posterior aspect of the T11 vertebra which extends roughly 3 mm posteriorly and causes mild central canal narrowing. There is roughly 40% loss of height. Fracture does not extend into the posterior elements. Thoracic and lumbar spine shows no other acute fracture. There is progression of degenerative disease with hypertrophic anterior spurs involving the thoracic spine most pronounced involving the mid to lower regions. Interval placement neurostimulator electrode entering the T8-T9 interlaminar region with in electrode seen at the mid T7 level. There is no significant bony central canal narrowing. There is progression of multilevel neural foramen narrowing involving the thoracic spine due to facet arthropathy. There is moderate to severe right T2-T5 bony neural foramen narrowing and moderate bilateral T10-T11 neural foramen narrowing. There is atelectasis involving the posterior aspects of both lungs. There are vascular calcifications versus nonobstructive stones involving both kidneys. There is a 1.6 cm exophytic cyst involving the mid posterior aspect of left kidney. Again seen L4-S1 posterior lumbar interbody fusion. There is solid bony bridging/fusion involving the L4-S1 posterior elements which has progressed in interim. There is right sided L5 facetectomy changes seen. Stable subtle grade 1 retrolisthesis of L2 and L3. Stable grade 1 anterolisthesis of L4 on L5 which is surgically fused. There is lumbar spine vertebral body spurs and facet arthropathy. There appears to be some degree of central canal narrowing at the L3-L4 level. There is severe left L3-L4 neural foramen narrowing with the appearance of disk herniation and facet arthropathy. There is an ascending thoracic aortic aneurysm measuring at least 4.3 cm in greatest axial dimension. Impression: 1: There is an acute burst fracture involving the upper aspect of the T11 vertebra which causes mild central canal narrowing. There is roughly 40% loss of height involving the T11 vertebral body fracture. 2: Thoracic and lumbar spine shows no other acute fracture or dislocation. 3: There is multilevel thoracic and lumbar spine degenerative disease. 4: Ascending thoracic aortic aneurysm measuring at least 4.3 cm in greatest axial dimension. Results of this report regarding T11 burst fracture was discussed with Dr. Ryan Elias via the telephone on 12/09/2020 at 0842 hours. Dictated on workstation # [id number] Dict: 12/09/20 08 Trans: 12/09/20 0848 [id number] Interpreted by: SHERITA SALAZAR MD Electronically signed by: Reviewed: Reviewed by Wa Diagonstic Imaging: CT (With IV contrast) Plain Films/CT/US/NM/MRI: abdomen, pelvis Comments [facility] [place] [place] NAME: JASON BELLO MED REC#: [id number] PT STATUS: REG ER : 1940 PHYSICIAN: RYAN ELIAS MD ADMIT DATE: 12/09/20/ER Draft Date of Exam:12/09/20 CT ABDOMEN/PELVIS WO EXAMINATION: CT abdomen and pelvis without contrast. TECHNIQUE: Multiple contiguous axial images were obtained through the abdomen and pelvis without the use of intravenous contrast. All CT scans use one or more of the following dose optimizing techniques: automated exposure control, MA and/or KvP adjustment based on patient size and exam type or iterative reconstruction. HISTORY: Fall, left lower quadrant pain COMPARISON: 12/16/2017 FINDINGS: Limited views of the lower thorax show coronary artery calcifications. The liver is normal without focal lesion. There is no biliary ductal dilation. Gallbladder is surgically absent. Pancreas is normal. Spleen is normal. Adrenal glands are normal. The right kidney is atrophic. There is an extra renal pelvis on the right. There are two cysts in left kidney that both have fluid attenuation. There is no hydronephrosis. Urinary bladder is normal. Visualized bowel is normal in caliber without obstruction or inflammation. There has been a ventral abdominal hernia repair. No free fluid or air. No abdominal or pelvic lymphadenopathy. Aorta is normal in caliber without aneurysm. There are no suspicious osseus lesions. There is instrumented fusion of the lumbar spine. There is a T11 burst fracture with mild retropulsion, new from 2018. IMPRESSION: 1. T11 burst fracture with mild retropulsion new from 2018, consider MRI to establish acuity. Dictated on workstation # [id number] Dict: 12/09/20 08 Trans: 12/09/20 0832 [facility] [id number] Interpreted by: NARCISA CULLEN MD Electronically signed by: Reviewed: Reviewed by Me Departure Impression Primary Impression: Fall Qualified Codes: W19.XXXA - Unspecified fall, initial encounter Additional Impression: Acute exacerbation of chronic low back pain Disposition: 01 HOME, SELF-CARE Condition: Stable Departure-Patient Inst. Decision time for Depature: 11:18 Referrals: STEPHANIE GONZALEZ DO (PCP) Primary Care Physician OSCAR LEBLANC MD Patient Instructions: Vertebral Compression Fracture (DC), Vertebroplasty and Kyphoplasty Add. Discharge Instructions: Make a follow-up appointment with your primary care doctor as needed for pain management. I suggest you follow-up with an orthopedic surgeon of your choice and included Dr. Leblanc's name per your request to discuss possible vertebroplasty if shaquille cated. Heating pads and topical creams such as icy hot or Biofreeze can be helpful. Return to the ER promptly if you are having difficulty getting urine to come out, loss of control of bowel movements, numbness or progressive worsening of weakness. All discharge instructions reviewed with patient and/or family. Voiced understanding. Copy Copies To 1: STEPHANIE GONZALEZ DO; OSCAR LEBLANC MD, TITUS J Dec 09, 2020 07:17
[2020-12-09 07:24] LABS: BASOPHILS % (AUTO) 0 % (0-10); EOSINOPHILS # (AUTO) 0.2 10^3/uL (0.0-0.3); EOSINOPHILS % (AUTO) 3 % (0-10); HEMATOCRIT 37 % (35-52); HEMOGLOBIN 11.9 g/dL (11.5-16.0); LYMPHOCYTES # (AUTO) 0.8 10^3/uL (1.0-4.0); LYMPHOCYTES % (AUTO) 14 % (12-44); MEAN CORPUSCULAR HEMOGLOBIN 30 pg (25-34); MEAN CORPUSCULAR HGB CONC 32 g/dL (32-36); MEAN CORPUSCULAR VOLUME 92 fL (80-99); MEAN PLATELET VOLUME 9.5 fL (9.0-12.2); MONOCYTES # (AUTO) 0.4 10^3/uL (0.0-1.0); MONOCYTES % (AUTO) 7 % (0-12); NEUTROPHILS # (AUTO) 4.2 10^3/uL (1.8-7.8); NEUTROPHILS % (AUTO) 75 % (42-75); PLATELET COUNT 190 10^3/uL (130-400); WHITE BLOOD COUNT 5.6 10^3/uL (4.3-11.0)
[2020-12-09 07:38] LABS: ALBUMIN 3.9 GM/DL (3.2-4.5); POTASSIUM 4.4 MMOL/L (3.6-5.0)
[2020-12-09 07:39] LABS: CALCIUM 10.6 MG/DL (8.5-10.1)
[2020-12-09 07:41] LABS: TOTAL PROTEIN 6.5 GM/DL (6.4-8.2)
[2020-12-09 07:42] LABS: BILIRUBIN,TOTAL 0.3 MG/DL (0.1-1.0)
[2020-12-09 07:44] LABS: CREATININE SERUM 1.45 MG/DL (0.60-1.30)
[2020-12-09 07:55] LABS: BILIRUBIN,URINE NEGATIVE (NEGATIVE); CLARITY,URINE CLEAR; COLOR,URINE YELLOW; GLUCOSE, URINE (UA) NEGATIVE (NEGATIVE); KETONES,URINE NEGATIVE (NEGATIVE); LEUKOCYTE ESTERASE ,URINE NEGATIVE (NEGATIVE); NITRITE,URINE NEGATIVE (NEGATIVE); PROTEIN,URINE NEGATIVE (NEGATIVE)
[2020-12-09 08:10] LABS: BACTERIA,URINE TRACE /HPF; SQUAMOUS EPITHELIAL CELL,UR 0-2 /HPF; WBC,URINE RARE /HPF
--- NOTE | 2020-12-09 08:22 | Diagnostic Imaging Report ---
INDICATION: Fall with chest pain. Frontal chest obtained at 08:04 a.m. compared to 12/15/2017. FINDINGS: There is cardiomegaly. There is poststernotomy change. There is mild central vascular prominence. There is no focal infiltrate or pneumothorax or pleural fluid. There is hyperinflation compatible with COPD. IMPRESSION: Unchanged cardiomegaly and COPD changes. No new infiltrate or pleural fluid. Dictated by: Dictated on workstation # [id number]
--- NOTE | 2020-12-09 08:33 | Diagnostic Imaging Report ---
EXAMINATION: CT abdomen and pelvis without contrast. TECHNIQUE: Multiple contiguous axial images were obtained through the abdomen and pelvis without the use of intravenous contrast. All CT scans use one or more of the following dose optimizing techniques: automated exposure control, MA and/or KvP adjustment based on patient size and exam type or iterative reconstruction. HISTORY: Fall, left lower quadrant pain COMPARISON: 12/16/2017 FINDINGS: Limited views of the lower thorax show coronary artery calcifications. The liver is normal without focal lesion. There is no biliary ductal dilation. Gallbladder is surgically absent. Pancreas is normal. Spleen is normal. Adrenal glands are normal. The right kidney is atrophic. There is an extra renal pelvis on the right. There are two cysts in left kidney that both have fluid attenuation. There is no hydronephrosis. Urinary bladder is normal. Visualized bowel is normal in caliber without obstruction or inflammation. There has been a ventral abdominal hernia repair. No free fluid or air. No abdominal or pelvic lymphadenopathy. Aorta is normal in caliber without aneurysm. There are no suspicious osseus lesions. There is instrumented fusion of the lumbar spine. There is a T11 burst fracture with mild retropulsion, new from 2018. IMPRESSION: 1. T11 burst fracture with mild retropulsion new from 2018, consider MRI to establish acuity. Dictated by: Dictated on workstation # [id number]
--- NOTE | 2020-12-09 08:33 | Diagnostic Imaging Report ---
Clinical indication: Patient fell in bathtub hitting back of head. Exam: Head CT without IV contrast with sagittal and coronal reformations. Axial CT scan of the cervical spine with sagittal and coronal reformations. Auto Exposure Controls were utilized during the CT exam to meet ALARA standards for radiation dose reduction. Comparison: CT scan of the head and cervical spine dated 04/02/2019. Findings: Head CT: There is no evidence of acute cerebral infarct, intracranial hemorrhage, or gross mass effect. The brain parenchymal volume appears appropriate for patient's age. There are multiple focal areas of low-attenuation white matter changes involving both cerebral hemispheres, likely representing chronic small vessel ischemic disease. There is normal thomas-white matter distinction. There is no significant midline shift or herniation. There is no evidence of hydrocephalus. The basal cisterns are unremarkable. The skull, extracranial soft tissue, and orbits are unremarkable. The paranasal sinuses are unremarkable. Temporal bones show no significant abnormality. Cervical spine: There is no acute cervical spine fracture. There is stable grade 1 anterolisthesis of C4 on C5 which is degenerative. There are cervical spine vertebral body spurs and facet arthropathy seen. There is a roughly 1.3 cm low-density nodule involving the right thyroid lobe which is also noted on the prior study and has not significantly changed. Visualized upper lung colon are clear. Impression: 1: There is no evidence of acute intracranial process. There is no skull fracture. 2: Cervical spine degenerative disease with no acute fracture. 3: Again noted right thyroid lobe nodule which has not significantly changed. Nonemergent thyroid ultrasound better evaluate. Dictated by: Dictated on workstation # [id number]
--- NOTE | 2020-12-09 08:49 | Diagnostic Imaging Report ---
Clinical indication: Patient fell in bathtub. Patient has history of spine surgery and back pain. Exam: Axial CT scan of the thoracic and lumbar spine performed without IV contrast. Sagittal and coronal reformations were performed. Bone and soft tissue windows were created. Auto Exposure Controls were utilized during the CT exam to meet ALARA standards for radiation dose reduction. Comparison: MRI of the thoracic spine without contrast dated 11/22/2014. CT scan of the abdomen and pelvis with contrast dated 12/15/2017. FINDINGS: There is interval development of a burst fracture involving the upper aspect of the T11 vertebra which involves the anterior and middle columns. There is a small retropulsed fragment involving the superior posterior aspect of the T11 vertebra which extends roughly 3 mm posteriorly and causes mild central canal narrowing. There is roughly 40% loss of height. Fracture does not extend into the posterior elements. Thoracic and lumbar spine shows no other acute fracture. There is progression of degenerative disease with hypertrophic anterior spurs involving the thoracic spine most pronounced involving the mid to lower regions. Interval placement neurostimulator electrode entering the T8-T9 interlaminar region with in electrode seen at the mid T7 level. There is no significant bony central canal narrowing. There is progression of multilevel neural foramen narrowing involving the thoracic spine due to facet arthropathy. There is moderate to severe right T2-T5 bony neural foramen narrowing and moderate bilateral T10-T11 neural foramen narrowing. There is atelectasis involving the posterior aspects of both lungs. There are vascular calcifications versus nonobstructive stones involving both kidneys. There is a 1.6 cm exophytic cyst involving the mid posterior aspect of left kidney. Again seen L4-S1 posterior lumbar interbody fusion. There is solid bony bridging/fusion involving the L4-S1 posterior elements which has progressed in interim. There is right sided L5 facetectomy changes seen. Stable subtle grade 1 retrolisthesis of L2 and L3. Stable grade 1 anterolisthesis of L4 on L5 which is surgically fused. There is lumbar spine vertebral body spurs and facet arthropathy. There appears to be some degree of central canal narrowing at the L3-L4 level. There is severe left L3-L4 neural foramen narrowing with the appearance of disk herniation and facet arthropathy. There is an ascending thoracic aortic aneurysm measuring at least 4.3 cm in greatest axial dimension. Impression: 1: There is an acute burst fracture involving the upper aspect of the T11 vertebra which causes mild central canal narrowing. There is roughly 40% loss of height involving the T11 vertebral body fracture. 2: Thoracic and lumbar spine shows no other acute fracture or dislocation. 3: There is multilevel thoracic and lumbar spine degenerative disease. 4: Ascending thoracic aortic aneurysm measuring at least 4.3 cm in greatest axial dimension. Results of this report regarding T11 burst fracture was discussed with Dr. Ryan Elias via the telephone on 12/09/2020 at 0842 hours. Dictated by: Dictated on workstation # [id number]
[2020-12-09 11:35] VITALS: BP 161/98
== END 2020-12-09 11:35 | disposition home or self-care (01) ==
LOC: EDUNIT# 06:11 → ER 06:16
DX: G89.29 Other chronic pain (principal); M54.5 Low back pain; I25.2 Old myocardial infarction; I25.10 Atherosclerotic heart disease of native coronary artery without angina pectoris; F41.9 Anxiety disorder, unspecified; F32.9 Major depressive disorder, single episode, unspecified; Z79.899 Other long term (current) drug therapy; Z79.01 Long term (current) use of anticoagulants; Z79.891 Long term (current) use of opiate analgesic
CPT/HCPCS: 36415; 70450; 71045; 72125; 72128; 72131; 74176; 80053; 81000; 85025; 86141; 96360

== ENCOUNTER → 2021-02-26 | Outpatient (CLI) | payer MEDICARE, OTHER ==
[~2021-02-26] MED LIST changes: -FENO48TA10 PO; +FENO48TA11 PO
--- NOTE | 2021-02-26 17:13 | Diagnostic Imaging Report ---
EXAMINATION: US thyroid. TECHNIQUE: Multiple real-time grayscale images were obtained of the thyroid in various projections. HISTORY: Thyroid nodule. COMPARISON: 05/08/2013. FINDINGS: The right lobe of the thyroid measures 5.4 x 1.9 x 1.6 cm. Slightly decreased size of a 1.9 cm mostly solid, isoechoic, wider than tall nodule with smooth margins. There is a stable 1.4 cm mildly hypoechoic, solid, wider than tall nodule with smooth margins. Additional subcentimeter hypoechoic nodule is present. The left lobe of the thyroid measures 4.2 x 1.5 x 1.5 cm. There are multiple hypoechoic nodules measuring up to 1.0 cm. The isthmus is normal and measures 0.3 cm. No suspicious adenopathy within the visualized neck. IMPRESSION: 1. Decreased size of a 1.9 cm solid nodule within the right lobe of thyroid gland. TI-RADS 3. 2. Stable 1.4 cm right thyroid nodule. TI-RADS 4. 3. Additional subcentimeter nodules within both lobes are unchanged. TI-RADS 4. TIRADS 1: Benign No FNA or follow-up required TIRADS 2: Not Suspicious No FNA or follow-up required TIRADS 3: Mildly Suspicious FNA if ? 2.5 cm Follow if ? 1.5 cm (At 1, 3 and 5 years from initial scan) TIRADS 4: Moderately Suspicious FNA if ? 1.5 cm Follow if ? 1 cm (At 1, 2, 3 and 5 years from initial scan) TIRADS 5: Highly Suspicious FNA if ? 1 cm Follow if ? 0.5 cm (Annually for 5 years from initial scan) Dictated by: Dictated on workstation # [id number]
== END ==
LOC: RAD 15:15
PROVIDERS: ATTEND Internal Medicine
DX: E04.2 Nontoxic multinodular goiter (principal)
CPT/HCPCS: 76536

== ENCOUNTER → 2021-09-23 | Outpatient (CLI) | payer MEDICARE, OTHER ==
--- NOTE | 2021-09-23 17:23 | Diagnostic Imaging Report ---
PROCEDURE: CT head without contrast. TECHNIQUE: Multiple contiguous axial images were obtained through the brain without the use of intravenous contrast. Auto Exposure Controls were utilized during the CT exam to meet ALARA standards for radiation dose reduction. INDICATION: History of traumatic subdural hemorrhage without loss of consciousness. EXAMINATION: CT brain without contrast 09/23/2021. COMPARISON: 12/09/2020 FINDINGS: There is no evidence for hemorrhage or infarct. Specifically no subdural hematoma is appreciated. There is no mass, mass effect or midline shift. No hydrocephalus. Chronic ischemic disease is noted in periventricular and deep white matter distribution. The calvarium is intact. The paranasal sinuses and mastoid air cells clear. IMPRESSION: 1. Chronic findings with no acute intracranial process appreciated. Dictated by: Dictated on workstation # [id number]
== END ==
LOC: RAD 15:25
PROVIDERS: ATTEND Internal Medicine
DX: S06.5X0S Traumatic subdural hemorrhage without loss of consciousness, sequela (principal)
CPT/HCPCS: 70450

== ENCOUNTER 2021-11-30 15:48 | Emergency (ER) | payer MEDICARE, OTHER ==
--- NOTE | 2021-11-30 16:19 | ED Hip Pain/Injury ---
General Chief Complaint: Hip/Pelvic Problems Stated Complaint: SOB, LOW O2, HIP PAIN Source: patient Exam Limitations: no limitations History of Present Illness Date Seen by Provider: Nov 30, 2021 Time Seen by Provider: 16:13 Initial Comments To ER by private vehicle accompanied by daughter with several complaints. Starting today she had some shortness of breath and was panting according to her daughter. She did feel very upset at the time, she was angry with her son, was frustrated with her oxygen machine. She has not had a cough. She has had rhinorrhea which she attributes to allergies. She does not have a COVID- vaccine. She denies any chest pain. She has severe pain in the right hip. This goes from the posterior superior iliac spine to the anterior superior iliac spine and all the way down to the mid calf on the right. This began suddenly 2 days ago while sitting on the edge of her bed she noticed a sudden twinge of pain. She did not fall. She took one of her oxycodone at 11:30 AM this morning which did help. She also complains of rectal pain and she believes that she has a hemorrhoid. She denies any diarrhea or abdominal pain. Timing/Duration: constant Severity: moderate Method of Injury: unknown Associated Symptoms: denies symptoms Allergies and Home Medications Allergies Coded Allergies: iodine (Unverified Allergy, Unknown, 01/16/14) latex (Unverified Allergy, Unknown, RASH, 01/16/14) Patient Home Medication List Home Medication List Reviewed: Yes Ascorbate Calcium (Vitamin C) 500 Mg Tablet, 500 MG PO DAILY, (Reported) Entered as Reported by: YIN ECHEVERRIA on 12/16/17 1048 Atorvastatin Calcium (Atorvastatin Calcium) 40 Mg Tablet, 40 MG PO HS, (Reported) Entered as Reported by: YIN ECHEVERRIA on 12/16/17 1033 Beta-Carotene (Beta Carotene) 10,000 Unit Capsule, 10,000 UNIT PO DAILY, (Reported) Entered as Reported by: YIN ECHEVERRIA on 12/16/17 1048 Bisacodyl (Women's Gentle Laxative) 5 Mg Tablet.dr, 5 MG PO DAILY PRN for CONSTIPATION-5TH LINE, (Reported) Entered as Reported by: YIN ECHEVERRIA on 12/16/17 1046 Cholecalciferol (Vitamin D3) (Vitamin D3) 1,000 Unit Capsule, 1,000 UNIT PO DAILY, (Reported) Entered as Reported by: YIN ECHEVERRIA on 12/16/17 1043 Cholestyramine/Aspartame (Prevalite Packet) 4 Gm Powd.pack, 4 GM PO ACHS PRN for DIARRHEA Prescribed by: STEPHANIE GONZALEZ on 12/19/17 09 Clopidogrel Bisulfate (Clopidogrel) 75 Mg Tablet, 75 MG PO 1800, (Reported) Entered as Reported by: YIN ECHEVERRIA on 12/16/17 103 Dicyclomine HCl (Dicyclomine HCl) 10 Mg Capsule, 20 MG PO ACHS Prescribed by: STEPHANIE GONZALEZ on 12/19/17 09 Docusate Sodium (Docusate Sodium) 100 Mg Capsule, 200 MG PO DAILY PRN for CONSTIPATION-1ST LINE, (Reported) Entered as Reported by: YIN ECHEVERRIA on 12/16/17 104 Duloxetine HCl (Duloxetine HCl) 30 Mg Capsule.dr, 30 MG PO DAILY, (Reported) Entered as Reported by: YIN ECHEVERRIA on 12/16/17 103 Duloxetine HCl (Duloxetine HCl) 60 Mg Capsule.dr, 60 MG PO DAILY, (Reported) Entered as Reported by: YIN ECHEVERRIA on 12/16/17 103 Ezetimibe (Ezetimibe) 10 Mg Tablet, 10 MG PO HS, (Reported) Entered as Reported by: YIN ECHEVERRIA on 12/16/17 104 Felodipine (Felodipine ER) 5 Mg Tab.er.24h, 5 MG PO DAILY, (Reported) Entered as Reported by: YIN ECHEVERRIA on 12/16/17 103 Fenofibrate Nanocrystallized (Fenofibrate) 48 Mg Tablet, 48 MG PO HS, (Reported) Entered as Reported by: YIN ECHEVERRIA on 12/16/17 1043 Fentanyl (Fentanyl Patch 50 MCG) 1 Each Patch.td72, 50 MCG TD Q72H, (Reported) Entered as Reported by: YIN ECHEVERRIA on 12/16/17 104 Folic Acid (Folic Acid) 0.8 Mg Tablet, 0.8 MG PO DAILY, (Reported) Entered as Reported by: YIN ECHEVERRIA on 12/16/17 1048 Isosorbide Mononitrate (Isosorbide Mononitrate ER) 30 Mg Tab.er.24h, 30 MG PO DAILY, (Reported) Entered as Reported by: YIN ECHEVERRIA on 12/16/17 1033 Linaclotide (Linzess) 290 Mcg Capsule, 290 MCG PO DAILY, (Reported) Entered as Reported by: YIN ECHEVERRIA on 12/16/17 1043 Lisinopril (Lisinopril) 20 Mg Tablet, 20 MG PO 1800,2200, (Reported) Entered as Reported by: YIN ECHEVERRIA on 12/16/17 1033 Methylcellulose (with Sugar) (Citrucel Powder) 850 Gm Powder, 1.5 TBS PO DAILY, (Reported) Entered as Reported by: YIN ECHEVERRIA on 12/16/17 1043 Metoprolol Succinate (Toprol Xl) 50 Mg Tab.er.24h, 50 MG PO DAILY, (Reported) Entered as Reported by: YIN ECHEVERRIA on 12/16/17 103 Collison 3 Polyunsat Fatty Acids (Fish Oil 1,000 mg Capsule) 1,000 Mg Cap, 1,000 MG PO DAILY, (Reported) Entered as Reported by: YIN ECHEVERRIA on 12/16/17 1043 Ondansetron (Ondansetron Odt) 4 Mg Tab.rapdis, 4 MG PO Q6H PRN for NAUSEA/VOMITING Prescribed by: RADHA CORRAL on 04/02/19 1730 Oxycodone HCl/Acetaminophen (Percocet 10-325 mg Tablet) 1 Each Tablet, 1 TAB PO Q6H, (Reported) Entered as Reported by: YIN ECHEVERRIA on 12/16/17 1043 Polyethylene Glycol 3350 (Miralax) 17 Gm Powd.pack, 17 GM PO DAILY PRN for CONSTIPATION-2ND LINE, (Reported) Entered as Reported by: YIN ECHEVERRIA on 12/16/17 104 Prednisone (Prednisone) 20 Mg Tab, 40 MG PO DAILY Prescribed by: LIZZETTE YARBROUGH on 11/30/21 1750 Ubidecarenone (Co Q-10) 300 Mg Capsule, 300 MG PO DAILY, (Reported) Entered as Reported by: YIN ECHEVERRIA on 12/16/17 104 Vancomycin HCl (Vancomycin ORAL Compound 250mg/5 ml) 125 Mg/2.5 Ml Syringe, 125 MG PO QID Prescribed by: STEPHANIE GONZALEZ on 12/19/17 0912 Vitamin B Complex (Vitamin B Complex) 1 Each Capsule, 1 CAP PO DAILY, (Reported) Entered as Reported by: YIN ECHEVERRIA on 12/16/17 1046 Review of Systems Constitutional: see HPI EENTM: see HPI, nose congestion Respiratory: see HPI; No cough; dyspnea on exertion Cardiovascular: no symptoms reported Genitourinary: no symptoms reported Musculoskeletal: see HPI, back pain Skin: no symptoms reported Psychiatric/Neurological: No Symptoms Reported Past Glkfupl-Fdtmqp-Hptlkm Hx Patient Social History Tobacco Use?: No Use of E-Cig and/or Vaping dev: No Substance use?: No Alcohol Use?: No Pt feels they are or have been: No Immunizations Up To Date Tetanus Booster (TDap): Unknown Seasonal Allergies Seasonal Allergies: Yes Past Medical History Surgery/Hospitalization HX: BYPASS X2, BACK SURGERY, BACK PAIN SIMULATOR HTN, HLD Surgeries: Yes (LAPAROSCOPIC ADHESION REMOVAL, OPEN HERNIA SX, 2 BACK SURGERIES) Abdominal, Breast, CABG, Gallbladder, Hysterectomy, Vascular Surgery Respiratory: No Currently Using CPAP: No Currently Using BIPAP: No Cardiac: Yes (TRIPLE AND QUAD BYPASS) Coronary Artery Disease, Heart Attack Neurological: No Reproductive Disorders: Yes (endometriosis) Sexually Transmitted Disease: No Genitourinary: Yes (uterine rupture) Bladder Infection Gastrointestinal: Yes Abdominal Hernia, Obstructive Bowel, Chronic Constipation, Diverticulosis Musculoskeletal: Yes (osteoarthritis/osteoporosis) Osteoporosis, Chronic Back Pain Endocrine: No HEENT: Yes Cataract Cancer: No Psychosocial: Yes Anxiety, Depression Integumentary: No Blood Disorders: Yes (ANEMIA) Family Medical History Cancer of colon 19 FATHER, Onset:Unknown G8 BROTHER, Onset:Unknown (STOMACH CA) Family history: Arthritis 19 MOTHER, Onset:Unknown G8 SISTER, Onset:Unknown Family history: Cardiovascular disease G8 BROTHER, Onset:Unknown (BROTHER OF NM AT AGE 46) SON, Onset:Unknown (SON OF NM AT AGE 49) Family history: Diabetes mellitus G8 BROTHER, Onset:Unknown Family history: Gastrointestinal disease 19 FATHER, Onset:Unknown G8 BROTHER, Onset:Unknown Family history: Thyroid disorder G8 SISTER, Onset:Unknown Cancer, Diabetes Physical Exam Vital Signs Vital Signs - First Documented 11/30/21 15:55 Temp 36.7 Pulse 74 Resp 20 B/P (MAP) 166/74 (104) Capillary Refill : Height, Weight, BMI Height: 5'6.00" Weight: 117lbs. 5.0oz. 53.540806mp; 21.00 BMI Method:Stated General Appearance: No Apparent Distress, WD/WN, Anxious Neck: Full Range of Motion, Normal Inspection Cardiovascular: Regular Rate, Rhythm, Normal Peripheral Pulses Respiratory: No Accessory Muscle Use, No Respiratory Distress, Other (Lungs are clear with normal respiratory rate and effort oxygen 99% room air) Gastrointestinal: Soft, Other (Left periumbilical region is tender to palpation and she states it has been for the past 3 years and today is no different.) Genital/Rectal: Other (Digital rectal exam and inspection with Manasa GILBERT at the bedside normal-appearing anus without blood, no apparent fissure, no external hemorrhoid, on digital rectal exam there is no palpable mass and it is nontender to palpation.) Extremity: Normal Capillary Refill, Other (Position of comfort is lying supine slightly off of the right hip. She can fully flex the right hip without pain however external rotation significantly increases her pain. Leg is warm and well-perfused.) Neurologic/Psychiatric: Alert, Other (Anxious appearing) Skin: Normal Color, Warm/Dry Progress/Results/Core Measures Results/Orders Lab Results Laboratory Tests Test 11/30/21 16:14 11/30/21 16:17 Range/Units SARS-CoV-2 RNA (RT-PCR) Not Detected Not Detecte White Blood Count 4.8 4.3-11.0 10^3/uL Red Blood Count 4.24 3.80-5.11 10^6/uL Hemoglobin 12.7 11.5-16.0 g/dL Hematocrit 38 35-52 % Mean Corpuscular Volume 89 80-99 fL Mean Corpuscular Hemoglobin 30 25-34 pg Mean Corpuscular Hemoglobin Concent 34 32-36 g/dL Red Cell Distribution Width 13.5 10.0-14.5 % Platelet Count 222 130-400 10^3/uL Mean Platelet Volume 9.9 9.0-12.2 fL Immature Granulocyte % (Auto) 0 % Neutrophils (%) (Auto) 73 42-75 % Lymphocytes (%) (Auto) 16 12-44 % Monocytes (%) (Auto) 7 0-12 % Eosinophils (%) (Auto) 3 0-10 % Basophils (%) (Auto) 1 0-10 % Neutrophils # (Auto) 3.6 1.8-7.8 10^3/uL Lymphocytes # (Auto) 0.8 L 1.0-4.0 10^3/uL Monocytes # (Auto) 0.4 0.0-1.0 10^3/uL Eosinophils # (Auto) 0.1 0.0-0.3 10^3/uL Basophils # (Auto) 0.0 0.0-0.1 10^3/uL Immature Granulocyte # (Auto) 0.0 0.0-0.1 10^3/uL Erythrocyte Sedimentation Rate 9 0-30 MM/HR Sodium Level 141 135-145 MMOL/L Potassium Level 4.6 3.6-5.0 MMOL/L Chloride Level 111 H 98-107 MMOL/L Carbon Dioxide Level 19 L 21-32 MMOL/L Anion Gap 11 5-14 MMOL/L Blood Urea Nitrogen 41 H 7-18 MG/DL Creatinine 1.68 H 0.60-1.30 MG/DL Estimat Glomerular Filtration Rate 31 BUN/Creatinine Ratio 24 Glucose Level 103 70-105 MG/DL Calcium Level 10.4 H 8.5-10.1 MG/DL Corrected Calcium 10.3 H 8.5-10.1 MG/DL Total Bilirubin 0.3 0.1-1.0 MG/DL Aspartate Amino Transf (AST/SGOT) 22 5-34 U/L Alanine Aminotransferase (ALT/SGPT) 11 0-55 U/L Alkaline Phosphatase 76 40-136 U/L Troponin I < 0.028 <0.028 NG/ML B-Type Natriuretic Peptide 325.3 H <100.0 PG/ML Total Protein 6.9 6.4-8.2 GM/DL Albumin 4.1 3.2-4.5 GM/DL My Orders Orders - LIZZETTE YARBROUGH APRN Cbc With Automated Diff (11/30/21 16:10) Comprehensive Metabolic Panel (11/30/21 16:10) Ed Iv/Invasive Line Start (11/30/21 16:10) Ct Lumbar Spine Wo (11/30/21 16:10) Ct Pelvis Wo (11/30/21 16:10) Erythrocyte Sedimentation Rate (11/30/21 16:10) Bnp Mirella (11/30/21 16:10) Ekg Tracing (11/30/21 16:10) Troponin I [place] (11/30/21 16:10) Covid 19 Inhouse Test (11/30/21 16:10) Ketorolac Injection (Toradol Injection) (11/30/21 16:30) Fentanyl Inj (Sublimaze Injection) (11/30/21 16:30) Chest 1 View, Ap/Pa Only (11/30/21 16:28) Lactated Ringers (Lr 1000 Ml Iv Solution (11/30/21 17:30) Prednisone Tablet (Deltasone Tablet) (11/30/21 18:00) Medications Given in ED Current Medications Medications Dose Ordered Sig/Yonatan Route Start Time Stop Time Status Last Admin Dose Admin Fentanyl Citrate 50 mcg ONCE ONCE IVP 11/30/21 16:30 11/30/21 16:31 DC 11/30/21 16:52 50 MCG Ketorolac Tromethamine 15 mg ONCE ONCE IVP 11/30/21 16:30 11/30/21 16:31 DC 11/30/21 16:50 15 MG Prednisone 40 mg ONCE ONCE PO 11/30/21 18:00 11/30/21 18:01 DC 11/30/21 18:05 40 MG Vital Signs/I&O 11/30/21 15:55 Temp 36.7 Pulse 74 Resp 20 B/P (MAP) 166/74 (104) Departure Communication (Admissions) Family Conversation NAME: JASON BELLO MED REC#: [id number] PT STATUS: REG ER : 1940 PHYSICIAN: LIZZETTE YARBROUGH APRN ADMIT DATE: 11/30/21/ER Draft Date of Exam:11/30/21 CT PELVIS WO EXAMINATION: CT pelvis without intravenous contrast. TECHNIQUE: Multiple contiguous axial images were obtained through the pelvis without the administration of intravenous contrast. All CT scans use one or more of the following dose optimizing techniques: Automated exposure control, MA and/or KvP adjustment based on patient size and exam type or iterative reconstruction. HISTORY: Back and hip pain. COMPARISON: None available. FINDINGS: Visualized bowel is normal in caliber without obstruction or inflammation. No free fluid or air. No pelvic lymphadenopathy. Aorta is normal in caliber without aneurysm. The urinary bladder is normal. There are no suspicious osseous lesions. There has been a lumbar spine decompression and fixation screws. No acute fracture is seen. There is severe right hip joint osteoarthritis. IMPRESSION: 1. No acute fracture in the pelvis. 2. Severe right hip osteoarthritis. Dictated on workstation # [id number] Dict: 11/30/211713 Trans: 11/30/211718 [id number] Interpreted by: NARCISA CULLEN MD Electronically signed by: NAME: [facility] REC#: [id number] PT STATUS: REG ER : 1940 PHYSICIAN: LIZZETTE YARBROUGH APRN ADMIT DATE: 11/30/21/ER Draft Date of Exam:11/30/21 CHEST 1 VIEW, AP/PA ONLY EXAMINATION: Chest 1 view HISTORY: Short of breath. COMPARISON: 12/09/2020. FINDINGS: The lungs are clear without edema or pneumonia. No pleural effusion or pneumothorax. Heart size is normal. Median sternotomy wires are aligned. There are coronary artery bypass graft markers. IMPRESSION: 1. Clear lungs. Dictated on workstation # [id number] Dict: 11/30/219 Trans: 11/30/211710 [facility] [id number] Interpreted by: NARCISA CULLEN MD Electronically signed by: Impression Primary Impression: Lumbar radiculopathy, acute Additional Impression: Osteoarthritis of right hip Disposition: 01 HOME, SELF-CARE Condition: Stable Departure-Patient Inst. Decision time for Depature: 17:45 Referrals: STEPHANIE GONZALEZ DO (PCP/Family) Primary Care Physician Patient Instructions: Osteoarthritis (DC), Osteoarthritis Add. Discharge Instructions: 1. Return to ER for any concerns. Medication as directed. Follow-up with Dr. Gonzalez later this week. All discharge instructions reviewed with patient and/or family. Voiced understanding. Scripts Prednisone (Prednisone) 20 Mg Tab 40 MG PO DAILY, #4 TAB 0 Refills Prov: LIZZETTE YARBROUGH APRN 11/30/21 Copy Copies To 1: STEPHANIE GONZALEZ PETER J APRN Nov 30, 2021 16:19
[2021-11-30 16:25] LABS: BASOPHILS % (AUTO) 1 % (0-10); EOSINOPHILS # (AUTO) 0.1 10^3/uL (0.0-0.3); EOSINOPHILS % (AUTO) 3 % (0-10); HEMATOCRIT 38 % (35-52); HEMOGLOBIN 12.7 g/dL (11.5-16.0); LYMPHOCYTES # (AUTO) 0.8 10^3/uL (1.0-4.0); LYMPHOCYTES % (AUTO) 16 % (12-44); MEAN CORPUSCULAR HEMOGLOBIN 30 pg (25-34); MEAN CORPUSCULAR HGB CONC 34 g/dL (32-36); MEAN CORPUSCULAR VOLUME 89 fL (80-99); MEAN PLATELET VOLUME 9.9 fL (9.0-12.2); MONOCYTES # (AUTO) 0.4 10^3/uL (0.0-1.0); MONOCYTES % (AUTO) 7 % (0-12); NEUTROPHILS # (AUTO) 3.6 10^3/uL (1.8-7.8); NEUTROPHILS % (AUTO) 73 % (42-75); PLATELET COUNT 222 10^3/uL (130-400); WHITE BLOOD COUNT 4.8 10^3/uL (4.3-11.0)
[2021-11-30] MEDS ORDERED: fentaNYL INJ 100 MCG/2 ML AMP IVP ONE (16:30)
[2021-11-30] MEDS ORDERED: KETOROLAC 30 MG/ML VIAL IVP ONE (16:30)
[2021-11-30 16:35] LABS: ALBUMIN 4.1 GM/DL (3.2-4.5); CHLORIDE 111 MMOL/L (98-107); POTASSIUM 4.6 MMOL/L (3.6-5.0); SODIUM 141 MMOL/L (135-145)
[2021-11-30 16:36] LABS: CALCIUM 10.4 MG/DL (8.5-10.1)
[2021-11-30 16:37] LABS: GLUCOSE 103 MG/DL (70-105); TOTAL PROTEIN 6.9 GM/DL (6.4-8.2)
[2021-11-30 16:38] LABS: CARBON DIOXIDE 19 MMOL/L (21-32)
[2021-11-30 16:39] LABS: BILIRUBIN,TOTAL 0.3 MG/DL (0.1-1.0)
[2021-11-30 16:40] LABS: ALKALINE PHOSPHATASE 76 U/L (40-136); ERYTHROCYTE SEDIMENTATION RATE 9 MM/HR (0-30)
[2021-11-30 16:41] LABS: CREATININE SERUM 1.68 MG/DL (0.60-1.30); GFR ESTIMATED 31
[2021-11-30 16:42] LABS: BUN/CREATININE RATIO 24
[2021-11-30 16:44] LABS: ALANINE AMINOTRANSFERASE 11 U/L (0-55)
--- NOTE | 2021-11-30 17:11 | Diagnostic Imaging Report ---
EXAMINATION: Chest 1 view HISTORY: Short of breath. COMPARISON: 12/09/2020. FINDINGS: The lungs are clear without edema or pneumonia. No pleural effusion or pneumothorax. Heart size is normal. Median sternotomy wires are aligned. There are coronary artery bypass graft markers. IMPRESSION: 1. Clear lungs. Dictated by: Dictated on workstation # [email or web address]
--- NOTE | 2021-11-30 17:20 | Diagnostic Imaging Report ---
EXAMINATION: CT pelvis without intravenous contrast. TECHNIQUE: Multiple contiguous axial images were obtained through the pelvis without the administration of intravenous contrast. All CT scans use one or more of the following dose optimizing techniques: Automated exposure control, MA and/or KvP adjustment based on patient size and exam type or iterative reconstruction. HISTORY: Back and hip pain. COMPARISON: None available. FINDINGS: Visualized bowel is normal in caliber without obstruction or inflammation. No free fluid or air. No pelvic lymphadenopathy. Aorta is normal in caliber without aneurysm. The urinary bladder is normal. There are no suspicious osseous lesions. There has been a lumbar spine decompression and fixation screws. No acute fracture is seen. There is severe right hip joint osteoarthritis. IMPRESSION: 1. No acute fracture in the pelvis. 2. Severe right hip osteoarthritis. Dictated by: Dictated on workstation # [email or web address]
--- NOTE | 2021-11-30 17:28 | Diagnostic Imaging Report ---
PROCEDURE: CT lumbar spine without contrast. TECHNIQUE: Multiple contiguous axial images were obtained through the lumbar spine without the use of intravenous contrast. Sagittal and coronal reformations were then performed. Auto Exposure Controls were utilized during the CT exam to meet ALARA standards for radiation dose reduction. INDICATION: 81-year-old female, right hip pain x2 days. Low back pain, rectal pain. CORRELATION STUDY: CT lumbar spine 12/09/2020. FINDINGS: Reformatted images demonstrate trace anterolisthesis of L4 on L5, appears unchanged. Postoperative changes with posterior fusion including transpedicular screws, interconnecting rods, and intervertebral disc spacer devices at L4-S1. Hardware appears to be intact and unchanged. There is rather pronounced bony demineralization. Lumbar vertebral body heights are maintained. There is marked compression with essentially vertebra plana at the partially visualized T11. While only partially visualized, it appears to show significant progression of loss of height since prior imaging. No acute fracture of the lumbar spine. Disc spaces appear unchanged. The visualized portions of the sacrum and sacroiliac joints are unremarkable. The partially visualized presacral tissues are unremarkable. The perirectal region is not imaged. There is calcification of the abdominal aorta and common iliac arteries. IMPRESSION: 1. No acute bony abnormality in the lumbar spine. 2. There appears to be significant progressive loss of height of the previously demonstrated T11 vertebral body which now appears to be essentially vertebra plana. Dictated by: Dictated on workstation # [id number]
[2021-11-30] MEDS ORDERED: LACTATED RINGERS 1,000 ML IV SCH (17:30)
[2021-11-30] MEDS ORDERED: PRD20T PO (17:50)
[2021-11-30] MEDS ORDERED: predniSONE 20 MG TAB PO ONE (18:00)
[2021-11-30 18:36] VITALS: BP 161/75
== END 2021-11-30 18:36 | disposition home or self-care (01) ==
LOC: EDUNIT# 15:48 → ER 15:51
DX: M16.11 Unilateral primary osteoarthritis, right hip (principal); M54.16 Radiculopathy, lumbar region; Z91.040 Latex allergy status; Z28.310 Unvaccinated for COVID-19; Z20.822 Contact with and (suspected) exposure to COVID-19
CPT/HCPCS: 36415; 71045; 72131; 72192; 80053; 83880; 84484; 85025; 85652; 87636; 93005

== ENCOUNTER 2021-12-28 09:48 | Emergency (ER) | payer MEDICARE, OTHER ==
[~2021-12-28] VITALS: Ht 165 cm; Wt 55.3 kg
--- NOTE | 2021-12-28 11:26 | ED Back Pain ---
General Chief Complaint: Back Problems Stated Complaint: LOWER BACK PAIN Nursing Triage Note: PT PRESENTS TO ED VIA POV FROM HOME WITH COMPLAINTS OF LOWER BACK PAIN SINCE TUESDAY THAT HAS PROGRESSIVELY GOTTEN WORSE. REPORTS HER HOME MEDICATION IS NOT HELPING. PT STATES SHE FELL IN HER BATHTUB OVER THREE MONTHS AGO BUT UNSURE IF IT IS RELATED. PT HAS HX OF CHRONIC BACK PAIN AND HAS HAD MULTIPLE BACK SX. Source of Information: Patient Exam Limitations: No Limitations History of Present Illness Date Seen by Provider: Dec 28, 2021 Time Seen by Provider: 11:25 Initial Comments To ER with right-sided low back pain. She fell several months ago in the bathtub resulting in a lumbar vertebral compression fracture. She is on Percocet 5/325 but as of the past 2 days that has not been helping. She has pain down both of her legs but she also states that she has severe knee pain and it may be from that. She does have urinary incontinence but has been incontinent for many years and it is no different today than normal. No saddle anesthesia no fever no chills. Location: Lumbar Spine Timing/Duration: 1-2 Days Severity: Severe Pain/Injury Location: Back Method of Injury: Unknown Associated Symptoms: denies symptoms, lower back pain Allergies and Home Medications Allergies Coded Allergies: iodine (Unverified Allergy, Unknown, 01/16/14) latex (Unverified Allergy, Unknown, RASH, 01/16/14) Patient Home Medication List Home Medication List Reviewed: Yes Ascorbate Calcium (Vitamin C) 500 Mg Tablet, 500 MG PO DAILY, (Reported) Entered as Reported by: YIN ECHEVERRIA on 12/16/17 1048 Atorvastatin Calcium (Atorvastatin Calcium) 40 Mg Tablet, 40 MG PO HS, (Reported) Entered as Reported by: YIN ECHEVERRIA on 12/16/17 1033 Beta-Carotene (Beta Carotene) 10,000 Unit Capsule, 10,000 UNIT PO DAILY, (Reported) Entered as Reported by: YIN ECHEVERRIA on 12/16/17 1048 Bisacodyl (Women's Gentle Laxative) 5 Mg Tablet.dr, 5 MG PO DAILY PRN for CONSTIPATION-5TH LINE, (Reported) Entered as Reported by: YIN ECHEVERRIA on 12/16/17 1046 Cholecalciferol (Vitamin D3) (Vitamin D3) 1,000 Unit Capsule, 1,000 UNIT PO DAILY, (Reported) Entered as Reported by: YIN ECHEVERRIA on 12/16/17 1043 Cholestyramine/Aspartame (Prevalite Packet) 4 Gm Powd.pack, 4 GM PO ACHS PRN for DIARRHEA Prescribed by: STEPHANIE GONZALEZ on 12/19/17 09 Clopidogrel Bisulfate (Clopidogrel) 75 Mg Tablet, 75 MG PO 1800, (Reported) Entered as Reported by: YIN ECHEVERRIA on 12/16/17 1033 Dicyclomine HCl (Dicyclomine HCl) 10 Mg Capsule, 20 MG PO ACHS Prescribed by: STEPHANIE GONZALEZ on 12/19/17 09 Docusate Sodium (Docusate Sodium) 100 Mg Capsule, 200 MG PO DAILY PRN for CONSTIPATION-1ST LINE, (Reported) Entered as Reported by: YIN ECHEVERRIA on 12/16/17 1045 Duloxetine HCl (Duloxetine HCl) 30 Mg Capsule.dr, 30 MG PO DAILY, (Reported) Entered as Reported by: YIN ECHEVERRIA on 12/16/17 1033 Duloxetine HCl (Duloxetine HCl) 60 Mg Capsule.dr, 60 MG PO DAILY, (Reported) Entered as Reported by: YIN ECHEVERRIA on 12/16/17 1033 Ezetimibe (Ezetimibe) 10 Mg Tablet, 10 MG PO HS, (Reported) Entered as Reported by: YIN ECHEVERRIA on 12/16/17 1043 Felodipine (Felodipine ER) 5 Mg Tab.er.24h, 5 MG PO DAILY, (Reported) Entered as Reported by: YIN ECHEVERRIA on 12/16/17 1033 Fenofibrate Nanocrystallized (Fenofibrate) 48 Mg Tablet, 48 MG PO HS, (Reported) Entered as Reported by: YIN ECHEVERRIA on 12/16/17 1043 Fentanyl (Fentanyl Patch 50 MCG) 1 Each Patch.td72, 50 MCG TD Q72H, (Reported) Entered as Reported by: YIN ECHEVERRIA on 12/16/17 1043 Folic Acid (Folic Acid) 0.8 Mg Tablet, 0.8 MG PO DAILY, (Reported) Entered as Reported by: YIN ECHEVERRIA on 12/16/17 1048 Isosorbide Mononitrate (Isosorbide Mononitrate ER) 30 Mg Tab.er.24h, 30 MG PO DAILY, (Reported) Entered as Reported by: YIN ECHEVERRIA on 12/16/17 1033 Linaclotide (Linzess) 290 Mcg Capsule, 290 MCG PO DAILY, (Reported) Entered as Reported by: YIN ECHEVERRIA on 12/16/17 104 Lisinopril (Lisinopril) 20 Mg Tablet, 20 MG PO 1800,2200, (Reported) Entered as Reported by: YIN ECHEVERRIA on 12/16/17 1033 Methylcellulose (with Sugar) (Citrucel Powder) 850 Gm Powder, 1.5 TBS PO DAILY, (Reported) Entered as Reported by: YIN ECHEVERRIA on 12/16/17 1043 Metoprolol Succinate (Toprol Xl) 50 Mg Tab.er.24h, 50 MG PO DAILY, (Reported) Entered as Reported by: YIN ECHEVERRIA on 12/16/17 103 [place] 3 Polyunsat Fatty Acids (Fish Oil 1,000 mg Capsule) 1,000 Mg Cap, 1,000 MG PO DAILY, (Reported) Entered as Reported by: YIN ECHEVERRIA on 12/16/17 1043 Ondansetron (Ondansetron Odt) 4 Mg Tab.rapdis, 4 MG PO Q6H PRN for NAUSEA/VOMITING Prescribed by: RADHA CORRAL on 04/02/19 1730 Oxycodone HCl/Acetaminophen (Percocet 10-325 mg Tablet) 1 Each Tablet, 1 TAB PO Q6H, (Reported) Entered as Reported by: YIN ECHEVERRIA on 12/16/17 1043 Polyethylene Glycol 3350 (Miralax) 17 Gm Powd.pack, 17 GM PO DAILY PRN for CONSTIPATION-2ND LINE, (Reported) Entered as Reported by: YIN ECHEVERRIA on 12/16/17 104 Prednisone (Prednisone) 20 Mg Tab, 40 MG PO DAILY Prescribed by: LIZZETTE YARBROUGH on 11/30/21 1750 Ubidecarenone (Co Q-10) 300 Mg Capsule, 300 MG PO DAILY, (Reported) Entered as Reported by: YIN ECHEVERRIA on 12/16/17 104 Vancomycin HCl (Vancomycin ORAL Compound 250mg/5 ml) 125 Mg/2.5 Ml Syringe, 125 MG PO QID Prescribed by: STPEHANIE GONZALEZ on 12/19/17 0912 Vitamin B Complex (Vitamin B Complex) 1 Each Capsule, 1 CAP PO DAILY, (Reported) Entered as Reported by: YIN ECHEVERRIA on 12/16/17 1046 Review of Systems Constitutional: see HPI EENTM: see HPI Respiratory: no symptoms reported Cardiovascular: no symptoms reported Genitourinary: no symptoms reported Musculoskeletal: see HPI, back pain Skin: no symptoms reported Psychiatric/Neurological: No Symptoms Reported Past Urezgnt-Dceihg-Mlhqxi Hx Patient Social History Tobacco Use?: No Substance use?: No Alcohol Use?: No Pt feels they are or have been: No Immunizations Up To Date Tetanus Booster (TDap): Unknown Seasonal Allergies Seasonal Allergies: Yes Past Medical History Surgery/Hospitalization HX: BYPASS X2, BACK SURGERY, BACK PAIN SIMULATOR HTN, HLD Surgeries: Yes (LAPAROSCOPIC ADHESION REMOVAL, OPEN HERNIA SX, 2 BACK SURGERIES) Abdominal, Breast, CABG, Gallbladder, Hysterectomy, Vascular Surgery Respiratory: No Currently Using CPAP: No Currently Using BIPAP: No Cardiac: Yes (TRIPLE AND QUAD BYPASS) Coronary Artery Disease, Heart Attack Neurological: No Reproductive Disorders: Yes (endometriosis) Sexually Transmitted Disease: No Genitourinary: Yes (uterine rupture) Bladder Infection Gastrointestinal: Yes Abdominal Hernia, Obstructive Bowel, Chronic Constipation, Diverticulosis Musculoskeletal: Yes (osteoarthritis/osteoporosis) Osteoporosis, Chronic Back Pain Endocrine: No HEENT: Yes Cataract Cancer: No Psychosocial: Yes Anxiety, Depression Integumentary: No Blood Disorders: Yes (ANEMIA) Family Medical History Cancer of colon 19 FATHER, Onset:Unknown G8 BROTHER, Onset:Unknown (STOMACH CA) Family history: Arthritis 19 MOTHER, Onset:Unknown G8 SISTER, Onset:Unknown Family history: Cardiovascular disease G8 BROTHER, Onset:Unknown (BROTHER OF [place] AT AGE 46) SON, Onset:Unknown (SON OF [place] AT AGE 49) Family history: Diabetes mellitus G8 BROTHER, Onset:Unknown Family history: Gastrointestinal disease 19 FATHER, Onset:Unknown G8 BROTHER, Onset:Unknown Family history: Thyroid disorder G8 SISTER, Onset:Unknown Cancer, Diabetes Physical Exam Vital Signs Vital Signs - First Documented 12/28/21 10:00 Temp 36.8 Pulse 79 Resp 16 B/P (MAP) 188/72 (110) Pulse Ox 99 Capillary Refill : Less Than 3 Seconds Height, Weight, BMI Height: 5'6.00" Weight: 117lbs. 5.0oz. [id number]; 20.00 BMI Method:Stated General Appearance: No Apparent Distress, WD/WN Neck: Full Range of Motion, Normal Inspection Respiratory: No Accessory Muscle Use, No Respiratory Distress Gastrointestinal: Normal Bowel Sounds, Non Tender, Soft Back: Normal Inspection, Vertebral Tenderness Extremity: Normal Capillary Refill, Normal Inspection Neurologic/Psychiatric: Alert, Oriented x3 Skin: Normal Color, Warm/Dry Progress/Results/Core Measures Results/Orders Lab Results Laboratory Tests Test 12/28/21 11:36 Range/Units Urine Color YELLOW Urine Clarity CLEAR Urine pH 5.5 5-9 Urine Specific [place] 1.020 1.016-1.022 Urine Protein NEGATIVE NEGATIVE Urine Glucose (UA) NEGATIVE NEGATIVE Urine Ketones NEGATIVE NEGATIVE Urine Nitrite NEGATIVE NEGATIVE Urine Bilirubin NEGATIVE NEGATIVE Urine Urobilinogen 0.2 < = 1.0 MG/DL Urine Leukocyte Esterase NEGATIVE NEGATIVE Urine RBC (Auto) 2+ H NEGATIVE Urine RBC 5-10 H /HPF Urine WBC NONE /HPF Urine Crystals NONE /LPF Urine Bacteria NEGATIVE /HPF Urine Casts NONE /LPF Urine Mucus NEGATIVE /LPF Urine Culture Indicated NO My Orders Orders - LIZZETTE YARBROUGH APRN Ct Lumbar Spine Wo (12/28/21 11:19) Ketorolac Injection (Toradol Injection) (12/28/21 11:30) Ua Culture If Indicated (12/28/21 11:23) Ketorolac Injection (Toradol Injection) (12/28/21 12:00) Ed Iv/Invasive Line Start (12/28/21 11:56) Fentanyl Inj (Sublimaze Injection) (12/28/21 12:00) Medications Given in ED Current Medications Medications Dose Ordered Sig/Yonatan Route Start Time Stop Time Status Last Admin Dose Admin Fentanyl Citrate 50 mcg ONCE ONCE IVP 12/28/21 12:00 12/28/21 12:01 DC 12/28/21 12:02 50 MCG Ketorolac Tromethamine 30 mg ONCE ONCE IM 12/28/21 12:00 12/28/21 12:01 DC 12/28/21 11:55 30 MG Vital Signs/I&O 12/28/21 10:00 Temp 36.8 Pulse 79 Resp 16 B/P (MAP) 188/72 (110) Pulse Ox 99 Blood Pressure Mean: 110 Departure Communication (Admissions) 1313-she was doing okay on arrival, ambulated to the bathroom without assistance and then upon returning to bed had a lot of pain in the low back down the right leg. This required injection of Toradol 30 mg (which she initially declined) at and then we establish an IV and gave 50 mics of fentanyl which helped control her pain. NAME: JASON BELLO [facility] REC#: [id number] PT STATUS: REG ER : 1940 PHYSICIAN: LIZZETTE YARBROUGH APRN ADMIT DATE: 12/28/21/ER Draft Date of Exam:12/28/21 CT LUMBAR SPINE WO PROCEDURE: CT lumbar spine without contrast. TECHNIQUE: Multiple contiguous axial images were obtained through the lumbar spine without the use of intravenous contrast. Sagittal and coronal reformations were then performed. Auto Exposure Controls were utilized during the CT exam to meet ALARA standards for radiation dose reduction. INDICATION: Back pain. COMPARISON: Comparison is made with prior examination of 11/30/2021. FINDINGS: There is a severe compression fracture again seen at T11. This is almost a vertebra plana. Some retropulsion of the fracture fragments. The remaining lumbar vertebral body heights are well maintained. There has been posterior instrumentation from L4 through S1. There is bone graft material within the disc spaces. There is no other fracture. There is lower lumbar hypertrophic degenerative facet disease. At L3-L4, there is some annular bulging, facet disease, and thickening of the ligamentum flavum. There is moderate spinal stenosis and moderate bilateral neural foraminal encroachment. At L4-L5, there is some annular bulging. There is some mild spinal stenosis and moderate bilateral neural foraminal encroachment. At L5-S1, there has been a laminectomy. There is no significant spinal stenosis. There is moderately severe right neural foraminal encroachment. There is atherosclerotic calcification of the aorta which is nonaneurysmal. There is some atrophy of the right kidney as well as a tiny nonobstructing right renal calculus. IMPRESSION: Osteopenia and diffuse lumbar spondylosis and degenerative disease, as described. There has been previous L4 through S1 fusion. Severe compression fracture of T11 vertebral body with some retropulsion of the fracture fragments. Dictated on workstation # [id number] Dict: 12/28/21 1249 Trans: 12/28/21 1258 [id number] Interpreted by: BRYANT GREENWOOD MD Electronically signed by: Impression Primary Impression: Acute exacerbation of chronic low back pain Disposition: HOME, SELF-CARE Condition: Improved Departure-Patient Inst. Decision time for Depature: 13:14 Referrals: STEPHANIE GONZALEZ DO (PCP/Family) Primary Care Physician Patient Instructions: Low Back Pain (DC) Add. Discharge Instructions: 1. Return to ER for any concerns. Follow-up with your doctor next week. Increase your pain medication at home from 1 tablet every 4 to 6 hours to 1.5 tablets every 4-6 hours. All discharge instructions reviewed with patient and/or family. Voiced u nderstanding. LIZZETTE YARBROUGH MANAGER [employer]INUOUS IMPROVEMENT Dec 28, 2021 11:26
[2021-12-28] MEDS ORDERED: KETOROLAC 30 MG/ML VIAL IM ONE ×2 (11:30→12:00)
[2021-12-28 11:47] LABS: BILIRUBIN,URINE NEGATIVE (NEGATIVE); CLARITY,URINE CLEAR; COLOR,URINE YELLOW; GLUCOSE, URINE (UA) NEGATIVE (NEGATIVE); KETONES,URINE NEGATIVE (NEGATIVE); LEUKOCYTE ESTERASE ,URINE NEGATIVE (NEGATIVE); NITRITE,URINE NEGATIVE (NEGATIVE); PH,URINE 5.5 (5-9); PROTEIN,URINE NEGATIVE (NEGATIVE)
[2021-12-28 11:54] LABS: BACTERIA,URINE NEGATIVE /HPF
[2021-12-28] MEDS ORDERED: fentaNYL INJ 100 MCG/2 ML AMP IVP ONE (12:00)
--- NOTE | 2021-12-28 12:58 | Diagnostic Imaging Report ---
PROCEDURE: CT lumbar spine without contrast. TECHNIQUE: Multiple contiguous axial images were obtained through the lumbar spine without the use of intravenous contrast. Sagittal and coronal reformations were then performed. Auto Exposure Controls were utilized during the CT exam to meet ALARA standards for radiation dose reduction. INDICATION: Back pain. COMPARISON: Comparison is made with prior examination of 11/30/2021. FINDINGS: There is a severe compression fracture again seen at T11. This is almost a vertebra plana. Some retropulsion of the fracture fragments. The remaining lumbar vertebral body heights are well maintained. There has been posterior instrumentation from L4 through S1. There is bone graft material within the disc spaces. There is no other fracture. There is lower lumbar hypertrophic degenerative facet disease. At L3-L4, there is some annular bulging, facet disease, and thickening of the ligamentum flavum. There is moderate spinal stenosis and moderate bilateral neural foraminal encroachment. At L4-L5, there is some annular bulging. There is some mild spinal stenosis and moderate bilateral neural foraminal encroachment. At L5-S1, there has been a laminectomy. There is no significant spinal stenosis. There is moderately severe right neural foraminal encroachment. There is atherosclerotic calcification of the aorta which is nonaneurysmal. There is some atrophy of the right kidney as well as a tiny nonobstructing right renal calculus. IMPRESSION: Osteopenia and diffuse lumbar spondylosis and degenerative disease, as described. There has been previous L4 through S1 fusion. Severe compression fracture of T11 vertebral body with some retropulsion of the fracture fragments. Dictated by: Dictated on workstation # [id number]
[2021-12-28 13:26] VITALS: BP 157/69
== END 2021-12-28 13:26 | disposition home or self-care (01) ==
LOC: EDUNIT# 09:48 → ER 09:50
DX: M54.50 Low back pain, unspecified (principal); G89.29 Other chronic pain; Z98.890 Other specified postprocedural states; Z91.040 Latex allergy status; Z28.310 Unvaccinated for COVID-19
CPT/HCPCS: 72131; 81000

== ENCOUNTER 2022-07-26 20:25 | Observation (INO) | payer MEDICARE, OTHER ==
[~2022-07-26] VITALS: Ht 162.5 cm; Wt 53.0 kg
[~2022-07-26 20:25] MED LIST changes: -UBID300C PO; +UBID300C2 PO
[2022-07-26] MEDS ORDERED: fentaNYL INJ 100 MCG/2 ML AMP IVP STA (20:46)
--- NOTE | 2022-07-26 20:58 | ED General ---
General Chief Complaint: Abdominal/GI Problems Stated Complaint: ABDOMINAL PAIN Nursing Triage Note: PT AMB TO RM 5 ACCOMPANIED BY DAUGHTER WITH CC OF ABD PAIN AND VOKITING SINCE THIS AM. PT REPORTS CHRONIC BACK PAIN. Source of Information: Patient (PT IS EXTREMELY ANXIOUS AND LIMITED HISTORIAN. ), Family (DAUGHTER GIVES MOST INFORMATION ) History of Present Illness Date Seen by Provider: Jul 26, 2022 Time Seen by Provider: 20:38 Initial Comments PT ARRIVES VIA POV FROM HOME WITH DAUGHTER, WALKS IN ON HER OWN PT WITH MULTIPLE COMPLAINTS PT HAS HAD NAUSEA AND VOMITING SINCE THIS MORNING, UNABLE TO STATE HOW MANY EPISODES OF VOMITING SHE HAS HAD SHE ALSO C/O CONSTIPATION--LAST BM WAS YESTERDAY AM, AND WAS WATERY--STATES HER BOWEL MOVEMENTS ARE ALWAYS WATERY. SHE THREW UP HER MEDICATIONS EARLIER TODAY. TOOK PERCOCET AT 1930 AND KEPT IT DOWN. STATES HER ABDOMEN IS SWOLLEN AND HARD SHE HAS HAD BOWEL OBSTRUCTION IN THE PAST--TREATED NON-SURGICALLY ADDITIONALLY, SHE C/O SEVERE BACK PAIN --RATES PAIN 01/18--STATES HER BACK HURTS WORSE THAN HER STOMACH SHE HAS CHRONIC BACK PAIN, HAS HAD 2 BACK SURGERIES AND HAS SPINAL STIMULATOR IN PLACE (STATES IT IS NOT WORKING ANYMORE) AND HAD LUMBAR SPINE FRACTURE 1 1/2 YEARS AGO SHE IS OPIATE DEPENDENT WITH PERCOCET, SHE ALSO TAKES LINZESS SHE HAS NOT HAD ANY NEW INJURY TO HER BACK NO PARESTHESIAS OR MOTOR DEFICITS SHE HAS NOT BEEN ABLE TO EAT OR DRINK ANYTHING TODAY SHE IS URINATING A NORMAL AMOUNT AND VOIDED JUST PRIOR TO ARRIVAL NO FEVER PT HAS HAD MULTIPLE ABDOMINAL SURGERIES, HERNIA REPAIRS, AND "REPAIRS FROM CHILDBIRTH", HYSTERECTOMY SHE ALSO HAS HTN, CAD WITH 2 OPEN HEART SURGERIES PCP: DR. GONZALEZ Allergies and Home Medications Allergies Coded Allergies: iodine (Unverified Allergy, Unknown, 01/16/14) latex (Unverified Allergy, Unknown, RASH, 01/16/14) Patient Home Medication List Home Medication List Reviewed: Yes Ascorbate Calcium (Vitamin C) 500 Mg Tablet, 500 MG PO DAILY, (Reported) Entered as Reported by: YIN ECHEVERRIA on 12/16/17 1048 Atorvastatin Calcium (Atorvastatin Calcium) 40 Mg Tablet, 40 MG PO HS, (Reported) Entered as Reported by: YIN ECHEVERRIA on 12/16/17 1033 Beta-Carotene (Beta Carotene) 10,000 Unit Capsule, 10,000 UNIT PO DAILY, (Reported) Entered as Reported by: YIN ECHEVERRIA on 12/16/17 1048 Bisacodyl (Women's Gentle Laxative) 5 Mg Tablet.dr, 5 MG PO DAILY PRN for CONSTIPATION-5TH LINE, (Reported) Entered as Reported by: YIN ECHEVERRIA on 12/16/17 1046 Cholecalciferol (Vitamin D3) (Vitamin D3) 1,000 Unit Capsule, 1,000 UNIT PO DAILY, (Reported) Entered as Reported by: YIN ECHEVERRIA on 12/16/17 1043 Cholestyramine/Aspartame (Prevalite Packet) 4 Gm Powd.pack, 4 GM PO ACHS PRN for DIARRHEA Prescribed by: STEPHANIE GONZALEZ on 12/19/17 09 Clopidogrel Bisulfate (Clopidogrel) 75 Mg Tablet, 75 MG PO 1800, (Reported) Entered as Reported by: YIN ECHEVERRIA on 12/16/17 1033 Dicyclomine HCl (Dicyclomine HCl) 10 Mg Capsule, 20 MG PO ACHS Prescribed by: STEPHANIE GONZALEZ on 12/19/17 09 Docusate Sodium (Docusate Sodium) 100 Mg Capsule, 200 MG PO DAILY PRN for CONSTIPATION-1ST LINE, (Reported) Entered as Reported by: YIN ECHEVERRIA on 12/16/17 1045 Duloxetine HCl (Duloxetine HCl) 30 Mg Capsule.dr, 30 MG PO DAILY, (Reported) Entered as Reported by: YIN ECHEVERRIA on 12/16/17 1033 Duloxetine HCl (Duloxetine HCl) 60 Mg Capsule.dr, 60 MG PO DAILY, (Reported) Entered as Reported by: YIN ECHEVERRIA on 12/16/17 1033 Ezetimibe (Ezetimibe) 10 Mg Tablet, 10 MG PO HS, (Reported) Entered as Reported by: YIN ECHEVERRIA on 12/16/17 1043 Felodipine (Felodipine ER) 5 Mg Tab.er.24h, 5 MG PO DAILY, (Reported) Entered as Reported by: YIN ECHEVERRIA on 12/16/17 1033 Fenofibrate Nanocrystallized (Fenofibrate) 48 Mg Tablet, 48 MG PO HS, (Reported) Entered as Reported by: YIN ECHEVERRIA on 12/16/17 1043 Fentanyl (Fentanyl Patch 50 MCG) 1 Each Patch.td72, 50 MCG TD Q72H, (Reported) Entered as Reported by: YIN ECHEVERRIA on 12/16/17 1043 Folic Acid (Folic Acid) 0.8 Mg Tablet, 0.8 MG PO DAILY, (Reported) Entered as Reported by: YIN ECHEVERRIA on 12/16/17 1048 Isosorbide Mononitrate (Isosorbide Mononitrate ER) 30 Mg Tab.er.24h, 30 MG PO DAILY, (Reported) Entered as Reported by: YIN ECHEVERRIA on 12/16/17 1033 Linaclotide (Linzess) 290 Mcg Capsule, 290 MCG PO DAILY, (Reported) Entered as Reported by: YIN ECHEVERRIA on 12/16/17 1043 Lisinopril (Lisinopril) 20 Mg Tablet, 20 MG PO 1800,2200, (Reported) Entered as Reported by: YIN ECHEVERRIA on 12/16/17 1033 Methylcellulose (with Sugar) (Citrucel Powder) 850 Gm Powder, 1.5 TBS PO DAILY, (Reported) Entered as Reported by: YIN ECHEVERRIA on 12/16/17 1043 Metoprolol Succinate (Toprol Xl) 50 Mg Tab.er.24h, 50 MG PO DAILY, (Reported) Entered as Reported by: YIN ECHEVERRIA on 12/16/17 1033 [place] 3 Polyunsat Fatty Acids (Fish Oil 1,000 mg Capsule) 1,000 Mg Cap, 1,000 MG PO DAILY, (Reported) Entered as Reported by: YIN ECHEVERRIA on 12/16/17 1043 Ondansetron (Ondansetron Odt) 4 Mg Tab.rapdis, 4 MG PO Q6H PRN for NAUSEA/ VOMITING Prescribed by: RADHA CORRAL on 04/02/19 1730 Oxycodone HCl/Acetaminophen (Percocet 10-325 mg Tablet) 1 Each Tablet, 1 TAB PO Q6H, (Reported) Entered as Reported by: YIN ECHEVERRIA on 12/16/17 1043 Polyethylene Glycol 3350 (Miralax) 17 Gm Powd.pack, 17 GM PO DAILY PRN for CONSTIPATION-2ND LINE, (Reported) Entered as Reported by: YIN ECHEVERRIA on 12/16/17 1046 Prednisone (Prednisone) 20 Mg Tab, 40 MG PO DAILY Prescribed by: LIZZETTE YARBROUGH on 11/30/21 1750 Ubidecarenone (Co Q-10) 300 Mg Capsule, 300 MG PO DAILY, (Reported) Entered as Reported by: YIN ECHEVERRIA on 12/16/17 1046 Vancomycin HCl (Vancomycin ORAL Compound 250mg/5 ml) 125 Mg/2.5 Ml Syringe, 125 MG PO QID Prescribed by: STEPHANIE GONZALEZ on 12/19/17 0912 Vitamin B Complex (Vitamin B Complex) 1 Each Capsule, 1 CAP PO DAILY, (Reported) Entered as Reported by: YIN ECHEVERRIA on 12/16/17 1046 Review of Systems Review of Systems Constitutional: no symptoms reported Respiratory: no symptoms reported Cardiovascular: no symptoms reported Gastrointestinal: see HPI, abdominal pain, constipation, loss of appetite, nausea, vomiting Genitourinary: no symptoms reported Musculoskeletal: see HPI, back pain Skin: no symptoms reported Psychiatric/Neurological: Anxiety; Denies Numbness, Denies Paresthesia Past Sjkgwxh-Jwjixe-Vugmct Hx Patient Social History Tobacco Use?: No Substance use?: No Alcohol Use?: No Pt feels they are or have been: No Immunizations Up To Date Tetanus Booster (TDap): Unknown Seasonal Allergies Seasonal Allergies: Yes Past Medical History Surgery/Hospitalization HX: BYPASS X2, BACK SURGERY, BACK PAIN SIMULATOR HTN, HLD Surgeries: Yes (LAPAROSCOPIC ADHESION REMOVAL, OPEN HERNIA SX, 2 BACK SURGERIES) Abdominal, Breast, Cardiac, CABG, Gallbladder, Hysterectomy, Orthopedic, Vascular Surgery Respiratory: No Currently Using CPAP: No Currently Using BIPAP: No Cardiac: Yes (TRIPLE AND QUAD BYPASS) Aneurysm, Coronary Artery Disease, Heart Attack, High Cholesterol, Hypertension Neurological: Yes (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) Reproductive Disorders: Yes (endometriosis) Female Reproductive Disorders: Menstrual Problems, 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, Menopausal Sexually Transmitted Disease: No Genitourinary: Yes (uterine rupture) Bladder Infection Gastrointestinal: Yes (S/P BREANN, HERNIA REPAIRS) Abdominal Hernia, Colitis, Obstructive Bowel, Chronic Constipation, Diverticulosis, Gall Bladder Disease Musculoskeletal: Yes (osteoarthritis/osteoporosis;COMPRESSION FX'S;T11 BURST FX) Degenerate Disk Disease, Osteoporosis, Arthritis, Back Injury, Chronic Back Pain, Fractures Endocrine: No HEENT: Yes Cataract Cancer: No Psychosocial: Yes Anxiety, Depression Integumentary: No Blood Disorders: Yes (ANEMIA) Family Medical History Cancer of colon 19 FATHER, Onset:Unknown G8 BROTHER, Onset:Unknown (STOMACH CA) Family history: Arthritis 19 MOTHER, Onset:Unknown G8 SISTER, Onset:Unknown Family history: Cardiovascular disease G8 BROTHER, Onset:Unknown (BROTHER OF AL AT AGE 46) SON, Onset:Unknown (SON OF AL AT AGE 49) Family history: Diabetes mellitus G8 BROTHER, Onset:Unknown Family history: Gastrointestinal disease 19 FATHER, Onset:Unknown G8 BROTHER, Onset:Unknown Family history: Thyroid disorder G8 SISTER, Onset:Unknown Cancer, Diabetes Physical Exam Vital Signs Vital Signs - First Documented 07/26/22 20:37 Pulse 70 Resp 20 B/P (MAP) 191/82 (118) Pulse Ox 99 O2 Delivery Room Air Capillary Refill : Less Than 3 Seconds Height, Weight, BMI Height: 5'6.00" Weight: 117lbs. 5.0oz. [id number]; 20.00 BMI Method:Stated General Appearance: WD/WN, Anxious, Other (PT IS EXTREMELY ANXIOUS, HYPERVENTILATING, AND TALKING NON-STOP AT LENGTH ABOUT HER PAIN, LAYING ON LEFT SIDE. ) Neck: Normal Inspection Respiratory: Normal Breath Sounds, No Accessory Muscle Use, No Respiratory Distress Cardiovascular: Regular Rate, Rhythm Gastrointestinal: Normal Bowel Sounds (BOWEL SOUNDS IN ALL 4 QUADRANTS. 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 Norm as Tested Progress/Results/Core Measures Suspected Sepsis SIRS Temperature: Pulse: 70 Respiratory Rate: 20 Laboratory Tests 07/26/22 20:53: White Blood Count 8.9 Blood Pressure 191 /82 Mean: 118 Laboratory Tests 07/26/22 20:53: Creatinine 2.04H, Platelet Count 259, Total Bilirubin 0.5 Results/Orders Lab Results Laboratory Tests Test 07/26/22 20:53 07/26/22 22:59 Range/Units White Blood Count 8.9 4.3-11.0 10^3/uL Red Blood Count 4.83 3.80-5.11 10^6/uL Hemoglobin 14.3 11.5-16.0 g/dL Hematocrit 43 35-52 % Mean Corpuscular Volume 88 80-99 fL Mean Corpuscular Hemoglobin 30 25-34 pg Mean Corpuscular Hemoglobin Concent 34 32-36 g/dL Red Cell Distribution Width 14.8 H 10.0-14.5 % Platelet Count 259 130-400 10^3/uL Mean Platelet Volume 9.7 9.0-12.2 fL Immature Granulocyte % (Auto) 0 % Neutrophils (%) (Auto) 77 H 42-75 % Lymphocytes (%) (Auto) 15 12-44 % Monocytes (%) (Auto) 6 0-12 % Eosinophils (%) (Auto) 2 0-10 % Basophils (%) (Auto) 0 0-10 % Neutrophils # (Auto) 6.9 1.8-7.8 10^3/uL Lymphocytes # (Auto) 1.3 1.0-4.0 10^3/uL Monocytes # (Auto) 0.5 0.0-1.0 10^3/uL Eosinophils # (Auto) 0.2 0.0-0.3 10^3/uL Basophils # (Auto) 0.0 0.0-0.1 10^3/uL Immature Granulocyte # (Auto) 0.0 0.0-0.1 10^3/uL Sodium Level 137 135-145 MMOL/L Potassium Level 5.4 H 3.6-5.0 MMOL/L Chloride Level 102 98-107 MMOL/L Carbon Dioxide Level 21 21-32 MMOL/L Anion Gap 14 5-14 MMOL/L Blood Urea Nitrogen 47 H 7-18 MG/DL Creatinine 2.04 H 0.60-1.30 MG/DL Estimat Glomerular Filtration Rate 24 BUN/Creatinine Ratio 23 Glucose Level 113 H 70-105 MG/DL Calcium Level 12.1 H 8.5-10.1 MG/DL Corrected Calcium 8.5-10.1 MG/DL Magnesium Level 2.3 1.6-2.4 MG/DL Total Bilirubin 0.5 0.1-1.0 MG/DL Aspartate Amino Transf (AST/SGOT) 27 5-34 U/L Alanine Aminotransferase (ALT/SGPT) 15 0-55 U/L Alkaline Phosphatase 81 40-136 U/L Total Protein 7.6 6.4-8.2 GM/DL Albumin 4.8 H 3.2-4.5 GM/DL Amylase Level 107 25-125 U/L Lipase 19 8-78 U/L Urine Color YELLOW Urine Clarity CLEAR Urine pH 6.5 5-9 Urine Specific [place] 1.010 L 1.016-1.022 Urine Protein 2+ H NEGATIVE Urine Glucose (UA) NEGATIVE NEGATIVE Urine Ketones NEGATIVE NEGATIVE Urine Nitrite NEGATIVE NEGATIVE Urine Bilirubin NEGATIVE NEGATIVE Urine Urobilinogen 0.2 < = 1.0 MG/DL Urine Leukocyte Esterase NEGATIVE NEGATIVE Urine RBC (Auto) 2+ H NEGATIVE Urine RBC 10-25 H /HPF Urine WBC NONE /HPF Urine Squamous Epithelial Cells RARE /HPF Urine Crystals NONE /LPF Urine Bacteria TRACE /HPF Urine Casts NONE /LPF Urine Mucus NEGATIVE /LPF Urine Culture Indicated NO My Orders Orders - ANDERS DE LEON DO Ed Iv/Invasive Line Start (07/26/22 20:37) Monitor-Rhythm Ecg Trace Only (07/26/22 20:37) Amylase (07/26/22 20:37) Cbc With Automated Diff (07/26/22 20:37) Comprehensive Metabolic Panel (07/26/22 20:37) Lipase (07/26/22 20:37) Magnesium (07/26/22 20:37) Ua Culture If Indicated (07/26/22 20:37) Ed Iv/Invasive Line Start (07/26/22 20:46) Lactated Ringers (Lr 1000 Ml Iv Solution (07/26/22 21:00) Ondansetron Injection (Zofran Injectio (07/26/22 21:00) Fentanyl Inj (Sublimaze Injection) (07/26/22 20:46) Ct Abdomen/Pelvis Wo (07/26/22 20:46) Acute Abd Series (07/26/22 21:04) Pantoprazole Injection (Protonix Injecti (07/26/22 21:30) Ng Tube Insert & Assessment (07/26/22 21:28) Catheter(Urinary) Insert & Ass 03,15 (07/26/22 21:38) Lidocaine 2% (Urojet) (Xylocaine Urojet) (07/26/22 21:45) Benzocaine Extension Tube (Hurricaine Ex (07/26/22 21:40) Medications Given in ED Current Medications Medications Dose Ordered Sig/Yonatan Route Start Time Stop Time Status Last Admin Dose Admin Benzocaine 1 ea STK-MED ONCE .ROUTE 07/26/22 21:40 07/26/22 21:42 DC 07/26/22 23:00 1 EA Lactated Ringer's 1,000 ml @ 0 mls/hr Q0M ONCE IV 07/26/22 21:00 07/26/22 21:01 DC 07/26/22 20:59 1,000 MLS/HR Lidocaine HCl 10 ml ONCE ONCE TOP 07/26/22 21:45 07/26/22 21:46 DC 07/26/22 23:00 10 ML Ondansetron HCl 4 mg ONCE ONCE IVP 07/26/22 21:00 07/26/22 21:01 DC 07/26/22 20:59 4 MG Pantoprazole 40 mg ONCE ONCE IV 07/26/22 21:30 07/26/22 21:31 DC 07/26/22 21:35 40 MG Vital Signs/I&O 07/26/22 07/26/22 20:37 23:12 Pulse 70 80 Resp 20 20 B/P (MAP) 191/82 (118) 195/80 Pulse Ox 99 99 O2 Delivery Room Air Room Air 07/27/22 00:00 Intake Total 1000 ml Balance 1000 ml Capillary Refill : Less Than 3 Seconds Blood Pressure Mean: 118 Progress Note : Progress Note GIVEN: -IV FLUIDS -ZOFRAN--MUCH IMPROVEMENT IN NAUSEA -FENTANYL--MUCH IMPROVEMENT IN PAIN NG TUBE PLACED WITH IMMEDIATE RETURN OF LIQUID GASTRIC CONTENTS ( FURTHER ADVANCED ON OBTAINING XRAY, WITH ADEQUATE PLACEMENT AFTER ADJUSTMENT) NO DETERIORATION IN PT'S CONDITION DURING ER STAY REVIEWED PRIOR RECORDS, INCLUDING ER VISITS, ADMITS/H&P'S/CONSULTS/DISCHARGE SUMMARIES, TESTS/PROCEDURES DISCUSSED TEST RESULTS, ANTICIPATED COURSE, NEED FOR ADMIT AND PT IS AGREEABLE TO PLAN Diagnostic Imaging Comments CT ABDOMEN/PELVIS--PER RADIOLOGIST REPORT AT 2121 FINDINGS: The lung bases are clear. The liver appears normal. Gallbladder is surgically absent. Pancreas is normal. Spleen is not enlarged. Right kidney is atrophied. There is a tiny calculus in the lower pole calyx of the left kidney. There is a small calculus in the upper pole calyx of the right kidney. There is aortic atherosclerosis. There is no intraperitoneal free air. The stomach and small bowel are distended with fluid. The distal small bowel is decompressed. There is diverticulosis of the colon without evidence of diverticulitis. Urinary bladder is unremarkable. IMPRESSION: 1. Distal small bowel obstruction. 2. Bilateral nephrolithiasis with right renal atrophy. 3. Uncomplicated diverticulosis of the colon. ABDOMEN XRAYS--PER RADIOLOGIST REPORT AT 2144 FINDINGS: The lungs are clear. There are postoperative changes from CABG surgery. There is no intraperitoneal free air. There are multiple air-fluid levels in the small bowel. The patient has had a ventral hernia repair. Patient has had fusion of the L4-L5 and L5-S1 levels of the lumbar spine. There are advanced degenerative changes of the right hip. IMPRESSION: Abnormal gas pattern suspicious for small bowel obstruction. Reviewed: Reviewed by Me Departure Communication (Admissions) 2129--SPOKE WITH DR. GONZALEZ, ACCEPTS PT FOR ADMIT 2138--SPOKE WITH DR. LORD HERE IN ER, FOR SURGERY CONSULT. HE WILL SEE PT HERE IN ER. RECOMMENDATIONS NOTED. Impression Primary Impression: Small bowel obstruction Additional Impressions: Chronic back pain Chronic prescription opiate use Disposition: ADMITTED INPATIENT Condition: Stable Admissions Decision to Admit Reason: Admit from ER (General) Decision to Admit/Date: Jul 26, 2022 Time/Decision to Admit Time: 21:30 Departure-Patient Inst. Referrals: STEPHANIE GONZALEZ DO (PCP/Family) Primary Care Physician ANDERS DE LEON DO Jul 26, 2022 20:58
[2022-07-26] MEDS ORDERED: LACTATED RINGERS 1,000 ML IV ONE (21:00)
[2022-07-26] MEDS ORDERED: ONDANSETRON 4 MG/2 ML (SDV) Z0FRAN IVP ONE (21:00)
[2022-07-26 21:03] LABS: BASOPHILS % (AUTO) 0 % (0-10); EOSINOPHILS # (AUTO) 0.2 10^3/uL (0.0-0.3); EOSINOPHILS % (AUTO) 2 % (0-10); HEMATOCRIT 43 % (35-52); HEMOGLOBIN 14.3 g/dL (11.5-16.0); LYMPHOCYTES # (AUTO) 1.3 10^3/uL (1.0-4.0); LYMPHOCYTES % (AUTO) 15 % (12-44); MEAN CORPUSCULAR HEMOGLOBIN 30 pg (25-34); MEAN CORPUSCULAR HGB CONC 34 g/dL (32-36); MEAN CORPUSCULAR VOLUME 88 fL (80-99); MEAN PLATELET VOLUME 9.7 fL (9.0-12.2); MONOCYTES # (AUTO) 0.5 10^3/uL (0.0-1.0); MONOCYTES % (AUTO) 6 % (0-12); NEUTROPHILS # (AUTO) 6.9 10^3/uL (1.8-7.8); NEUTROPHILS % (AUTO) 77 % (42-75); PLATELET COUNT 259 10^3/uL (130-400); WHITE BLOOD COUNT 8.9 10^3/uL (4.3-11.0)
[2022-07-26 21:25] LABS: ALANINE AMINOTRANSFERASE 15 U/L (0-55); ALBUMIN 4.8 GM/DL (3.2-4.5); ALKALINE PHOSPHATASE 81 U/L (40-136); AMYLASE 107 U/L (25-125); BILIRUBIN,TOTAL 0.5 MG/DL (0.1-1.0); BUN/CREATININE RATIO 23; CALCIUM 12.1 MG/DL (8.5-10.1); CARBON DIOXIDE 21 MMOL/L (21-32); CHLORIDE 102 MMOL/L (98-107); CREATININE SERUM 2.04 MG/DL (0.60-1.30); GFR ESTIMATED 24; GLUCOSE 113 MG/DL (70-105); LIPASE 19 U/L (8-78); MAGNESIUM 2.3 MG/DL (1.6-2.4); POTASSIUM 5.4 MMOL/L (3.6-5.0); SODIUM 137 MMOL/L (135-145); TOTAL PROTEIN 7.6 GM/DL (6.4-8.2)
--- NOTE | 2022-07-26 21:26 | Diagnostic Imaging Report ---
PROCEDURE: CT abdomen and pelvis without contrast. TECHNIQUE: Multiple contiguous axial images were obtained through the abdomen and pelvis without the use of intravenous contrast. Auto Exposure Controls were utilized during the CT exam to meet ALARA standards for radiation dose reduction. INDICATION: Abdominal pain and distention. FINDINGS: The lung bases are clear. The liver appears normal. Gallbladder is surgically absent. Pancreas is normal. Spleen is not enlarged. Right kidney is atrophied. There is a tiny calculus in the lower pole calyx of the left kidney. There is a small calculus in the upper pole calyx of the right kidney. There is aortic atherosclerosis. There is no intraperitoneal free air. The stomach and small bowel are distended with fluid. The distal small bowel is decompressed. There is diverticulosis of the colon without evidence of diverticulitis. Urinary bladder is unremarkable. IMPRESSION: 1. Distal small bowel obstruction. 2. Bilateral nephrolithiasis with right renal atrophy. 3. Uncomplicated diverticulosis of the colon. Dictated by: Dictated on workstation # [id number]
[2022-07-26] MEDS ORDERED: PANTOPRAZOLE 40 MG (PROTONIX) VIAL IV ONE (21:30)
--- NOTE | 2022-07-26 21:32 | Diagnostic Imaging Report ---
INDICATION: Abdominal pain and distention, EXAM: PA chest, supine and upright abdominal images are obtained. FINDINGS: The lungs are clear. There are postoperative changes from CABG surgery. There is no intraperitoneal free air. There are multiple air-fluid levels in the small bowel. The patient has had a ventral hernia repair. Patient has had fusion of the L4-L5 and L5-S1 levels of the lumbar spine. There are advanced degenerative changes of the right hip. IMPRESSION: Abnormal gas pattern suspicious for small bowel obstruction. Dictated by: Dictated on workstation # [id number]
[2022-07-26] MEDS ORDERED: HURRICAINE EXT TUBE (BENZOCAINE) ONE (21:40)
[2022-07-26] MEDS ORDERED: LIDOCAINE UROJET 2% GEL 10 ML PKG TOP ONE (21:45)
--- NOTE | 2022-07-26 22:44 | Consultation - Surgery ---
History of Present Illness History of Present Illness Patient Consulted On(celestine/time) 07/26/22 22:35 Date Seen by Provider: Jul 26, 2022 Time Seen by Provider: 22:36 History of Present Illness Consult requested by Dr. Gonzalez for sbo. Patient seen and evaluated in ed. Patient is an 82 year old female who began having significant abdominal distention nausea and vomiting. It started today. Not passing any flatus or bm. 9-10/10 pain that was pressure type pain no radiation. Has had multiple previous surgeries. Nothing making better or worse. Had ct can demonstratin. Distal small bowel obstruction. 2. Bilateral nephrolithiasis with right renal atrophy. 3. Uncomplicated diverticulosis of the colon. Allergies and Home Medications Allergies Coded Allergies: iodine (Unverified Allergy, Unknown, 01/16/14) latex (Unverified Allergy, Unknown, RASH, 01/16/14) Patient Home Medication List Home Medication List Reviewed: Yes Ascorbate Calcium (Vitamin C) 500 Mg Tablet, 500 MG PO DAILY, (Reported) Entered as Reported by: YIN ECHEVERRIA on 12/16/17 1048 Atorvastatin Calcium (Atorvastatin Calcium) 40 Mg Tablet, 40 MG PO HS, (Reported ) Entered as Reported by: YIN ECHEVERRIA on 12/16/17 1033 Beta-Carotene (Beta Carotene) 10,000 Unit Capsule, 10,000 UNIT PO DAILY, (Reported) Entered as Reported by: YIN ECHEVERRIA on 12/16/17 1048 Bisacodyl (Women's Gentle Laxative) 5 Mg Tablet.dr, 5 MG PO DAILY PRN for CONSTIPATION-5TH LINE, (Reported) Entered as Reported by: YIN ECHEVERRIA on 12/16/17 1046 Cholecalciferol (Vitamin D3) (Vitamin D3) 1,000 Unit Capsule, 1,000 UNIT PO DAILY, (Reported) Entered as Reported by: YIN ECHEVERRIA on 12/16/17 1043 Cholestyramine/Aspartame (Prevalite Packet) 4 Gm Powd.pack, 4 GM PO ACHS PRN for DIARRHEA Prescribed by: STEPHANIE GONZALEZ on 12/19/17 0909 Clopidogrel Bisulfate (Clopidogrel) 75 Mg Tablet, 75 MG PO 1800, (Reported) Entered as Reported by: YIN ECHEVERRIA on 12/16/17 1033 Dicyclomine HCl (Dicyclomine HCl) 10 Mg Capsule, 20 MG PO ACHS Prescribed by: STEPHANIE GONZALEZ on 12/19/17 0909 Docusate Sodium (Docusate Sodium) 100 Mg Capsule, 200 MG PO DAILY PRN for CONSTIPATION-1ST LINE, (Reported) Entered as Reported by: YIN ECHEVERRIA on 12/16/17 1045 Duloxetine HCl (Duloxetine HCl) 30 Mg Capsule.dr, 30 MG PO DAILY, (Reported) Entered as Reported by: YIN ECHEVERRIA on 12/16/17 1033 Duloxetine HCl (Duloxetine HCl) 60 Mg Capsule.dr, 60 MG PO DAILY, (Reported) Entered as Reported by: YIN ECHEVERRIA on 12/16/17 1033 Ezetimibe (Ezetimibe) 10 Mg Tablet, 10 MG PO HS, (Reported) Entered as Reported by: YIN ECHEVERRIA on 12/16/17 1043 Felodipine (Felodipine ER) 5 Mg Tab.er.24h, 5 MG PO DAILY, (Reported) Entered as Reported by: YIN ECHEVERRIA on 12/16/17 1033 Fenofibrate Nanocrystallized (Fenofibrate) 48 Mg Tablet, 48 MG PO HS, (Reported) Entered as Reported by: YIN ECHEVERRIA on 12/16/17 1043 Fentanyl (Fentanyl Patch 50 MCG) 1 Each Patch.td72, 50 MCG TD Q72H, (Reported) Entered as Reported by: YIN ECHEVERRIA on 12/16/17 104 Folic Acid (Folic Acid) 0.8 Mg Tablet, 0.8 MG PO DAILY, (Reported) Entered as Reported by: YIN ECHEVERRIA on 12/16/17 1048 Isosorbide Mononitrate (Isosorbide Mononitrate ER) 30 Mg Tab.er.24h, 30 MG PO DAILY, (Reported) Entered as Reported by: YIN ECHEVERRIA on 12/16/17 103 Linaclotide (Linzess) 290 Mcg Capsule, 290 MCG PO DAILY, (Reported) Entered as Reported by: YIN ECHEVERRIA on 12/16/17 1043 Lisinopril (Lisinopril) 20 Mg Tablet, 20 MG PO 1800,2200, (Reported) Entered as Reported by: YIN ECHEVERRIA on 12/16/17 1033 Methylcellulose (with Sugar) (Citrucel Powder) 850 Gm Powder, 1.5 TBS PO DAILY, (Reported) Entered as Reported by: YIN ECHEVERRIA on 12/16/17 1043 Metoprolol Succinate (Toprol Xl) 50 Mg Tab.er.24h, 50 MG PO DAILY, (Reported) Entered as Reported by: YIN ECHEVERRIA on 12/16/17 1033 [place] 3 Polyunsat Fatty Acids (Fish Oil 1,000 mg Capsule) 1,000 Mg Cap, 1,000 MG PO DAILY, (Reported) Entered as Reported by: YIN ECHEVERRIA on 12/16/17 1043 Ondansetron (Ondansetron Odt) 4 Mg Tab.rapdis, 4 MG PO Q6H PRN for NAUSEA/VOMITING Prescribed by: RADHA CORRAL on 04/02/19 1730 Oxycodone HCl/Acetaminophen (Percocet 10-325 mg Tablet) 1 Each Tablet, 1 TAB PO Q6H, (Reported) Entered as Reported by: YIN ECHEVERRIA on 12/16/17 1043 Polyethylene Glycol 3350 (Miralax) 17 Gm Powd.pack, 17 GM PO DAILY PRN for CONSTIPATION-2ND LINE, (Reported) Entered as Reported by: YIN ECHEVERRIA on 12/16/17 1046 Prednisone (Prednisone) 20 Mg Tab, 40 MG PO DAILY Prescribed by: LIZZETTE YARBROUGH on 11/30/21 1750 Ubidecarenone (Co Q-10) 300 Mg Capsule, 300 MG PO DAILY, (Reported) Entered as Reported by: YIN ECHEVERRIA on 12/16/17 104 Vancomycin HCl (Vancomycin ORAL Compound 250mg/5 ml) 125 Mg/2.5 Ml Syringe, 125 MG PO QID Prescribed by: STEPHANIE GONZALEZ on 12/19/17 0912 Vitamin B Complex (Vitamin B Complex) 1 Each Capsule, 1 CAP PO DAILY, (Reported) Entered as Reported by: YIN ECHEVERRIA on 12/16/17 1046 Past Dpijssb-Mioksw-Fpcnrh Hx Patient Social History 2nd Hand Smoke Exposure: No Recent Hopitalizations: No Alcohol Use?: No Have you traveled recently?: No Immunizations Up To Date Tetanus Booster (TDap): Unknown Date of Pneumonia Vaccine: Jan 29, 2013 Date of Influenza Vaccine: Jan 09, 2014 Seasonal Allergies Seasonal Allergies: Yes Surgeries History of Surgeries: Yes (LAPAROSCOPIC ADHESION REMOVAL, OPEN HERNIA SX, 2 BACK SURGERIES) Surgeries: Abdominal, Breast, Cardiac, CABG, Gallbladder, Hysterectomy, Orthopedic, Vascular Surgery Respiratory History of Respiratory Disorde: No Cardiovascular History of Cardiac Disorders: Yes (TRIPLE AND QUAD BYPASS) Cardiac Disorders: Aneurysm, Coronary Artery Disease, Heart Attack, High Cholesterol, Hypertension Neurological History of Neurological Disord: Yes (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) Reproductive System Hx Reproductive Disorders: Yes (endometriosis) Sexually Transmitted Disease: No Female Reproductive Disorders: Menstrual Problems, 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, Menopausal Genitourinary History of Genitourinary Disor: Yes (uterine rupture) Genitourinary Disorders: Bladder Infection Gastrointestinal History of Gastrointestinal Di: Yes (S/P BREANN, HERNIA REPAIRS) Gastrointestinal Disorders: Abdominal Hernia, Colitis, Obstructive Bowel, Chronic Constipation, Diverticulosis, Gall Bladder Disease Musculoskeletal History of Musculoskeletal Dis: Yes (osteoarthritis/osteoporosis;COMPRESSION FX'S;T11 BURST FX) Musculoskeletal Disorders: Degenerate Disk Disease, Osteoporosis, Arthritis, Back Injury, Chronic Back Pain, Fractures Endocrine History of Endocrine Disorders: No HEENT History of HEENT Disorders: Yes HEENT Disorders: Cataract Cancer History of Cancer: No Psychosocial History of Psychiatric Problem: Yes Behavioral Health Disorders: Anxiety, Depression Integumentary History of Skin or Integumenta: No Blood Transfusions History of Blood Disorders: Yes (ANEMIA) Reviewed Nursing Assessment Reviewed/Agree w Nursing PMH: Yes Family Medical History Significant Family History: Cancer, Diabetes Family Medial History: Cancer of colon 19 FATHER, Onset:Unknown G8 BROTHER, Onset:Unknown (STOMACH CA) Family history: Arthritis 19 MOTHER, Onset:Unknown G8 SISTER, Onset:Unknown Family history: Cardiovascular disease G8 BROTHER, Onset:Unknown (BROTHER OF [place] AT AGE 46) SON, Onset:Unknown (SON OF [place] AT AGE 49) Family history: Diabetes mellitus G8 BROTHER, Onset:Unknown Family history: Gastrointestinal disease 19 FATHER, Onset:Unknown G8 BROTHER, Onset:Unknown Family history: Thyroid disorder G8 SISTER, Onset:Unknown Review of Systems-General Constitutional: No chills, No diaphoresis EENTM: No blurred vision, No double vision Respiratory: No cough, No dyspnea on exertion Cardiovascular: No chest pain, No palpitations Gastrointestinal: abdominal pain, nausea, vomiting Genitourinary: No decreased output, No discharge Musculoskeletal: back pain; No joint pain Skin: No change in color, No change in hair/nails Psychiatric/Neurological: Denies Anxiety, Denies Depressed, Denies Emotional Problems All Other Systems Reviewed Negative Unless Noted: Yes (Negative excepted noted.) Physical Exam-General Problems Physical Exam Vital Signs Vital Signs - First Documented 07/26/22 20:37 Pulse 70 Resp 20 B/P (MAP) 191/82 (118) Pulse Ox 99 O2 Delivery Room Air Capillary Refill : Less Than 3 Seconds General Appearance: WD/WN, no apparent distress HEENT: PERRL/EOMI, normal ENT inspection Neck: non-tender, supple Respiratory: chest non-tender, no respiratory distress, no accessory muscle use Cardiovascular: regular rate, rhythm, no JVD Gastrointestinal: distended, tenderness (minimally), hernia Rectal: deferred Back: normal inspection, no CVA tenderness Extremities: non-tender, normal inspection Neurologic/Psychiatric: alert, normal mood/affect, oriented x 3 Skin: normal color, warm/dry Lymphatic: no adenopathy Data Review Labs Laboratory Tests 07/26/22 20:53: White Blood Count 8.9, Red Blood Count 4.83, Hemoglobin 14.3, Hematocrit 43, Mean Corpuscular Volume 88, Mean Corpuscular Hemoglobin 30, Mean Corpuscular Hemoglobin Concent 34, Red Cell Distribution Width 14.8H, Platelet Count 259, Mean Platelet Volume 9.7, Immature Granulocyte % (Auto) 0, Neutrophils (%) (Auto) 77H, Lymphocytes (%) (Auto) 15, Monocytes (%) (Auto) 6, Eosinophils (%) (Auto) 2, Basophils (%) (Auto) 0, Neutrophils # (Auto) 6.9, Lymphocytes # (Auto) 1.3, Monocytes # (Auto) 0.5, Eosinophils # (Auto) 0.2, Basophils # (Auto) 0.0, Immature Granulocyte # (Auto) 0.0, Sodium Level 137, Potassium Level 5.4H, Chloride Level 102, Carbon Dioxide Level 21, Anion Gap 14, Blood Urea Nitrogen 47H, Creatinine 2.04H, Estimat Glomerular Filtration Rate 24, BUN/Creatinine Ratio 23, Glucose Level 113H, Calcium Level 12.1H, Corrected Calcium , Magnesium Level 2.3, Total Bilirubin 0.5, Aspartate Amino Transf (AST/SGOT) 27, Alanine Aminotransferase (ALT/SGPT) 15, Alkaline Phosphatase 81, Total Protein 7.6, Albumin 4.8H, Amylase Level 107, Lipase 19 Assessment/Plan Assessment/Plan Assessment/Plan small bowel obstruction abdominal pain fdc antiplatelet. ng tube npo iv fluids small bowel follow through tomorrow conservative management, discussed may need surgical intervention ALCON LORD DO Jul 26, 2022 22:44
[2022-07-26 23:05] LABS: BILIRUBIN,URINE NEGATIVE (NEGATIVE); CLARITY,URINE CLEAR; COLOR,URINE YELLOW; GLUCOSE, URINE (UA) NEGATIVE (NEGATIVE); KETONES,URINE NEGATIVE (NEGATIVE); LEUKOCYTE ESTERASE ,URINE NEGATIVE (NEGATIVE); NITRITE,URINE NEGATIVE (NEGATIVE); PH,URINE 6.5 (5-9); PROTEIN,URINE 2+ (NEGATIVE)
[2022-07-26 23:12] LABS: BACTERIA,URINE TRACE /HPF; SQUAMOUS EPITHELIAL CELL,UR RARE /HPF
[2022-07-27] MEDS ORDERED: ONDANSETRON 4 MG/2 ML (SDV) Z0FRAN IV PRN ×2 (00:15→09:30)
[2022-07-27] MEDS: D5 1/2 NS 1000 ML IV SOLUTION 1,000 ML IV SCH ×3 (00:17→14:54)
[2022-07-27] MEDS: fentaNYL INJ 100 MCG/2 ML AMP IV PRN ×5 (00:17→14:53)
[2022-07-27 04:02] VITALS: BP 154/73
--- NOTE | 2022-07-27 06:29 | Progress Note - Surgery ---
TALIHANANE 07/27/22 0629: Subjective Date Seen by a Provider: Jul 27, 2022 Time Seen by a Provider: 06:24 Subjective/Events-last exam This morning pt reports she is feeling much better than yesterday and slept well overnight. NG tube with 250cc of thick brown output. Pt states she does not have pain in her abdomen anymore. Still no flatus or BM. She was given pain medication for back pain that is chronic. Denies nausea, CP, SOB, fevers. Review of Systems General: No Chills, No Night Sweats HEENT: No Head Aches, No Visual Changes Pulmonary: No Dyspnea, No Cough Cardiovascular: No: Chest Pain, Palpitations Gastrointestinal: No: Nausea, Vomiting Genitourinary: No Dysuria, No Frequency Musculoskeletal: No: neck pain, shoulder pain Neurological: No: Weakness, Numbness Objective Exam Vital Signs Date Time Temp Pulse Resp B/P (MAP) Pulse Ox O2 Delivery O2 Flow Rate FiO2 07/27/22 04:02 57 07/27/22 04:02 36.7 62 16 154/73 (100) 99 Room Air 07/27/22 03:22 Room Air 07/26/22 23:12 80 20 195/80 99 Room Air 07/26/22 20:37 70 20 191/82 (118) 99 Room Air I & O 07/27/22 06:59 Intake Total 1000 ml Output Total 600 ml Balance 400 ml Capillary Refill : Less Than 3 Seconds General Appearance: No Apparent Distress, WD/WN, Other (ng tube in place) HEENT: PERRL/EOMI, Moist Mucous Membranes Neck: Normal Inspection, Non Tender, Supple Respiratory: Chest Non Tender, No Accessory Muscle Use, No Respiratory Distress Cardiovascular: No Edema, No JVD, Normal Peripheral Pulses Peripheral Pulses: 2+ Radial Pulses (R), 2+ Radial Pulses (L) Gastrointestinal: non tender, soft, hernia Extremity: Normal Capillary Refill, No Pedal Edema Neurologic/Psychiatric: Alert, Oriented x3, No Motor/Sensory Deficits, Normal Mood/Affect Skin: Normal Color, Warm/Dry Lymphatic: No Adenopathy Results Lab Laboratory Tests 07/26/22 20:53: White Blood Count 8.9, Red Blood Count 4.83, Hemoglobin 14.3, Hematocrit 43, Mean Corpuscular Volume 88, Mean Corpuscular Hemoglobin 30, Mean Corpuscular Hemoglobin Concent 34, Red Cell Distribution Width 14.8H, Platelet Count 259, Mean Platelet Volume 9.7, Immature Granulocyte % (Auto) 0, Neutrophils (%) (Auto) 77H, Lymphocytes (%) (Auto) 15, Monocytes (%) (Auto) 6, Eosinophils (%) (Auto) 2, Basophils (%) (Auto) 0, Neutrophils # (Auto) 6.9, Lymphocytes # (Auto) 1.3, Monocytes # (Auto) 0.5, Eosinophils # (Auto) 0.2, Basophils # (Auto) 0.0, Immature Granulocyte # (Auto) 0.0, Sodium Level 137, Potassium Level 5.4H, Chlo ride Level 102, Carbon Dioxide Level 21, Anion Gap 14, Blood Urea Nitrogen 47H, Creatinine 2.04H, Estimat Glomerular Filtration Rate 24, BUN/Creatinine Ratio 23, Glucose Level 113H, Calcium Level 12.1H, Corrected Calcium , Magnesium Level 2.3, Total Bilirubin 0.5, Aspartate Amino Transf (AST/SGOT) 27, Alanine Aminotransferase (ALT/SGPT) 15, Alkaline Phosphatase 81, Total Protein 7.6, Albumin 4.8H, Amylase Level 107, Lipase 19 07/26/22 22:59: Urine Color YELLOW, Urine Clarity CLEAR, Urine pH 6.5, Urine Specific [place] 1.010L, Urine Protein 2+H, Urine Glucose (UA) NEGATIVE, Urine Ketones NEGATIVE, Urine Nitrite NEGATIVE, Urine Bilirubin NEGATIVE, Urine Urobilinogen 0.2, Urine Leukocyte Esterase NEGATIVE, Urine RBC (Auto) 2+H, Urine RBC 10-25H, Urine WBC NONE, Urine Squamous Epithelial Cells RARE, Urine Crystals NONE, Urine Bacteria TRACE, Urine Casts NONE, Urine Mucus NEGATIVE, Urine Culture Indicated NO Assessment/Plan Assessment/Plan Assessment/Plan small bowel obstruction 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 Ng tube has made a difference she states. Had bm last night. Not really having any flatus yet. No pain currently. Denies n/v fever sweats chills shortness of breath or chest pain at this time. Objective Exam General Appearance: No Apparent Distress, WD/WN HEENT: PERRL/EOMI, Normal ENT Inspection Neck: Normal Inspection, Non Tender Respiratory: Chest Non Tender, No Accessory Muscle Use, No Respiratory Distress Cardiovascular: Regular Rate, Rhythm, No JVD Gastrointestinal: non tender, soft, hernia Extremity: Normal Capillary Refill Neurologic/Psychiatric: Alert, Oriented x3, No Motor/Sensory Deficits, Normal Mood/Affect Skin: Normal Color, Warm/Dry Lymphatic: No Adenopathy Assessment/Plan Assessment/Plan Assessment/Plan small bowel obstruction abdominal pain-improved group home antiplatelet ng tube with 250 cc output total abdomen no longer distended and no pain npo iv fluids small bowel follow through ordered for today continue conservative management, discussed may need surgical intervention Supervisory-Addendum Brief Verification & Attestation Participated in pt care: history, MDM, physical Personally performed: exam, history, MDM, supervision of care Care discussed with: Medical Student Procedures: n/a Results interpretation: Verified all documentation Verification and Attestation of Medical Student E/M Service A medical student performed and documented this service in my presence. I reviewed and verified all information documented by the medical student and made modifications to such information, when appropriate. I personally performed the physical exam and medical decision making. Alcon Hua, Jul 27, 2022,22:17 HANANE CESAR Jul 27, 2022 06:29 ALCON HUA DO Jul 27, 2022 22:17
[2022-07-27 07:03] LABS: BASOPHILS % (AUTO) 1 % (0-10); EOSINOPHILS # (AUTO) 0.1 10^3/uL (0.0-0.3); EOSINOPHILS % (AUTO) 2 % (0-10); HEMATOCRIT 37 % (35-52); HEMOGLOBIN 11.9 g/dL (11.5-16.0); LYMPHOCYTES % (AUTO) 17 % (12-44); MEAN CORPUSCULAR HEMOGLOBIN 29 pg (25-34); MEAN CORPUSCULAR HGB CONC 32 g/dL (32-36); MEAN CORPUSCULAR VOLUME 90 fL (80-99); MEAN PLATELET VOLUME 10.5 fL (9.0-12.2); MONOCYTES # (AUTO) 0.4 10^3/uL (0.0-1.0); MONOCYTES % (AUTO) 7 % (0-12); NEUTROPHILS # (AUTO) 4.4 10^3/uL (1.8-7.8); NEUTROPHILS % (AUTO) 74 % (42-75); PLATELET COUNT 180 10^3/uL (130-400); WHITE BLOOD COUNT 5.9 10^3/uL (4.3-11.0)
[2022-07-27 07:31] LABS: ALBUMIN 3.5 GM/DL (3.2-4.5); BILIRUBIN,TOTAL 0.3 MG/DL (0.1-1.0); CALCIUM 9.8 MG/DL (8.5-10.1); CREATININE SERUM 1.66 MG/DL (0.60-1.30); POTASSIUM 4.8 MMOL/L (3.6-5.0); TOTAL PROTEIN 5.7 GM/DL (6.4-8.2)
[2022-07-27 07:35] VITALS: BP 158/73
--- NOTE | 2022-07-27 07:42 | Diagnostic Imaging Report ---
INDICATION: Tube placement. EXAMINATION: Chest 07/27/2022. COMPARISON: 07/26/2022 FINDINGS: There is an enteric tube tip in the left upper quadrant. Sternotomy wires noted. Heart slightly prominent. Pulmonary vasculature normal. Lungs clear. No infiltrates, effusions or pneumothorax. IMPRESSION: 1. Enteric tube as above. No acute cardiopulmonary process. Dictated by: Dictated on workstation # [id number]
--- NOTE | 2022-07-27 08:15 | Diagnostic Imaging Report ---
INDICATION: NG TUBE PLACEMENT. TECHNIQUE: Single view chest 11:20 PM. CORRELATION STUDY: 11/30/2021 FINDINGS: Sternal wires present. Heart size, mediastinum and vasculature overall stable with calcification aortic arch. Lung colon mildly hyperinflated but overall clear. Nasogastric tube is present folded on itself in the mid chest likely within the esophagus. Tip directed superiorly. Partial visualization of a lumbar spinal fixation hardware. Thoracic spine stimulator lead present. IMPRESSION: 1. Nasogastric tube is folded on itself and positioned likely within the mid esophagus, tip directed superiorly. (At time of this dictation, the NG tube has been repositioned.) Dictated by: Dictated on workstation # [id number]
[2022-07-27] MEDS ORDERED: MELATONIN 3 MG TABLET PO PRN (09:30)
[2022-07-27] MEDS ORDERED: ANTACID SUSP 30 ML UDC (MYLANTA) PO PRN (09:30)
[2022-07-27] MEDS ORDERED: ACETAMINOPHEN 325 MG TABLET PO PRN (09:30)
[2022-07-27] MEDS ORDERED: diphenhydrAMINE 50 MG/ML INJ (BENADRYL) IVP PRN (09:30)
[2022-07-27] MEDS ORDERED: CALCIUM CARBONATE 500 MG (TUMS) TAB.CHEW PO PRN (09:30)
[2022-07-27] MEDS ORDERED: polyethylene glycoL POWDER 17 GM (MIRALAX) PACK PO PRN (09:30)
[2022-07-27] MEDS ORDERED: ONDANSETRON 4 MG (ZOFRAN) ORAL DISSOLVE TAB PO PRN (09:30)
[2022-07-27] MEDS ORDERED: LACTULOSE SYRUP 10GM/15ML (ENULOSE) 30ML UDC PO PRN (09:30)
[2022-07-27] MEDS ORDERED: MILK OF MAGNESIA 400 MG/5 ML 30 ML UDC PO PRN (09:30)
[2022-07-27] MEDS ORDERED: BISACODYL 10 MG SUPP (DULCOLAX) PR PRN (09:30)
[2022-07-27] MEDS ORDERED: diphenhydrAMINE 25 MG TAB (BENADRYL) PO PRN (09:30)
[2022-07-27] MEDS ORDERED: ENOXAPARIN 40 MG/0.4 ML (LOVENOX) SYR SC SCH (10:00)
--- NOTE | 2022-07-27 10:32 | History & Physical ---
YESI GUTIERREZ 07/27/22 1032: History of Present Illness History of Present Illness Reason for visit/HPI Ms. Oneill is an 82 yo female with pmhx significant for multiple abdominal surgeries, hernia repairs, and hysterectomy presented to the ED on the day of admission with chief complaint of abdominal pain. Prior to admission she was experiencing several episodes of nonbloody vomiting. Reported significant back pain and constipation. In ED NG tube was placed and CT showed distal small bowel obstruction and b/l nephrolithiasis with right renal atrophy. Today patient is resting comfortably in bed. She reports significant improvement and had a BM yesterday night. Pt denies any N/V/D, CP, SOB, or weakness. Denies any new or worsening sx. No other complaints. NG tube drained 250ml Date of Admission Jul 26, 2022 at 23:12 Date Seen by a Provider: Jul 27, 2022 Time Seen by a Provider: 08:15 I consulted on this patient on 07/27/22 10:26 Attending Physician Maritza Gonzalez DO Admitting Physician Admitting Physician: Maritza Gonzalez DO Attending Physician: Maritza Gonzalez DO Consult Allergies and Home Medications Allergies Coded Allergies: iodine (Unverified Allergy, Unknown, 01/16/14) latex (Unverified Allergy, Unknown, RASH, 01/16/14) Patient Home Medication List Home Medication List Reviewed: Yes Ascorbate Calcium (Vitamin C) 500 Mg Tablet, 500 MG PO DAILY, (Reported) Entered as Reported by: JHONATAN SOFIA on 07/27/22 1504 Last Action: Reviewed Atorvastatin Calcium (Atorvastatin Calcium) 40 Mg Tablet, 40 MG PO HS, (Reported) Entered as Reported by: YIN ECHEVERRIA on 12/16/171032 Last Action: Reviewed Clopidogrel Bisulfate (Clopidogrel) 75 Mg Tablet, 75 MG PO 1600, (Reported) Entered as Reported by: YIN ECHEVERRIA on 12/16/171032 Last Action: Reviewed Cod Liver Oil (Cod Liver Oil) 1 Each Capsule, 1 EACH PO DAILY, (Reported) Entered as Reported by: JHONATAN SOFIA on 07/27/22 150 Last Action: Reviewed Duloxetine HCl (Duloxetine HCl) 30 Mg Capsule.dr, 30 MG PO DAILY, (Reported) Entered as Reported by: YIN ECHEVERRIA on 12/16/171032 Last Action: Reviewed Duloxetine HCl (Duloxetine HCl) 60 Mg Capsule.dr, 60 MG PO DAILY, (Reported) Entered as Reported by: YIN ECHEVERRIA on 12/16/171032 Last Action: Reviewed Ezetimibe (Ezetimibe) 10 Mg Tablet, 10 MG PO HS, (Reported) Entered as Reported by: YIN ECHEVERRIA on 12/16/171042 Last Action: Reviewed Felodipine (Felodipine ER) 5 Mg Tab.er.24h, 5 MG PO 1200, (Reported) Entered as Reported by: YIN ECHEVERRIA on 12/16/171032 Last Action: Reviewed Fenofibrate Nanocrystallized (Fenofibrate) 48 Mg Tablet, 48 MG PO HS, (Reported) Entered as Reported by: YIN ECHEVERRIA on 12/16/171042 Last Action: Reviewed Flaxseed/Omega3,6,9/Fatty Acid (Flax Seed Oil 1,300 mg Softgel) 1,300-670MG Capsule, 1 EACH PO BID, (Reported) Entered as Reported by: JHONATAN SOFIA on 07/27/22 836 Last Action: Reviewed Isosorbide Mononitrate (Isosorbide Mononitrate ER) 30 Mg Tab.er.24h, 30 MG PO 1200, (Reported) Entered as Reported by: YIN ECHEVERRIA on 12/16/171032 Last Action: Reviewed Linaclotide (Linzess) 290 Mcg Capsule, 290 MCG PO DAILY, (Reported) Entered as Reported by: YIN ECHEVERRIA on 12/16/171042 Last Action: Reviewed Lisinopril (Lisinopril) 20 Mg Tablet, 20 MG PO 1600,2100, (Reported) Entered as Reported by: YIN ECHEVERRIA on 12/16/171032 Last Action: Reviewed Metoprolol Succinate (Toprol Xl) 50 Mg Tab.er.24h, 50 MG PO 1200, (Reported) Entered as Reported by: YIN ECHEVERRIA on 12/16/171032 Last Action: Reviewed Multivit-Min/FA/Lycopene/Lut (Centrum Silver Tablet) 0.4 Mg-300 Mcg-250 Mcg Tablet, 1 EACH PO DAILY, (Reported) Entered as Reported by: JHONATAN SOFIA on 07/27/22 150 Last Action: Reviewed Oxycodone HCl/Acetaminophen (Oxycodone-Acetaminophen 5-325) 5 Mg-325 Mg Tablet, 1 EA PO TID PRN for PAIN-MODERATE (5-7), (Reported) Entered as Reported by: JHONATAN SOFIA on 07/27/22 1504 Last Action: Reviewed Discontinued Medications Ascorbate Calcium (Vitamin C) 500 Mg Tablet, 500 MG PO DAILY, (Reported) Discontinued Reason: No Longer Taking Entered as Reported by: YIN ECHEVERRIA on 12/16/171047 Last Action: Discontinued Beta-Carotene (Beta Carotene) 10,000 Unit Capsule, 10,000 UNIT PO DAILY, (Reported) Discontinued Reason: No Longer Taking Entered as Reported by: YIN ECHEVERRIA on 12/16/171047 Last Action: Discontinued Bisacodyl (Women's Gentle Laxative) 5 Mg Tablet.dr, 5 MG PO DAILY PRN for CONSTIPATION-5TH LINE, (Reported) Discontinued Reason: No Longer Taking Entered as Reported by: YIN ECHEVERRIA on 12/16/171045 Last Action: Discontinued Cholecalciferol (Vitamin D3) (Vitamin D3) 1,000 Unit Capsule, 1,000 UNIT PO DAILY, (Reported) Discontinued Reason: No Longer Taking Entered as Reported by: YIN ECHEVERRIA on 12/16/171042 Last Action: Discontinued Cholestyramine/Aspartame (Prevalite Packet) 4 Gm Powd.pack, 4 GM PO ACHS PRN for DIARRHEA Discontinued Reason: No Longer Taking Prescribed by: MARITZA GONZALEZ on 12/19/17908 Last Action: Discontinued Dicyclomine HCl (Dicyclomine HCl) 10 Mg Capsule, 20 MG PO ACHS Discontinued Reason: No Longer Taking Prescribed by: MARITZA GONZALEZ on 12/19/17908 Last Action: Discontinued Docusate Sodium (Docusate Sodium) 100 Mg Capsule, 200 MG PO DAILY PRN for CONSTIPATION-1ST LINE, (Reported) Discontinued Reason: No Longer Taking Entered as Reported by: YIN ECHEVERRIA on 12/16/171044 Last Action: Discontinued Fentanyl (Fentanyl Patch 50 MCG) 1 Each Patch.td72, 50 MCG TD Q72H, (Reported) Discontinued Reason: No Longer Taking Entered as Reported by: YIN ECHEVERRIA on 12/16/171042 Last Action: Discontinued Folic Acid (Folic Acid) 0.8 Mg Tablet, 0.8 MG PO DAILY, (Reported) Discontinued Reason: No Longer Taking Entered as Reported by: YIN ECHEVERRIA on 12/16/17 104 Last Action: Discontinued Methylcellulose (with Sugar) (Citrucel Powder) 850 Gm Powder, 1.5 TBS PO DAILY, (Reported) Discontinued Reason: No Longer Taking Entered as Reported by: YIN ECHEVERRIA on 12/16/17 104 Last Action: Discontinued Williams 3 Polyunsat Fatty Acids (Fish Oil 1,000 mg Capsule) 1,000 Mg Cap, 1,000 MG PO DAILY, (Reported) Discontinued Reason: No Longer Taking Entered as Reported by: YIN ECHEVERRIA on 12/16/17 104 Last Action: Discontinued Ondansetron (Ondansetron Odt) 4 Mg Tab.rapdis, 4 MG PO Q6H PRN for NAUSEA/VOMITING Discontinued Reason: No Longer Taking Prescribed by: RADHA CORRAL on 04/02/19 1730 Last Action: Discontinued Oxycodone HCl/Acetaminophen (Percocet 10-325 mg Tablet) 1 Each Tablet, 1 TAB PO Q6H, (Reported) Discontinued Reason: No Longer Taking Entered as Reported by: YIN ECHEVERRIA on 12/16/171042 Last Action: Discontinued Polyethylene Glycol 3350 (Miralax) 17 Gm Powd.pack, 17 GM PO DAILY PRN for CONSTIPATION-2ND LINE, (Reported) Discontinued Reason: No Longer Taking Entered as Reported by: YIN ECHEVERRIA on 12/16/171045 Last Action: Discontinued Prednisone (Prednisone) 20 Mg Tab, 40 MG PO DAILY Discontinued Reason: No Longer Taking Prescribed by: LIZZETTE YARBROUGH on 11/30/21 1750 Last Action: Discontinued Ubidecarenone (Co Q-10) 300 Mg Capsule, 300 MG PO DAILY, (Reported) Discontinued Reason: No Longer Taking Entered as Reported by: YIN ECHEVERRIA on 12/16/17 104 Last Action: Discontinued Vancomycin HCl (Vancomycin ORAL Compound 250mg/5 ml) 125 Mg/2.5 Ml Syringe, 125 MG PO QID Discontinued Reason: No Longer Taking Prescribed by: MARITZA GONZALEZ on 12/19/17 0912 Last Action: Discontinued Vitamin B Complex (Vitamin B Complex) 1 Each Capsule, 1 CAP PO DAILY, (Reported) Discontinued Reason: No Longer Taking Entered as Reported by: YIN ECHEVERRIA on 12/16/17 104 Last Action: Discontinued Past Yxpwbpx-Lcxdyi-Sepftb Hx Patient Social History Tobacco Use?: No Smoking Status: Never a Smoker Use of E-Cig and/or Vaping dev: No Substance use?: No Alcohol Use?: No Pt feels they are or have been: No Immunizations Up To Date Date of Influenza Vaccine: Jan 09, 2014 Tetanus Booster (TDap): Unknown Date of Pneumonia Vaccine: Jan 29, 2013 Seasonal Allergies Seasonal Allergies: Yes Current Status status: No status: No Communicates: Verbally Primary Language: [place] Preferred Spoken Language: [place]an Is interpretation needed?: No Sensory deficits: Vision impairment Past Medical History Surgeries: Abdominal, Breast, Cardiac, CABG, Gallbladder, Hysterectomy, Orthopedic, Vascular Surgery Currently Using CPAP: No Currently Using BIPAP: No Aneurysm, Coronary Artery Disease, Heart Attack, High Cholesterol, Hypertension 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, Menopausal Sexually Transmitted Disease: No Bladder Infection Abdominal Hernia, Colitis, Obstructive Bowel, Chronic Constipation, Diverticulosis, Gall Bladder Disease Degenerate Disk Disease, Osteoporosis, Arthritis, Back Injury, Chronic Back Pain, Fractures Cataract Anxiety, Depression Blood Disorders: Yes (ANEMIA) Family Medical History Cancer of colon 19 FATHER, Onset:Unknown G8 BROTHER, Onset:Unknown (STOMACH CA) Family history: Arthritis 19 MOTHER, Onset:Unknown G8 SISTER, Onset:Unknown Family history: Cardiovascular disease G8 BROTHER, Onset:Unknown (BROTHER OF MD AT AGE 46) SON, Onset:Unknown (SON OF MD AT AGE 49) Family history: Diabetes mellitus G8 BROTHER, Onset:Unknown Family history: Gastrointestinal disease 19 FATHER, Onset:Unknown G8 BROTHER, Onset:Unknown Family history: Thyroid disorder G8 SISTER, Onset:Unknown Cancer, Diabetes All Other Systems Reviewed Negative Unless Noted: Yes Physical Exam Vital Signs Vital Signs - First Documented 07/26/22 20:37 Pulse 70 Resp 20 B/P (MAP) 191/82 (118) Pulse Ox 99 O2 Delivery Room Air Capillary Refill : Less Than 3 Seconds Height, Weight, BMI Height: 5'6.00" Weight: 117lbs. 5.0oz. 53.123967jd; 20.07 BMI Method:Stated General Appearance: No Apparent Distress, WD/WN HEENT: PERRL/EOMI Neck: Normal Inspection, Non Tender, Supple Respiratory: Chest Non Tender, Lungs Clear, Normal Breath Sounds, No Accessory Muscle Use, No Respiratory Distress Cardiovascular: Regular Rate, Rhythm, No Edema, No Murmur, Normal Peripheral Pulses Gastrointestinal: Normal Bowel Sounds, No Organomegaly, No Pulsatile Mass, Non Tender, Soft Extremity: Normal Capillary Refill, Normal Inspection, No Pedal Edema Neurologic/Psychiatric: Alert, Oriented x3, Normal Mood/Affect Skin: Normal Color, Warm/Dry Lymphatic: No Adenopathy Assessment/Plan Assessment and Plan Assessment: Distal SBO b/l nephrolithiasis Abdominal Pain Back pain HTN 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 Plan: NG tube NPO IV fluids Small bowel follow through Protonix Zofran pain peds prn Continue home meds as indicated Diet: NPO Code status: DNR DVT Prophylaxis: SCDs Disposition: likely home pending follow through study and patient status Admission Diagnosis Admission Status: Inpatient Order (span 2 midnights) Reason for Inpatient Admission: SBO MARITZA GONZALEZ DO 07/28/22 0457: Allergies and Home Medications Allergies Coded Allergies: iodine (Unverified Allergy, Unknown, 01/16/14) latex (Unverified Allergy, Unknown, RASH, 01/16/14) Patient Home Medication List Ascorbate Calcium (Vitamin C) 500 Mg Tablet, 500 MG PO DAILY, (Reported) Entered as Reported by: JHONATAN SOFIA on 07/27/22 1504 Last Action: Reviewed Atorvastatin Calcium (Atorvastatin Calcium) 40 Mg Tablet, 40 MG PO HS, (Reported) Entered as Reported by: YIN ECHEVERRIA on 12/16/171032 Last Action: Reviewed Clopidogrel Bisulfate (Clopidogrel) 75 Mg Tablet, 75 MG PO 1600, (Reported) Entered as Reported by: YIN ECHEVERRIA on 12/16/171032 Last Action: Reviewed Cod Liver Oil (Cod Liver Oil) 1 Each Capsule, 1 EACH PO DAILY, (Reported) Entered as Reported by: JHONATAN SOFIA on 07/27/22 1504 Last Action: Reviewed Duloxetine HCl (Duloxetine HCl) 30 Mg Capsule.dr, 30 MG PO DAILY, (Reported) Entered as Reported by: YIN ECHEVERRIA on 12/16/171032 Last Action: Reviewed Duloxetine HCl (Duloxetine HCl) 60 Mg Capsule.dr, 60 MG PO DAILY, (Reported) Entered as Reported by: YIN ECHEVERRIA on 12/16/171032 Last Action: Reviewed Ezetimibe (Ezetimibe) 10 Mg Tablet, 10 MG PO HS, (Reported) Entered as Reported by: YIN ECHEVERRIA on 12/16/171042 Last Action: Reviewed Felodipine (Felodipine ER) 5 Mg Tab.er.24h, 5 MG PO 1200, (Reported) Entered as Reported by: YIN ECHEVERRIA on 12/16/171032 Last Action: Reviewed Fenofibrate Nanocrystallized (Fenofibrate) 48 Mg Tablet, 48 MG PO HS, (Reported) Entered as Reported by: YIN ECHEVERRIA on 12/16/171042 Last Action: Reviewed Flaxseed/Omega3,6,9/Fatty Acid (Flax Seed Oil 1,300 mg Softgel) 1,300-670MG Capsule, 1 EACH PO BID, (Reported) Entered as Reported by: JHONATAN SOFIA on 07/27/22 600 Last Action: Reviewed Isosorbide Mononitrate (Isosorbide Mononitrate ER) 30 Mg Tab.er.24h, 30 MG PO 1200, (Reported) Entered as Reported by: YIN ECHEVERRIA on 12/16/171032 Last Action: Reviewed Linaclotide (Linzess) 290 Mcg Capsule, 290 MCG PO DAILY, (Reported) Entered as Reported by: YIN ECHEVERRIA on 12/16/171042 Last Action: Reviewed Lisinopril (Lisinopril) 20 Mg Tablet, 20 MG PO 1600,2100, (Reported) Entered as Reported by: YIN ECHEVERRIA on 12/16/171032 Last Action: Reviewed Metoprolol Succinate (Toprol Xl) 50 Mg Tab.er.24h, 50 MG PO 1200, (Reported) Entered as Reported by: YIN ECHEVERRIA on 12/16/171032 Last Action: Reviewed Multivit-Min/FA/Lycopene/Lut (Centrum Silver Tablet) 0.4 Mg-300 Mcg-250 Mcg Tablet, 1 EACH PO DAILY, (Reported) Entered as Reported by: JHONATAN SOFIA on 07/27/22 6086 Last Action: Reviewed Oxycodone HCl/Acetaminophen (Oxycodone-Acetaminophen 5-325) 5 Mg-325 Mg Tablet, 1 EA PO TID PRN for PAIN-MODERATE (5-7), (Reported) Entered as Reported by: JHONATAN SOFIA on 07/27/22 1504 Last Action: Reviewed Discontinued Medications Ascorbate Calcium (Vitamin C) 500 Mg Tablet, 500 MG PO DAILY, (Reported) Discontinued Reason: No Longer Taking Entered as Reported by: YIN ECHEVERRIA on 12/16/171047 Last Action: Discontinued Beta-Carotene (Beta Carotene) 10,000 Unit Capsule, 10,000 UNIT PO DAILY, (Reported) Discontinued Reason: No Longer Taking Entered as Reported by: YIN ECHEVERRIA on 12/16/171047 Last Action: Discontinued Bisacodyl (Women's Gentle Laxative) 5 Mg Tablet.dr, 5 MG PO DAILY PRN for CONSTIPATION-5TH LINE, (Reported) Discontinued Reason: No Longer Taking Entered as Reported by: YIN ECHEVERRIA on 12/16/171045 Last Action: Discontinued Cholecalciferol (Vitamin D3) (Vitamin D3) 1,000 Unit Capsule, 1,000 UNIT PO DAILY, (Reported) Discontinued Reason: No Longer Taking Entered as Reported by: YIN ECHEVERRIA on 12/16/171042 Last Action: Discontinued Cholestyramine/Aspartame (Prevalite Packet) 4 Gm Powd.pack, 4 GM PO ACHS PRN for DIARRHEA Discontinued Reason: No Longer Taking Prescribed by: MARITZA GONZALEZ on 12/19/17908 Last Action: Discontinued Dicyclomine HCl (Dicyclomine HCl) 10 Mg Capsule, 20 MG PO ACHS Discontinued Reason: No Longer Taking Prescribed by: MARITZA GONZALEZ on 12/19/17908 Last Action: Discontinued Docusate Sodium (Docusate Sodium) 100 Mg Capsule, 200 MG PO DAILY PRN for CONSTIPATION-1ST LINE, (Reported) Discontinued Reason: No Longer Taking Entered as Reported by: YIN ECHEVERRIA on 12/16/171044 Last Action: Discontinued Fentanyl (Fentanyl Patch 50 MCG) 1 Each Patch.td72, 50 MCG TD Q72H, (Reported) Discontinued Reason: No Longer Taking Entered as Reported by: YIN ECHEVERRIA on 12/16/171042 Last Action: Discontinued Folic Acid (Folic Acid) 0.8 Mg Tablet, 0.8 MG PO DAILY, (Reported) Discontinued Reason: No Longer Taking Entered as Reported by: YIN ECHEVERRIA on 12/16/171047 Last Action: Discontinued Methylcellulose (with Sugar) (Citrucel Powder) 850 Gm Powder, 1.5 TBS PO DAILY, (Reported) Discontinued Reason: No Longer Taking Entered as Reported by: YIN ECHEVERRIA on 12/16/171042 Last Action: Discontinued Williams 3 Polyunsat Fatty Acids (Fish Oil 1,000 mg Capsule) 1,000 Mg Cap, 1,000 MG PO DAILY, (Reported) Discontinued Reason: No Longer Taking Entered as Reported by: YIN ECHEVERRIA on 12/16/171042 Last Action: Discontinued Ondansetron (Ondansetron Odt) 4 Mg Tab.rapdis, 4 MG PO Q6H PRN for NAUSEA/VOMITING Discontinued Reason: No Longer Taking Prescribed by: RADHA CORRAL on 04/02/19 173 Last Action: Discontinued Oxycodone HCl/Acetaminophen (Percocet 10-325 mg Tablet) 1 Each Tablet, 1 TAB PO Q6H, (Reported) Discontinued Reason: No Longer Taking Entered as Reported by: YIN ECHEVERRIA on 12/16/171042 Last Action: Discontinued Polyethylene Glycol 3350 (Miralax) 17 Gm Powd.pack, 17 GM PO DAILY PRN for CONSTIPATION-2ND LINE, (Reported) Discontinued Reason: No Longer Taking Entered as Reported by: YIN ECHEVERRIA on 12/16/171045 Last Action: Discontinued Prednisone (Prednisone) 20 Mg Tab, 40 MG PO DAILY Discontinued Reason: No Longer Taking Prescribed by: LIZZETTE YARBROUGH on 11/30/21 1750 Last Action: Discontinued Ubidecarenone (Co Q-10) 300 Mg Capsule, 300 MG PO DAILY, (Reported) Discontinued Reason: No Longer Taking Entered as Reported by: YIN ECHEVERRIA on 12/16/171045 Last Action: Discontinued Vancomycin HCl (Vancomycin ORAL Compound 250mg/5 ml) 125 Mg/2.5 Ml Syringe, 125 MG PO QID Discontinued Reason: No Longer Taking Prescribed by: MARITZA GONZALEZ on 12/19/17 0912 Last Action: Discontinued Vitamin B Complex (Vitamin B Complex) 1 Each Capsule, 1 CAP PO DAILY, (Reported) Discontinued Reason: No Longer Taking Entered as Reported by: YIN ECHEVERRIA on 12/16/171045 Last Action: Discontinued Past Ojsrkqy-Fnicme-Szjtfd Hx Patient Social History Marrital Status: Employed/Student: retired Smoking Status: Never a Smoker Past Medical History Surgeries: CABG, Orthopedic Coronary Artery Disease, High Cholesterol, Hypertension Family Medical History Cancer of colon 19 FATHER, Onset:Unknown G8 BROTHER, Onset:Unknown (STOMACH CA) Family history: Arthritis 19 MOTHER, Onset:Unknown G8 SISTER, Onset:Unknown Family history: Cardiovascular disease G8 BROTHER, Onset:Unknown (BROTHER OF MD AT AGE 46) SON, Onset:Unknown (SON OF MD AT AGE 49) Family history: Diabetes mellitus G8 BROTHER, Onset:Unknown Family history: Gastrointestinal disease 19 FATHER, Onset:Unknown G8 BROTHER, Onset:Unknown Family history: Thyroid disorder G8 SISTER, Onset:Unknown Review of Systems Constitutional: see HPI Gastrointestinal: abdominal pain, nausea, vomiting Physical Exam General Appearance: No Apparent Distress, WD/WN Respiratory: Lungs Clear, Normal Breath Sounds Cardiovascular: Regular Rate, Rhythm Neurologic/Psychiatric: Alert, Oriented x3, No Motor/Sensory Deficits, Normal Mood/Affect Assessment/Plan Admission Diagnosis Admission Status: Observation Supervisory-Addendum Brief Verification & Attestation Participated in pt care: history, MDM, physical Personally performed: exam, history, MDM, supervision of care Care discussed with: Medical Student Procedures: n/a Results interpretation: Verified all documentation Verification and Attestation of Medical Student E/M Service A medical student performed and documented this service in my presence. I revi ewed and verified all information documented by the medical student and made modifications to such information, when appropriate. I personally performed the physical exam and medical decision making. Maritza Gonzalez, Jul 28, 2022,04:57 YESI GUTIERREZ Jul 27, 2022 10:32 MARITZA GONZALEZ DO Jul 28, 2022 04:57
[2022-07-27 11:47] VITALS: BP 194/72
--- NOTE | 2022-07-27 11:50 | Physical Therapy Evaluation ---
PT Evaluation-General Medical Diagnosis Admission Date Jul 26, 2022 at 23:12 Medical Diagnosis: Small bowel obstruction Onset Date: Jul 26, 2022 Therapy Diagnosis Therapy Diagnosis: debility Height/Weight Height (Feet): 5 Height (Inches): 6.00 Weight (Pounds): 117 Weight (Ounces): 5.0 Precautions Precautions/Isolations: Standard Precautions Referral Physician: Zee Reason for Referral: Evaluation/Treatment Medical History Pertinent Medical History: CABG, CAD, HTN, [place] Current History ER secondary to N/V and abdominal pain Reviewed History: Yes Social History Home: Apartment Current Living Status: Alone Entry Into Home: Level Entry Prior Prior Level of Function SCALE: Activities may be completed with or without assistive devices. 9-Pgivhiboaq-vvqmody completes the activity by him/herself with no assistance from a helper. 5-Set-up or Clean-up Assistance-helper sets up or cleans up; patient completes activity. [place] assists only prior to or following the activity. 4-Supervision or Touching Assistance-helper provides verbal cues and/or touching/steadying and/or contact guard assistance as patient completes activity. Assistance may be provided throughout the activity or intermittently. 3-Partial/Moderate Assistance-helper does LESS THAN HALF the effort. [place] lifts, holds or supports trunk or limbs, but provides less than half the effort. 2-Substantial/Maximal Assistance-helper does MORE THAN HALF the effort. [place] lifts or holds trunk or limbs and provides more than half the effort. 0-Dntyazmyh-meuado does ALL the effort. Patient does none of the effort to complete the activity. Or, the assistance of 2 or more helpers is required for the patient to complete the activity. If activity was not attempted, code reason: 7-Patient Refused. 9-Not Applicable-not attempted and the patient did not perform the activity before the current illness, exacerbation or injury. 10-Not Attempted due to Environmental Limitations-(lack of equipment, weather restraints, etc.). 88-Not Attempted due to Medical Conditions or Safety Concerns. Bed Mobility: 6 Transfers (B,C,W/C): 6 Gait: 6 Indoor Mobility (Ambulation): Independent Prior Devices Use: Other-see list below (cane) PT Evaluation-Current Subjective Patient agrees to PT. Objective Patient Orientation: Normal For Age Attachments: NG Tube, IV ROM/Strength ROM Lower Extremities bilateral LE WFL Strength Lower Extremities 4/5 grossly bilateral LE all planes Integumentary/Posture Bowel Incontinence: No Bladder Incontinence: No Posture kyphotic Neuromuscular (Tone, Coordination, Reflexes) grossly intact Sensory Vision: Functional Hearing: Functional Transfers Sit to Stand (QC): 4 Chair/Fyq-rr-Lcxgt Xfer(QC): 4 Gait Mode of Locomotion: Walk Anticipated Mode of Locomotion: Walk Walk 10 feet (QC): 4 Walk 50 ft with 2 Turns(QC): 4 Walk 150 ft (QC): 4 Distance: 500' Gait Assistive Device: FWW Comments/Gait Description safe and functional with no deviation Balance Sitting Static: Normal Sitting Dynamic: Normal Standing Static: Normal Standing Dynamic: Normal Assessment/Needs Patient will be seen short term by skilled PT to address functional strength and mobility to safely return to home at maximum LOF. Rehab Potential: Fair PT Long-Term Goals Flame Gouger Goals PT Flame Gouger Goals Time Frame: Aug 07, 2022 Roll Left & Right (QC): 6 Sit to Lying (QC): 6 Lying-Sitting on Side/Bed(QC): 6 Sit to Stand (QC): 6 Chair/Dei-il-Rbodc Xfer(QC): 6 Toilet Transfer (QC): 6 Walk 10 feet (QC): 6 Walk 50ft with 2 Turns (QC): 6 Walk 150 ft (QC): 6 PT Plan Problem List Problem List: Activity Tolerance, Functional Strength, Safety Treatment/Plan Treatment Plan: Continue Plan of Care Treatment Plan: Education, Functional Activity Gutierrez, Functional Strength, Gait, Safety, Therapeutic Exercise Treatment Duration: Aug 07, 2022 Frequency: 6 times per week Estimated Hrs Per Day: .25 hour per day Patient and/or Family Agrees t: Yes Time Time In: 1050 Time Out: 1103 DATE: Jul 27, 2022 Total Billed Treatment Time: 13 Total Billed Treatment 1 visit EVMod 13 min YUE PATRICIO PT Jul 27, 2022 11:50
[2022-07-27] MEDS: hydrALAZINE (APESOLINE) 20 MG/ML VIAL IV PRN (12:42)
[2022-07-27] MEDS ORDERED: DIATRIZOATE MEGLUM/SODIUM 37% 120 ML (GASTROGRAFIN) NG ONE (13:15)
--- NOTE | 2022-07-27 13:57 | Occ Therapy Progress Note ---
Therapy Progress Note OT order received, Patient out of room for procedure. Ot will attetmpt at next available opportunity STEPHANIE DIAZ OT Jul 27, 2022 13:57
[2022-07-27] MEDS: PANTOPRAZOLE 40 MG (PROTONIX) VIAL IV SCH (14:59)
[2022-07-27] MEDS: LORazepam INJ 2 MG/ML (ATIVAN) VIAL IV PRN (14:59)
[2022-07-27] MEDS: ENOXAPARIN INJECTION 30 MG/0.3 ML SYR SC SCH (14:59)
[2022-07-27] MEDS ORDERED: ASCO-262 PO (15:04)
[2022-07-27] MEDS ORDERED: COD1CAPS13 PO (15:04)
[2022-07-27] MEDS ORDERED: MULT-1029 PO (15:04)
[2022-07-27] MEDS ORDERED: FLAX1CAP4 PO (15:04)
[2022-07-27] MEDS ORDERED: OXYC1TAB11 PO (15:04)
[2022-07-27 16:01] VITALS: BP 128/77
--- NOTE | 2022-07-27 16:31 | Diagnostic Imaging Report ---
INDICATION: Back spasms. TECHNIQUE: The patient was given a total of 120 mL of Gastrografin mixed with 120 mL of water through the patient's indwelling nasogastric tube. Serial radiographs of the abdomen were then obtained. FINDINGS: The preliminary radiograph of the abdomen shows an NG tube in the stomach. There are postop changes in the lower lumbar spine. A spinal stimulator battery pack overlies the right abdomen. The bowel gas pattern is nonobstructed. Post injection films demonstrate contrast within the stomach with prompt emptying into the proximal small bowel loops. There appears to be normal progression through the small bowel loops which are of normal caliber. The mucosal fold pattern is unremarkable. Contrast is seen in the colon on the 2 hour 15 minute film. No obstruction is seen. IMPRESSION: Unremarkable small bowel study. Dictated by: Dictated on workstation # [id number]
[2022-07-27 20:33] VITALS: BP 149/81
[2022-07-27] MEDS: SENNOSIDES 8.6 MG (SENOKOT) TAB PO SCH (20:34)
[2022-07-27] MEDS: DOCUSATE SODIUM 100 MG (COLACE) CAP PO SCH (20:34)
[2022-07-28] VITALS (7 sets, daily range): BP systolic 127–187; BP diastolic 77–86
[2022-07-28] MEDS: D5 1/2 NS 1000 ML IV SOLUTION 1,000 ML IV SCH ×2 (03:28→04:33)
[2022-07-28 06:13] LABS: BASOPHILS % (AUTO) 1 % (0-10); EOSINOPHILS # (AUTO) 0.1 10^3/uL (0.0-0.3); EOSINOPHILS % (AUTO) 3 % (0-10); HEMATOCRIT 36 % (35-52); HEMOGLOBIN 11.7 g/dL (11.5-16.0); LYMPHOCYTES % (AUTO) 18 % (12-44); MEAN CORPUSCULAR HEMOGLOBIN 29 pg (25-34); MEAN CORPUSCULAR HGB CONC 33 g/dL (32-36); MEAN CORPUSCULAR VOLUME 90 fL (80-99); MEAN PLATELET VOLUME 10.1 fL (9.0-12.2); MONOCYTES # (AUTO) 0.4 10^3/uL (0.0-1.0); MONOCYTES % (AUTO) 8 % (0-12); NEUTROPHILS # (AUTO) 3.7 10^3/uL (1.8-7.8); NEUTROPHILS % (AUTO) 70 % (42-75); PLATELET COUNT 195 10^3/uL (130-400); WHITE BLOOD COUNT 5.3 10^3/uL (4.3-11.0)
[2022-07-28 06:29] LABS: ALBUMIN 3.4 GM/DL (3.2-4.5); POTASSIUM 3.8 MMOL/L (3.6-5.0)
[2022-07-28 06:30] LABS: CALCIUM 9.6 MG/DL (8.5-10.1)
[2022-07-28 06:32] LABS: TOTAL PROTEIN 5.4 GM/DL (6.4-8.2)
[2022-07-28 06:33] LABS: BILIRUBIN,TOTAL 0.4 MG/DL (0.1-1.0)
[2022-07-28 06:35] LABS: CREATININE SERUM 1.53 MG/DL (0.60-1.30)
--- NOTE | 2022-07-28 07:00 | Progress Note - Surgery ---
[facility] 07/28/22 0659: Subjective Date Seen by a Provider: Jul 28, 2022 Time Seen by a Provider: 06:55 Subjective/Events-last exam Pt is tolerating clear liquids, no nausea or vomiting. She had 2 BMs without blood or pain and is passing flatus. She has significant back pain for which she is taking pain medicine. Denies fevers, CP, SOB. Review of Systems General: No Chills, No Night Sweats HEENT: No Head Aches, No Visual Changes Pulmonary: No Dyspnea, No Cough Cardiovascular: No: Chest Pain, Palpitations Gastrointestinal: No: Nausea, Vomiting, Abdominal Pain Genitourinary: No Dysuria, No Frequency Musculoskeletal: back pain; No: neck pain Neurological: No: Weakness, Numbness Objective Exam Vital Signs Date Time Temp Pulse Resp B/P (MAP) Pulse Ox O2 Delivery O2 Flow Rate FiO2 07/28/22 04:32 37.0 80 18 165/77 (106) 98 Room Air 07/28/22 00:00 36.8 64 18 158/77 (104) 98 Room Air 07/27/22 20:33 36.9 85 17 149/81 (103) 97 Room Air 07/27/22 20:00 Room Air 07/27/22 16:01 36.8 90 17 128/77 (94) 96 Room Air 07/27/22 11:47 36.4 63 18 194/72 (112) 99 Room Air 07/27/22 08:00 99 Room Air 07/27/22 07:35 36.3 56 18 158/73 (101) 96 Room Air 07/27/22 07:15 55 I & O 07/28/22 07:00 Intake Total 380 ml Output Total 1500 ml Balance -1120 ml Capillary Refill : Less Than 3 Seconds General Appearance: No Apparent Distress, WD/WN HEENT: PERRL/EOMI, Normal ENT Inspection, Moist Mucous Membranes Neck: Normal Inspection, Non Tender Respiratory: Chest Non Tender, Lungs Clear, Normal Breath Sounds, No Accessory Muscle Use, No Respiratory Distress Cardiovascular: Regular Rate, Rhythm, No Edema, No JVD, Normal Peripheral Pulses Peripheral Pulses: 2+ Radial Pulses (R), 2+ Radial Pulses (L) Gastrointestinal: non tender, soft, hernia Extremity: Normal Capillary Refill, Non Tender Neurologic/Psychiatric: Alert, Oriented x3, No Motor/Sensory Deficits, Normal Mood/Affect Skin: Normal Color, Warm/Dry Lymphatic: No Adenopathy Results Lab Laboratory Tests 07/27/22 06:56: White Blood Count 5.9, Red Blood Count 4.07, Hemoglobin 11.9, Hematocrit 37, Mean Corpuscular Volume 90, Mean Corpuscular Hemoglobin 29, Mean Corpuscular Hemoglobin Concent 32, Red Cell Distribution Width 14.9H, Platelet Count 180, Mean Platelet Volume 10.5, Immature Granulocyte % (Auto) 0, Neutrophils (%) (Auto) 74, Lymphocytes (%) (Auto) 17, Monocytes (%) (Auto) 7, Eosinophils (%) (Auto) 2, Basophils (%) (Auto) 1, Neutrophils # (Auto) 4.4, Lymphocytes # (Auto) 1.0, Monocytes # (Auto) 0.4, Eosinophils # (Auto) 0.1, Basophils # (Auto) 0.0, Immature Granulocyte # (Auto) 0.0, Percent Immature Platelet Fraction 2.9, Sodium Level 137, Potassium Level 4.8, Chloride Level 109H, Carbon Dioxide Level 18L, Anion Gap 10, Blood Urea Nitrogen 38H, Creatinine 1.66H, Estimat Glomerular Filtration Rate 31, BUN/Creatinine Ratio 23, Glucose Level 108H, Calcium Level 9.8, Corrected Calcium 10.2H, Ionized Calcium (Measured) TNP:QNS, Ionized Calcium pH TNP:QNS, Ionized Calcium (Corrected) TNP:QNS, Total Bilirubin 0.3, As partate Amino Transf (AST/SGOT) 26, Alanine Aminotransferase (ALT/SGPT) 11, Alkaline Phosphatase 57, Total Protein 5.7L, Albumin 3.5, Calcium (PTH Intact) 9.7 07/28/22 05:45: White Blood Count 5.3, Red Blood Count 3.98, Hemoglobin 11.7, Hematocrit 36, Mean Corpuscular Volume 90, Mean Corpuscular Hemoglobin 29, Mean Corpuscular Hemoglobin Concent 33, Red Cell Distribution Width 15.1H, Platelet Count 195, Mean Platelet Volume 10.1, Immature Granulocyte % (Auto) 0, Neutrophils (%) (Auto) 70, Lymphocytes (%) (Auto) 18, Monocytes (%) (Auto) 8, Eosinophils (%) (Auto) 3, Basophils (%) (Auto) 1, Neutrophils # (Auto) 3.7, Lymphocytes # (Auto) 1.0, Monocytes # (Auto) 0.4, Eosinophils # (Auto) 0.1, Basophils # (Auto) 0.0, Immature Granulocyte # (Auto) 0.0, Sodium Level 140, Potassium Level 3.8, Chloride Level 111H, Carbon Dioxide Level 21, Anion Gap 8, Blood Urea Nitrogen 26H, Creatinine 1.53H, Estimat Glomerular Filtration Rate 34, BUN/Creatinine Ratio 17, Glucose Level 86, Calcium Level 9.6, Corrected Calcium 10.1, Total Bilirubin 0.4, Aspartate Amino Transf (AST/SGOT) 18, Alanine Aminotransferase (ALT/SGPT) 13, Alkaline Phosphatase 49, Total Protein 5.4L, Albumin 3.4 Assessment/Plan Assessment/Plan Assessment/Plan small bowel obstruction abdominal pain-improved terminal clerk antiplatelet ng tube no longer in place and no nausea small bowel follow through was without obstruction tolerating clears, progress diet iv fluids continue conservative management, discussed may need surgical intervention Likely d/c tomorrow as long as tolerating regular diet ALCON HUA DO 07/28/22 1639: Subjective Subjective/Events-last exam Tolerating liquids, wanting food. Having bowel function. SBFT no obstruction. Denies n/v fever sweats chills shortness of breath or chest pain. Objective Exam General Appearance: No Apparent Distress, WD/WN HEENT: PERRL/EOMI, Normal ENT Inspection Neck: Normal Inspection, Non Tender Respiratory: Chest Non Tender, No Accessory Muscle Use, No Respiratory Distress Cardiovascular: Regular Rate, Rhythm, No JVD Gastrointestinal: non tender, soft, hernia Extremity: Normal Capillary Refill, Non Tender Neurologic/Psychiatric: Alert, Oriented x3, Normal Mood/Affect Skin: Normal Color, Warm/Dry Lymphatic: No Adenopathy Assessment/Plan Assessment/Plan Assessment/Plan small bowel obstruction abdominal pain-improved terminal clerk antiplatelet ng tube no longer in place and no nausea small bowel follow through was without obstruction tolerating clears, progress diet iv fluids Likely d/c as long as tolerating regular diet, understands can have return of symptoms. Supervisory-Addendum Brief Verification & Attestation Participated in pt care: history, MDM, physical Personally performed: exam, history, MDM, supervision of care Care discussed with: Medical Student Procedures: n/a Results interpretation: Verified all documentation Verification and Attestation of Medical Student E/M Service A medical student performed and documented this service in my presence. I reviewed and verified all information documented by the medical student and made modifications to such information, when appropriate. I personally performed the physical exam and medical decision making. Alcon Hua, Jul 28, 2022,16:39 HANANE CESAR Jul 28, 2022 06:59 ALCON HUA DO Jul 28, 2022 16:39
[2022-07-28] MEDS: PANTOPRAZOLE 40 MG (PROTONIX) VIAL IV SCH (07:23)
[2022-07-28] MEDS: DOCUSATE SODIUM 100 MG (COLACE) CAP PO SCH (07:23)
[2022-07-28] MEDS: SENNOSIDES 8.6 MG (SENOKOT) TAB PO SCH (07:23)
[2022-07-28] MEDS: fentaNYL INJ 100 MCG/2 ML AMP IV PRN (07:24)
[2022-07-28] MEDS: LORazepam INJ 2 MG/ML (ATIVAN) VIAL IV PRN (07:32)
--- NOTE | 2022-07-28 08:51 | Progress Note ---
YESI GUTIERREZ 07/28/22 0851: Progress Note Ms. Oneill is an 82 yo female with pmhx significant for multiple abdominal surgeries, hernia repairs, and hysterectomy who was admitted from 07/26-07/28. She presented to the ED on the day of admission with chief complaint of abdominal pain. Prior to admission she was experiencing several episodes of nonbloody vomiting. Reported significant back pain and constipation. In ED NG tube was placed and CT showed distal small bowel obstruction and b/l nephrolithiasis with right renal atrophy. During admission, patients status improved significantly. She had multiple bowel movements and small bowel follow through should no obstruction. Patients diet was advanced as tolerated. Patient will discharge back to home. MARITZA GONZALEZ DO 07/29/22 0437: Supervisory-Addendum Brief Verification & Attestation Participated in pt care: history, MDM, physical Personally performed: exam, history, MDM, supervision of care Care discussed with: Medical Student Procedures: n/a Results interpretation: Verified all documentation Verification and Attestation of Medical Student E/M Service A medical student performed and documented this service in my presence. I reviewed and verified all information documented by the medical student and made modifications to such information, when appropriate. I personally performed the physical exam and medical decision making. Maritza Gonzalez, Jul 29, 2022,04:37 YESI GUTIERREZ Jul 28, 2022 08:51 MARITZA GONZALEZ DO Jul 29, 2022 04:37
[2022-07-28] MEDS: ENOXAPARIN INJECTION 30 MG/0.3 ML SYR SC SCH (09:24)
--- NOTE | 2022-07-28 09:29 | Physical Therapy Daily Note ---
PT Daily Note-Current Subjective Patient lying supine in bed upon PT arrival, agreeable to treatment. Patient rates pain at 8/10 in her back. Pain Section J - Health Conditions 1. Rarely or not at all 2. Occasionally 3. Frequently 4. Almost constantly 8. Unable to answer Pain Effect on Sleep: 2 Pain Interference with Therapy: 2 Pain Interference w/Day-to-Day: 2 Mental Status Patient Orientation: Person, Place, Time, Situation Transfers SCALE: Activities may be completed with or without assistive devices. 7-Ofmvuyfgft-mhjnufs completes the activity by him/herself with no assistance from a helper. 5-Set-up or Clean-up Assistance-helper sets up or cleans up; patient completes activity. [place] assists only prior to or following the activity. 4-Supervision or Touching Assistance-helper provides verbal cues and/or touching /steadying and/or contact guard assistance as patient completes activity. Assistance may be provided throughout the activity or intermittently. 3-Partial/Moderate Assistance-helper does LESS THAN HALF the effort. [place] lifts, holds or supports trunk or limbs, but provides less than half the effort. 2-Substantial/Maximal Assistance-helper does MORE THAN HALF the effort. [place] lifts or holds trunk or limbs and provides more than half the effort. 4-Urqjquyre-xmpxdk does ALL the effort. Patient does none of the effort to complete the activity. Or, the assistance of 2 or more helpers is required for the patient to complete the activity. If activity was not attempted, code reason: 7-Patient Refused. 9-Not Applicable-not attempted and the patient did not perform the activity before the current illness, exacerbation or injury. 10-Not Attempted due to Environmental Limitations-(lack of equipment, weather restraints, etc.). 88-Not Attempted due to Medical Conditions or Safety Concerns. Roll Left & Right (QC): 4 Sit to Lying (QC): 4 Lying to Sitting/Side of Bed(Q: 4 Sit to Stand (QC): 4 Chair/Ino-cv-Ipxxv Xfer(QC): 4 Gait Training Does the Patient Walk?: Yes Distance: 500 feet Walk 10 feet (QC): 4 Walk 50 ft with 2 Turns(QC): 4 Walk 150 ft (QC): 4 Gait Assistive Device: FWW Assessment Current Status: Fair Progress Patient tolerated treatment well. Demonstrates SBA for all bed mobility and transfers. Patient ambulates 500 feet with FWW, with SBA and verbal cues for safety, progression, and conservation of energy. Patient in chair post treatment with all needs met, nursing notified, call light in hand. PT Byproduct Engineer Goals Usp Goals PT Byproduct Engineer Goals Time Frame: Aug 07, 2022 Roll Left & Right (QC): 6 Sit to Lying (QC): 6 Lying-Sitting on Side/Bed(QC): 6 Sit to Stand (QC): 6 Chair/Qgt-fx-Ggvho Xfer(QC): 6 Toilet Transfer (QC): 6 Walk 10 feet (QC): 6 Walk 50ft with 2 Turns (QC): 6 Walk 150 ft (QC): 6 PT Plan Treatment/Plan Treatment Plan: Continue Plan of Care Treatment Plan: Education, Functional Activity Gutierrez, Functional Strength, Gait, Safety, Therapeutic Exercise Treatment Duration: Aug 07, 2022 Frequency: 6 times per week Estimated Hrs Per Day: .25 hour per day Patient and/or Family Agrees t: Yes Safety Risks/Education Patient Education: Gait Training, Transfer Techniques Teaching Recipient: Patient Teaching Methods: Demonstration, Discussion Response to Teaching: Verbalize Understanding, Return Demonstration Time Time In: 836 Time Out: 900 DATE: Jul 28, 2022 Total Billed Treatment Time: 24 Total Billed Treatment Visit, Gait (2) NARCISA ESCOBEDO PT Jul 28, 2022 09:29
--- NOTE | 2022-07-28 10:04 | Occupational Therapy Eval ---
OT Evaluation-General/PLF Medical Diagnosis Admission Date Jul 26, 2022 at 23:12 Medical Diagnosis: Small bowel obstruction Onset Date: Jul 26, 2022 Therapy Diagnosis Therapy Diagnosis: weakness/back pain Height/Weight Height (Feet): 5 Height (Inches): 6.00 Weight (Pounds): 117 Weight (Ounces): 5.0 Precautions Precautions/Isolations: Standard Precautions Weight Bear Status Weight Bearing Restriction: Full Weight Bearing Referral Physician: Zee Referral Reason: Evaluation/Treatment Medical History Pertinent Medical History: Arthritis, CABG, CAD, HTN, [place] Current History 82 yo female with pmhx significant for multiple abdominal surgeries, hernia repairs, and hysterectomy presented to the ED on the day of admission with chief complaint of abdominal pain. Prior to admission she was experiencing several episodes of nonbloody vomiting. Reported significant back pain and constipation. In ED NG tube was placed and CT showed distal small bowel obstruction and b/l nephrolithiasis with right renal atrophy Social History Home: Apartment ([facility] health system) Current Living Status: Alone Entry Into Home: Level Entry ADL-Prior Level of Function SCALE: Activities may be completed with or without assistive devices. 8-Xghpiznjgr-lewqvhf completes the activity by him/herself with no assistance from a helper. 5-Set-up or Clean-up Assistance-helper sets up or cleans up; patient completes activity. [place] assists only prior to or following the activity. 4-Supervision or Touching Assistance-helper provides verbal cues and/or touching/steadying and/or contact guard assistance as patient completes activity. Assistance may be provided throughout the activity or intermittently. 3-Partial/Moderate Assistance-helper does LESS THAN HALF the effort. [place] lifts, holds or supports trunk or limbs, but provides less than half the effort. 2-Substantial/Maximal Assistance-helper does MORE THAN HALF the effort. [place] lifts or holds trunk or limbs and provides more than half the effort. 1-Cwqpgfwvg-cbebkg does ALL the effort. Patient does none of the effort to complete the activity. Or, the assistance of 2 or more helpers is required for the patient to complete the activity. If activity was not attempted, code reason: 7-Patient Refused. 9-Not Applicable-not attempted and the patient did not perform the activity before the current illness, exacerbation or injury. 10-Not Attempted due to Environmental Limitations-(lack of equipment, weather restraints, etc.). 88-Not Attempted due to Medical Conditions or Safety Concerns. Functional Cognition: Independent Drive Self: Yes OT Current Status Subjective Up in recliner, agreeable to OT. 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" ADL-Treatment Eating (QC): 5 (clear) Oral Hygiene (QC): 5 Shower/Bathe Self (QC): 7 Upper Body Dressing (QC): 4 Lower Body Dressing (QC): 3 On/Off Footwear (QC): 3 Toileting Hygiene (QC): 3 Patient requires extra time to perform tasks Education OT Patient Education: Exercise program, Modified ADL techniques, Progress toward Goal/Update tx plan, Purpose of tx/functional activities, Reviewed precautions, Rehab process, Safety issues, Transfer techniques, Use of adapted equipment Teaching Recipient: Patient Teaching Methods: Demonstration, Discussion Response to Teaching: Reinforcement Needed OT Product Support Rep Goals Product Support Rep Goals Eating (QC): 6 Oral Hygiene (QC): 6 Toileting Hygiene (QC): 6 Shower/Bathe Self (QC): 6 Upper Body Dressing (QC): 6 Lower Body Dressing (QC): 6 On/Off Footwear (QC): 6 1=Demonstrate adherence to instructed precautions during ADL tasks. 2=Patient will verbalize/demonstrate understanding of assistive devices/modifications for ADL. 3=Patient will improve strength/tolerance for activity to enable patient to perform ADL's. OT Education/Plan Problem List/Assessment Assessment: Decreased Activ Tolerance, Decreased UE Strength, Impaired Funct Balance, Impaired I ADL's, Impaired Self-Care Skills Discharge Recommendations Plan/Recommendations: Continue POC Treatment Plan/Plan of Care Treatment,Training & Education: Yes Patient would benefit from OT for education, treatment and training to promote independence in ADL's, mobility, safety and/or upper extremity function for ADL's. Plan of Care: ADL Retraining, Functional Mobility, Group Exercise/Act as Ind, UE Funct Exercise/Act Treatment Duration: Jul 31, 2022 Frequency: 3 times per week (3-5 times per week) Estimated Hrs Per Day: .25 hour per day Agreement: Yes Rehab Potential: Fair Remains up in recliner at completion of evaluaiton w/ warm blankets. All needs met Time Start Time: 09:07 Stop Time: 09:21 DATE: Jul 28, 2022 Total Time Billed (hr/min): 14 Billed Treatment Time EVM 14 min STEPHANIE DIAZ OT Jul 28, 2022 10:04
--- NOTE | 2022-07-28 12:35 | D/C HH Face to Face Order ---
D/C HH Face to Face Orders Reconcile Patient Problems Problems Reviewed?: Yes Instructions for Patient HH Patient Instructions/FollowUp: Dr Koch 08/02/22 245pm Physician to follow Patient: Koch Discharge Diet for Home: Soft Diet Patient Problems: Debility SBO Patient Data-Allergies,Ht & Wt Patient Allergies: Coded Allergies: iodine (Unverified Allergy, Unknown, 01/16/14) latex (Unverified Allergy, Unknown, RASH, 01/16/14) Height (Feet): 5 Height (Inches): 6.00 Weight (Pounds): 117 Weight (Ounces): 5.0 Home Health Need/Face to Face Date of Face to Face: Jul 28, 2022 Clinical Findings: Generalized weakness and fatigue, Instability, Muscle weakness, Unsteady gait I have seen Pt [id number]: Yes Discharged To: Home Diagnosis/Conditions: Debility Patient is Homebound due to: Kleber fall risk due to instabilty, Muscle weakness Homebound Status Due to the above stated illness, injury or surgical procedure (medical condition or diagnosis) and associated clinical findings, the patient is homebound because of his/her inability to leave home except with aid of a supportive device and/or person AND leaving the home requires a considerable and taxing effort or is medically contraindicated. Pt req the following assistanc: Walker Home Health Nursing Orders Home Health Services Order: Nursing Services, Assurance Manager Insurance-Evaluate & Treat, Physical Therapy-Evaluate & Treat Home Health Infusion Therapy Line Start Date: Jul 26, 2022 Certify Stmt I certify that this patient is under my care and that I, a nurse practitioner or a physician; a shop assistant working with me, had a face to face encounter that - meets the physician face to face encounter requirements with this patient as dated. STEPHANIE KOCH DO Jul 28, 2022 12:35
--- NOTE | 2022-07-28 12:35 | Discharge Summary ---
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 Oneill is an 82 yo female with pmhx significant for multiple abdominal surgeries, hernia repairs, and hysterectomy who was admitted from 07/26-07/28. She presented to the ED on the day of admission with chief complaint of abdominal pain. Prior to admission she was experiencing several episodes of nonbloody vomiting. Reported significant back pain and constipation. In ED NG tube was placed and CT showed distal small bowel obstruction and b/l nephrolithiasis with right renal atrophy. During admission, patients status improved significantly. She had multiple bowel movements and small bowel follow through should no obstruction. Patients diet was advanced as tolerated. Patient will discharge back to home. YESI GUTIERREZ Jul 28, 2022 08:51 Labs (last 24 hrs) Laboratory Tests 07/26/22 20:53: White Blood Count 8.9, Red Blood Count 4.83, Hemoglobin 14.3, Hematocrit 43, Mean Corpuscular Volume 88, Mean Corpuscular Hemoglobin 30, Mean Corpuscular Hemoglobin Concent 34, Red Cell Distribution Width 14.8H, Platelet Count 259, Mean Platelet Volume 9.7, Immature Granulocyte % (Auto) 0, Neutrophils (%) (Auto) 77H, Lymphocytes (%) (Auto) 15, Monocytes (%) (Auto) 6, Eosinophils (%) (Auto) 2, Basophils (%) (Auto) 0, Neutrophils # (Auto) 6.9, Lymphocytes # (Auto) 1.3, Monocytes # (Auto) 0.5, Eosinophils # (Auto) 0.2, Basophils # (Auto) 0.0, Immature Granulocyte # (Auto) 0.0, Sodium Level 137, Potassium Level 5.4H, Chloride Level 102, Carbon Dioxide Level 21, Anion Gap 14, Blood Urea Nitrogen 4 7H, Creatinine 2.04H, Estimat Glomerular Filtration Rate 24, BUN/Creatinine Ratio 23, Glucose Level 113H, Calcium Level 12.1H, Corrected Calcium , Magnesium Level 2.3, Total Bilirubin 0.5, Aspartate Amino Transf (AST/SGOT) 27, Alanine Aminotransferase (ALT/SGPT) 15, Alkaline Phosphatase 81, Total Protein 7.6, Albumin 4.8H, Amylase Level 107, Lipase 19 07/26/22 22:59: Urine Color YELLOW, Urine Clarity CLEAR, Urine pH 6.5, Urine Specific [place] 1.010L, Urine Protein 2+H, Urine Glucose (UA) NEGATIVE, Urine Ketones NEGATIVE, Urine Nitrite NEGATIVE, Urine Bilirubin NEGATIVE, Urine Urobilinogen 0.2, Urine Leukocyte Esterase NEGATIVE, Urine RBC (Auto) 2+H, Urine RBC 10-25H, Urine WBC NONE, Urine Squamous Epithelial Cells RARE, Urine Crystals NONE, Urine Bacteria TRACE, Urine Casts NONE, Urine Mucus NEGATIVE, Urine Culture Indicated NO 07/27/22 06:56: White Blood Count 5.9, Red Blood Count 4.07, Hemoglobin 11.9, Hematocrit 37, Mean Corpuscular Volume 90, Mean Corpuscular Hemoglobin 29, Mean Corpuscular Hemoglobin Concent 32, Red Cell Distribution Width 14.9H, Platelet Count 180, Mean Platelet Volume 10.5, Immature Granulocyte % (Auto) 0, Neutrophils (%) (A uto) 74, Lymphocytes (%) (Auto) 17, Monocytes (%) (Auto) 7, Eosinophils (%) (Auto) 2, Basophils (%) (Auto) 1, Neutrophils # (Auto) 4.4, Lymphocytes # (Auto) 1.0, Monocytes # (Auto) 0.4, Eosinophils # (Auto) 0.1, Basophils # (Auto) 0.0, Immature Granulocyte # (Auto) 0.0, Sodium Level 137, Potassium Level 4.8, Chloride Level 109H, Carbon Dioxide Level 18L, Anion Gap 10, Blood Urea Nitrogen 38H, Creatinine 1.66H, Estimat Glomerular Filtration Rate 31, BUN/Creatinine Ratio 23, Glucose Level 108H, Calcium Level 9.8, Corrected Calcium 10.2H, Total Bilirubin 0.3, Aspartate Amino Transf (AST/SGOT) 26, Alanine Aminotransferase (ALT/SGPT) 11, Alkaline Phosphatase 57, Total Protein 5.7L, Albumin 3.5, Percent Immature Platelet Fraction 2.9 07/28/22 05:45: White Blood Count 5.3, Red Blood Count 3.98, Hemoglobin 11.7, Hematocrit 36, Mean Corpuscular Volume 90, Mean Corpuscular Hemoglobin 29, Mean Corpuscular Hemoglobin Concent 33, Red Cell Distribution Width 15.1H, Platelet Count 195, Mean Platelet Volume 10.1, Immature Granulocyte % (Auto) 0, Neutrophils (%) (Auto) 70, Lymphocytes (%) (Auto) 18, Monocytes (%) (Auto) 8, Eosinophils (%) (Auto) 3, Basophils (%) (Auto) 1, Neutrophils # (Auto) 3.7, Lymphocytes # (Auto) 1.0, Monocytes # (Auto) 0.4, Eosinophils # (Auto) 0.1, Basophils # (Auto) 0.0, Immature Granulocyte # (Auto) 0.0, Sodium Level 140, Potassium Level 3.8, Chloride Level 111H, Carbon Dioxide Level 21, Anion Gap 8, Blood Urea Nitrogen 26H, Creatinine 1.53H, Estimat Glomerular Filtration Rate 34, BUN/Creatinine Ratio 17, Glucose Level 86, Calcium Level 9.6, Corrected Calcium 10.1, Total Bilirubin 0.4, Aspartate Amino Transf (AST/SGOT) 18, Alanine Aminotransferase (ALT/SGPT) 13, Alkaline Phosphatase 49, Total Protein 5.4L, Albumin 3.4, Parath yroid Hormone (Intact) 144.5H, Calcium (PTH Intact) 10.1 07/28/22 11:38: Pending Labs Laboratory Tests 07/26/22 20:53: White Blood Count 8.9, Red Blood Count 4.83, Hemoglobin 14.3, Hematocrit 43, Mean Corpuscular Volume 88, Mean Corpuscular Hemoglobin 30, Mean Corpuscular Hemoglobin Concent 34, Red Cell Distribution Width 14.8, Platelet Count 259, Mean Platelet Volume 9.7, Immature Granulocyte % (Auto) 0, Neutrophils (%) (Auto) 77, Lymphocytes (%) (Auto) 15, Monocytes (%) (Auto) 6, Eosinophils (%) (Auto) 2, Basophils (%) (Auto) 0, Neutrophils # (Auto) 6.9, Lymphocytes # (Auto) 1.3, Monocytes # (Auto) 0.5, Eosinophils # (Auto) 0.2, Basophils # (Auto) 0.0, Immature Granulocyte # (Auto) 0.0, Sodium Level 137, Potassium Level 5.4, Chloride Level 102, Carbon Dioxide Level 21, Anion Gap 14, Blood Urea Nitrogen 47, Creatinine 2.04, Estimat Glomerular Filtration Rate 24, BUN/Creatinine Ratio 23, Glucose Level 113, Calcium Level 12.1, Corrected Calcium , Magnesium Level 2.3, Total Bilirubin 0.5, Aspartate Amino Transf (AST/SGOT) 27, Alanine Aminotransferase (ALT/SGPT) 15, Alkaline Phosphatase 81, Total Protein 7.6, Albumin 4.8, Amylase Level 107, Lipase 19 07/26/22 22:59: Urine Color YELLOW, Urine Clarity CLEAR, Urine pH 6.5, Urine Specific [place] 1.010, Urine Protein 2+, Urine Glucose (UA) NEGATIVE, Urine Ketones NEGATIVE, Urine Nitrite NEGATIVE, Urine Bilirubin NEGATIVE, Urine Urobilinogen 0.2, Urine Leukocyte Esterase NEGATIVE, Urine RBC (Auto) 2+, Urine RBC 10-25, Urine WBC NONE, Urine Squamous Epithelial Cells RARE, Urine Crystals NONE, Urine Bacteria TRACE, Urine Casts NONE, Urine Mucus NEGATIVE, Urine Culture Indicated NO 07/27/22 06:56: White Blood Count 5.9, Red Blood Count 4.07, Hemoglobin 11.9, Hematocrit 37, Mean Corpuscular Volume 90, Mean Corpuscular Hemoglobin 29, Mean Corpuscular Hemoglobin Concent 32, Red Cell Distribution Width 14.9, Platelet Count 180, Mean Platelet Volume 10.5, Immature Granulocyte % (Auto) 0, Neutrophils (%) (Auto) 74, Lymphocytes (%) (Auto) 17, Monocytes (%) (Auto) 7, Eosinophils (%) (Auto) 2, Basophils (%) (Auto) 1, Neutrophils # (Auto) 4.4, Lymphocytes # (Auto) 1.0, Monocytes # (Auto) 0.4, Eosinophils # (Auto) 0.1, Basophils # (Auto) 0.0, Immature Granulocyte # (Auto) 0.0, Sodium Level 137, Potassium Level 4.8, Chloride Level 109, Carbon Dioxide Level 18, Anion Gap 10, Blood Urea Nitrogen 38, Creatinine 1.66, Estimat Glomerular Filtration Rate 31, BUN/Creatinine Ratio 23, Glucose Level 108, Calcium Level 9.8, Corrected Calcium 10.2, Total Bilirubin 0.3, Aspartate Amino Transf (AST/SGOT) 26, Alanine Aminotransferase (ALT/SGPT) 11, Alkaline Phosphatase 57, Total Protein 5.7, Albumin 3.5, Percent Immature Platelet Fraction 2.9 07/28/22 05:45: White Blood Count 5.3, Red Blood Count 3.98, Hemoglobin 11.7, Hematocrit 36, Mean Corpuscular Volume 90, Mean Corpuscular Hemoglobin 29, Mean Corpuscular Hemoglobin Concent 33, Red Cell Distribution Width 15.1, Platelet Count 195, Mean Platelet Volume 10.1, Immature Granulocyte % (Auto) 0, Neutrophils (%) (Auto) 70, Lymphocytes (%) (Auto) 18, Monocytes (%) (Auto) 8, Eosinophils (%) (Auto) 3, Basophils (%) (Auto) 1, Neutrophils # (Auto) 3.7, Lymphocytes # (Auto) 1.0, Monocytes # (Auto) 0.4, Eosinophils # (Auto) 0.1, Basophils # (Auto) 0.0, Immature Granulocyte # (Auto) 0.0, Sodium Level 140, Potassium Level 3.8, Chloride Level 111, Carbon Dioxide Level 21, Anion Gap 8, Blood Urea Nitrogen 26, Creatinine 1.53, Estimat Glomerular Filtration Rate 34, BUN/Creatinine Ratio 17, Glucose Level 86, Calcium Level 9.6, Corrected Calcium 10.1, Total Bilirubin 0.4, Aspartate Amino Transf (AST/SGOT) 18, Alanine Aminotransferase (ALT/SGPT) 13, Alkaline Phosphatase 49, Total Protein 5.4, Albumin 3.4, Parathyroid Hormone (Intact) 144.5, Calcium (PTH Intact) 10.1 07/28/22 11:38: Ionized Calcium (Measured) [Pending], Ionized Calcium pH [Pending], Ionized Calcium (Corrected) [Pending] Discharge Home Medications: Active Scripts Active Reported Cod Liver Oil 1 Each Capsule 1 Each PO DAILY Vitamin C (Ascorbate Calcium) 500 Mg Tablet 500 Mg PO DAILY Centrum Silver Tablet (Multivit-Min/FA/Lycopene/Lut) 0.4 Mg-300 Mcg-250 Mcg Tablet 1 Each PO DAILY Flax Seed Oil 1,300 mg Softgel (Flaxseed/Omega3,6,9/Fatty Acid) 1,300-670MG Capsule 1 Each PO BID Oxycodone-Acetaminophen 5-325 (Oxycodone HCl/Acetaminophen) 5 Mg-325 Mg Tablet 1 Ea PO TID PRN Linzess (Linaclotide) 290 Mcg Capsule 290 Mcg PO DAILY Fenofibrate (Fenofibrate Nanocrystallized) 48 Mg Tablet 48 Mg PO HS Ezetimibe 10 Mg Tablet 10 Mg PO HS Isosorbide Mononitrate ER (Isosorbide Mononitrate) 30 Mg Tab.er.24h 30 Mg PO 1200 Clopidogrel (Clopidogrel Bisulfate) 75 Mg Tablet 75 Mg PO 1600 Duloxetine HCl 60 Mg Capsule.dr 60 Mg PO DAILY TAKES ALONG WITH 30MG CAPSULE Duloxetine HCl 30 Mg Capsule.dr 30 Mg PO DAILY TAKES ALONG WITH 60MG CAPSULE Atorvastatin Calcium 40 Mg Tablet 40 Mg PO HS Toprol Xl (Metoprolol Succinate) 50 Mg Tab.er.24h 50 Mg PO 1200 Felodipine ER (Felodipine) 5 Mg Tab.er.24h 5 Mg PO 1200 Lisinopril 20 Mg Tablet 20 Mg PO 1600,2100 Instructions to patient/family Please see electronic discharge instructions given to patient. STEPHANIE GONZALEZ DO Jul 28, 2022 12:35
[2022-07-28] MEDS: hydrALAZINE (APESOLINE) 20 MG/ML VIAL IV PRN (16:25)
== END 2022-07-28 17:27 | disposition home health service (06) ==
LOC: EDUNIT# 20:25 → ER 20:27 → 4TH 23:12 → INTOOBSV 23:12
PROVIDERS: ADMIT Internal Medicine; ATTEND Internal Medicine
DX: K56.609 Unspecified intestinal obstruction, unspecified as to partial versus complete obstruction (principal); N20.0 Calculus of kidney; K57.90 Diverticulosis of intestine, part unspecified, without perforation or abscess without bleeding; M54.9 Dorsalgia, unspecified; I10 Essential (primary) hypertension; N26.1 Atrophy of kidney (terminal); E78.5 Hyperlipidemia, unspecified; G89.29 Other chronic pain; Z79.02 Long term (current) use of antithrombotics/antiplatelets; Z98.890 Other specified postprocedural states; Z90.710 Acquired absence of both cervix and uterus; Z93.1 Gastrostomy status; Z79.891 Long term (current) use of opiate analgesic
CPT/HCPCS: 36415; 71045; 74022; 74176; 74250; 80053; 81000; 82150; 82330; 83690; 83735; 83970; 85025; 96372; 96375; 96376

== ENCOUNTER → 2023-01-28 | Outpatient (CLI) | payer MEDICARE, OTHER ==
[~2023-01-28] MED LIST changes: +COD1CAPS13 PO; +DICY-11 PO; -DICY10CA12 PO; +FLAX1CAP4 PO; +MULT-1029 PO; +OXYC1TAB11 PO
--- NOTE | 2023-01-28 16:17 | Diagnostic Imaging Report ---
INDICATION: Right femur pain, status post fall. COMPARISON: None. FINDINGS: Multiple radiographic views of the right femur were obtained and show no acute fracture or dislocation. Right hip and knee joint spaces are maintained, although moderate osteoarthritic changes of the right hip are noted. This consists of joint space narrowing with sclerotic remodeling to the articular surfaces and small osteophyte formations. No unexpected radiopaque foreign bodies are seen. There is calcified arterial sclerosis. IMPRESSION: 1. No acute fracture or dislocation of the right femur. 2. Moderate osteoarthritic changes of the right hip. Dictated by: Dictated on workstation # [id number]
--- NOTE | 2023-01-28 16:17 | Diagnostic Imaging Report ---
INDICATION: PAIN COMPARISON: None. FINDINGS: 3 views of the right knee joint demonstrate no acute fracture or dislocation. No focal osseous lesions are seen. No significant joint effusion is seen. There is chondrocalcinosis. Note is also made of mild osteoarthritic changes. The surrounding soft tissue structures are unremarkable. There are no radiopaque foreign bodies. IMPRESSION: 1. No acute fractures or dislocations of the right knee joint. 2. Mild osteoarthritic changes. 3. Chondrocalcinosis. Findings can be seen with underlying CPPD. Dictated by: Dictated on workstation # [id number]
--- NOTE | 2023-01-28 16:18 | Diagnostic Imaging Report ---
INDICATION: Pain COMPARISON: None. FINDINGS: Multiple radiographic views of the right tibia and fibula were obtained and demonstrate no acute fracture or dislocation. No focal osseous lesions are seen. No significant joint effusion is seen. The surrounding soft tissue structures are unremarkable. There are no radiopaque foreign bodies. IMPRESSION: 1. Unremarkable radiographic exam of the right tibia and fibula Dictated by: Dictated on workstation # [id number]
== END ==
LOC: RAD 11:16
PROVIDERS: ATTEND Internal Medicine
DX: M16.11 Unilateral primary osteoarthritis, right hip (principal); M17.11 Unilateral primary osteoarthritis, right knee; M11.261 Other chondrocalcinosis, right knee
CPT/HCPCS: 73552; 73562; 73590

== ENCOUNTER 2023-01-31 15:04 | Emergency (ER) | payer MEDICARE, OTHER ==
--- NOTE | 2023-01-31 15:35 | ED Cough/URI ---
General Chief Complaint: Cough/Cold/Flu Symptoms Stated Complaint: POSS PNEUMONIA, COUGHING UP MUCUS Nursing Triage Note: PT TO RM 5 BY W/C. PT HAS COUGH,INCREASED PHELGM FOR A FEW WEEKS. Source: patient, family Exam Limitations: no limitations History of Present Illness Date Seen by Provider: Jan 31, 2023 Time Seen by Provider: 15:24 Initial Comments 82-year-old female presents to the ER reports of productive cough, runny nose, feeling like she has a sinus infection for the last 3 weeks. She is also worried that she has pneumonia. She denies fever, chest pain, shortness of air, abdominal pain, nausea, vomiting, diarrhea. She states that she saw her primary care provider 3 weeks ago who gave her an antibiotic. She states she was getting better, but then the symptoms returned yesterday. On chart review, no antibiotics have been filled recently. Allergies and Home Medications Allergies Coded Allergies: iodine (Unverified Allergy, Unknown, 01/16/14) latex (Unverified Allergy, Unknown, RASH, 01/16/14) Patient Home Medication List Home Medication List Reviewed: Yes Ascorbate Calcium (Vitamin C) 500 Mg Tablet, 500 MG PO DAILY, (Reported) Entered as Reported by: JHONATAN SOFIA on 07/27/22 1504 Atorvastatin Calcium (Atorvastatin Calcium) 40 Mg Tablet, 40 MG PO HS, (Reported) Entered as Reported by: YIN ECHEVERRIA on 12/16/17 1033 Clopidogrel Bisulfate (Clopidogrel) 75 Mg Tablet, 75 MG PO 1600, (Reported) Entered as Reported by: YIN ECHEVERRIA on 12/16/17 1033 Cod Liver Oil (Cod Liver Oil) 1 Each Capsule, 1 EACH PO DAILY, (Reported) Entered as Reported by: JHONATAN SOFIA on 07/27/22 1504 Duloxetine HCl (Duloxetine HCl) 30 Mg Capsule.dr, 30 MG PO DAILY, (Reported) Entered as Reported by: YIN ECHEVERRIA on 12/16/17 1033 Duloxetine HCl (Duloxetine HCl) 60 Mg Capsule.dr, 60 MG PO DAILY, (Reported) Entered as Reported by: YIN ECHEVERRIA on 12/16/17 1033 Ezetimibe (Ezetimibe) 10 Mg Tablet, 10 MG PO HS, (Reported) Entered as Reported by: YIN ECHEVERRIA on 12/16/17 1043 Felodipine (Felodipine ER) 5 Mg Tab.er.24h, 5 MG PO 1200, (Reported) Entered as Reported by: YIN ECHEVERRIA on 12/16/17 1033 Fenofibrate Nanocrystallized (Fenofibrate) 48 Mg Tablet, 48 MG PO HS, (Reported) Entered as Reported by: YIN ECHEVERRIA on 12/16/17 1043 Flaxseed/Omega3,6,9/Fatty Acid (Flax Seed Oil 1,300 mg Softgel) 1,300-670MG Capsule, 1 EACH PO BID, (Reported) Entered as Reported by: JHONATAN SOFIA on 07/27/22 1504 Isosorbide Mononitrate (Isosorbide Mononitrate ER) 30 Mg Tab.er.24h, 30 MG PO 1200, (Reported) Entered as Reported by: YIN ECHEVERRIA on 12/16/17 103 Linaclotide (Linzess) 290 Mcg Capsule, 290 MCG PO DAILY, (Reported) Entered as Reported by: YIN ECHEVERRIA on 12/16/17 1043 Lisinopril (Lisinopril) 20 Mg Tablet, 20 MG PO 1600,2100, (Reported) Entered as Reported by: YIN ECHEVERRIA on 12/16/17 1033 Metoprolol Succinate (Toprol Xl) 50 Mg Tab.er.24h, 50 MG PO 1200, (Reported) Entered as Reported by: YIN ECHEVERRIA on 12/16/17 103 Multivit-Min/FA/Lycopene/Lut (Centrum Silver Tablet) 0.4 Mg-300 Mcg-250 Mcg Tablet, 1 EACH PO DAILY, (Reported) Entered as Reported by: JHONATAN SOFIA on 07/27/22 150 Oxycodone HCl/Acetaminophen (Oxycodone-Acetaminophen 5-325) 5 Mg-325 Mg Tablet, 1 EA PO TID PRN for PAIN-MODERATE (5-7), (Reported) Entered as Reported by: JHONATAN SOFIA on 07/27/22 150 Review of Systems Review of Systems Constitutional: see HPI Past Zlaccbf-Aupmlm-Xipfhp Hx Patient Social History Tobacco Use?: No Substance use?: No Alcohol Use?: No Pt feels they are or have been: No Immunizations Up To Date Tetanus Booster (TDap): Unknown Influenza Vaccine Up-to-Date: No; Not Current Seasonal Allergies Seasonal Allergies: Yes Past Medical History Surgery/Hospitalization HX: BYPASS X2, BACK SURGERY, BACK PAIN SIMULATOR HTN, HLD Surgeries: Yes (LAPAROSCOPIC ADHESION REMOVAL, OPEN HERNIA SX, 2 BACK SURGERIES) CABG, Orthopedic Respiratory: No Currently Using CPAP: No Currently Using BIPAP: No Cardiac: Yes (TRIPLE AND QUAD BYPASS) Coronary Artery Disease, High Cholesterol, Hypertension Neurological: Yes (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) Reproductive Disorders: Yes (endometriosis) Female Reproductive Disorders: Menstrual Problems, 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 [employer] History: Hysterectomy, Menopausal Sexually Transmitted Disease: No Genitourinary: Yes (uterine rupture) Bladder Infection Gastrointestinal: Yes (S/P BREANN, HERNIA REPAIRS) Abdominal Hernia, Colitis, Obstructive Bowel, Chronic Constipation, Diverticulosis, Gall Bladder Disease Musculoskeletal: Yes (osteoarthritis/osteoporosis;COMPRESSION FX'S;T11 BURST FX) Degenerate Disk Disease, Osteoporosis, Arthritis, Back Injury, Chronic Back Pain, Fractures Endocrine: No HEENT: Yes Cataract Cancer: No Psychosocial: Yes Anxiety, Depression Integumentary: No Blood Disorders: Yes (ANEMIA) Family Medical History Cancer of colon 19 FATHER, Onset:Unknown G8 BROTHER, Onset:Unknown (STOMACH CA) Family history: Arthritis 19 MOTHER, Onset:Unknown G8 SISTER, Onset:Unknown Family history: Cardiovascular disease G8 BROTHER, Onset:Unknown (BROTHER OF [place] AT AGE 46) SON, Onset:Unknown (SON OF [place] AT AGE 49) Family history: Diabetes mellitus G8 BROTHER, Onset:Unknown Family history: Gastrointestinal disease 19 FATHER, Onset:Unknown G8 BROTHER, Onset:Unknown Family history: Thyroid disorder G8 SISTER, Onset:Unknown Cancer, Diabetes Physical Exam Vital Signs - First Documented 01/31/23 15:15 Temp 36.6 Pulse 82 Resp 16 B/P (MAP) 138/86 (103) Pulse Ox 97 Capillary Refill : Less Than 3 Seconds Height: 5'6.00" Weight: 117lbs. 5.0oz. [id number]; 20.07 BMI Method:Stated General Appearance: WD/WN, no apparent distress Neck: supple, normal inspection Respiratory: lungs clear, normal breath sounds, no respiratory distress, no accessory muscle use Cardiovascular: regular rate, rhythm Extremities: normal range of motion, normal inspection, no pedal edema Neurologic/Psychiatric: alert, normal mood/affect Skin: normal color, warm/dry Progress/Results/Core Measures Suspected Sepsis SIRS Temperature: Pulse: 82 Respiratory Rate: 16 Laboratory Tests 01/31/23 15:22: White Blood Count 4.3 Blood Pressure 138 /86 Mean: 103 Laboratory Tests 01/31/23 15:22: Creatinine 1.88H, Platelet Count 194, Total Bilirubin 0.3 Results/Orders Lab Results Laboratory Tests Test 01/31/23 15:22 01/31/23 15:27 Range/Units White Blood Count 4.3 4.3-11.0 10^3/uL Red Blood Count 4.12 3.80-5.11 10^6/uL Hemoglobin 12.3 11.5-16.0 g/dL Hematocrit 37 35-52 % Mean Corpuscular Volume 91 80-99 fL Mean Corpuscular Hemoglobin 30 25-34 pg Mean Corpuscular Hemoglobin Concent 33 32-36 g/dL Red Cell Distribution Width 14.7 H 10.0-14.5 % Platelet Count 194 130-400 10^3/uL Mean Platelet Volume 10.3 9.0-12.2 fL Immature Granulocyte % (Auto) 0 % Neutrophils (%) (Auto) 76 H 42-75 % Lymphocytes (%) (Auto) 9 L 12-44 % Monocytes (%) (Auto) 14 H 0-12 % Eosinophils (%) (Auto) 1 0-10 % Basophils (%) (Auto) 1 0-10 % Neutrophils # (Auto) 3.3 1.8-7.8 10^3/uL Lymphocytes # (Auto) 0.4 L 1.0-4.0 10^3/uL Monocytes # (Auto) 0.6 0.0-1.0 10^3/uL Eosinophils # (Auto) 0.0 0.0-0.3 10^3/uL Basophils # (Auto) 0.0 0.0-0.1 10^3/uL Immature Granulocyte # (Auto) 0.0 0.0-0.1 10^3/uL Sodium Level 136 135-145 MMOL/L Potassium Level 4.5 3.6-5.0 MMOL/L Chloride Level 108 H 98-107 MMOL/L Carbon Dioxide Level 18 L 21-32 MMOL/L Anion Gap 10 5-14 MMOL/L Blood Urea Nitrogen 49 H 7-18 MG/DL Creatinine 1.88 H 0.60-1.30 MG/DL Estimat Glomerular Filtration Rate 27 BUN/Creatinine Ratio 26 Glucose Level 101 70-105 MG/DL Calcium Level 10.4 H 8.5-10.1 MG/DL Corrected Calcium 10.2 H 8.5-10.1 MG/DL Total Bilirubin 0.3 0.1-1.0 MG/DL Aspartate Amino Transf (AST/SGOT) 28 5-34 U/L Alanine Aminotransferase (ALT/SGPT) 17 0-55 U/L Alkaline Phosphatase 75 40-136 U/L Total Protein 6.7 6.4-8.2 GM/DL Albumin 4.2 3.2-4.5 GM/DL Influenza Type A (RT-PCR) Not Detected Not Detecte Influenza Type B (RT-PCR) Not Detected Not Detecte SARS-CoV-2 RNA (RT-PCR) Detected H Not Detecte My Orders Orders - CASSIE CROFT APRN Cbc And Automated Diff (01/31/23 15:29) Comprehensive Metabolic Panel (01/31/23 15:29) Covid 19 Inhouse Test (01/31/23 15:29) Influenza A And B By Pcr (01/31/23 15:29) Chest Pa/Lat (2 View) (01/31/23 15:29) Ed Iv/Invasive Line Start (01/31/23 16:30) Ns Iv 500 Ml (Ns Iv 500 Ml) (01/31/23 16:30) Rx-Nirmatrelvir/Ritonavir(Eua) (Rx-Paxlo (01/31/23 17:45) Medications Given in ED Current Medications Medications Dose Ordered Sig/Yonatan Route Start Time Stop Time Status Last Admin Dose Admin Sodium Chloride 500 ml @ 0 mls/hr Q0M ONCE IV 01/31/23 16:30 01/31/23 16:31 DC 01/31/23 16:34 500 MLS/HR Vital Signs/I&O 01/31/23 01/31/23 15:15 18:05 Temp 36.6 36.6 Pulse 82 78 Resp 16 16 B/P (MAP) 138/86 (103) 159/64 Pulse Ox 97 97 Capillary Refill : Less Than 3 Seconds Blood Pressure Mean: 103 Progress Note : Progress Note Patient seen and evaluated, resting comfortably in bed, no acute distress. Based on exam and symptoms, work-up initially included CBC, CMP, chest x-ray, COVID and flu swab. 1745 Labs and chest x-ray reviewed. CBC reveals a low hemoglobin. This may be due to blood loss, malnutrition, hemolysis, renal failure, malignancy or inherited disorder. Grossly normal. CMP shows slightly elevated chloride 108, slight decreased CO2 18. BUN elevated 49, creatinine elevated 1.88, GFR decreased at 27. Previous kidney function from July 2022 showed BUN 26, creatinine 1.53, GFR 34. 500 mL IV bolus given. Calcium slightly elevated 10.4. Flu negative. COVID-positive. Chest x-ray shows no acute findings. Results discussed with patient. Patient reports that her symptoms restarted yesterday. This is likely the start of her COVID symptoms. Will discharge with take-home pack of Paxlovid. Patient has no significant drug interactions with this medication. Discharge directions and return precautions provided. Diagnostic Imaging Diagonstic Imaging: Xray Plain Films/CT/US/NM/MRI: chest Comments [facility] [place], [place] NAME: JASON BELLO [facility] REC#: [id number] PT STATUS: REG ER : 1940 PHYSICIAN: CASSIE CROFT APRN ADMIT DATE: 01/31/23/ER Signed Date of Exam:01/31/23 CHEST PA/LAT (2 VIEW) INDICATION: Cough. TECHNIQUE: PA and lateral views of the chest are obtained. COMPARISON: 04/17/2014. FINDINGS: Heart size and pulmonary vascularity are within normal limits, and the lungs are clear, bilaterally. There are stable surgical findings in the mediastinum with placement of thoracic spinal stimulator device. IMPRESSION: Unremarkable chest. Dictated by: Dictated on workstation # [id number] Dict: 01/31/23 1655 Trans: 01/31/231827 AS6 [id number] Interpreted by: POPEYE CAMARGO MD Electronically signed by: POPEYE CAMARGO MD 01/31/231827 Departure Impression Primary Impression: COVID-19 Disposition: 01 HOME, SELF-CARE Condition: Stable Departure-Patient Inst. Decision time for Depature: 17:45 Referrals: STEPHANIE GONZALEZ DO (PCP/Family) Primary Care Physician Patient Instructions: COVID-19 (DC) Add. Discharge Instructions: Take Paxlovid as prescribed. If it causes you to have severe nausea and vomiting, you may stop taking it. Some people will get better after taking Paxlovid, but then have a return of symptoms. You need to stay in isolation for 5 days since the start of symptoms. You may come out of isolation after 5 days if your symptoms are improving. You must wear a mask for an additional 5 days once you come out of isolation. Follow-up with your primary care provider. Return for severe shortness of breath, chest pain, or any other new, concerning, or worsening symptoms. All discharge instructions reviewed with patient and/or family. Voiced understanding. CASSIE CROFT APRN Jan 31, 2023 15:35
[2023-01-31 15:50] LABS: BASOPHILS % (AUTO) 1 % (0-10); EOSINOPHILS % (AUTO) 1 % (0-10); HEMATOCRIT 37 % (35-52); HEMOGLOBIN 12.3 g/dL (11.5-16.0); LYMPHOCYTES # (AUTO) 0.4 10^3/uL (1.0-4.0); LYMPHOCYTES % (AUTO) 9 % (12-44); MEAN CORPUSCULAR HEMOGLOBIN 30 pg (25-34); MEAN CORPUSCULAR HGB CONC 33 g/dL (32-36); MEAN CORPUSCULAR VOLUME 91 fL (80-99); MEAN PLATELET VOLUME 10.3 fL (9.0-12.2); MONOCYTES # (AUTO) 0.6 10^3/uL (0.0-1.0); MONOCYTES % (AUTO) 14 % (0-12); NEUTROPHILS # (AUTO) 3.3 10^3/uL (1.8-7.8); NEUTROPHILS % (AUTO) 76 % (42-75); PLATELET COUNT 194 10^3/uL (130-400); WHITE BLOOD COUNT 4.3 10^3/uL (4.3-11.0)
[2023-01-31 16:12] LABS: ALBUMIN 4.2 GM/DL (3.2-4.5); POTASSIUM 4.5 MMOL/L (3.6-5.0)
[2023-01-31 16:13] LABS: CALCIUM 10.4 MG/DL (8.5-10.1)
[2023-01-31 16:14] LABS: TOTAL PROTEIN 6.7 GM/DL (6.4-8.2)
[2023-01-31 16:16] LABS: BILIRUBIN,TOTAL 0.3 MG/DL (0.1-1.0)
[2023-01-31 16:18] LABS: CREATININE SERUM 1.88 MG/DL (0.60-1.30)
[2023-01-31] MEDS ORDERED: NS IV 500 ML 500 ML IV ONE (16:30)
--- NOTE | 2023-01-31 16:58 | Diagnostic Imaging Report ---
INDICATION: Cough. TECHNIQUE: PA and lateral views of the chest are obtained. COMPARISON: 04/17/2014. FINDINGS: Heart size and pulmonary vascularity are within normal limits, and the lungs are clear, bilaterally. There are stable surgical findings in the mediastinum with placement of thoracic spinal stimulator device. IMPRESSION: Unremarkable chest. Dictated by: Dictated on workstation # [id number]
[2023-01-31] MEDS ORDERED: RX-NIRMATRELVIR/RITONAVIR (PAXLOVID) #30 TABS PO SCH (17:45)
[2023-01-31 18:05] VITALS: BP 159/64
== END 2023-01-31 18:49 | disposition home or self-care (01) ==
LOC: EDUNIT# 15:04 → ER 15:08
DX: U07.1 COVID-19 (principal); R05.9 Cough, unspecified; R94.4 Abnormal results of kidney function studies; R09.89 Other specified symptoms and signs involving the circulatory and respiratory systems; Z91.040 Latex allergy status
CPT/HCPCS: 36415; 71046; 80053; 85025; 87636

== ENCOUNTER 2023-03-08 17:45 | Emergency (ER) | payer MEDICARE, OTHER ==
[~2023-03-08] VITALS: Ht 165.1 cm; Wt 56.6 kg
--- NOTE | 2023-03-08 18:15 | ED Fall/Injury ---
General Chief Complaint: Trauma-Non Activation Stated Complaint: FALL Nursing Triage Note: PT BROUGHT IN BY [facility] FROM HOME WITH COMPLAINT OF FALL. PT STATES SHE TRIPPED OVER A RUG AND HIT HEAD AND PINKY ON METAL RACK IN BATHROOM. DENIES LOC. DEFORMITY OF LEFT FIFTH FINGER. Source: patient, family, EMS Exam Limitations: no limitations (AUR[place]A BEACH MD) History of Present Illness Date Seen by Provider: Mar 08, 2023 Time Seen by Provider: 17:48 Initial Comments Ms. Bello is a 83-year-old woman who presents to the emergency room via EMS after falling in her home. She reports tripping on a rug in her bathroom and striking her head on a metal rack. She reports this as a purely mechanical fall from tripping. She denies any prodrome such as lightheadedness, dizziness, shortness of breath, chest pain, weakness, etc. She presents with an obvious hematoma on the left frontal scalp as well as a disfigured left fifth finger which is presumed to be fractured and/or dislocated. She denies any loss of consciousness or other injuries. She has chronic pain in her hips and knees from arthritis which is unchanged from her baseline. She was able to get up and ambulate after the incident. She has history of heart disease for which she takes Plavix. Her primary care provider is Dr. Gonzalez. 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 Her preferred pharmacy is [facility]. She declines pain medication during assessment. (AUR[place]A BEACH MD) Allergies and Home Medications Allergies Coded Allergies: iodine (Unverified Allergy, Unknown, 01/16/14) latex (Unverified Allergy, Unknown, RASH, 01/16/14) Patient Home Medication List Home Medication List Reviewed: Yes ([place] BE[place] MD) Ascorbate Calcium (Vitamin C) 500 Mg Tablet, 500 MG PO DAILY, (Reported) Entered as Reported by: JHONATAN SOFIA on 07/27/22 1504 Atorvastatin Calcium (Atorvastatin Calcium) 40 Mg Tablet, 40 MG PO HS, (Reported) Entered as Reported by: YIN ECHEVERRIA on 12/16/17 1033 Clopidogrel Bisulfate (Clopidogrel) 75 Mg Tablet, 75 MG PO 1600, (Reported) Entered as Reported by: YIN ECHEVERRIA on 12/16/17 1033 Cod Liver Oil (Cod Liver Oil) 1 Each Capsule, 1 EACH PO DAILY, (Reported) Entered as Reported by: JHONATAN SOFIA on 07/27/22 1504 Duloxetine HCl (Duloxetine HCl) 30 Mg Capsule.dr, 30 MG PO DAILY, (Reported) Entered as Reported by: YIN ECHEVERRIA on 12/16/17 103 Duloxetine HCl (Duloxetine HCl) 60 Mg Capsule.dr, 60 MG PO DAILY, (Reported) Entered as Reported by: YIN ECHEVERRIA on 12/16/17 103 Ezetimibe (Ezetimibe) 10 Mg Tablet, 10 MG PO HS, (Reported) Entered as Reported by: YIN ECHEVERRIA on 12/16/17 104 Felodipine (Felodipine ER) 5 Mg Tab.er.24h, 5 MG PO 1200, (Reported) Entered as Reported by: YIN ECHEVERRIA on 12/16/17 103 Fenofibrate Nanocrystallized (Fenofibrate) 48 Mg Tablet, 48 MG PO HS, (Reported) Entered as Reported by: YIN ECHEVERRIA on 12/16/17 104 Flaxseed/Omega3,6,9/Fatty Acid (Flax Seed Oil 1,300 mg Softgel) 1,300-670MG Capsule, 1 EACH PO BID, (Reported) Entered as Reported by: JHONATAN SOFIA on 07/27/22 1504 Hydrocodone/Acetaminophen (Hydrocodone-Acetamin 5-325 mg) 5 Mg-325 Mg Tablet, 1 TAB PO Q6H PRN for PAIN-MODERATE (5-7) Prescribed by: BRII GARCIA on 03/08/231957 Isosorbide Mononitrate (Isosorbide Mononitrate ER) 30 Mg Tab.er.24h, 30 MG PO 1200, (Reported) Entered as Reported by: YIN ECHEVERRIA on 12/16/17 103 Linaclotide (Linzess) 290 Mcg Capsule, 290 MCG PO DAILY, (Reported) Entered as Reported by: YIN ECHEVERRIA on 12/16/17 104 Lisinopril (Lisinopril) 20 Mg Tablet, 20 MG PO 1600,2100, (Reported) Entered as Reported by: YIN ECHEVERRIA on 12/16/17 103 Metoprolol Succinate (Toprol Xl) 50 Mg Tab.er.24h, 50 MG PO 1200, (Reported) Entered as Reported by: YIN ECHEVERRIA on 12/16/17 1033 Multivit-Min/FA/Lycopene/Lut (Centrum Silver Tablet) 0.4 Mg-300 Mcg-250 Mcg Tablet, 1 EACH PO DAILY, (Reported) Entered as Reported by: JHONATAN SOFIA on 07/27/22 1504 Oxycodone HCl/Acetaminophen (Oxycodone-Acetaminophen 5-325) 5 Mg-325 Mg Tablet, 1 EA PO TID PRN for PAIN-MODERATE (5-7), (Reported) Entered as Reported by: JHONATAN SOFIA on 07/27/22 1504 Review of Systems Review of Systems Constitutional: no symptoms reported Eyes: No Symptoms Reported Ears, Nose, Mouth, Throat: no symptoms reported Respiratory: no symptoms reported Cardiovascular: see HPI Gastrointestinal: no symptoms reported Genitourinary: no symptoms reported : No Musculoskeletal: see HPI Skin: see HPI Psychiatric/Neurological: No Symptoms Reported ([place] BE[place] MD) Past Aqbsmlu-Ohydxi-Bbcjfq Hx Patient Social History Tobacco Use?: No Use of E-Cig and/or Vaping dev: No Substance use?: No Pt feels they are or have been: No ([place] BE[place] MD) Immunizations Up To Date Tetanus Booster (TDap): Unknown ([place]A BE[place] MD) Seasonal Allergies Seasonal Allergies: Yes ([place] BE[place] MD) Past Medical History Surgery/Hospitalization HX: BYPASS X2, BACK SURGERY, 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 SIMULATOR HTN, HLD Surgeries: Yes (LAPAROSCOPIC ADHESION REMOVAL, OPEN HERNIA SX, 2 BACK SURGERIES) CABG, Orthopedic (Back surgery with hardware after trauma) Respiratory: No Currently Using CPAP: No Currently Using BIPAP: No Cardiac: Yes (TRIPLE AND QUAD BYPASS) Coronary Artery Disease, High Cholesterol, Hypertension Neurological: Yes (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) Reproductive Disorders: Yes (endometriosis) Female Reproductive Disorders: Menstrual Problems, 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, Menopausal Sexually Transmitted Disease: No Genitourinary: Yes (uterine rupture) Bladder Infection Gastrointestinal: Yes (S/P BREANN, HERNIA REPAIRS) Abdominal Hernia, Colitis, Obstructive Bowel, Chronic Constipation, Diverticulosis, Gall Bladder Disease Musculoskeletal: Yes (osteoarthritis/osteoporosis;COMPRESSION FX'S;T11 BURST FX) Degenerate Disk Disease, Osteoporosis, Arthritis, Back Injury, Chronic Back Pain, Fractures Endocrine: No HEENT: Yes Cataract Cancer: No Psychosocial: Yes Anxiety, Depression Integumentary: No Blood Disorders: Yes (ANEMIA) ([place]A BEACH MD) Family Medical History Cancer of colon 19 FATHER, Onset:Unknown G8 BROTHER, Onset:Unknown (STOMACH CA) Family history: Arthritis 19 MOTHER, Onset:Unknown G8 SISTER, Onset:Unknown Family history: Cardiovascular disease G8 BROTHER, Onset:Unknown (BROTHER OF [place] AT AGE 46) SON, Onset:Unknown (SON OF [place] AT AGE 49) Family history: Diabetes mellitus G8 BROTHER, Onset:Unknown Family history: Gastrointestinal disease 19 FATHER, Onset:Unknown G8 BROTHER, Onset:Unknown Family history: Thyroid disorder G8 SISTER, Onset:Unknown Cancer, Diabetes ([place]A BEACH MD) Physical Exam Vital Signs Vital Signs - First Documented 03/08/23 17:48 Pulse 71 Resp 16 B/P (MAP) 191/94 (126) Pulse Ox 99 O2 Delivery Room Air (BRII GARCIA MD) Vital Signs Capillary Refill : Less Than 3 Seconds ([place] BE[place] MD) Height, Weight, BMI Height: 5'6.00" Weight: 117lbs. 5.0oz. 53.397515ej; 20.00 BMI Method:Stated General Appearance: WD/WN, no apparent distress HEENT: PERRL/EOMI, other (Ecchymosis and edema/hematoma of the left frontal scalp) Neck: non-tender, normal inspection, other (In c-collar applied by EMS) Cardiovascular: regular rate, rhythm, no edema, no murmur Respiratory: lungs clear, normal breath sounds, no respiratory distress Gastrointestinal: non tender, soft; No distended Extremities: no pedal edema, other (Generalized pain with range of motion and palpation of the lower extremities stated as unchanged from chronic. Disfigurement, ecchymosis, and swelling of the left fifth finger. 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 reduced. Foam finger splint applied post joint reduction film: joint reduced (BRII GARCIA MD) Progress/Results/Core Measures Results/Orders My Orders Orders - BRII GARCIA MD Hydrocodone/Apap 5/325 Tablet (Hydrocod (03/08/23 18:45) Acetaminophen Tablet (Acetaminophen Ta (03/08/23 18:45) Lidocaine 1% Inj 10 Ml (Xylocaine 1% Inj (03/08/23 18:45) Lidocaine 1% Inj 20 Ml (Xylocaine 1% Inj (03/08/23 18:52) Finger(S) (03/08/23 19:28) (BRII GARCIA MD) Medications Given in ED Current Medications Medications Dose Ordered Sig/Yonatan Route Start Time Stop Time Status Last Admin Dose Admin Acetaminophen 500 mg ONCE ONCE PO 03/08/23 18:45 03/08/23 18:46 DC 03/08/23 18:53 500 MG Acetaminophen/ Hydrocodone Bitart 1 ea ONCE ONCE PO 03/08/23 18:45 03/08/23 18:46 DC 03/08/23 18:54 1 EA Lidocaine HCl 20 ml STK-MED ONCE .ROUTE 03/08/23 18:52 03/08/23 18:53 DC 03/08/23 18:54 20 ML (BRII GARCIA MD) Vital Signs/I&O 03/08/23 03/08/23 17:48 20:17 Pulse 71 61 Resp 16 B/P (MAP) 191/94 (126) 182/79 Pulse Ox 99 98 O2 Delivery Room Air Room Air (BRII GARCIA MD) Blood Pressure Mean: 126 Progress Progress Note : Time: 18:14 Progress Note Patient has been interviewed and examined. Report was received from EMS. Patient declines any pain medication. C-collar applied by EMS remains in place. CT of the head and cervical spine as well as x-ray of the left hand are pending. Care is being transitioned to Dr. Garcia at this time at shift change. ([place] BE[place] MD) Progress Note : Time: 19:40 Progress Note Patient care assumed by me at shift change with CT head and neck pending as well as left hand x-ray. Patient examined by me, significant ecchymosis, contusion to the left upper forehead and scalp. She is alert, oriented without any focal neurologic deficits. She has ecchymosis and swelling to the left fifth finger over the MCP joint to the PIP joint. The left fifth finger is dislocated cl inically at the proximal interphalangeal joint. She has distal sensation. She is unable to flex and extend due to the dislocation however. Differential diagnosis includes traumatic intracranial hemorrhage, concussion, fracture in the left hand, metacarpal, phalanges with joint dislocation. X-rays independently reviewed and interpreted by me. The patient has a closed nondisplaced proximal phalanx fracture of the fifth finger on the left hand. This is associated with a dislocation at the PIP joint in the ulnar direction. Head CT per radiologist shows no acute findings in the head or cervical spine. Cervical collar was removed by me. Patient had no pain on range of motion. No decrease in strength or sensation. Digital block was performed to the left fifth finger. Approximately 3 and half mL of 1% plain lidocaine was used and I achieved adequate anesthesia. Traction countertraction was placed on the PIP joint with resolution of the dislocation. Post reduction xrays confirmed reduction. She was placed in a foam finger splint and the hand was wrapped. Patient was provided ice packs for both the left hand and forehead contusion. I discussed concussion symptoms with her daughter. Recommended close follow-up with her primary care physician as well as orthopedic referral for the fracture in the hand. Pain medications prescribed, hydrocodone. Return precautions given in both verbal and written format. Patient is improved at discharge. (BRII GARCIA MD) Diagnostic Imaging Diagonstic Imaging: Xray Comments [facility], [place] NAME: BELLOJASON [facility] REC#: [id number] PT STATUS: REG ER : 1940 PHYSICIAN: [place]A BEACH MD ADMIT DATE: 03/08/23/ER Signed Date of Exam:03/08/23 HAND, LEFT, 3 VIEWS Indication: Left hand pain. Time of Exam: 6:40 PM 3 views of the left hand were obtained. There is an acute fracture at the base of the proximal phalanx of the 5th finger, nondisplaced. In addition, there is a dislocation at the level of the PIP joint of the 5th finger. Dislocation appears to be dorsally and ulnarly. Remaining phalanges are intact. Metacarpals are intact. There are severe degenerative changes at the triscaphe and 1st CMC joints. There appears to be some chondrocalcinosis of the triangle fibrocartilage complex. IMPRESSION: Fracture at the base of the proximal phalanx 5th finger with a PIP joint dislocation of the 5th finger, as described. Dictated by: Dictated on workstation # [id number] Dict: 03/08/231843 Trans: 03/08/231952 [facility] [id number] Interpreted by: LINCOLN AGUILAR MD Electronically signed by: LINCOLN AGUILAR MD 03/08/231952 Diagonstic Imaging: CT Comments [facility], [place] NAME: JASON BELLO [facility] REC#: [id number] PT STATUS: REG ER : 1940 PHYSICIAN: [place] BEACH MD ADMIT DATE: 03/08/23/ER Signed Date of Exam:03/08/23 CT HEAD/CERVICAL SPINE WO PROCEDURE: CT head and CT cervical spine without contrast. TECHNIQUE: Multiple contiguous axial images were obtained through the brain and cervical spine without the use of intravenous contrast. Sagittal and coronal reformations through the cervical spine were then performed. Auto Exposure Controls were utilized during the CT exam to meet ALARA standards for radiation dose reduction. INDICATION: Fall with head and neck injury and head and neck pain. Patient has hematoma in the left frontal region. Comparison is made with prior CT from 12/09/2020. CT HEAD: There is a soft tissue hematoma in the left frontal scalp. Ventricles and sulci are within normal limits. No sulcal effacement or midline shift is identified. No acute intra-axial or extra-axial hemorrhage is detected. Cisterns are patent. Visualized paranasal sinuses are clear. No calvarial fracture is identified. IMPRESSION: Large left frontal scalp hematoma. No acute intracranial process is detected. CT CERVICAL SPINE: There is minimal anterolisthesis of C4 on C5. There is degenerative disc disease C5-C6 and C6-C7 levels with significant disc space narrowing and marginal spurring. There is multilevel facet arthropathy. No fractures are identified. Prevertebral tissues are within normal limits. Odontoid is intact. IMPRESSION: Cervical spondylosis. No acute bony abnormality is detected. Dictated by: Dictated on workstation # [id number] Dict: 03/08/231832 Trans: 03/08/231952 [facility] [id number] Interpreted by: LINCOLN AGUILAR MD Electronically signed by: LINCOLN AGUILAR MD 03/08/231952 Diagonstic Imaging: Xray Comments [facility] [place] NAME: JASON BELLO [facility] REC#: [id number] PT STATUS: REG ER : 1940 PHYSICIAN: BRII GARCIA MD ADMIT DATE: 03/08/23/ER Signed Date of Exam:03/08/23 FINGER(S) Indication: Left finger dislocation, status post reduction. Time of Exam: 7:24 PM 3 views of the left 5th finger demonstrate interval reduction of the PIP joint dislocation. Overall alignment is now anatomic. There are degenerative changes at the PIP and DIP joints. The fracture at the base of the proximal phalanx is again noted. Impression: Interval reduction of the 5th finger PIP joint dislocation. Overall alignment is now anatomic. Dictated by: Dictated on workstation # [id number] Dict: 03/08/231938 Trans: 03/08/231952 [facility] [id number] Interpreted by: LINCOLN AGUILAR MD Electronically signed by: LINCOLN AGUILAR MD 03/08/231952 (BRII GARCIA MD) Departure Impression Primary Impression: Closed traumatic dislocation of proximal interphalangeal (PIP) joint of left little finger Additional Impressions: Closed fracture of phalanx of finger of left hand Qualified Codes: S62.647A - Nondisplaced fracture of proximal phalanx of left little finger, initial encounter for closed fracture Traumatic injury of head with hematoma of scalp Disposition: 01 HOME, SELF-CARE Condition: Improved Departure-Patient Inst. Decision time for Depature: 19:54 (BRII GARCIA MD) Referrals: STEPHANIE GONZALEZ DO (PCP/Family) Primary Care Physician OSCAR LEBLANC MD Patient Instructions: Finger dislocation, Finger Dislocation Add. Discharge Instructions: Use an ice pack to the bruising and swelling on her head and to the left hand 20 minutes at a time every 1-2 hours for the next couple of days, while awake. Gdgr-jgq-sdstjix extra strength Tylenol 2 tablets every 6 hours as needed for pain. I have also prescribed you some hydrocodone. You can take 1/2 tablet with 1 extra strength Tylenol (alternating with the plain tylenol) every 6 hours. Please keep the finger splint in place until you follow-up with Dr. Leblanc, orthopedic doctor. This will keep the joint stable and help with healing. Please call Dr. Leblanc's office in the morning for a follow-up appointment. You also should follow-up with Dr. Gonzalez later this week or early next week. Return to the emergency department for any new, concerning or emergent complaints. Scripts Hydrocodone/Acetaminophen (Hydrocodone-Acetamin 5-325 mg) 5 Mg-325 Mg Tablet 1 TAB PO Q6H PRN for PAIN-MODERATE (5-7), #10 TAB 1/2 to 1 tablet every 6 hours for pain Prov: BRII GARCIA MD 03/08/23 Copy Copies To 1: STEPHANIE GONZALEZ JOSHUA T MD Mar 08, 2023 18:15 BRII GARCIA MD Mar 08, 2023 19:25
--- NOTE | 2023-03-08 18:42 | Diagnostic Imaging Report ---
PROCEDURE: CT head and CT cervical spine without contrast. TECHNIQUE: Multiple contiguous axial images were obtained through the brain and cervical spine without the use of intravenous contrast. Sagittal and coronal reformations through the cervical spine were then performed. Auto Exposure Controls were utilized during the CT exam to meet ALARA standards for radiation dose reduction. INDICATION: Fall with head and neck injury and head and neck pain. Patient has hematoma in the left frontal region. Comparison is made with prior CT from 12/09/2020. CT HEAD: There is a soft tissue hematoma in the left frontal scalp. Ventricles and sulci are within normal limits. No sulcal effacement or midline shift is identified. No acute intra-axial or extra-axial hemorrhage is detected. Cisterns are patent. Visualized paranasal sinuses are clear. No calvarial fracture is identified. IMPRESSION: Large left frontal scalp hematoma. No acute intracranial process is detected. CT CERVICAL SPINE: There is minimal anterolisthesis of C4 on C5. There is degenerative disc disease C5-C6 and C6-C7 levels with significant disc space narrowing and marginal spurring. There is multilevel facet arthropathy. No fractures are identified. Prevertebral tissues are within normal limits. Odontoid is intact. IMPRESSION: Cervical spondylosis. No acute bony abnormality is detected. Dictated by: Dictated on workstation # [id number]
[2023-03-08] MEDS ORDERED: ACETAMINOPHEN 500 MG TABLET PO ONE (18:45)
[2023-03-08] MEDS ORDERED: LIDOCAINE 1% INJ 10 ML VIAL INJ ONE (18:45)
[2023-03-08] MEDS ORDERED: HYDROcodone/ACETAMINOPHEN 5 MG/325 MG TABLET PO ONE (18:45)
--- NOTE | 2023-03-08 18:48 | Diagnostic Imaging Report ---
Indication: Left hand pain. Time of Exam: 6:40 PM 3 views of the left hand were obtained. There is an acute fracture at the base of the proximal phalanx of the 5th finger, nondisplaced. In addition, there is a dislocation at the level of the PIP joint of the 5th finger. Dislocation appears to be dorsally and ulnarly. Remaining phalanges are intact. Metacarpals are intact. There are severe degenerative changes at the triscaphe and 1st CMC joints. There appears to be some chondrocalcinosis of the triangle fibrocartilage complex. IMPRESSION: Fracture at the base of the proximal phalanx 5th finger with a PIP joint dislocation of the 5th finger, as described. Dictated by: Dictated on workstation # [id number]
[2023-03-08] MEDS ORDERED: LIDOCAINE 1% INJ 20 ML VIAL ONE (18:52)
--- NOTE | 2023-03-08 19:45 | Diagnostic Imaging Report ---
Indication: Left finger dislocation, status post reduction. Time of Exam: 7:24 PM 3 views of the left 5th finger demonstrate interval reduction of the PIP joint dislocation. Overall alignment is now anatomic. There are degenerative changes at the PIP and DIP joints. The fracture at the base of the proximal phalanx is again noted. Impression: Interval reduction of the 5th finger PIP joint dislocation. Overall alignment is now anatomic. Dictated by: Dictated on workstation # [id number]
[2023-03-08] MEDS ORDERED: ACHD5005 PO (19:57)
[2023-03-08 20:17] VITALS: BP 182/79
== END 2023-03-08 20:07 | disposition home or self-care (01) ==
LOC: EDUNIT# 17:45 → ER 17:46
DX: S62.617A Displaced fracture of proximal phalanx of left little finger, initial encounter for closed fracture (principal); S00.03XA Contusion of scalp, initial encounter; Z91.040 Latex allergy status; W18.09XA Striking against other object with subsequent fall, initial encounter; Y92.002 Bathroom of unspecified non-institutional (private) residence as the place of occurrence of the external cause
CPT/HCPCS: 70450; 72125; 73130; 73140